=== PATIENT | female | born 1970 | race Caucasian/White ===

== ENCOUNTER → 2017-08-19 09:23 | Outpatient (CLI) | payer BC, MEDICAID, SELFPAY | PROVIDERS: Family Provider Family Medicine; PCP Family Medicine; Visit Provider Otolaryngology Otolaryngology/Facial Plastic Surgery | DX: J32.9 Chronic sinusitis, unspecified (principal) | CPT/HCPCS: 87070; 87205 ==

== ENCOUNTER 2017-08-23 21:42 | Emergency (ER) | payer BC, MEDICAID, SELFPAY ==
[2017-08-23 21:43] VITALS: BP 127/76; PULSE 103; RESP 20; TEMP 36.8; O2SAT 100; BMI 23.3
--- NOTE | 2017-08-23 22:12 | EKG12_ITS ---
Test Reason : SOB Blood Pressure : / mmHG Vent. Rate : 089 BPM Atrial Rate : 089 BPM P-R Int : 200 ms QRS Dur : 092 ms QT Int : 336 ms P-R-T Axes : 070 062 056 degrees QTc Int : 408 ms Normal sinus rhythm Normal ECG Confirmed by NICOLASA MCCALL, SOPHIE ([id number]), photo editor MARIO BARKLEY ([id number]) on 08/25/2017 8:31:27 AM Referred By: Eric Khan Confirmed By:SOPHIE BALDWIN MD
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
[2017-08-23 22:25] VITALS: O2SAT 97
[2017-08-23] MEDS: Ketorolac 30 MG/ML Syringe IV (22:33)
[2017-08-23] MEDS: diazePAM 5 MG Tablet PO (22:33)
[2017-08-23 23:16] LABS: Anion Gap 8 (5-15); BUN 9 mg/dL (7-18); BUN/Creat Ratio 10.7 RATIO (10-20); Calcium,Total 9.3 mg/dL (8.5-10.1); Chloride 107 mmol/L (98-107); Creatinine, Serum 0.84 mg/dL (0.55-1.02); EST Glomerular Filtration Rate 78 mL/min (>60); Est Glom Filt Rate - Afr Amer 94 mL/min (>60); Estimated Creatinine Clearance 82.25 ml/min; Glucose 87 mg/dL (74-106); Potassium 3.7 mmol/L (3.5-5.1); Sodium Level 142 mmol/L (136-145)
[2017-08-23 23:22] LABS: Pregnancy, Serum, hCG Quali. NEGATIVE Negative (0-9 Nonpreg)
[2017-08-23 23:31] LABS: Absolute Lymphocyte Count 2.13 X10^3/ul (0.83-4.51); Basophil# 0.04 X10^3/uL; Basophil% 0.5 % (0-1); Eosinophil# 0.24 X10^3/uL; Hematocrit 34.8 % (37-47); Hemoglobin 11.8 g/dl (12.0-15.0); Lymphocyte # 2.13 X10^3/ul (4.0); Lymphocyte % 26.6 % (19-41); Mean Corp Hgb Conc 33.9 g/gl (32-36); Mean Corpuscular Volume 91.3 fL (81-99); Mean Platelet Vol. 9.9 fl (6.2-12.0); Monocyte# 0.65 X10^3/uL; Monocyte% 8.1 % (0-10); Neutrophil # 4.95 X10^3/uL (2.7-7.7); Neutrophil % 61.7 % (47-70); Platelet Count 245 K/mm3 (150-450); RBC Distribution Width CV 12.5 % (11.6-14.6); RBC Distribution Width SD 40.7 fl (35.1-43.9); Red Blood Count 3.81 M/mm3 (4.2-5.4)
[2017-08-23 23:34] LABS: POSITIVE COUNT NO; POSITIVE DIFFERENTIAL NO; POSITIVE MORPHOLOGY NO
[2017-08-23 23:37] LABS: D-Dimer Quantitative (DVT/PE) < 0.27 FEU/ug/m (0.27-0.49)
--- NOTE | 2017-08-23 23:44 | RAD_ITS ---
STUDY: X-RAY CHEST REASON FOR EXAM: Female, 46 years old. Shortness of breath for 3 days. The shoulder and upper back pain. TECHNIQUE: PA and lateral views of the chest. COMPARISON: 10/20/2015. FINDINGS: The lungs are clear and expanded. There is no demonstrated pleural abnormality. Normal size heart. Normal mediastinum and richard. Normal visualized pulmonary arteries. Normal visualized aortic arch and descending thoracic aorta. Normal visualized thoracic spine. Normal visualized ribs, clavicles, and shoulders. There is no demonstrated abnormality of the visualized soft tissue structures of the upper abdomen. RAD/Chest PA and Lateral IMPRESSION: No active pulmonary disease. Electronically Signed: Abdirizak Deal MD at 0:35 EDT Tel , Service support ,
[2017-08-24 00:10] VITALS: PULSE 92; RESP 20; O2SAT 98
[2017-08-24 00:33] VITALS: BP 118/64; PULSE 85; RESP 16; O2SAT 100
== END 2017-08-24 00:35 | disposition home or self-care (01) ==
PROVIDERS: Emergency Provider Emergency Medicine; Family Provider Family Medicine; PCP Family Medicine
DX: M62.830 Muscle spasm of back (principal); M54.9 Dorsalgia, unspecified; G89.29 Other chronic pain; R20.2 Paresthesia of skin; Z79.899 Other long term (current) drug therapy; Z87.11 Personal history of peptic ulcer disease
CPT/HCPCS: 36415; 71046; 80048; 84703; 85025; 85379; 93005; 96374; 99284; A4216

== ENCOUNTER → 2017-09-22 13:48 | Outpatient (CLI) | payer BC, MEDICAID, SELFPAY ==
--- NOTE | 2017-09-22 13:50 | CT_ITS ---
STUDY: CT MAXILLOFACIAL SINUSES REASON FOR EXAM: Female, 46 years old. Sinusitis. RADIATION DOSAGE (If Supplied By Facility): CTDIvol = ( 33.06 ) mGy, DLP = ( 825.58 ) mGycm TECHNIQUE: The patient was scanned in a multi detector CT scanner. High resolution axial imaging was performed without the administration of intravenous contrast material. Sagittal and coronal images were reconstructed. Individualized dose optimization techniques were used for this CT. COMPARISON: None. FINDINGS: FRONTAL SINUSES: Normal aeration, without mucosal inflammatory disease. ETHMOIDAL SINUSES: There is minimal mucoperiosteal reaction in the anterior ethmoid air cells. MAXILLARY SINUSES: There is minimal mucoperiosteal reaction with air-fluid levels at the base of the maxillary sinuses. SPHENOIDAL SINUSES: Normal aeration, without mucosal inflammatory disease. There is patency of the bilateral maxillary infundibuli with normal uncinate processes, ethmoid bullae, and hiatus semilunaris. Normal bilateral middle turbinates. Normal bilateral inferior turbinates. There is a left sided nasal septal deviation with a left sided nasal septal spur. There is patency of the bilateral nasal airways. The visualized osseous structures are normal. The visualized bilateral orbital contents are normal. CT/Sinus/Facial Bone IMPRESSION: 1. Minimal ethmoid and maxillary sinus disease. 2. Nasal septal deviation to the left. Electronically Signed: Escobar Barr DO at 16:18 EDT Tel [phone], Service support ,
== END ==
PROVIDERS: Family Provider Family Medicine; PCP Family Medicine; Visit Provider Otolaryngology Otolaryngology/Facial Plastic Surgery
DX: J32.9 Chronic sinusitis, unspecified (principal)
CPT/HCPCS: 70486

== ENCOUNTER 2017-10-28 09:55 | Emergency (ER) | payer BC, MEDICAID, SELFPAY ==
[2017-10-28 09:56] VITALS: BP 106/69; PULSE 81; RESP 22; TEMP 36.6; O2SAT 98; BMI 22.7
--- NOTE | 2017-10-28 09:59 | ED.RN ---
PT SEEN AT [facility] LAST NIGHT FOR THIS. HAD CT ECT. LEFT THERE AT 0100.
--- NOTE | 2017-10-28 10:36 | ED.VISSUMM ---
- ER Visit Summary Date of Service: 10/28/17 Chief Complaint: Postoperative pain History of Present Illness: The patient is a 46 F presenting with facial/sinus pain after a balloon sinus surgery. She was doing well on steroids postoperatively but states that she stopped the steroids 2 days ago in the pain has increased since then. She denies visual changes, neck pain, or fever. She went to [facility] last night and had a CT of her sinuses that revealed inflammation and possible sinusitis but otherwise negative. She talked with her surgeon this morning and states that she was going to be restarted on steroids. Physical Examination: Vitals are within normal limits. She is not in distress. Minimal tenderness over the left maxillary sinuses but no objective facial swelling. No facial crepitus or erythema/warmth. Neck is supple. No lymphadenopathy. No meningeal findings. Lungs are clear bilaterally. Heart tones are regular without murmur. No evidence of DVT. Test Results: None performed Emergency Department Course and Treatment: I reviewed her CT report from the outside hospital. I discussed the case with her surgeon, Dr. Watson, since she already had a CT scan last night, we did not feel she would benefit from repeating it this early. She would like to be started back on steroids. Dr. Watson recommended a Medrol Dosepak and that she follow-up with him this week. Is also prescribed pain medication and antibiotics at the outside hospital which she is going to start as soon as she leaves here. Treatment Plan: Steroids, antibiotics Disposition: Home stable condition Impression: Initial encounter postoperative pain This note was generated with [employer] dictation software. It may contain incorrect words, spelling, and punctuation that were not noted in review of the chart prior to signing ED Disposition - Plan for ED Patient: Chief Complaint: General Illness Instructions: ED Post Op Pain Prescriptions: MethylPREDNISolone DosePak [Medrol DosePak] 4 mg PO UD #1 box Referrals: Valentin Ayala MD [STAFF PHYSICIAN] - 2 Days
== END 2017-10-28 10:52 | disposition home or self-care (01) ==
LOC: ED 10:22
PROVIDERS: Emergency Provider Emergency Medicine; Family Provider Family Medicine; PCP Family Medicine
DX: G89.18 Other acute postprocedural pain (principal); R51 Headache; Z79.899 Other long term (current) drug therapy; Z98.890 Other specified postprocedural states
CPT/HCPCS: 99282

== ENCOUNTER 2018-01-16 17:19 | Emergency (ER) | payer BC, MEDICAID, SELFPAY ==
[2018-01-16 17:20] VITALS: BP 145/71; PULSE 89; RESP 17; TEMP 36.7; O2SAT 96; BMI 24.3
[2018-01-16] MEDS: 0.9% Normal Saline 1,000 ML 150 ML IV (19:37)
[2018-01-16] MEDS: MethylPREDNISolone 125 MG/2 ML Vial IV (19:37)
[2018-01-16] MEDS: DiphenhydrAMINE 50 MG/ML Syringe 25 MG IV (19:37)
[2018-01-16 19:39] VITALS: BP 112/61; PULSE 74; RESP 15; O2SAT 100
[2018-01-16 19:48] LABS: Absolute Neutrophil Count 7.3 X10^3/uL (2.0-7.7); Basophil# 0.03 X10^3/uL; Basophil% 0.3 % (0-1); Eosinophil# 0.18 X10^3/uL; Eosinophils% 1.8 % (0-5); Hematocrit 37.6 % (37-47); Hemoglobin 11.8 g/dl (12.0-15.0); Lymphocyte % 17.2 % (19-41); Mean Corp Hgb Conc 31.4 g/gl (32-36); Mean Corpuscular Volume 92.4 fL (81-99); Mean Platelet Vol. 10.8 fl (6.2-12.0); Monocyte# 0.61 X10^3/uL; Monocyte% 6.2 % (0-10); Neutrophil # 7.33 X10^3/uL (2.7-7.7); Neutrophil % 74.3 % (47-70); Platelet Count 256 K/mm3 (150-450); RBC Distribution Width CV 13.1 % (11.6-14.6); RBC Distribution Width SD 43.8 fl (35.1-43.9); Red Blood Count 4.07 M/mm3 (4.2-5.4); White Blood Count 9.9 K/mm3 (4.4-11.0)
[2018-01-16 19:50] LABS: POSITIVE COUNT NO; POSITIVE DIFFERENTIAL NO; POSITIVE MORPHOLOGY NO
[2018-01-16 20:04] LABS: Anion Gap 6 (5-15); BUN 11 mg/dL (7-18); BUN/Creat Ratio 16.7 RATIO (10-20); Calcium,Total 8.7 mg/dL (8.5-10.1); Chloride 109 mmol/L (98-107); Creatinine, Serum 0.66 mg/dL (0.55-1.02); EST Glomerular Filtration Rate 102 mL/min (>60); Est Glom Filt Rate - Afr Amer 124 mL/min (>60); Estimated Creatinine Clearance 103.57 ml/min; Glucose 80 mg/dL (74-106); Sodium Level 141 mmol/L (136-145)
--- NOTE | 2018-01-16 21:05 | ED.VISSUMM ---
- ER Visit Summary Date of Service: 01/16/18 Chief Complaint: Swelling to neck and face History of Present Illness: The patient is a 47 F who reports frequent episodes of muscle stiffness and swelling to her body. She had multiple workups, medications, and allergy testing without a specific cause. Patient reports increased swelling to her hands and face over the past couple of days. Tonight her lips felt more swollen this is what prompted her evaluation. She denies tongue thickness or difficulty swallowing. She did start doxycycline for an ear infection a couple days ago, but states she has had this in the past. She is exposed to mold in her home as well as to multiple chemical agents at her work. Physical Examination: Vital signs are unremarkable. Patient sitting upright in bed no acute distress. Head neck examination is remarkable only for mild facial edema. I do not appreciate any tongue edema or significant lip edema. She does have slightly hazy fluid to the bilateral TMs. Heart is regular rate and rhythm. Lung sounds are clear. Abdomen is soft and nontender. Extremity examination reveals mild edema to her hands and her rings do stick when she tries to remove them. Test Results: CBC and chemistry studies are grossly unremarkable. Emergency Department Course and Treatment: Patient was given Solu-Medrol, Pepcid, Benadryl, and IV fluids. She was observed on quality assurance monitor chassis. Symptoms are improving and she denies any shortness of breath or difficulty swallowing. Vital signs remained stable. She will be given a prednisone taper for home. Treatment Plan: [] Disposition: Discharge Impression: Allergic reaction This note was generated with [employer] dictation software. It may contain incorrect words, spelling, and punctuation that were not noted in review of the chart prior to signing ED Disposition - Plan for ED Patient: Disposition: Home or Assisted Living Chief Complaint: Edema Instructions: ED Allergic Reaction General Other Prescriptions: Prednisone 10 mg PO DAILY #63 tablet Referrals: Adryan Tompkins MD [Primary Care Provider] -
[2018-01-16 21:12] VITALS: BP 115/63; PULSE 73; RESP 16; O2SAT 98
== END 2018-01-16 21:13 | disposition home or self-care (01) ==
PROVIDERS: Emergency Provider Emergency Medicine; Family Provider Family Medicine; PCP Family Medicine
DX: T78.40XA Allergy, unspecified, initial encounter (principal); R22.0 Localized swelling, mass and lump, head; X58.XXXA Exposure to other specified factors, initial encounter; M79.10 Myalgia, unspecified site; Z72.0 Tobacco use; Z79.899 Other long term (current) drug therapy; Z87.442 Personal history of urinary calculi
CPT/HCPCS: 80048; 85025; 96361; 96374; 96375; 99284; J7030; A4216; J3490

== ENCOUNTER 2018-02-04 03:10 | Emergency (ER) | payer BC, MEDICAID, SELFPAY ==
[2018-02-04 03:12] VITALS: BP 119/75; PULSE 78; RESP 16; TEMP 36.8; O2SAT 98; BMI 24.8
[2018-02-04 03:22] LABS: Mucous, Urine 0 SEEN /hpf (<or=2+); Red Blood Cells-Urine 0 SEEN /hpf (0-5)
[2018-02-04 03:24] LABS: Color, Urine Yellow (Yellow); Glucose, Dipstick Normal (Normal); Ketone-Dipstick Negative (Negative); Leukocyte Esterase-Dipstick 25 /ul (Negative); Nitrite-Dipstick Negative (Negative); Occult Blood-Urine 10 /ul (Negative); Protein-Dipstick Negative (Negative); Specific Gravity, Urine 1.015 (1.002-1.030); Urine Bilirubin Dipstick Negative (Negative); Urine Clarity Cloudy (Clear); Urine Urobilinogen Normal (Normal)
--- NOTE | 2018-02-04 03:31 | ED.DCSUM_ITS ---
- ER Visit Summary Date of Service: 02/04/18 Chief Complaint: Dysuria History of Present Illness: The patient is a 47 F presenting with dysuria. She states this has been ongoing for the past 4-5 days. She has urinary frequency, urgency, dysuria. She denies hematuria. She has had subjective fever. She has nausea with no vomiting. She has mild bilateral flank pain. She has a history of previous UTIs which feel similar. Denies other complaints. Physical Examination: Vitals are stable. Patient is afebrile. Alert no acute distress. HEENT exam is unremarkable. Neck is supple. Lungs are clear and equal bilaterally. Heart is regular rate and rhythm. Abdomen is soft mild suprapubic tenderness with no rebound or guarding Back: Mild CVA tenderness bilaterally Extremities are unremarkable. Skin is warm and dry. Remainder of exam is unremarkable. Emergency Department Course and Treatment: UA shows 0-5 white blood cells, 2+ bacteria, trace leukocytes. Urine culture was sent. Due to her symptoms, she is given prescription for Macrobid and Pyridium. Advised follow-up with her primary care physician. Advised return to ED for worsening complaints. Disposition: Discharge home Impression: UTI This note was generated with [employer] dictation software. It may contain incorrect words, spelling, and punctuation that were not noted in review of the chart prior to signing ED Disposition - Plan for ED Patient: Chief Complaint: Complaint Instructions: ED UTI Cystitis Female Prescriptions: Nitrofurantoin Macrocrystals [Macrobid] 100 mg PO Q12 #10 capsule Phenazopyridine [Pyridium] 100 mg PO TID PRN #20 tablet PRN Reason: Bladder Spasms Referrals: Adryan Tompkins MD [Primary Care Provider] -
[2018-02-04 03:35] LABS: Amorphous Sediment 1+; Bacteria 2+ /hpf (None Seen); Squamous Epithelial Cells - UA 0-5 SEEN /hpf (5-10); White Blood Cells 0-5 SEEN /hpf (0-5)
--- NOTE | 2018-02-04 03:48 | ED.DEP ---
ED Disposition - Plan for ED Patient: Chief Complaint: Complaint Instructions: ED UTI Cystitis Female Prescriptions: Nitrofurantoin Macrocrystals [Macrobid] 100 mg PO Q12 #10 capsule Phenazopyridine [Pyridium] 100 mg PO TID PRN #20 tablet PRN Reason: Bladder Spasms Referrals: Adryan Tompkins MD [Primary Care Provider] -
[2018-02-04] MEDS: Nitrofurantoin Macrocrystals 100 MG Capsule PO (04:11)
[2018-02-04] MEDS: Phenazopyridine 95 MG Tablet 190 MG PO (04:11)
[2018-02-04 04:12] VITALS: BP 110/74; PULSE 96; RESP 16; O2SAT 97
== END 2018-02-04 04:13 | disposition home or self-care (01) ==
PROVIDERS: Emergency Provider Emergency Medicine; Family Provider Family Medicine; PCP Family Medicine
DX: N39.0 Urinary tract infection, site not specified (principal); Z72.0 Tobacco use; Z87.440 Personal history of urinary (tract) infections
CPT/HCPCS: 81001; 87086; 99283

== ENCOUNTER 2018-05-05 22:19 | Emergency (ER) | payer OTHER, SELFPAY ==
[2018-05-05 22:20] VITALS: BP 131/68; PULSE 95; RESP 16; TEMP 36.2; O2SAT 99; BMI 22.7
--- NOTE | 2018-05-05 22:44 | RAD_ITS ---
STUDY: X-RAY - RIGHT FOOT CLINICAL: Female, 47 years old. Status post fall. Pain. TECHNIQUE: 3 view(s) of the foot. COMPARISON: None. FINDINGS: Normal talus, calcaneus, and tarsal bones. Normal visualized subtalar, talonavicular, calcaneocuboid, tarsal and tarsometatarsal articulations. Normal metatarsi. There is degenerative arthrosis of the metatarsophalangeal joint of the hallux with a mild hallux valgus deformity. Normal tibial and fibular sesamoid bones. Normal interphalangeal joint of the great toe. Normal phalanges of the great toe. Normal second through fifth metatarsophalangeal joints. Normal interphalangeal joints and phalanges of the lesser toes. The soft tissue structures are unremarkable. RAD/Foot min 3 Views IMPRESSION: No demonstrated acute osseous injury. Electronically Signed: Abdirizak Deal MD at 23:57 EST Tel , Service support ,
--- NOTE | 2018-05-05 22:44 | RAD_ITS ---
STUDY: X-RAY - RIGHT KNEE REASON FOR EXAM: Female, 47 years old. Status post fall. Right knee pain. TECHNIQUE: 4 view(s) of the knee. COMPARISON: None. FINDINGS: Normal visualized distal femur. Normal visualized proximal tibia and fibula. Normal proximal tibiofibular articulation. There is no demonstrated fracture. Normal medial femorotibial compartment. Normal lateral femorotibial compartment. Normal patellofemoral articulation. There is no demonstrated joint effusion. The soft tissue structures are unremarkable. RAD/Knee 4 or More Views IMPRESSION: Normal x-ray examination of the knee. Electronically Signed: Abdirizak Deal MD at 0:01 EST Tel , Service support ,
--- NOTE | 2018-05-06 00:08 | ED.VISSUMM ---
- ER Visit Summary Date of Service: 05/06/18 Chief Complaint: Fall History of Present Illness: The patient is a 47 F who presents with right foot knee and hamstring pain. Initially about 2 AM this morning while at work she slipped on a wet floor and rolled her ankle. She was wearing an ankle brace. Today she slipped again from an off a bucket. She fell. Since that time she has had increased right knee pain and pain in the back of her thigh. She is able to ambulate but it is painful. Physical Examination: Afebrile vitals normal Heart regular rate and rhythm Lungs clear Patient has active full range of motion of the right lower extremity she has diffuse tenderness across the knee and posterior distal thigh there is no appreciable knee effusion no deformity she has no pain at the ankle she does have tenderness soft tissue swelling and some bruising along the lateral right foot she has an easily palpable dorsalis pedis pulse with brisk capillary refill and normal sensation Test Results: Right knee x-ray is normal, right foot x-ray no acute osseous injury Emergency Department Course and Treatment: X-rays are negative. Patient given Damir wraps and crutches. She is advised on supportive care including rest ice elevation. She will follow-up as an outpatient. She understands to return for new or worsening symptoms. She was discharged. Treatment Plan: [] Disposition: Discharge Impression: Right foot contusion Right knee sprain Right hamstring strain This note was generated with [employer] dictation software. It may contain incorrect words, spelling, and punctuation that were not noted in review of the chart prior to signing ED Disposition - Plan for ED Patient: Referrals: Adryan Tompkins MD [Primary Care Provider] -
[2018-05-06 00:10] VITALS: PULSE 72; RESP 15; O2SAT 97
--- NOTE | 2018-05-06 00:13 | DCINST.ED_ITS ---
ED Disposition - Plan for ED Patient: Instructions: ED Sprain Knee, ED Contusion Lower Ext, ED Strain Muscle Ext Referrals: Adryan Tompkins MD [Primary Care Provider] - [facility] [GROUP OF PHYSICIANS] -
[2018-05-06] MEDS: Naproxen 250 MG Tablet 500 MG PO (00:42)
== END 2018-05-06 01:04 | disposition home or self-care (01) ==
PROVIDERS: Emergency Provider Emergency Medicine; Family Provider Family Medicine; PCP Family Medicine
DX: S83.91XA Sprain of unspecified site of right knee, initial encounter (principal); S76.311A Strain of muscle, fascia and tendon of the posterior muscle group at thigh level, right thigh, initial encounter; S90.31XA Contusion of right foot, initial encounter; W01.0XXA Fall on same level from slipping, tripping and stumbling without subsequent striking against object, initial encounter; Y93.9 Activity, unspecified; Y92.89 Other specified places as the place of occurrence of the external cause; Y99.0 Civilian activity done for income or pay; Z72.0 Tobacco use; Z86.2 Personal history of diseases of the blood and blood-forming organs and certain disorders involving the immune mechanism
CPT/HCPCS: 73564; 73630; 99284

== ENCOUNTER 2018-05-14 17:36 | Emergency (ER) | payer BC, MEDICAID, SELFPAY ==
[2018-05-14 16:59] VITALS: BMI 22.7
[2018-05-14 17:37] VITALS: PULSE 97; RESP 16; TEMP 36.9; O2SAT 99; BMI 22.7
--- NOTE | 2018-05-14 18:20 | EKG12_ITS ---
Test Reason : PALPS Blood Pressure : / mmHG Vent. Rate : 089 BPM Atrial Rate : 091 BPM P-R Int : 182 ms QRS Dur : 090 ms QT Int : 332 ms P-R-T Axes : 063 061 064 degrees QTc Int : 403 ms Normal sinus rhythm Normal ECG Confirmed by NICLOASA MCCALL, SOPHIE ([id number]), rewrite editor TOI PRATT ([id number]) on 05/15/2018 2:24:50 PM Referred By: ELVIA/NATHAN Confirmed By:SOPHIE BALDWIN MD
--- NOTE | 2018-05-14 18:24 | ED.DCSUM_ITS ---
- ER Visit Summary Date of Service: 05/14/18 Chief Complaint: Palpitations History of Present Illness: The patient is a 47 F presenting for palpitations. Patient states she went to her primary care physician's office today for follow- up after a fall. She injured her right knee. She is being scheduled for an MRI. She states while in the office her heart rate was fast. She does not recall the rate. She complains of intermittent palpitations. She denies chest pain. She has mild shortness of breath and cough. She has had subjective fever. She also complains of mild abdominal cramping, nausea, vomiting, diarrhea. Denies lightheadedness or syncope. No PE/DVT risk factors. No other complaints. Physical Examination: Vitals are stable. Heart rate 97. Patient is afebrile. Alert no acute distress. HEENT exam is unremarkable. Neck is supple. Lungs are clear and equal bilaterally. Heart is regular rate and rhythm. Abdomen is soft mild epigastric tenderness, No guarding or rebound Extremities mild right calf tenderness, normal distal pulse Skin is warm and dry. No focal neurologic deficit. Remainder of exam is unremarkable. Emergency Department Course and Treatment: Patient given IV fluids, Zofran. EKG is sinus rate of 89 with no acute ischemic changes. Chest x-ray shows no acute process. CBC, chemistries unremarkable. Liver lipase are normal. Troponin is negative. D-dimer negative. Influenza negative. Orthostatics negative. Ultrasound right lower extremity shows no evidence of DVT. On reevaluation, patient is resting comfortably and feels improved. She is given a prescription for Zofran. She is advised to follow-up with her primary care physician. Advised return to ED for worsening complaints. Disposition: Discharge home Impression: Palpitations This note was generated with [employer] dictation software. It may contain incorrect words, spelling, and punctuation that were not noted in review of the chart prior to signing ED Disposition - Plan for ED Patient: Instructions: ED Palpitations Prescriptions: Ondansetron [Zofran Odt] 4 mg PO Q8H PRN PRN #10 tablet PRN Reason: Nausea Referrals: Adryan Tompkins MD [Primary Care Provider] -
--- NOTE | 2018-05-14 18:30 | RAD_ITS ---
STUDY: X-RAY CHEST REASON FOR EXAM: Female, 47 years old. Palpitations TECHNIQUE: Single AP portable view of the chest. COMPARISON: 08/23/2017 FINDINGS: The lungs are clear and expanded. There is no demonstrated pleural abnormality. Normal size heart. Normal mediastinum and richard. Normal visualized pulmonary arteries. Normal visualized aortic arch and descending thoracic aorta. Normal visualized thoracic spine. Normal visualized ribs, clavicles, and shoulders. There is no demonstrated abnormality of the visualized soft tissue structures of the upper abdomen. RAD/Chest 1 View (Portable) IMPRESSION: Normal x-ray examination of the chest. Electronically Signed: Ulysses Hernadez DO at 19:11 EDT Tel , Service support ,
--- NOTE | 2018-05-14 18:33 | US_ITS ---
STUDY: VENOUS DOPPLER ULTRASOUND - RIGHT LOWER EXTREMITY REASON FOR EXAM: Female, 47 years old. Right leg pain TECHNIQUE: Ultrasound evaluation of the deep vein system to include patterson-scale imaging and compression was performed. Patterson-scale imaging and Doppler sonographic evaluation, including duplex spectral analysis and qualitative color flow sonography, was performed. COMPARISON: None. FINDINGS: Common Femoral Vein: Normal compression, spontaneity and augmentation. Normal color Doppler. Common Femoral Vein/Greater Saphenous Junction: Normal compression, spontaneity and augmentation. Normal color Doppler. Deep Femoral Vein: Normal compression, spontaneity and augmentation. Normal color Doppler. Femoral Proximal: Normal compression, spontaneity and augmentation. Normal color Doppler. Femoral Middle: Normal compression, spontaneity and augmentation. Normal color Doppler. Femoral Distal: Normal compression, spontaneity and augmentation. Normal color Doppler. Popliteal Vein: Normal compression, spontaneity and augmentation. Normal color Doppler. Posterior Tibial Vein: Normal compression, spontaneity and augmentation. Normal color Doppler. Peroneal Vein: Normal compression, spontaneity and augmentation. Normal color Doppler. US/Venous Duplex Imag/Limited/Uni IMPRESSION: Normal venous Doppler ultrasound of the lower extremity. Electronically Signed: Ulysses Hernadez DO at 20:15 EDT Tel , Service support ,
[2018-05-14] MEDS: Ondansetron 4 MG/2 ML Vial IV (18:43)
[2018-05-14 18:45] LABS: Absolute Lymphocyte Count 2.23 X10^3/ul (0.83-4.51); Absolute Neutrophil Count 5.8 X10^3/uL (2.0-7.7); Basophil# 0.02 X10^3/uL; Basophil% 0.2 % (0-1); Eosinophil# 0.37 X10^3/uL; Eosinophils% 4.1 % (0-5); Hematocrit 40.6 % (37-47); Lymphocyte # 2.23 X10^3/ul (4.0); Lymphocyte % 24.7 % (19-41); Mean Corpuscular Volume 90.4 fL (81-99); Mean Platelet Vol. 10.5 fl (6.2-12.0); Monocyte# 0.58 X10^3/uL; Monocyte% 6.4 % (0-10); Neutrophil % 64.4 % (47-70); Platelet Count 273 K/mm3 (150-450); RBC Distribution Width CV 13.2 % (11.6-14.6); RBC Distribution Width SD 43.2 fl (35.1-43.9); Red Blood Count 4.49 M/mm3 (4.2-5.4)
[2018-05-14 18:47] LABS: POSITIVE COUNT NO; POSITIVE DIFFERENTIAL NO; POSITIVE MORPHOLOGY NO
[2018-05-14 18:55] LABS: ALB/GLOB Ratio 1.2 RATIO (0.9-2.4); AST(SGOT) 12 U/L (15-37); Alanine Aminotransfer ALT/SGPT 17 U/L (13-56); Albumin, Serum 4.3 g/dL (3.2-5.0); Alkaline Phosphatase 64 U/L (45-117); Anion Gap 4 (5-15); BUN 7 mg/dL (7-18); BUN/Creat Ratio 8.7 RATIO (10-20); Calcium,Total 8.9 mg/dL (8.5-10.1); Chloride 113 mmol/L (98-107); EST Glomerular Filtration Rate 82 mL/min (>60); Est Glom Filt Rate - Afr Amer 99 mL/min (>60); Estimated Creatinine Clearance 85.45 ml/min; Globulin 3.5 g/dL (2.2-4.2); Glucose 104 mg/dL (74-106); Lipase 129 U/L (73-393); Potassium 3.5 mmol/L (3.5-5.1); Protein, Total 7.8 g/dL (6.4-8.2); Sodium Level 140 mmol/L (136-145)
[2018-05-14 19:28] LABS: D-Dimer Quantitative (DVT/PE) 0.38 FEU/ug/m (0.27-0.49)
[2018-05-14 19:41] VITALS: BP 109/56; BP 111/63; BP 115/77; PULSE 70; PULSE 74; PULSE 90
--- NOTE | 2018-05-14 19:59 | ED.DEP ---
ED Disposition - Plan for ED Patient: Instructions: ED Palpitations Prescriptions: Ondansetron [Zofran Odt] 4 mg PO Q8H PRN PRN #10 tablet PRN Reason: Nausea Referrals: Adryan Tompkins MD [Primary Care Provider] -
[2018-05-14 20:23] VITALS: BP 102/61; PULSE 69; RESP 16
== END 2018-05-14 21:00 | disposition home or self-care (01) ==
LOC: ED 18:36
PROVIDERS: Emergency Provider Emergency Medicine; Family Provider Family Medicine; PCP Family Medicine
DX: R00.2 Palpitations (principal); M79.604 Pain in right leg; R11.2 Nausea with vomiting, unspecified; R19.7 Diarrhea, unspecified; R06.00 Dyspnea, unspecified; R05 Cough; Z79.899 Other long term (current) drug therapy; Z86.2 Personal history of diseases of the blood and blood-forming organs and certain disorders involving the immune mechanism
CPT/HCPCS: 71045; 80053; 83690; 84484; 85025; 85379; 87804; 93005; 93971; 96361; 96374; 99285; J7040; A4216; J2405

== ENCOUNTER 2018-06-22 23:16 | Emergency (ER) | payer MEDICAID, SELFPAY ==
[2018-05-25 17:16] VITALS: BMI 22.7
[2018-06-22 23:17] VITALS: BP 121/73; PULSE 90; RESP 14; TEMP 36.4; O2SAT 95; BMI 22.7
--- NOTE | 2018-06-23 00:09 | ED.VISSUMM ---
- ER Visit Summary Date of Service: 06/23/18 Chief Complaint: Ear pain History of Present Illness: The patient is a [address] Sonu Fung. She reports that she has had a cough for the past week. Is productive of yellow sputum without blood. States that her cough is actually improving. As her cough is improving she is noticing that her ears are bothering her more. She reports that she has a throbbing pressure to both ears that is 8 out of 10 at worst and 5-10 currently. Is worsened by coughing or laying down. She taken Tylenol and NSAIDs without relief. Patient complains of chills. She denies a fever. She has had a sore throat the 7-10 severity. She denies any chest pain or shortness of breath. Physical Examination: Vitals: Stable. Afebrile. General: Well-nourished and well-developed. Head: Normocephalic atraumatic. HEENT: Serous effusions bilaterally. No evidence of otitis media. There is pharyngeal erythema. No tonsillar exudate or enlargement. No cervical lymphadenopathy. Neck: Supple, no lymphadenopathy. No JVD. Nontender. Cardiovascular: Regular rate and rhythm. No murmurs. Respiratory: No respiratory distress. Clear to auscultation bilaterally. Abdominal: Soft, nontender, nondistended, normal bowel sounds. No guarding, rebound, or peritoneal signs. Back: Nontender. Extremities: Nontender, no edema. Skin: Normal color, no rash. Neurologic: Alert and oriented ?3. Cranial nerves II through XII are intact. Normal strength and sensation. Psych: Normal affect. Emergency Department Course and Treatment: Patient was reassured. She is resting comfortably. Treatment Plan: Patient will be discharged with [facility] and [place]. Instructed to follow-up with Dr. Ayala, whom she is seen previously, in 1 week if not improving. Return to the emergency department for any worsening symptoms. Disposition: To home in improved and stable condition. Impression: 1. URI. 2. Bilateral serous otitis media. This note was generated with [employer] software. It may contain incorrect words, spelling, and punctuation that were not noted in review of the chart prior to signing ED Disposition - Plan for ED Patient: Disposition: Home or Assisted Living Instructions: ED Otitis Media Serous Adult Prescriptions: Hydrocodone Bitart/Apap 5-325 [[place] 5MG-325MG] 1 tablet PO Q4H PRN PRN 2 Days #10 tablet PRN Reason: Pain Cetirizine HCl [Zyrtec] 10 mg PO DAILY #14 capsule Referrals: Valentin Ayala MD [STAFF PHYSICIAN] - 1 Week if not improving
[2018-06-23 00:21] VITALS: BP 127/73
[2018-06-23] MEDS: HYDROcodone Bitartrate/Apap 5/325 Tablet PO (00:24)
== END 2018-06-23 00:30 | disposition home or self-care (01) ==
LOC: ED 23:50
PROVIDERS: Emergency Provider Emergency Medicine; Family Provider Family Medicine; PCP Family Medicine
DX: H65.93 Unspecified nonsuppurative otitis media, bilateral (principal); J06.9 Acute upper respiratory infection, unspecified; Z79.899 Other long term (current) drug therapy; Z87.891 Personal history of nicotine dependence
CPT/HCPCS: 99283

== ENCOUNTER → 2018-08-02 16:39 | Outpatient (CLI) | payer MEDICAID, SELFPAY ==
[2018-05-25 17:16] VITALS: BMI 22.7
[2018-07-17 14:40] VITALS: BMI 22.7
--- NOTE | 2018-08-02 16:41 | MRI_ITS ---
STUDY: MRI RIGHT KNEE REASON FOR EXAM: Female, 47 years old. Fall. Pain. TECHNIQUE: Standardized fat and water weighted pulse sequences were obtained in all 3 orthogonal planes. COMPARISON: May 05, 2018. FINDINGS: Patellofemoral articular cartilage preserved. Lateral compartment articular cartilage preserved. Medial compartment articular cartilage is preserved. No acute fracture, dislocation or osseous destruction. Increased TT-TG distance measuring 21 mm. Shallow trochlear groove. Minimal Hoffa's fat pad edema (sagittal image 9 series 4). Normal medial and lateral patellar retinaculum. Lateral meniscus intact. Medial meniscus intact. Joint fluid physiologic. Small multiseptated popliteal cyst. No significant soft tissue swelling. Normal medial collateral ligamentous complex (MCL). Normal distal semimembranosus, gracilis and semitendinosus tendons. Normal proximal tibiofibular articulation. Normal lateral collateral (fibular) ligament. Normal popliteus tendon. Normal biceps femoris tendon. Normal anterior cruciate ligament (ACL). Normal posterior cruciate ligament (PCL). Normal quadriceps tendon. Normal patellar tendon. Normal Hoffa's fat pad. MRI/Lower Ext Joint Only (Routine) IMPRESSION: Shallow trochlear groove with increased TT-TG distance Minimal Hoffa's fat-pad impingement Small septated popliteal cyst No internal derangement Electronically Signed: Sergey Kearns DO at 11:57 EDT Tel , Service support ,
== END ==
PROVIDERS: Family Provider Family Medicine; PCP Family Medicine; Referring Provider Physician Assistant; Visit Provider Physician Assistant
DX: S76.311A Strain of muscle, fascia and tendon of the posterior muscle group at thigh level, right thigh, initial encounter (principal); S83.91XA Sprain of unspecified site of right knee, initial encounter; S90.31XA Contusion of right foot, initial encounter; X58.XXXA Exposure to other specified factors, initial encounter; Y93.9 Activity, unspecified; Y92.9 Unspecified place or not applicable; Y99.9 Unspecified external cause status
CPT/HCPCS: 73721

== ENCOUNTER 2018-08-28 00:16 | Emergency (ER) | payer MEDICAID, SELFPAY ==
[2018-08-08 12:14] VITALS: BMI 22.7
[2018-08-28 00:16] VITALS: BP 123/60; PULSE 82; RESP 17; TEMP 36.7; O2SAT 99; BMI 24.0
[2018-08-28 00:47] LABS: Bacteria 0 SEEN /hpf (None Seen); Mucous, Urine 0 SEEN /hpf (<or=2+); Red Blood Cells-Urine 0 SEEN /hpf (0-5); White Blood Cells 0 SEEN /hpf (0-5)
[2018-08-28] MEDS: diazePAM 5 MG Tablet PO (00:47)
[2018-08-28] MEDS: Ketorolac 30 MG/ML Syringe IV (00:47)
[2018-08-28 00:48] LABS: Color, Urine Yellow (Yellow); Glucose, Dipstick Normal (Normal); Ketone-Dipstick Negative (Negative); Leukocyte Esterase-Dipstick Negative /ul (Negative); Nitrite-Dipstick Negative (Negative); Occult Blood-Urine Negative /ul (Negative); Protein-Dipstick Negative (Negative); Urine Bilirubin Dipstick Negative (Negative); Urine Urobilinogen Normal (Normal)
[2018-08-28 00:49] LABS: Absolute Neutrophil Count 8.6 X10^3/uL (2.0-7.7); Basophil# 0.03 X10^3/uL; Basophil% 0.2 % (0-1); Eosinophil# 0.39 X10^3/uL; Hematocrit 38.2 % (37-47); Hemoglobin 12.7 g/dl (12.0-15.0); Lymphocyte % 23.6 % (19-41); Mean Corp Hgb Conc 33.2 g/gl (32-36); Mean Corpuscular Hgb 29.7 pg (27.0-32.0); Mean Corpuscular Volume 89.5 fL (81-99); Monocyte# 0.97 X10^3/uL; Monocyte% 7.4 % (0-10); Neutrophil # 8.61 X10^3/uL (2.7-7.7); Neutrophil % 65.6 % (47-70); Platelet Count 339 K/mm3 (150-450); RBC Distribution Width CV 13.2 % (11.6-14.6); RBC Distribution Width SD 42.7 fl (35.1-43.9); Red Blood Count 4.27 M/mm3 (4.2-5.4); White Blood Count 13.1 K/mm3 (4.4-11.0)
[2018-08-28 00:50] LABS: POSITIVE COUNT NO; POSITIVE DIFFERENTIAL NO; POSITIVE MORPHOLOGY NO
[2018-08-28 00:51] LABS: Internal QC Validated? YES +Cl - CLEAR BKGD; Pregnancy, Urine Negative Negative
[2018-08-28 00:57] LABS: Squamous Epithelial Cells - UA 0-5 SEEN /hpf (5-10); Urine Clarity Clear (Clear)
--- NOTE | 2018-08-28 01:00 | CT_ITS ---
STUDY: CT ABDOMEN AND PELVIS WITHOUT CONTRAST REASON FOR EXAM: Female, 47 years old. Bilateral flank pain for 2 weeks, worse today. Nausea, vomiting, and diarrhea. RADIATION DOSAGE (If Supplied By Facility): CTDIvol = ( 6.75 ) mGy, DLP = ( 330.50 ) mGycm TECHNIQUE: Transaxial images were obtained from the dome of the diaphragm to the symphysis pubis without oral contrast, and without intravenous contrast. Sagittal and coronal images were reconstructed. Individualized dose optimization techniques were used for this CT. COMPARISON: None. FINDINGS: The visualized lung bases are unremarkable. The visualized portions of the heart are within normal limits. Normal liver. The gallbladder is contracted, which is probably due to the patient's nonfasting state, but which might be due to gallbladder disease. Normal spleen. Normal pancreas. Normal bilateral adrenal glands. Normal right kidney. Normal left kidney. Normal visualized stomach. Normal small intestine. Normal colon. The appendix is visualized medial to the cecum on axial images 112-129 and it appears normal.. Normal abdominal aorta. Normal inferior vena cava. There are small retroperitoneal lymph nodes which are normal in size and morphology. Normal urinary bladder. There is minimal free fluid in the posterior cul-de-sac of the pelvis. Normal abdominal wall. There are degenerative changes in the lower lumbar spine. CT/Abdomen/Pelvis without Cont IMPRESSION: Contracted gallbladder, probably due to the patient's nonfasting state. Minimal free fluid in the posterior cul-de-sac of the pelvis. No evidence for acute pathology. No demonstrated urinary calculi or hydronephrosis. No evidence for diverticulitis or appendicitis. Electronically Signed: Yusuf Tovar MD at 1:35 EDT , Service support ,
[2018-08-28 01:05] LABS: Anion Gap 5 (5-15); BUN 14 mg/dL (7-18); BUN/Creat Ratio 16.8 RATIO (10-20); Calcium,Total 9.3 mg/dL (8.5-10.1); Chloride 106 mmol/L (98-107); Creatinine, Serum 0.84 mg/dL (0.55-1.02); EST Glomerular Filtration Rate 78 mL/min (>60); Est Glom Filt Rate - Afr Amer 94 mL/min (>60); Estimated Creatinine Clearance 81.38 ml/min; Glucose 103 mg/dL (74-106); Potassium 3.6 mmol/L (3.5-5.1); Sodium Level 140 mmol/L (136-145)
--- NOTE | 2018-08-28 01:41 | ED.DCSUM_ITS ---
- ER Visit Summary Date of Service: 08/28/18 Chief Complaint: Bilateral flank pain History of Present Illness: The patient is a 47 F who presents the emergency department with progressively worsening bilateral flank pain. She states it is her kidneys. Is worse with movement. She was recently told that she had degenerative disc disease and has been seeing a chiropractor. Today she had chiropractic work on her neck. Shortly after going home she began to have pain in the low back. There is no radiation of the pain. She denies any urinary symptoms or fevers. She has no history of IV drug use. She denies any rashes. Physical Examination: Afebrile vital signs are stable Gen: Well-nourished well-developed Head: Normocephalic atraumatic Eyes: Perrl EOMI ENT: TMs clear no rhinorrhea moist mucous membranes Neck: Supple no lymphadenopathy no JVD nontender CVS: Regular rate rhythm no murmurs normal S1-S2 Respiratory: No distress clear to auscultation bilaterally chest nontender Abdomen: Soft nontender nondistended normal bowel sounds no masses Back: Palpation over the lumbar paraspinal musculature Extremity: Nontender no edema Skin: Normal color no rash Neuro: alert orientated ?3 CN II-XII intact normal strength sensation Psych: Normal affect normal mood Test Results: Urinalysis negative. Creatinine 0.84. White count 13. CT the flank showed no obvious pathology. Emergency Department Course and Treatment: Patient was Toradol and Valium. Patient was sure that this was renal related. This time she has a normal creatinine. She has a normal urinalysis. She has normal noncontrasted kidney findings. I do not feel strongly that we need to provide contrast for the kidneys. Her pain is reproducible and seems localized in the musculature and is reproduced with movement. I will write for her to have naproxen and Valium at home. Follow-up with her doctors Impression: 1. Lumbar muscle spasm This note was generated with [employer] dictation software. It may contain incorrect words, spelling, and punctuation that were not noted in review of the chart prior to signing ED Disposition - Plan for ED Patient: Disposition: Home or Assisted Living Instructions: BACK SPASM, No Trauma Prescriptions: Naproxen [Naprosyn] 500 mg PO BID #20 tab Prescription Printed Diazepam [Valium] 5 mg PO Q8 PRN #15 tab PRN Reason: Muscle Spasm Prescription Printed Referrals: Adryan Tompkins MD [Primary Care Provider] - 1 Week if not improving
[2018-08-28 02:01] VITALS: BP 125/64; PULSE 72; RESP 18; O2SAT 97
== END 2018-08-28 02:02 | disposition home or self-care (01) ==
PROVIDERS: Emergency Provider Emergency Medicine; Family Provider Family Medicine; PCP Family Medicine
DX: M62.830 Muscle spasm of back (principal); M54.9 Dorsalgia, unspecified; Z87.891 Personal history of nicotine dependence
CPT/HCPCS: 74176; 80048; 81001; 81025; 85025; 96374; 99283; A4216

== ENCOUNTER 2018-08-31 21:07 | Emergency (ER) | payer MEDICAID, SELFPAY ==
[2018-08-31 21:10] VITALS: BP 101/42; PULSE 91; RESP 16; TEMP 36.8; O2SAT 99; BMI 26.0
[2018-08-31] MEDS: Ketorolac 30 MG/ML Syringe IV (21:47)
[2018-08-31] MEDS: diazePAM 10 MG/2 ML Syringe 4 MG IV (21:47)
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
--- NOTE | 2018-08-31 22:51 | ED.DEP ---
ED Disposition - Plan for ED Patient: Instructions: Shoulder Sprain Prescriptions: Oxycodone HCl/Acetaminophen [Percocet 5/325] 1 tab PO Q6H PRN PRN 3 Days #10 tab PRN Reason: Pain Prescription Printed Referrals: Adryan Tompkins MD [Primary Care Provider] -
[2018-08-31 22:59] VITALS: BP 112/48; PULSE 77; O2SAT 100
== END 2018-08-31 23:02 | disposition home or self-care (01) ==
PROVIDERS: Emergency Provider Emergency Medicine; Family Provider Family Medicine; PCP Family Medicine
DX: M54.6 Pain in thoracic spine (principal); M25.511 Pain in right shoulder; M19.90 Unspecified osteoarthritis, unspecified site; Z72.0 Tobacco use
CPT/HCPCS: 96374; 96375; 99284; A4216

== ENCOUNTER 2018-09-05 13:58 | Emergency (ER) | payer MEDICAID, SELFPAY ==
[2018-09-05 13:59] VITALS: BP 114/75; PULSE 93; RESP 21; TEMP 37.1; O2SAT 100; BMI 23.3
[2018-09-05 15:13] LABS: Absolute Lymphocyte Count 1.69 X10^3/ul (0.83-4.51); Absolute Neutrophil Count 5.2 X10^3/uL (2.0-7.7); Basophil# 0.02 X10^3/uL; Basophil% 0.3 % (0-1); Eosinophils% 3.8 % (0-5); Hematocrit 36.7 % (37-47); Lymphocyte # 1.69 X10^3/ul (4.0); Lymphocyte % 21.5 % (19-41); Mean Corp Hgb Conc 32.7 g/gl (32-36); Mean Corpuscular Hgb 29.6 pg (27.0-32.0); Mean Corpuscular Volume 90.4 fL (81-99); Mean Platelet Vol. 9.9 fl (6.2-12.0); Monocyte# 0.62 X10^3/uL; Monocyte% 7.9 % (0-10); Neutrophil # 5.22 X10^3/uL (2.7-7.7); Neutrophil % 66.4 % (47-70); Platelet Count 231 K/mm3 (150-450); RBC Distribution Width CV 13.3 % (11.6-14.6); RBC Distribution Width SD 44.3 fl (35.1-43.9); Red Blood Count 4.06 M/mm3 (4.2-5.4); White Blood Count 7.9 K/mm3 (4.4-11.0)
[2018-09-05 15:14] LABS: POSITIVE COUNT NO; POSITIVE DIFFERENTIAL NO; POSITIVE MORPHOLOGY NO
[2018-09-05] MEDS: 0.9% Normal Saline 1,000 ML 999 ML IV (15:16)
[2018-09-05] MEDS: Ketorolac 30 MG/ML Syringe IV (15:16)
[2018-09-05] MEDS: LORazepam 2 MG/ML Syringe 1 MG IV (15:17)
[2018-09-05 15:28] LABS: ALB/GLOB Ratio 1.2 RATIO (0.9-2.4); AST(SGOT) 11 U/L (15-37); Alanine Aminotransfer ALT/SGPT 14 U/L (13-56); Albumin, Serum 3.7 g/dL (3.2-5.0); Alkaline Phosphatase 59 U/L (45-117); Anion Gap 6 (5-15); BUN 9 mg/dL (7-18); BUN/Creat Ratio 11.5 RATIO (10-20); Calcium,Total 8.6 mg/dL (8.5-10.1); Chloride 107 mmol/L (98-107); Creatinine, Serum 0.78 mg/dL (0.55-1.02); EST Glomerular Filtration Rate 84 mL/min (>60); Est Glom Filt Rate - Afr Amer 102 mL/min (>60); Estimated Creatinine Clearance 87.64 ml/min; Glucose 90 mg/dL (74-106); Potassium 3.9 mmol/L (3.5-5.1); Protein, Total 6.7 g/dL (6.4-8.2); Sodium Level 139 mmol/L (136-145)
[2018-09-05 15:46] LABS: Bedside Glucose 91 mg/dL (70-110)
--- NOTE | 2018-09-05 16:26 | ED.DCSUM_ITS ---
- ER Visit Summary Date of Service: 09/05/18 Chief Complaint: Back pain History of Present Illness: The patient is a 47 F who was seen in the emergency department by this physician on August 28 and again on August 31. She has been having back pain. She is been seeing her chiropractor. States now she feels like her face and her hands are swelling. She states that her face and nose are burning. She states that she has had a headache intermittently. She reports that she went to the chiropractor today because the back pain has been excruciating. She describes them as spasms and was told that her back has a lot of knots in it. They recommended that she come back to the emergency department. The patient called her primary care physician has appointment tomorrow. She has been taking some anti-inflammatories, she has tried narcotics, Valium, and Flexeril. Physical Examination: Afebrile vital signs stable Gen: Well-nourished well-developed Head: Normocephalic atraumatic Eyes: Perrl EOMI ENT: TMs clear no rhinorrhea moist mucous membranes Neck: Supple no lymphadenopathy no JVD neck is diffusely tender CVS: Regular rate rhythm no murmurs normal S1-S2 Respiratory: No distress clear to auscultation bilaterally chest nontender Abdomen: Soft nontender nondistended normal bowel sounds no masses Back: Back is diffusely tender in the upper mid and lower. There are no rashes or fluctuance to suggest abscess Extremity: Nontender no edema rings on her fingers do not appear to be tight Skin: Normal color no rash Neuro: alert orientated ?3 CN II-XII intact normal strength sensation Psych: Tearful at times holding significant other's hand. Test Results: Repeat labs show normal electrolytes. Normal blood glucose. Normal hepatic panel. Normal white blood cell count. Normal platelets. Emergency Department Course and Treatment: Patient received IV fluids Ativan and Toradol. Appears to be resting comfortably and at times sleeping I do not have explanation for the patient's pain. I do not see an emergent cause. Patient will be discharged home to follow-up in the office tomorrow. Impression: 1. Paresthesias 2. Back muscle spasms This note was generated with [employer] dictation software. It may contain incorrect words, spelling, and punctuation that were not noted in review of the chart prior to signing ED Disposition - Plan for ED Patient: Disposition: Home or Assisted Living Instructions: BACK SPASM, No Trauma, Paraesthesias Prescriptions: Lorazepam [Ativan] 1 mg PO TID PRN #9 tab PRN Reason: Muscle Spasm Prescription Printed Ketorolac [Toradol] 10 mg PO Q8H PRN 3 Days #9 tab PRN Reason: Pain Prescription Printed Referrals: Adryan Tompkins MD [Primary Care Provider] - Keep Kimberley appointment
[2018-09-05 16:45] VITALS: BP 98/56; PULSE 86; RESP 16; O2SAT 100
== END 2018-09-05 16:47 | disposition home or self-care (01) ==
PROVIDERS: Emergency Provider Emergency Medicine; Family Provider Family Medicine; PCP Family Medicine
DX: R20.2 Paresthesia of skin (principal); M62.830 Muscle spasm of back; M54.2 Cervicalgia; R51 Headache; Z72.0 Tobacco use
CPT/HCPCS: 80053; 82962; 85025; 96361; 96374; 96375; 99284; J7030

== ENCOUNTER 2018-09-07 22:32 | Emergency (ER) | payer MEDICAID, SELFPAY ==
[2018-09-07 22:33] VITALS: BP 155/86; PULSE 91; RESP 18; TEMP 36.8; O2SAT 100; BMI 25.6
--- NOTE | 2018-09-07 23:28 | ED.VISSUMM ---
- ER Visit Summary Date of Service: 09/07/18 Chief Complaint: Multiple complaints History of Present Illness: The patient is a 47 F who presents with multiple complaints. She states she has had a dry mouth for the past 3 days. She complains of burning in her ears throat and nose. She complains of back spasms. She also complains of burning pain on her tongue for about 1 week. She did recently complete a course of methylprednisolone at Physical Examination: Afebrile vitals unremarkable Tympanic membranes are clear Patient has a yellow-white plaque on the tongue consistent with thrush Heart regular rate and rhythm Lungs clear Abdomen soft Alert Test Results: Not indicated Emergency Department Course and Treatment: Patient has thrush. Will treat with nystatin. She understands to return for new or worsening symptoms. She was advised to follow-up with her primary care physician. She was discharged. Treatment Plan: [] Disposition: Discharge Impression: Thrush This note was generated with [email or web address] dictation software. It may contain incorrect words, spelling, and punctuation that were not noted in review of the chart prior to signing ED Disposition - Plan for ED Patient: Referrals: Adryan Tompkins MD [Primary Care Provider] -
--- NOTE | 2018-09-07 23:29 | ED.DEP ---
ED Disposition - Plan for ED Patient: Instructions: Oral Thrush Prescriptions: Nystatin 500,000U/5ML [Mycostatin] 5 ml PO 4X/DAY #100 ml Prescription Printed Referrals: Adryan Tompkins MD [Primary Care Provider] -
== END 2018-09-07 23:33 | disposition home or self-care (01) ==
PROVIDERS: Emergency Provider Emergency Medicine; Family Provider Family Medicine; PCP Family Medicine
DX: B37.0 Candidal stomatitis (principal); M62.830 Muscle spasm of back; R11.0 Nausea; Z72.0 Tobacco use; Z79.899 Other long term (current) drug therapy
CPT/HCPCS: 99282

== ENCOUNTER 2019-02-02 18:12 | Emergency (ER) | payer MEDICAID, SELFPAY ==
[2019-02-02 18:20] VITALS: BP 145/82; PULSE 96; RESP 18; TEMP 37.1; O2SAT 100; BMI 24.7
--- NOTE | 2019-02-02 18:23 | ED.RN ---
PT ARRIVES TO ROOM EXTREMELY HYSTERICAL. PASSES OUT IN THE WHEEL CHAIR. WITH DISCUSSION ABLE TO RESUME REGULAR BREATHING AND TALKING WITH PHYSICIAN
--- NOTE | 2019-02-02 18:26 | CT_ITS ---
STUDY: CT BRAIN WITHOUT CONTRAST REASON FOR EXAM: Female, 48 years old. Headache. RADIATION DOSAGE (If Supplied By Facility): CTDIvol = ( 044.99 ) mGy, DLP = ( 779.24 ) mGycm TECHNIQUE: Transaxial CT imaging of the brain was performed without administration of intravenous contrast material. Individualized dose optimization techniques were used for this CT. COMPARISON: 10/20/2015 FINDINGS: Normal soft tissue structures. Normal calvarium. Normal size ventricles and extra-axial spaces for the patient''s age. Normal white matter tracts of the cerebral hemispheres. Normal basal ganglia and thalami. Normal brainstem. Normal cerebellum. There is no intracranial hemorrhage. There are no findings of an acute ischemic infarction. Bilateral acute maxillary sinusitis. Chronic sinusitis of the ethmoid air cells. CT/Brain/Head without Contrast IMPRESSION: Normal unenhanced CT scan of the brain. Bilateral maxillary sinusitis. Electronically Signed: Brown Tatum MD at 19:19 EST , Service support ,
--- NOTE | 2019-02-02 18:26 | EKG12_ITS ---
Test Reason : DYSRHYTHMIA Blood Pressure : / mmHG Vent. Rate : 082 BPM Atrial Rate : 082 BPM P-R Int : 240 ms QRS Dur : 102 ms QT Int : 366 ms P-R-T Axes : 078 062 050 degrees QTc Int : 427 ms Sinus rhythm with 1st degree A-V block Otherwise normal ECG Confirmed by PRINCESS MCCALL, JOSE ([id number]), associate entertainment editor TYRON GONCALVES ([id number]) on 02/03/2019 12:06:21 PM Referred By: ANITA Confirmed By:SHERYL SÁNCHEZ MD
[2019-02-02] MEDS: 0.9% Normal Saline 1,000 ML 150 ML IV (18:36)
[2019-02-02] MEDS: Morphine 4 MG/ML Syringe IV (18:37)
[2019-02-02] MEDS: Ondansetron 4 MG/2 ML Vial IV (18:37)
[2019-02-02 18:41] LABS: Absolute Lymphocyte Count 2.51 X10^3/uL (0.83-4.51); Absolute Neutrophil Count 5.2 X10^3/uL (2.0-7.7); Basophil# 0.06 X10^3/uL; Basophil% 0.7 % (0-1); Eosinophil# 0.42 X10^3/uL; Eosinophils% 4.7 % (0-5); Hematocrit 36.9 % (37-47); Hemoglobin 12.1 g/dL (12.0-15.0); Lymphocyte # 2.51 X10^3/ul (4.0); Lymphocyte % 28.2 % (19-41); Mean Corp Hgb Conc 32.8 g/dL (32-36); Mean Corpuscular Hgb 29.7 pg (27.0-32.0); Mean Corpuscular Volume 90.4 fL (81-99); Mean Platelet Vol. 10.1 fl (6.2-12.0); Monocyte# 0.67 X10^3/uL; Monocyte% 7.5 % (0-10); NRBC Flagged by Analyzer 0 % (0-5); Neutrophil # 5.21 X10^3/uL (2.7-7.7); Neutrophil % 58.6 % (47-70); Platelet Count 273 K/mm3 (150-450); RBC Distribution Width CV 12.5 % (11.6-14.6); RBC Distribution Width SD 41.2 fl (35.1-43.9); Red Blood Count 4.08 M/mm3 (4.2-5.4); White Blood Count 8.9 K/mm3 (4.4-11.0)
[2019-02-02 18:57] LABS: Alcohol, Blood (Medical)-Serum < 3.0 mg/dL; Anion Gap 6 (5-15); BUN 19 mg/dL (7-18); BUN/Creat Ratio 20.5 RATIO (10-20); Calcium,Total 9.2 mg/dL (8.5-10.1); Chloride 110 mmol/L (98-107); Creatinine, Serum 0.93 mg/dL (0.55-1.02); EST Glomerular Filtration Rate 69 mL/min (>60); Est Glom Filt Rate - Afr Amer 83 mL/min (>60); Estimated Creatinine Clearance 72.72 ml/min; Glucose 109 mg/dL (74-106); Potassium 3.4 mmol/L (3.5-5.1); Sodium Level 143 mmol/L (136-145)
[2019-02-02 18:59] LABS: Internal QC Validated? YES +Cl - CLEAR BKGD; Pregnancy, Serum, hCG Quali. NEGATIVE Negative
[2019-02-02] MEDS: LORazepam 2 MG/ML Syringe 1 MG IV (19:18)
--- NOTE | 2019-02-02 19:32 | RAD_ITS ---
STUDY: X-RAY - LEFT SHOULDER REASON FOR EXAM: Female, 48 years old. Left shoulder pain. TECHNIQUE: 4 view(s) of the shoulder. COMPARISON: None. FINDINGS: Normal glenohumeral articulation. Normal acromioclavicular joint. Normal acromion. Normal humeral head and visualized proximal humerus. The soft tissue structures are unremarkable. There is no demonstrated fracture. Normal visualized pulmonary apex. RAD/Shoulder min 2 Views IMPRESSION: Normal x-ray examination of the shoulder. Electronically Signed: Brown Tatum MD at 18:50 EST , Service support ,
[2019-02-02 19:37] LABS: Bacteria 0 SEEN /hpf (None Seen); Mucous, Urine 0 SEEN /hpf (<or=2+); Red Blood Cells-Urine 0 SEEN /hpf (0-5); White Blood Cells 0 SEEN /hpf (0-5)
[2019-02-02 19:41] LABS: Color, Urine Yellow (Yellow); Glucose, Dipstick 1000 mg/dl (Normal); Ketone-Dipstick 5 mg/dl (Negative); Leukocyte Esterase-Dipstick Negative /ul (Negative); Nitrite-Dipstick Negative (Negative); Occult Blood-Urine Negative /ul (Negative); Protein-Dipstick Negative (Negative); Urine Bilirubin Dipstick Negative (Negative); Urine Clarity Sl. Cloudy (Clear); Urine Urobilinogen Normal (Normal)
[2019-02-02 19:59] LABS: Squamous Epithelial Cells - UA 0-5 SEEN /hpf (5-10)
[2019-02-02 20:00] LABS: Amorphous Sediment 1+ PHOS
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
--- NOTE | 2019-02-02 20:05 | ED.DEP ---
ED Disposition - Plan for ED Patient: Instructions: Shoulder Sprain, HEADACHE, Unspecified, Dysmenorrhea Prescriptions: Hydrocodone Bitart/Apap 5-325 [[place] 5MG-325MG] 1 tab PO Q4H PRN PRN 2 Days #10 tab PRN Reason: Pain Prescription Printed Referrals: Adryan Tompkins MD [Primary Care Provider] - 3-5 Days Toñito Morris MD [STAFF PHYSICIAN] - 3-5 Days
[2019-02-02 20:22] VITALS: BP 112/60; PULSE 70; RESP 18; O2SAT 100
== END 2019-02-02 20:29 | disposition home or self-care (01) ==
LOC: ED 18:37
PROVIDERS: Emergency Provider Emergency Medicine; Family Provider Family Medicine; PCP Family Medicine
DX: S43.402A Unspecified sprain of left shoulder joint, initial encounter (principal); X50.1XXA Overexertion from prolonged static or awkward postures, initial encounter; Y93.9 Activity, unspecified; Y92.9 Unspecified place or not applicable; Y99.9 Unspecified external cause status; N93.8 Other specified abnormal uterine and vaginal bleeding; J32.0 Chronic maxillary sinusitis; R51 Headache; R11.2 Nausea with vomiting, unspecified; R20.2 Paresthesia of skin; R20.0 Anesthesia of skin; R30.0 Dysuria; R35.0 Frequency of micturition; Z72.0 Tobacco use
CPT/HCPCS: 70450; 73030; 80048; 80320; 81001; 84484; 84703; 85025; 93005; 96361; 96374; 96375; 99285; A4216; G0480; J2405

== ENCOUNTER 2019-04-17 07:56 | Emergency (ER) | payer MEDICAID, SELFPAY ==
[2019-04-17 07:57] VITALS: BP 156/76; PULSE 85; RESP 16; TEMP 36.7; O2SAT 100; BMI 25.3
--- NOTE | 2019-04-17 08:30 | ED.VISSUMM ---
- ER Visit Summary Date of Service: 04/17/19 Chief Complaint: Left shoulder pain History of Present Illness: The patient is a [address] Sonu Fung. She is right-hand dominant. She reports that approximately 1 week ago she began having left shoulder pain. She denies any specific injury. 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 Patient describes the pain as an aching constant pain that is 6 out of 10 in severity. It is stabbing with movement of her shoulder and is 10 out of 10 in severity. She taken ibuprofen and Flexeril without relief. She denies any numbness or weakness distally. Patient reports that she had a similar episode approximately 5 months ago that resolved after 1 to 2 weeks. She never sought care for this. Physical Examination: Vitals: Stable. Afebrile. General: Well-nourished and well-developed. Head: Normocephalic atraumatic. Neck: Supple, no lymphadenopathy. No JVD. Nontender. Cardiovascular: Regular rate and rhythm. No murmurs. Respiratory: No respiratory distress. Clear to auscultation bilaterally. Abdominal: Soft, nontender, nondistended, normal bowel sounds. No guarding, rebound, or peritoneal signs. Back: Nontender. Extremities: Moderate diffuse tenderness palpation over the left deltoid, left trapezius muscle, and left pectoralis major muscle. Her pain is reproduced with movement. She has pain much greater with active abduction and passive abduction. She has a 2+ radial pulse. She is neurovascular intact distally. Skin: Normal color, no rash. Neurologic: Alert and oriented ?3. Cranial nerves II through XII are intact. Normal strength and sensation. Psych: Normal affect. Test Results: Patient reports that she has had x-rays of her shoulder in the past. She did not want x-rays again today. Emergency Department Course and Treatment: She is taken ibuprofen this morning already and would like to go to work. She refused any further pain medications. She was placed in a sling. Treatment Plan: Patient was given note with work restrictions. She is instructed to use a sling as needed for pain. She is given a prescription for 10 [place]. Instructed to follow-up Dr. Miguel next 5 to 7 days for further evaluation. Return to the emergency department for any worsening symptoms. Disposition: To home in improved and stable condition. Impression: 1. Left shoulder pain, uncertain cause. This note was generated with [employer] dictation software. It may contain incorrect words, spelling, and punctuation that were not noted in review of the chart prior to signing ED Disposition - Plan for ED Patient: Disposition: Home or Assisted Living Instructions: SHOULDER PAIN (Uncertain Cause) Prescriptions: Hydrocodone Bitart/Apap 5-325 [[place] 5MG-325MG] 1 tab PO Q6H PRN PRN 3 Days #10 tab PRN Reason: Pain Prescription Printed Referrals: Berenice Miguel DO [STAFF PHYSICIAN] - 5-7 Days
== END 2019-04-17 08:40 | disposition home or self-care (01) ==
LOC: ED 08:15
PROVIDERS: Emergency Provider Emergency Medicine; PCP Family Medicine
DX: M25.512 Pain in left shoulder (principal); Z72.0 Tobacco use
CPT/HCPCS: 99282

== ENCOUNTER 2021-03-10 18:57 | Emergency (ER) | payer MEDICAID, SELFPAY ==
[2021-03-10 18:58] VITALS: BP 123/85; PULSE 87; RESP 18; TEMP 36.5; O2SAT 99; BMI 24.4
--- NOTE | 2021-03-10 19:30 | EDS_ITS ---
HPI History of Present Illness Chief Complaint: General Illness Narrative Narrative: Patient who denies significant past medical history presents with multiple somatic complaints, thoracic back pain, and leg spasms. She relates history that she was diagnosed with COVID in January. Her symptoms started on the , and she tested positive on the . She and her quarantined for the 10 days. She had been feeling improved, but got a sinus infection which she states was brought on by COVID and someone placed her on a Z-Sandro. As soon as she finished the Z-Sandro, she began having throat burning, chest burning, and multiple problems. She had pain in her back in the thoracic area bilaterally, more towards her spine, and was having leg spasms. She went to urgent care today where she stated that blood work was done including CBC which was normal, and a D-dimer which was negative. She also had a chest x-ray that was negative clear. She presents mainly because of the thoracic back pain and tenderness in the paraspinal musculature, and her leg spasms. She denies any significant past medical history, states she does not take daily medications, no cholesterol fighting medicine/statins. She also states that she had gone to see the emergency department in [place] and they diagnosed her with high blood sugar and a small amount of ketones, but she states that she had a blood sugar performed and it was 99 today. She presents mainly because of her myalgias. She states that throughout her COVID her vital signs have been normal, as they are normal today. [facility] Medical History (Updated 03/10/21 @ 20:32 by Jaime Santos MD) Anemia Arthritis Chronic neck and back pain Diarrhea Fatigue Severe headache Shoulder pain Stomach ulcer Home Medications orphenadrine citrate 100 mg PO BID PRN #14 tab 03/10/21 [Rx Last Taken Unknown] prednisone 10 mg PO DAILY 03/10/21 [History Last Taken Unknown] Allergy/AdvReac Type Severity Reaction Status Date / Time ciprofloxacin Allergy Other Verified 03/10/21 19:07 Penicillins [PCN] Allergy Unknown Verified 03/10/21 19:07 venom-honey bee Allergy Anaphylaxis Verified 03/10/21 19:07 [bee venom (honey bee)] Social History Smoking Status: Former smoker alcohol intake: current ROS ROS ED ROS Narrative Constitutional: No fever, no chills. HEENT: No sore throat. No neck pain. No loss of vision. No rhinorrhea. Cardiovascular: No chest pain. No palpitations. No pedal edema. Respiratory: No cough, no shortness of breath. Abdominal: No abdominal pain. No nausea. No vomiting. Genitourinary: No dysuria. No hematuria. Urinary frequency. Musculoskeletal: Bilateral leg pain/myalgias. No arthralgias. Positive thoracic paraspinal musculature back pain. Neurologic: No headaches. No dizziness. No lightheadedness. Skin: No rash. No change in color. Psychiatric: No depression. No anxiety. EXAM Physical Exam Narrative Exam Narrative: Afebrile. Vital signs noted. HEENT: Normocephalic. Atraumatic. PERRL, EOMI. Neck soft and supple. No point tenderness or step off. Cardiovascular: Regular rate and rhythm. No murmurs, rubs, or gallops appreciated. Respiratory: No tachypnea. Lungs clear to auscultation bilaterally. Gastrointestinal: Abdomen soft, nontender, with normoactive bowel sounds. No rebound or guarding. Neurological: Awake. Alert. Nonfocal, nonlateralizing. Skin: No rash. Normal color. No pallor. Musculoskeletal: No pedal edema. Full range of motion extremities, thoracic paraspinal back tenderness. No point tenderness or step-off. Const Vital Signs: 03/10/21 18:58 03/10/21 19:12 Temperature 97.7 F L Temperature Source Temporal Pulse Rate 87 Respiratory Rate 18 Respiratory Effort Normal Respiratory Pattern Normal Blood Pressure 123/85 H Blood Pressure Mean 97 Pulse Ox 99 Oxygen Delivery Method Room Air MDM MDM MDM Narrative Medical decision making narrative: Patient states that she has already had significant testing today. I will obtain a CMP, CPK, and she will be bolused normal saline. I will also check a urinalysis. Her electrolyte panel shows sodium slightly elevated at 109, otherwise grossly unremarkable, no evidence of dehydration. Urinalysis is negative for ketones, negative for infection. It is a mildly contaminated specimen with 5-10 epithelial cells. CPK is normal at 47. At this point in time, after Norflex injection, she feels markedly improved. I feel she can be discharged safely home with follow-up. She is given a prescription for oral Norflex for the next 7 days to take as needed for muscle spasms of her leg and thoracic back. Return instructions were reviewed. Disposition is discharged home in stable condition. Lab Data Attestation: I reviewed the patient's lab results. Labs: Laboratory Results - last 24 hr 03/10/21 03/10/21 19:36 19:38 Sodium 140 Potassium 3.7 Chloride 109 H Carbon Dioxide 26.0 Anion Gap 5 BUN 15 Creatinine 0.75 Estim Creat Clear Calc 88.24 Est GFR (MDRD) Af Amer 106 Est GFR (MDRD) Non-Af 87 BUN/Creatinine Ratio 20.0 Glucose 82 Calcium 9.1 Magnesium 2.4 Total Bilirubin 0.30 AST 7 L ALT 16 Alkaline Phosphatase 77 Total Creatine Kinase 47 Total Protein 7.1 Albumin 3.8 Globulin 3.3 Albumin/Globulin Ratio 1.2 Urine Color Yellow Urine Clarity Clear Urine pH 5.0 Ur Specific Oto 1.010 Urine Protein Negative Urine Glucose (UA) Normal Urine Ketones Negative Urine Occult Blood 25 H Urine Nitrite Negative Urine Bilirubin Negative Urine Urobilinogen Normal Ur Leukocyte Esterase Negative Urine RBC 0 SEEN Urine WBC 0 SEEN Ur Squamous Epith Cells 5-10 SEEN Urine Bacteria 1+ Urine Mucus 0 SEEN Discharge Plan Triage Chief Complaint: General Illness ED Provider: Jaime Santos Dx/Rx/DC Orders Clinical Impression: Acute thoracic back pain, Muscle spasm, Bilateral leg pain, Myalgia Instructions: ED Back Spasm, No Trauma, ED Leg Spasm, ED Muscle Spasm Prescriptions: New orphenadrine citrate 100 mg tablet extended release 100 mg PO BID PRN (Reason: muscle spasm) Qty: 14 RF: 0 No Action prednisone 10 mg tablet 10 mg PO DAILY RF: 0 Primary Care Provider: Adryan Tompkins Referrals: Adryan Tompkins MD [Primary Care Provider] - 3-5 Days if not improving Disposition Disposition: Home, Self Care
[2021-03-10] MEDS: 0.9% Normal Saline 1,000 ML 999 ML IV (19:35)
[2021-03-10] MEDS: Orphenadrine 60 MG/2 ML Ampul IM (19:35)
[2021-03-10 19:46] LABS: Mucous, Urine 0 SEEN /hpf (<or=2+); Red Blood Cells-Urine 0 SEEN /hpf (0-5); White Blood Cells 0 SEEN /hpf (0-5)
[2021-03-10 19:48] LABS: Color, Urine Yellow (Yellow); Glucose, Dipstick Normal (Normal); Ketone-Dipstick Negative (Negative); Leukocyte Esterase-Dipstick Negative /ul (Negative); Nitrite-Dipstick Negative (Negative); Occult Blood-Urine 25 /ul (Negative); Protein-Dipstick Negative (Negative); Urine Bilirubin Dipstick Negative (Negative); Urine Clarity Clear (Clear); Urine Urobilinogen Normal (Normal)
[2021-03-10] MEDS: Ketorolac 15 MG/ML Vial IV (19:53)
[2021-03-10 19:55] LABS: Bacteria 1+ /hpf (None Seen); Squamous Epithelial Cells - UA 5-10 SEEN /hpf (5-10)
[2021-03-10 20:19] LABS: ALB/GLOB Ratio 1.2 RATIO (0.9-2.4); AST(SGOT) 7 U/L (15-37); Alanine Aminotransfer ALT/SGPT 16 U/L (13-56); Albumin, Serum 3.8 g/dL (3.2-5.0); Alkaline Phosphatase 77 U/L (45-117); Anion Gap 5 (5-15); BUN 15 mg/dL (7-18); CPK Total, Creatine Kinase 47 U/L (26-192); Calcium,Total 9.1 mg/dL (8.5-10.1); Chloride 109 mmol/L (98-107); Creatinine, Serum 0.75 mg/dL (0.55-1.02); EST Glomerular Filtration Rate 87 mL/min (>60); Est Glom Filt Rate - Afr Amer 106 mL/min (>60); Estimated Creatinine Clearance 88.24 ml/min; Globulin 3.3 g/dL (2.2-4.2); Glucose 82 mg/dL (74-106); Magnesium 2.4 mg/dL (1.6-2.6); Potassium 3.7 mmol/L (3.5-5.1); Protein, Total 7.1 g/dL (6.4-8.2); Sodium Level 140 mmol/L (136-145)
[2021-03-10 20:34] VITALS: BP 139/72; PULSE 68; RESP 15; O2SAT 95
== END 2021-03-10 20:43 | disposition home or self-care (01) ==
PROVIDERS: Emergency Provider Emergency Medicine; PCP Family Medicine; Visit Provider Emergency Medicine
DX: M54.6 Pain in thoracic spine (principal); M62.838 Other muscle spasm; M79.604 Pain in right leg; M79.605 Pain in left leg; Z87.891 Personal history of nicotine dependence; G89.29 Other chronic pain; Z87.19 Personal history of other diseases of the digestive system
CPT/HCPCS: 80053; 81001; 82550; 83735; 96361; 96372; 96374; 99283; J7030

== ENCOUNTER 2021-03-22 04:37 | Emergency (ER) | payer MEDICAID, SELFPAY ==
[2021-03-22 04:38] VITALS: BP 115/58; PULSE 68; RESP 16; TEMP 35.5; O2SAT 100; BMI 25.2
[2021-03-22] MEDS: Ondansetron ODT 4 MG Tablet PO (05:19)
[2021-03-22] MEDS: Mag Hydrox/Al Hydrox/Simeth 30 ML UDC PO (05:20)
[2021-03-22 05:24] VITALS: BP 102/65; PULSE 71; RESP 15; O2SAT 97
--- NOTE | 2021-03-22 05:26 | ED.VIS.GI ---
HPI HPI - GI History of Present Illness Chief Complaint: Other, Pain/Inj Narrative Narrative: 50-year-old female status post COVID-19 over a month ago. Presenting with symptoms of epigastric discomfort dyspepsia and nausea. She has been evaluated by multiple physicians for this. She has had blood work multiple times. She states that she was given dexamethasone 2 days ago which initially helped her discomfort but now she woke up from sleep with worsening pain. She describes intermittent headaches, upper neck pain. Tingling in her fingers and toes. This is all been going on for weeks. She was told by the last physician that saw her that she had post Covid neurologic syndrome. He recommended she see a neurologist. She does not have chest pain or shortness of breath. She does not have any fever or chills. He does have some nausea with her dyspepsia but is not having diarrhea or constipation. She states she has a history of gastric ulcers. She states she is not on a PPI. [facility] Medical History Anemia Arthritis Chronic neck and back pain Diarrhea Fatigue Severe headache Shoulder pain Stomach ulcer Home Medications ondansetron 4 mg PO Q8H PRN PRN #14 tab 03/22/21 [Rx Last Taken Unknown] pantoprazole [Protonix] 40 mg PO DAILY 30 Days #30 ea 03/22/21 [Rx Last Taken Unknown] sucralfate [Carafate] 10 ml PO BID PRN #1000 ml 03/22/21 [Rx Last Taken Unknown] Allergy/AdvReac Type Severity Reaction Status Date / Time ciprofloxacin Allergy Other Verified 03/22/21 04:44 Penicillins [PCN] Allergy Unknown Verified 03/22/21 04:44 venom-honey bee Allergy Anaphylaxis Verified 03/22/21 04:44 [bee venom (honey bee)] Social History Smoking Status: Former smoker alcohol intake: current ROS ROS ED Constitutional Constitutional ED: Denies chills or fever(s) ENT ENT ED: Denies rhinorrhea or sore throat Cardiovascular Cardiovascular: Denies chest pain or palpitations Respiratory/Chest Respiratory/Chest: Denies cough or dyspnea Gastrointestinal Gastrointestinal: Reports abdominal pain and nausea; Denies constipation, diarrhea or vomiting Genitourinary Genitourinary ED: Denies dysuria or hematuria Integumentary Denies rash Neurologic Neurologic: Reports headache(s) Psychiatric Psychiatric: Denies anxiety or depression EXAM Physical Exam Const Vital Signs: 03/22/21 04:38 03/22/21 04:44 03/22/21 05:24 Temperature 96 F L Temperature Source Temporal Pulse Rate 68 71 Respiratory Rate 16 15 Respiratory Effort Normal Respiratory Pattern Normal Blood Pressure 115/58 L 102/65 Blood Pressure Mean 77 77 Pulse Ox 100 97 Oxygen Delivery Method Room Air Room Air Positive well nourished General Appearance ED: NAD; Negative for pallor HEENT normocephalic and atraumatic Eyes PERRL and EOMs intact bilaterally Resp normal respiratory effort and clear to auscultation bilaterally Cardio regular rate and regular rhythm GI Palpation: soft and tender periumbilical Neuro CN's II-XII intact bilaterally and moves all extremities Sensorium / Orientation: alert, oriented to person, oriented to place and oriented to time Psych mental status grossly normal and thought process normal Skin General Skin Exam: Negative for jaundice or pallor Lesions: no lesions Rashes: no rashes MDM MDM MDM Narrative Medical decision making narrative: Patient presents with epigastric pain and concern for gastritis given this radiating up into her throat. She describes dyspepsia. She states she is been trying to watch her diet and not anything that is that upset her stomach. She states that she was told she had some sort of post Covid neurologic symptom. I have seen her blood work and it is all normal. I cannot explain her muscle spasms intermittently for her intermittent headaches. Patient states that she is eating and drinking normally. She is making normal urine and stool. Her only symptoms really of concern are her epigastric pain and dyspepsia. She states that she was put on Decadron x1 a couple of days ago and now that it is worn off her symptoms have returned. I suggested to her that maybe the steroids have made her gastritis worse and and she has a history of stomach ulcer it is not on a PPI. I recommended a GI cocktail and Zofran here in the ED. I will put her on Protonix 40 mg p.o. daily and Carafate as needed. She is given Zofran for home if she needs this. I will give her referral to Dr. Lao. Impression: 1. Gastritis Lab Data Attestation: I reviewed the patient's lab results. Discharge Plan Triage Chief Complaint: Other, Pain/Inj ED Provider: Reggie Parsons Dx/Rx/DC Orders Instructions: ED PEPTIC ULCER vs GASTRITIS Prescriptions: New sucralfate [Carafate] 100 mg/mL suspension 10 ml PO BID PRN (Reason: acid reflux) Qty: 1000 RF: 0 ondansetron 4 mg tablet,disintegrating 4 mg PO Q8H PRN PRN (Reason: Nausea) Qty: 14 RF: 0 pantoprazole [Protonix] [address] for susp in packet 40 mg PO DAILY 30 Days Qty: 30 RF: 0 Primary Care Provider: Adryan Tompkins Referrals: Adryan Tompkins MD [Primary Care Provider] - Crow Lao DO [STAFF PHYSICIAN] - As soon as possible Disposition Disposition: Home, Self Care
[2021-03-22 05:41] VITALS: BP 102/65; PULSE 71; RESP 15; O2SAT 97
== END 2021-03-22 05:42 | disposition home or self-care (01) ==
PROVIDERS: Emergency Provider Student in an Organized Health Care Education/Training Program; PCP Family Medicine; Visit Provider Student in an Organized Health Care Education/Training Program
DX: K29.70 Gastritis, unspecified, without bleeding (principal); Z87.891 Personal history of nicotine dependence; R51.9 Headache, unspecified; G89.29 Other chronic pain; Z87.19 Personal history of other diseases of the digestive system; M19.90 Unspecified osteoarthritis, unspecified site; Z86.16 Personal history of COVID-19
CPT/HCPCS: 99283

== ENCOUNTER 2021-04-29 05:26 | Day surgery (SDC) | payer MEDICAID, SELFPAY ==
[2021-04-29] VITALS (8 sets, daily range): BP systolic 85–107; BP diastolic 39–51; PULSE 56–71; RESP 16; TEMP 36.3–36.6; O2SAT 98–100; BMI 24.3
--- NOTE | 2021-04-29 | IMM_PTH ---
PATIENT: GLORIA MONTENEGRO LOC: EN U#:[id number] AGE/SX: 50/F ROOM: RE04/29/[address]: Dr. Crow Lao DO : 1970 BED: DIS: 04/29/2021 SPEC #: [id number] RECD: 05/03/21 13:49 STATUS: ADAN REQ #: [id number] MADONNA: 04/29/21 00:[address]: Crow Lao DEPT: IMMUNOHISTOCHEMISTRY RECD BY: Jenny Foster ENTERED: 05/03/21 13:50 SP TYPE: IMMUNO OTHR DR: Dr. Adryan Tompkins MD Tissues: C - Stomach, NOS E - Esophagus, NOS Procedures: H Pylori (initial) P53 (initial) KI-67 (add) PHYSICIAN & INSTITUTION [place] [id number] SPECIMEN INFORMATION: Tissue Source: C ? Gastric body biopsy, E ? Distal esophagus biopsy Clinical Info: Abdominal pain, paresthesia Specimen Number: [id number] C & E CPT code: 27666 x2, 28482 METHODOLOGY: Deparaffinized sections of prefer/formalin-fixed tissue or PAP/DQ stained slides are incubated with monoclonal/polyclonal antibodies/oligonucleotide probes. Localization is made via biotin free immunoperoxidase method. Appropriate controls are performed and reacted as expected. Results on target cell population are indicated in the following table: RESULTS: ANTIBODY / CLONE RESULT Block C H Pylori (polyclonal) negative Block E P53 (DO-7) negative Ki-67 (30-9) positive These tests were developed and their performance characteristics determined by [facility]. They may not have been cleared or approved by the U.S. Food and Drug Administration. The FDA has determined that such clearance or approval is not necessary. The above immunohistochemical/dualISH markers are ordered and reviewed by the Pathologist. INTERPRETATION: C. Gastric body, biopsy: Negative for Helicobacter pylori organisms. E. Distal esophagus, biopsy: No evidence of dysplasia. AM:amparo 05/04/2021
[2021-04-29] MEDS: Lactated Ringers 1,000 ML 15 ML IV (06:21)
[2021-04-29 06:26] LABS: Internal QC Validated? YES +Cl - CLEAR BKGD; Pregnancy, Urine Negative Negative
--- NOTE | 2021-04-29 06:30 | EGD_PTH ---
PATIENT: GLORIA MONTENEGRO LOC: EN U#:[id number] AGE/SX: 50/F ROOM: RE04/29/[address]: Dr. Crow Lao DO : 1970 BED: DIS: 04/29/2021 SPEC #: [id number] RECD: 04/29/21 13:43 STATUS: ADAN REGodfrey #: [id number] MADONNA: 04/29/21 06:[address]: Crow Lao DEPT: SURGICAL PATHOLOGY RECD BY: Saritha Wolfe ENTERED: 04/30/21 09:23 SP TYPE: EGD BIOPSY OT DR: Dr. Adryan Tompkins MD Tissues: A - Duodenum, NOS B - Pylorus C - Gastric mucous membrane D - Gastric mucous membrane E - Esophagus, NOS F - Esophagus, NOS Procedures: Special Stain Group II Surgery Specimen Level IV Alcian Blue/PAS (control) HEADER OPERATION: EGD (MAC) biopsy PRE-OP DIAGNOSIS: Abdominal pain, paresthesia TISSUE SUBMITTED: A ? Duodenum biopsy, B ? Prepyloric region biopsy, C ? Gastric body biopsy, D ? Gastric cardia, E ? Distal esophagus, F ? Random esophagus MICROSCOPIC DIAGNOSIS A. Duodenum, biopsy: Minimal nonspecific chronic inflammation. B. Gastric mucosa at prepyloric region, biopsy: Minimal chronic inflammation. C. Gastric body, biopsy: Mild chronic gastritis. See comment. D. Gastric cardia, biopsy: Mild chronic gastritis. E. Distal esophagus, biopsy: Gastroesophageal junctional mucosa with mild chronic inflammation. Changes of reflux. 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 No evidence of dysplasia. See comment. F. Esophagus, random biopsy: No pathologic change. AM:amparo 05/03/2021 COMMENT C. The results of immunohistochemistry for Helicobacter pylori will be reported separately ([id number]). E. Immunohistochemistry ([id number]) for P53 and Ki-67 will be performed and results will be reported separately. Alcian blue/PAS stain with matched control supports the above diagnosis. MICROSCOPIC DESCRIPTION Slides are reviewed. GROSS DESCRIPTION A - Received in fixative is one container labeled with the patient's name and designated duodenum biopsy. The specimen consists of multiple irregular fragments of light richmond soft tissue that in aggregate measure 1 x 0.5 x 0.1 cm. The specimen is totally submitted in one cassette. B - Received in fixative is one container labeled with the patient's name and designated prepyloric region biopsy. The specimen consists of multiple irregular fragments of light richmond soft tissue that in aggregate measure 1 x 0.3 x 0.1 cm. The specimen is totally submitted in one cassette. C - Received in fixative is one container labeled with the patient's name and designated gastric body biopsy. The specimen consists of multiple irregular fragments of light richmond soft tissue that in aggregate measure 0.8 x 0.4 x 0.1 cm. The specimen is totally submitted in one cassette. D - Received in fixative is one container labeled with the patient's name and designated gastric cardia. The specimen consists of one irregular fragment of light richmond soft tissue that measures 0.4 x 0.3 x 0.1 cm. The specimen is totally submitted in one cassette. E - Received in fixative is one container labeled with the patient's name and designated distal esophagus. The specimen consists of two irregular fragments of light richmond soft tissue that in aggregate measure 0.6 x 0.3 x 0.1 cm. The specimen is totally submitted in one cassette. F - Received in fixative is one container labeled with the patient's name and designated random esophagus. The specimen consists of multiple irregular fragments of light richmond soft tissue that in aggregate measure 1.5 x 0.7 x 0.1 cm. The specimen is totally submitted in one cassette. / SJ:amparo 04/30/2021 TC:3 CPT: 36164 x6, 49264
--- NOTE | 2021-04-29 06:39 | HP.PCM_ITS ---
History and Physical Date of Admission: 04/29/21 50 F who presents to the office today for Evaluation of epigastric pain with nausea, constipation alternating with diarrhea. Presented to [facility] ED 03.22.21 for epigastric discomfort and nausea. Reported workup by several physicians for this and was prescribed dexamethasone which initially helped symptoms but pain returned and woke her from sleep. Following workup it was suggested that steroids made gastritis worse; she was discharged with PPI therapy and sucralfate. She was started on doxycycline for sinus infection. COVID infection . Following this, in February she started having an uncomfortable feeling in her throat specifically with cold fluids. She will get pain in her epigastric region through her chest and into her esophagus with burning in her esophagus and a metallic taste on her lips. She has been sleeping upright. Attempted omeprazole and PPI. History of gastric ulcers and similar burning prior. She has altered her diet to be more of a GERD diet and she has lost weight related to this which is beneficial for her. Her medication regimen takes four hours before she can eat. Prior to onset of symptoms her bowels were regular and normal. Attempted Colace for constipation and failed. She is typically having a watery stool once a day most days of the week. Additionally, she has been having increased stress because symptoms are causing her to miss work. Symptoms were similar as those when she had a gastric ulcer 20 years prior but not to this degree. The most concerning portion to her is to resolve the epigastric and chest burning. Second most concerning symptom to resolve is her watery stool. PCP recommended neurologist for possible COVID neurologic syndrome for combination of symptoms of intermittent headaches, upper neck pain, tingling in fingers/toes for several weeks. Medical history includes gastric ulcers about 20 years prior, anemia, arthritis. o ROS Const Constitutional: No anorexia, fatigue, fever(s), weight change or sleep problems Eyes Eyes: No change in vision ENT ENT: No abnormal hearing, difficulty swallowing, mouth lesions, tongue swelling or throat swelling Resp Respiratory: No cough or shortness of breath Cardio Cardiology: No chest pain at rest, chest pain with exertion, shortness of breath or dyspnea on exertion Gastro GI: No difficulty swallowing Genitourinary-Female: No difficulty urinating or burning urination Musc Musculoskeletal: No joint pain, joint swelling, muscle weakness or decreased muscle mass Skin Skin: No hair loss in leg, yellowing of the eye, itchy eyes, rash, skin ulcer or skin swelling Neuro Neurology: No abnormal hearing, abnormal movements, confusion, unsteady gait/balance or memory loss Psych Psychiatric: No anxiety, No confusion and No memory loss Endo Endocrine: No fatigue or weight change Aller/Imm Allergy/Immunologic: No itchy eyes, throat swelling or tongue swelling Vinh/Lymp Hematologic/Lymphatic: No easy bleeding, easy bruising or enlarged lymph nodes Exam Const General: cooperative and comfortable Nutritional Appearance: average body habitus and well nourished HENMT Head: normal to inspection Ears: hearing grossly normal bilaterally Nose: external nose normal Face and sinus: normal facial exam Mouth: oral mucosae normal Throat: posterior oropharynx normal Eyes General: appearance normal, both eyes and all related structures Neck Neck: normal visual inspection Chest Chest palpation & inspection: normal inspection of the chest and normal palpation of entire chest wall Resp Effort & Inspection: normal respiratory effort Auscultation: Bilateral: Clear to Auscultation Cardio Palpation: normal PMI Rate: regular rate Rhythm: regular rhythm GI Inspection: normal to inspection Auscultation: normal bowel sounds Percussion: normal to percussion Palpation: no hepatosplenomegaly Skin General: no rashes or lesions noted Neuro General: patient alert Extrem General: normal to inspection Psych Affect: normal affect Quality Reporting Tobacco Screening ([facility] 138) Smoking Status: Former smoker Assessment and Plan Assessment and Plan (1) Abdominal pain: Status: Acute Plan - Dr. Maria Friend, DO: The differential diagnosis for abdominal pain refractory gastroesophageal reflux disease would be intermittent gastroparesis which is probably mechanism develope d post Covid. She is already on PPI twice a day and Carafate therapy. I will stop the Carafate therapy and I will add Questran in order to eliminate some of the extra bile that I think is causing her reflux disease and dumping. We will also get an upper endoscopy to evaluate her upper GI tract. (2) Insomnia: Status: Acute Plan - Dr. Maria Friend, DO: I will give her low-dose Xanax therapy to take at night for sleep. (3) Paresthesias: Status: Acute Plan - Dr. Maria Friend, DO: Paresthesias possibly secondary to B12 or folate deficiency associated with PPI therapy and chronic gastritis. Also differential diagnosis would be autoimmune gastritis associated with pernicious anemia. Will check B12 and folate level stenotic instructed her to take 500 mg of B12 twice a day and folic acid 1 mg twice a day. 1 month. I have re-examined the patient. There are no clinical changes since date of exam.
--- NOTE | 2021-04-29 07:05 | OP.CCLET_ITS ---
11/24/2021 Adryan Tompkins [id number] [place] [address] Re : Upper GI endoscopy procedure for Anyi Bowen Dear Dr. Tompkins This procedure was performed on April. My impressions and recommendations are as follows: Impressions : - LA Grade A reflux esophagitis. Biopsied. - Gastritis. Biopsied. - Erythematous duodenopathy. Biopsied. Recommendations : - Discharge patient to home. - Resume previous diet. - Continue present medications. - Await pathology results. - Repeat upper endoscopy PRN for surveillance based on pathology results. My findings are described in the full procedure note, which is enclosed. If I can be of further assistance, please feel free to contact me at . Sincerely, Crow Lao, 04/29/2021 7:04:22 AM This report has been signed electronically.
--- NOTE | 2021-04-29 07:05 | OP.EGD_ITS ---
Patient Name: Anyi Bowen Procedure Date: 04/29/2021 6:06 AM Date of : 1970 Age: 50 Procedure: Upper GI endoscopy Indications: Epigastric abdominal pain Providers: Crow Lao DO Medicines: See the Anesthesia note for documentation of the administered medications Patient Profile: This is a 50 year old female. Refer to note in patient chart for documentation of history and physical. Patient has symptoms. The symptoms first began March. Complications: No immediate complications. Procedure: Pre-Anesthesia Assessment: - Prior to the procedure, a History and Physical was performed, and patient medications and allergies were reviewed. The patient is competent. The risks and benefits of the procedure and the sedation options and risks were discussed with the patient. All questions were answered and informed consent was obtained. Patient identification and proposed procedure were verified by the physician in the pre-procedure area. Mental Status Examination: alert and oriented. Airway Examination: normal oropharyngeal airway and neck mobility. Respiratory Examination: clear to auscultation. CV Examination: normal. Prophylactic Antibiotics: The patient does not require prophylactic antibiotics. Prior Anticoagulants: The patient has taken no previous anticoagulant or antiplatelet agents. ASA Grade Assessment: II - A patient with mild systemic disease. After reviewing the risks and benefits, the patient was deemed in satisfactory condition to undergo the procedure. The anesthesia plan was to use moderate sedation / analgesia (conscious sedation). Immediately prior to administration of medications, the patient was re-assessed for adequacy to receive sedatives. The heart rate, respiratory rate, oxygen saturations, blood pressure, adequacy of pulmonary ventilation, and response to care were monitored throughout the procedure. The physical status of the patient was re-assessed after the procedure. After obtaining informed consent, the endoscope was passed under direct vision. Throughout the procedure, the patient's blood pressure, pulse, and oxygen saturations were monitored continuously. The Endoscope was introduced through the mouth, and advanced to the second part of duodenum. The upper GI endoscopy was accomplished without difficulty. The patient tolerated the procedure well. Moderate Sedation: Moderate (conscious) sedation was administered by the endoscopy nurse and supervised by the endoscopist. The patient's oxygen saturation, heart rate, blood pressure and response to care were monitored. Total physician intraservice time was 15 minutes. Scope In: 6:45:01 AM Scope Out: 6:57:19 AM Total Procedure Duration Time 0 hours 12 minutes 18 seconds Findings: LA Grade A (one or more mucosal breaks less than 5 mm, not extending between tops of 2 mucosal folds) esophagitis with no bleeding was found 34 to 35 cm from the incisors. Biopsies were taken with a cold forceps for histology. Verification of patient identification for the specimen was done. Estimated blood loss was minimal. Diffuse moderate inflammation characterized by congestion (edema), erosions, erythema and friability was found in the cardia, in the gastric body and in the prepyloric region of the stomach. Biopsies were taken with a cold forceps for histology. Verification of patient identification for the specimen was done. Estimated blood loss was minimal. Patchy mildly erythematous mucosa without active bleeding and with no stigmata of bleeding was found in the duodenal bulb and in the first portion of the duodenum. Biopsies were taken with a cold forceps for histology. Verification of patient identification for the specimen was done. Estimated blood loss was minimal. Impression: - LA Grade A reflux esophagitis. Biopsied. - Gastritis. Biopsied. - Erythematous duodenopathy. Biopsied. Recommendation: - Discharge patient to home. - Resume previous diet. - Continue present medications. - Await pathology results. - Repeat upper endoscopy PRN for surveillance based on pathology results. Procedure Code(s): --- Professional --- 60784, Esophagogastroduodenoscopy, flexible, transoral; with biopsy, single or multiple 13123, 59, Moderate sedation services provided by the same physician or other qualified health senior care provider performing the diagnostic or therapeutic service that the sedation supports, requiring the presence of an independent trained observer to assist in the monitoring of the patient's level of consciousness and physiological status; initial 15 minutes of intraservice time, patient age 5 years or older CPT copyright 2017 [employer]. All rights reserved. The codes documented in this report are preliminary and upon platform material handling supervisor review may be revised to meet current compliance requirements. Crow Lao DO 04/29/2021 7:04:22 AM This report has been signed electronically. Number of Addenda: 1 Note Initiated On: 04/29/2021 6:06 AM Addendum Number: 1 Addendum Date: 11/24/2021 6:39:29 AM MAC was used as sedation for this procedure. Crow Lao DO 11/24/2021 6:39:34 AM This report has been signed electronically.
== END 2021-04-29 23:59 | disposition home or self-care (01) ==
LOC: EN 05:27 → AC 05:28
PROVIDERS: Anesthesiology; PCP Family Medicine; Referring Provider Family Medicine; Visit Provider Internal Medicine Gastroenterology
PROC: 0DJ08ZZ Inspection of Upper Intestinal Tract, Via Natural or Artificial Opening Endoscopic (ICD-10-PCS; CPT 43235; principal; 2021-04-29 06:25)
DX: K21.00 Gastro-esophageal reflux disease with esophagitis, without bleeding (principal); K29.50 Unspecified chronic gastritis without bleeding; K22.70 Barrett's esophagus without dysplasia; K31.89 Other diseases of stomach and duodenum; I44.0 Atrioventricular block, first degree; I10 Essential (primary) hypertension; M19.90 Unspecified osteoarthritis, unspecified site; G47.00 Insomnia, unspecified; R20.2 Paresthesia of skin; Z79.899 Other long term (current) drug therapy; Z87.19 Personal history of other diseases of the digestive system; Z86.16 Personal history of COVID-19; Z86.73 Personal history of transient ischemic attack (TIA), and cerebral infarction without residual deficits; Z87.891 Personal history of nicotine dependence; Z20.822 Contact with and (suspected) exposure to COVID-19
CPT/HCPCS: 43239; 81025; 87426; 88305; 88313; 88341; 88342; J7120; J2405

== ENCOUNTER 2023-03-04 14:18 | Inpatient (IN) | payer SELFPAY ==
[2023-03-04 14:19] VITALS: BP 121/76; PULSE 86; RESP 20; TEMP 36.3; O2SAT 100; BMI 30.2
--- NOTE | 2023-03-04 14:54 | CT_ITS ---
STUDY: CT ABDOMEN AND PELVIS WITHOUT CONTRAST REASON FOR EXAM: Female, 52 years old. Pain RADIATION DOSAGE (If Supplied By Facility): CTDIvol = ( 13.49 ) mGy, DLP = ( 707.83 ) mGycm TECHNIQUE: Transaxial images were obtained from the dome of the diaphragm to the symphysis pubis without oral contrast, and without intravenous contrast. Sagittal and coronal images were reconstructed. Individualized dose optimization techniques were used for this CT. COMPARISON: August 28, 2018. FINDINGS: The visualized lung bases are unremarkable. The visualized portions of the heart are within normal limits. Normal liver. Normal gallbladder and extrahepatic biliary system. Normal spleen. Normal pancreas. Normal bilateral adrenal glands. Normal right kidney. Normal left kidney. Small hiatal hernia. Normal small intestine. Normal colon. The appendix is visualized and appears normal. Normal abdominal aorta. Normal inferior vena cava. Normal retroperitoneum. Normal urinary bladder. There is again noted a bulbous uterus. Normal abdominal wall. Normal osseous structures. CT/Abdomen/Pelvis without Cont IMPRESSION: No acute pathology of the abdomen and pelvis. Electronically Signed: Leodan Gonzalez DO at 16:14 [facility] Reading Location ID and State: [facility] / [place] Tel [phone], Service support ,
--- NOTE | 2023-03-04 14:55 | EKG12_ITS ---
Test Reason : ABD PAIN Blood Pressure : / mmHG Vent. Rate : 087 BPM Atrial Rate : 087 BPM P-R Int : 222 ms QRS Dur : 090 ms QT Int : 352 ms P-R-T Axes : 068 044 059 degrees QTc Int : 423 ms Sinus rhythm with sinus arrhythmia with 1st degree A-V block Otherwise normal ECG Confirmed by NICOLASA MCCALL, SOPHIE ([id number]), development editor RAKEL STORY ([id number]) on 03/06/2023 8:45:02 AM Referred By: Confirmed By:SOPHIE BALDWIN MD
--- NOTE | 2023-03-04 14:55 | ED.VIS.GI ---
HPI HPI - GI History of Present Illness Chief Complaint: Abd Pain Detail of Chief Complaint: Abdominal pain Informant: patient Narrative Narrative: Patient presents to the emergency department with complaint of abdominal pain that started this morning around 11:30 AM. Patient states that it came on rather suddenly. Patient states that she started her menstrual period yesterday. She describes pain mostly in the right side that then became diffuse. Rates her pain currently a 7 out of 10. She tells me that she was seen in the emergency department in [place] last evening because while shopping she developed severe sudden onset of pain between her shoulder blades. Patient had a CTA of her chest to rule out dissection and was told that she had musculoskeletal pain. Patient has not had any abdominal surgeries in the past. She has a remote history of a kidney stone about 20 years ago. [facility] Medical History Abdominal pain Anemia Anxiety Arthritis Asthma Chronic neck and back pain Diarrhea Dietary restriction DVT (deep venous thrombosis) Fatigue Former smoker Gastric reflux GERD (gastroesophageal reflux disease) History of echocardiogram History of steroid therapy History of ulceration Hoarseness Hypertension Injury of head and neck Insomnia Kidney stones Migraine headache Paresthesias Severe headache Shoulder pain Stomach ulcer TIA (transient ischemic attack) Wears dentures Home Medications camphor-menthol 0.2 %-3.5 % topical gel (Freeze It Relief) 1 applic topical QHS PRN muscle pain 03/04/23 [History Last Taken Unknown] cholecalciferol (vitamin D3) 1,000 tab PO BID supplement 03/04/23 [History Last Taken Unknown] omeprazole 20 mg capsule,delayed release 20 mg PO DAILY heartburn 03/04/23 [History Last Taken 03/03/23] Allergy/AdvReac Type Severity Reaction Status Date / Time ciprofloxacin Allergy Other Verified 03/04/23 14:19 Gadolinium-MRI Contrast Allergy Other Verified 03/04/23 14:19 Medium [MRI] Penicillins [PCN] Allergy Unknown Verified 03/04/23 14:19 venom-honey bee Allergy Anaphylaxis Verified 03/04/23 14:19 [bee venom (honey bee)] Surgical History History of colonoscopy Hx of dilation and curettage Hx of sinus surgery Social History Smoking Status: Former smoker alcohol intake: current ROS ROS ED Review of Systems ROS Unobtainable: other Constitutional Constitutional ED: Reports lethargy; Denies chills, fever(s), sweats or weight loss Eyes Eyes: Denies blurry vision, change in vision or diplopia ENT ENT ED: Denies rhinorrhea or sore throat Cardiovascular Cardiovascular: Denies chest pain, orthopnea or racing heartbeat Respiratory/Chest Respiratory/Chest: Denies cough, dyspnea, dyspnea on exertion, orthopnea or sputum Gastrointestinal Gastrointestinal: Reports abdominal pain and nausea; Denies diarrhea or vomiting Genitourinary Genitourinary ED: Denies dysuria, hematuria or urinary frequency Musculoskeletal Musculoskeletal: Denies arthralgias, back pain, myalgias or neck pain Integumentary Denies abscess, Abrasions or rash Neurologic Neurologic: Denies headache(s) or weakness Psychiatric Psychiatric: Denies anxiety, depression or suicidal thoughts Endocrine Endocrinology: Denies polydipsia, polyphagia or polyuria Hematologic/Lymphatic Hematologic/Lymphatic: Denies easy bleeding, easy bruising or lymphadenopathy Allergic/Immunologic Allergic/Immunologic ED: Denies mouth swelling, tongue swelling or urticaria EXAM Physical Exam Const Vital Signs: 03/04/23 14:19 03/04/23 15:34 03/04/23 17:00 Temperature 97.4 F L Temperature Source Temporal Pulse Rate 86 85 85 Respiratory Rate 20 H 16 16 Blood Pressure 121/76 H 148/78 H 145/87 H Blood Pressure Mean 91 101 106 Pulse Ox 100 99 96 Oxygen Delivery Method Room Air Room Air Room Air 03/04/23 17:55 03/04/23 19:00 Temperature Temperature Source Pulse Rate 85 90 Respiratory Rate 16 16 Blood Pressure 145/87 H 135/74 H Blood Pressure Mean 106 94 Pulse Ox 96 97 Oxygen Delivery Method Room Air Positive well nourished and well developed General Appearance ED: well developed and NAD HEENT Reports TM's clear and moist mucous membranes normocephalic and atraumatic; Negative for trauma or tenderness Tympanic Membrane ED: Yes TM's clear Eyes PERRL and EOMs intact bilaterally General Eye ED: Negative for pale conjunctiva or scleral icterus Neck no lymphadenopathy, supple and no JVD General: Negative for tenderness Chest Wall inspection of chest normal and palpation of chest normal Chest: Negative for tenderness Resp normal respiratory effort and clear to auscultation bilaterally Effort and Inspection: Negative for respiratory distress or pain with movement Auscultation: Negative for rhonchi, wheezes or diminished lung sounds Cardio regular rate, regular rhythm, S1 normal heart sound, S2 normal heart sound and no murmurs Peripheral Pulses: pulses 2+ throughout GI normal to inspection, nondistended, normoactive bowel sounds, soft to palpation, non-distended and no masses GI Narrative: Tenderness palpation diffusely but mostly over the lower abdomen to the left lower quadrant and suprapubic region as well as the right lower quadrant with some guarding. Negative Grayson sign. No rebound, rigidity, or pineal signs. No mass palpated. Back/Spine no CVA tenderness and no thoracic nor lumbar tenderness Extremity normal to inspection General Extremety ED: Negative for edema General Extremity: Negative for edema Neuro oriented x3, CN's II-XII intact bilaterally, no sensory deficits noted and gait normal Sensorium / Orientation: awake, alert, oriented to person, oriented to place and oriented to time Motor Exam: strength 5/5 throughout and strength abnormal Psych mental status grossly normal Skin no rashes or lesions noted and no wounds MDM MDM MDM Narrative Medical decision making narrative: Abdominal pain that started around 1130 suddenly right-sided. In the differential would be kidney stone versus UTI versus appendicitis versus bowel perforation or other acute process. IV line established. She was medicated with Dilaudid and Zofran. CBC with differential showed white count of 20.8 with hemoglobin 12.8 and platelet count of 355. Chemistries unremarkable. LFTs were normal. Lactate was normal at 1.7. Urinalysis showed red blood cells greater than 100 however she is on her menstrual period. CT scan of the abdomen pelvis was unremarkable. On my interpretation of the CT however it appears there is some thickening at the ileocecal valve. I discussed with general surgeon on-call Dr. Mc davalos who agrees. She recommended admission for pain control and antibiotics and repeat CT scan with IV and p.o. contrast within the next 24 hours to evaluate further. Initially patient did not receive IV contrast because she had had IV contrast less than 24 hours ago for a CTA of the chest. Discussed case with hospitalist who will evaluate patient for admission. Patient was started on Cipro and Flagyl. She initially listed Cipro as an allergy but the allergies that she gets a yeast infection. She also has an allergy to penicillin. Lab Data Attestation: I reviewed the patient's lab results. Labs: Laboratory Results - last 24 hr 03/04/23 03/04/23 15:35 16:52 WBC 20.8 H RBC 4.49 Hgb 12.8 Hct 39.8 MCV 88.6 MCH 28.5 MCHC 32.2 RDW Std Deviation 41.2 RDW Coeff of Huseyin 12.7 Plt Count 355 MPV 9.7 Immature Gran % (Auto) 0.900 Neut % (Auto) 87.0 H Lymph % (Auto) 7.0 L [place] % (Auto) 5.0 Eos % (Auto) 0.0 Baso % (Auto) 0.1 Absolute Neuts (auto) 18.0 H Absolute Lymphs (auto) 1.46 Nucleated RBC % 0 ESR 30 Sodium 143 Potassium 3.5 Chloride 114 H Carbon Dioxide 24.0 Anion Gap 5 BUN 14 Creatinine 0.91 Estim Creat Clear Calc 71.12 Est GFR (MDRD) Af Amer 83 Est GFR (MDRD) Non-Af 69 BUN/Creatinine Ratio 15.3 Glucose 103 Lactic Acid 1.7 Calcium 9.2 Total Bilirubin 0.30 AST 8 L ALT 24 Alkaline Phosphatase 92 Troponin I High Sens 6 Total Protein 7.9 Albumin 3.8 Globulin 4.1 Albumin/Globulin Ratio 0.9 Serum , Qual NEGATIVE Urine Color Yellow Urine Clarity Sl. Cloudy Urine pH 6.5 Ur Specific [place] 1.010 Urine Protein 30 H Urine Glucose (UA) Normal Urine Ketones Negative Urine Occult Blood 250 H Urine Nitrite Negative Urine Bilirubin Negative Urine Urobilinogen Normal Ur Leukocyte Esterase 25 H Urine RBC > 100 SEEN Urine WBC 0 SEEN Ur Squamous Epith Cells 0 SEEN Urine Bacteria 0 SEEN Urine Mucus 0 SEEN Radiography Diagnostic Testing: Clinical Impression(s) from Imaging Studies Abdomen/Pelvis CT 03/04/23 14:54 IMPRESSION: No acute pathology of the abdomen and pelvis. Electronically Signed: Leodan Gonzalez DO at 16:14 EST Reading Location ID and State: [facility] / [place] Tel [phone], Service support , EKG Initial EKG: Attestation: I personally reviewed and interpreted this EKG as follows: Comments: Sinus rhythm with a rate of 87 bpm with first-degree AV block Discharge Plan Dx/Rx/DC Orders Clinical Impression: Leukocytosis, History of hypertension, Abdominal pain Disposition Disposition: Acute Care [facility] Discharge Date/Time: 03/04/23 19:27
[2023-03-04] MEDS: Ketorolac 15 MG/ML Vial IV (15:17)
[2023-03-04] MEDS: Ondansetron 4 MG/2 ML Vial IV (15:17)
[2023-03-04] MEDS: Morphine 4 MG/ML Syringe IV (15:17)
[2023-03-04] MEDS: 0.9% Normal Saline (1000mL) 1,000 ML 125 ML IV (15:21)
[2023-03-04 15:34] VITALS: BP 148/78; PULSE 85; RESP 16; O2SAT 99
--- OUTSIDE RECORDS SUMMARY | 2023-03-04 15:50 | XMS RPT_ITS | CCD ---
Author Name Unknown Address [id number] [place] [address] Organization [facility] Care Team Providers Care Bingo Checker Name Role Phone Unavailable Primary Care Provider UnavailDR LI Conde MD Primary Care Physician Li Tompkins MD Primary Care Provider Li Tompkins MD Primary Care Provider Li Tompkins MD Primary Care Provider Li Tompkins MD Primary Care Provider DR LI TOMPKINS MD Primary Care Physician LI TOMPKINS Primary Care Unavailable LI TOMPKINS Primary Care Unavailable SANJANA BROWNLEE Attending Unavailable LI TOMPKINS Primary Care Unavailable ELÍAS MAN Attending Unavailable LI TOMPKINS Primary Care Unavailable SANJANA BROWNLEE Attending Unavailable LI TOMPKINS Primary Care Unavailable ELÍAS MAN Attending Unavailable RADHA DOMINGO Referring Unavailable LI TOMPKINS Primary Care Unavailable LI TOMPKINS Primary Care Unavailable LI TOMPKINS Primary Care Unavailable RADHA DOMINGO Attending Unavailable LI TOMPKINS Primary Care Unavailable Moiz BERRY Referring Unavailable LI TOMPKINS Primary Care Unavailable Moiz BERRY Referring Unavailable Moiz BERRY Attending Unavailable LI TOMPKINS Primary Care Unavailable LASHONDA SPEARS DO Attending Unavailable DR LI TOMPKINS MD Primary Care Unavailab RACHEL Mina MD Attending Unavailable DR LI TOMPKINS MD Primary Care Sunita Bush MD, DR JEFFERSON [facility] H[facility], HANS Horvath Attending Sunita Mcgrath MD, BETY Whitlock Attending Naz TOMPKINS MD, DR JEFFERSON [facility] Allergies Allergy Classification Reported Allergen(s) Allergy Type Date of Onset Reaction(s) Facility (8 sources) Bee/Wasp/Ant venom Allergy to substance [facility] Work Phone: (20 sources) Ciprofloxacin; Translations: [ciprofloxacin] [facility] Penicillin; Translations: [penicillin] Drug Allergy [facility] Work Phone: (6 sources) Contrast media; Translations: [iodinated radiocontrast agents] Drug allergy [facility] Work Phone: (20 sources) Azithromycin; Translations: [AZITHROMYCIN] Drug Allergy 9 GI Upset [facility] Work Phone: (20 sources) Iodine; Translations: [IODINE] Drug Allergy 2 Rash [facility] Work Phone: (20 sources) metroNIDAZOLE; Translations: [METRONIDAZOLE] Drug Allergy 9 Other: See Comments [facility] Work Phone: (8 sources) Penicillins; Translations: [PENICILLINS] Propensity to adverse reactions 6 Anaphylaxis [facility] Work Phone: (20 sources) Bee Sting; Translations: [BEE STING] Propensity to adverse reactions 0 Anaphylaxis [facility] Work Phone: (12 sources) Penicillins Propensity to adverse reactions 6 Anaphylaxis [facility] Work Phone: (12 sources) Iodinated Contrast Media; Translations: [IODINATED CONTRAST MEDIA] Drug Allergy 2 Anaphylaxis [facility] Medications Current Medications Medication Drug Class(es) Dates Sig (Normalized) Sig (Original) cephalexin 500 mg oral capsule (2 sources) Cephalosporin Antibacterial Start: 04-11-2021 End: 02-18-2022 Keflex 500 mg oral capsule Dose : 500 mg = 1 cap(s), Oral, q12h, X 5 day(s), # 10 cap(s), 0 Refill(s), 04/16/21 12:46:00 EST, Pharmacy: [facility]/pharmacy #[id number], 170, cm, 04/09/21 22:17:00 EST, Height, 70, kg, 04/09/21 22:17:00 EST, Dosing Weight Start Date: 04/11/21 Stop Date: 04/16/21 Status: Ordered cetirizine hydrochloride 10 mg oral tablet (13 sources) Histamine-1 Receptor Antagonist Start: 03-11-2021 End: 10-23-2021 take 1 tablet by mouth once daily cetirizine (ZYRTEC) 10 mg tablet Take 1 tablet by mouth once daily. 30 tablet 12 03/11/2021 10/23/2021 Discontinued (Changing Therapy/Dosage Form) Completed/Discontinued Medications Medication Drug Class(es) Dates Sig (Normalized) Sig (Original) acetaminophen 325 mg / butalbital 50 mg / caffeine 40 mg oral tablet (5 sources) Barbiturate, Central Nervous System Stimulant, Methylxanthine Start: 11-04-2022 acetaminophen 325 mg-caffeine 40 mg-butalbital 50 mg (FIORICET) per tablet TAKE 1 TABLET EVERY 6 HOURS NEEDED FOR HEADACHE FOR 5 DAYS 0 11/04/2022 Active Problems Active Problems Problem Classification Problem Date Documented Date Episodic/Chronic Anxiety disorders (17 sources) Anxiety disorder; Translations: [Anxiety disorder, unspecified] Onset: 09-17-2016 08-22-2018 Chronic Deficiency and other anemia (17 sources) Anemia; Translations: [Anemia, unspecified] 02-22-2008 Episodic Esophageal disorders (2 sources) Gastroesophageal reflux disease; Translations: [Gastro-esophageal reflux disease without esophagitis] Onset: 12-30-2022 12-30-2022 Chronic Gastroduodenal ulcer (except hemorrhage) (17 sources) Gastric ulcer; Translations: [Gastric ulcer, unspecified as acute or chronic, without hemorrhage or perforation] Onset: 01-04-2010 03-12-2018 Chronic Malaise and fatigue (1 source) Fatigue; Translations: [Other fatigue] Onset: 03-10-2021 Episodic Mycoses (1 source) Tinea cruris; Translations: [Tinea cruris] Episodic Nonspecific chest pain (1 source) Chest pain Onset: 01-06-2023 Episodic Other connective tissue disease (1 source) Plantar fasciitis; Translations: [Plantar fascial fibromatosis] Episodic Other connective tissue disease (1 source) Muscle pain; Translations: [Myalgia, unspecified site] 12-29-2022 Episodic Other connective tissue disease (1 source) Lateral epicondylitis of right humerus; Translations: [Lateral epicondylitis, right elbow] 12-30-2022 Episodic Other connective tissue disease (1 source) Muscle tension pain; Translations: [Myalgia, unspecified site] 12-30-2022 Episodic Other connective tissue disease (3 sources) Myalgia, unspecified site; Translations: [Myalgias] Onset: 11-24-2022 Episodic Other connective tissue disease (1 source) Lateral epicondylitis, right elbow; Translations: [Lateral epicondylitis of right elbow] Onset: 12-30-2022 Episodic Other infections; including parasitic (1 source) Infestation by Sarcoptes scabiei garland hominis; Translations: [Scabies] Episodic Other inflammatory condition of skin (1 source) Itching ; Translations: [Pruritus, unspecified] Episodic Other lower respiratory disease (1 source) Shortness of breath; Translations: [SOB (shortness of breath)] Onset: 10-27-2022 Episodic Other nervous system disorders (1 source) Chronic pain syndrome; Translations: [Chronic pain syndrome] 12-22-2022 Chronic Other nervous system disorders (1 source) Chronic pain syndrome; Translations: [Chronic pain syndrome] Onset: 12-22-2022 Chronic Other non-traumatic joint disorders (1 source) Joint pain; Translations: [Pain in unspecified joint] 12-28-2022 Episodic Other screening for suspected conditions (not mental disorders or infectious disease) (4 sources) Patient encounter status; Translations: [Encounter for screening mammogram for malignant neoplasm of breast] Onset: 01-02-2023 Episodic Other upper respiratory disease (1 source) Pain in throat; Translations: [Pain in throat] Onset: 03-03-2021 Episodic Other upper respiratory infections (4 sources) Sore throat symptom; Translations: [Acute pharyngitis, unspecified] Onset: 11-03-2022 11-03-2022 Episodic Pneumonia (except that caused by tuberculosis or sexually transmitted disease) (1 source) Community acquired pneumonia; Translations: [Pneumonia, unspecified organism] 10-07-2022 Episodic Spondylosis; intervertebral disc disorders; other back problems (1 source) Dorsalgia, unspecified; Translations: [Acute bilateral back pain, unspecified back location] Onset: 10-27-2022 Episodic Thyroid disorders (2 sources) Thyroid nodule; Translations: [Nontoxic single thyroid nodule] Onset: 10-13-2022 10-07-2022 Chronic Viral infection (1 source) Viral infection, unspecified; Translations: [Viral illness] Onset: 11-24-2022 Episodic Past or Other Problems Problem Classification Problem Date Documented Da te Episodic/Chronic Abdominal pain (18 sources) Abdominal pain; Translations: [Unspecified abdominal pain] Onset: 01-04-2010 Episodic Allergic reactions (18 sources) Allergic disposition; Translations: [Allergy status to unspecified drugs, medicaments and biological substances status] Onset: 03-12-2018 03-12-2018 Episodic Calculus of urinary tract (17 sources) H/O: urinary stone; Translations: [Personal history of urinary calculi] Onset: 09-17-2016 08-22-2018 Episodic Gastritis and duodenitis (17 sources) Acute gastritis; Translations: [Acute gastritis without bleeding] Onset: 01-04-2010 01-04-2010 Episodic Gastrointestinal hemorrhage (17 sources) Rectal hemorrhage; Translations: [Hemorrhage of anus and rectum] Onset: 12-25-2009 12-25-2009 Episodic Miscellaneous mental health disorders (17 sources) Emotional problems; Translations: [Other symptoms and signs involving emotional state] Onset: 08-08-2008 08-08-2008 Episodic Other bone disease and musculoskeletal deformities (17 sources) Disorder of skeletal system; Translations: [Disorder of bone, unspecified] Onset: 06-03-2014 06-03-2014 Episodic Other injuries and conditions due to external causes (17 sources) Injury of musculoskeletal system; Translations: [Other injury of unspecified body region, initial encounter] Onset: 06-03-2014 06-03-2014 Episodic Other non-traumatic joint disorders (17 sources) Shoulder joint pain; Translations: [Pain in unspecified shoulder] Onset: 06-03-2014 06-03-2014 Episodic Residual codes; unclassified (17 sources) Tobacco use and exposure - finding; Translations: [Tobacco use] Onset: 09-17-2016 08-22-2018 Episodic Sprains and strains (1 source) Sprain of ligaments of lumbar spine, initial encounter; Translations: [Lumbar sprain, initial encounter] Onset: 05-17-2022 Episodic Results Test Name Value Interpretation Reference Range Facil ity Vital Signs Date Time Vital Sign Value Performing Clinician Facility 12-30-2022 14:48-0400 Diastolic blood pressure 76 mm[Hg] Radha Domingo LUG LOADER.KEY ATTENDANT Work Phone: [facility] 12-30-2022 14:48-0400 Heart rate 93 /min Radha Domingo LUG LOADER.KEY ATTENDANT Work Phone: [facility] 12-30-2022 14:48-0400 Respiratory rate 18 /min Radha Domingo LUG LOADER.KEY ATTENDANT Work Phone: [facility] 12-30-2022 14:48-0400 SaO2% (BldA) [Mass fraction] 99 % Radha Domingo LUG LOADER.KEY ATTENDANT Work Phone: [facility] 12-30-2022 14:48-0400 Systolic blood pressure 128 mm[Hg] Radha Finneganhof LUG LOADER.KEY ATTENDANT Work Phone: [facility] 12-22-2022 18:45-0400 Body temperature 97.39 [degF] Elías Floyd PA-C Work Phone: [facility] 12-22-2022 18:45-0400 Diastolic blood pressure 76 mm[Hg] Elías Floyd PA-C Work Phone: [facility] 12-22-2022 18:45-0400 Heart rate 85 /min Elías Floyd PA-C Work Phone: [facility] 12-22-2022 18:45-0400 Respiratory rate 18 /min Elías Floyd PA-C Work Phone: [facility] 12-22-2022 18:45-0400 SaO2% (BldA) [Mass fraction] 100 % Elías Floyd PA-C Work Phone: [facility] 12-22-2022 18:45-0400 Systolic blood pressure 111 mm[Hg] Elías Man PA-C Work Phone: [facility] 11-03-2022 15:16-0400 Body temperature 98.1 [degF] Sanjana Brownlee MD Work Phone: [facility] 11-03-2022 15:16-0400 Body weight 85.28 kg Sanjana Brownlee MD Work Phone: [facility] 11-03-2022 15:16-0400 Diastolic blood pressure 77 mm[Hg] Sanjana Brownlee MD Work Phone: [facility] 11-03-2022 15:16-0400 Heart rate 94 /min Sanjana Brownlee MD Work Phone: [facility] 11-03-2022 15:16-0400 Respiratory rate 16 /min Sanjana Brownlee MD Work Phone: [facility] 11-03-2022 15:16-0400 SaO2% (BldA) [Mass fraction] 98 % Sanjana Brownlee MD Work Phone: [facility] 11-03-2022 15:16-0400 Systolic blood pressure 116 mm[Hg] Sanjana Brownlee MD Work Phone: [facility] 10-07-2022 08:08-0400 Body temperature 98.4 [degF] NA Berry PA-C Work Phone: [facility] 10-07-2022 08:08-0400 Body weight 84.82 kg NA Berry PA-C Work Phone: [facility] 10-07-2022 08:08-0400 Diastolic blood pressure 68 mm[Hg] NA Berry PA-C Work Phone: [facility] 10-07-2022 08:08-0400 Heart rate 88 /min NA Berry PA-C Work Phone: [facility] 10-07-2022 08:08-0400 Respiratory rate 16 /min NA Berry PA-C Work Phone: [facility] 10-07-2022 08:08-0400 SaO2% (BldA) [Mass fraction] 96 % NA Berry PA-C Work Phone: [facility] 10-07-2022 08:08-0400 Systolic blood pressure 120 mm[Hg] NA Berry PA-C Work Phone: [facility] 10-04-2022 03:18-0400 Body temperature 100.04 [degF] LASHONDA SPEARS DO [facility] 10-04-2022 02:54-0400 Diastolic Blood Pressure Non-Invasive 60 1 LASHONDA SPEARS DO [facility] 10-04-2022 02:54-0400 Heart rate 99 /min LASHONDA SPEARS DO [facility] 10-04-2022 02:54-0400 Respiratory rate 17 /min LASHONDA SPEARS DO [facility] 10-04-2022 02:54-0400 Systolic Blood Pressure Non-Invasive 117 1 LASHONDA SPEARS DO [facility] 10-04-2022 02:09-0400 Diastolic Blood Pressure Non-Invasive 60 1 LASHONDA SPEARS DO [facility] 10-04-2022 02:09-0400 Heart rate 95 /min LASHONDA SPEARS DO [facility] 10-04-2022 02:09-0400 Systolic Blood Pressure Non-Invasive 104 1 LASHONDA SPEARS DO [facility] 10-03-2022 22:16-0400 Body weight 88.8 kg LASHONDA SPEARS DO [facility] 10-03-2022 21:55-0400 Body temperature 97.88 [degF] LASHONDA SPEARS DO [facility] 10-03-2022 21:55-0400 Diastolic Blood Pressure Non-Invasive 84 1 LASHONDA SPEARS DO [facility] 10-03-2022 21:55-0400 Heart rate 109 /min LASHONDA SPEARS DO [facility] 10-03-2022 21:55-0400 Respiratory rate 18 /min LASHONDA SPEARS DO [facility] 10-03-2022 21:55-0400 Systolic Blood Pressure Non-Invasive 125 1 LASHONDA SPEARS DO [facility] 12-31-2021 19:01-0400 Body temperature 97.7 [degF] Sanjana Brownlee MD Work Phone: [facility] 12-31-2021 19:01-0400 Body weight 81.1 kg Sanjana Brownlee MD Work Phone: [facility] 12-31-2021 19:01-0400 Diastolic blood pressure 64 mm[Hg] Sanjana Brownlee MD Work Phone: [facility] 12-31-2021 19:01-0400 Heart rate 77 /min Sanjana Brownlee MD Work Phone: [facility] 12-31-2021 19:01-0400 Respiratory rate 18 /min Sanjana Brownlee MD Work Phone: [facility] 12-31-2021 19:01-0400 SaO2% (BldA) [Mass fraction] 99 % Sanjana Brownlee MD Work Phone: [facility] 12-31-2021 19:01-0400 Systolic blood pressure 105 mm[Hg] Sanjana Brownlee MD Work Phone: [facility] 11-26-2021 17:03-0400 Body weight 78.47 kg Libertad Huynh DO Work Phone: [facility] 11-26-2021 17:03-0400 Diastolic blood pressure 55 mm[Hg] Libertad Huynh DO Work Phone: [facility] 11-26-2021 17:03-0400 Heart rate 80 /min Libertad Huynh DO Work Phone: [facility] 11-26-2021 17:03-0400 Respiratory rate 16 /min Libertad Huynh DO Work Phone: [facility] 11-26-2021 17:03-0400 SaO2% (BldA) [Mass fraction] 99 % Libertad Huynh DO Work Phone: [facility] 11-26-2021 17:03-0400 Systolic blood pressure 112 mm[Hg] Libertad Huynh DO Work Phone: [facility] 10-23-2021 08:42-0400 Body temperature 97 [degF] Myra Jenniffer LUG LOADER.KEY ATTENDANT Work Phone: [facility] 10-23-2021 08:42-0400 Body weight 76.02 kg Myra Jenniffer LUG LOADER.KEY ATTENDANT Work Phone: [facility] 10-23-2021 08:42-0400 Diastolic blood pressure 82 mm[Hg] Myra Jenniffer LUG LOADER.KEY ATTENDANT Work Phone: [facility] 10-23-2021 08:42-0400 Heart rate 108 /min Myra Jenniffer LUG LOADER.KEY ATTENDANT Work Phone: [facility] 10-23-2021 08:42-0400 Respiratory rate 20 /min Myra Jenniffer LUG LOADER.KEY ATTENDANT Work Phone: [facility] 10-23-2021 08:42-0400 SaO2% (BldA) [Mass fraction] 95 % Myra Jenniffer LUG LOADER.KEY ATTENDANT Work Phone: [facility] 10-23-2021 08:42-0400 Systolic blood pressure 126 mm[Hg] Myra Jenniffer LUG LOADER.KEY ATTENDANT Work Phone: [facility] 04-15-2021 02:01-0500 Body temperature 97.7 [degF] SIVAKUMAR ACOSTA MD [facility] 04-15-2021 02:01-0500 Body weight 69.7 kg SIVAKUMAR ACOSTA MD [facility] 04-15-2021 02:01-0500 Diastolic blood pressure 71 mm[Hg] SIVAKUMAR ACOSTA MD [facility] 04-15-2021 02:01-0500 Heart rate 70 /min SIVAKUMAR ACOSTA MD [facility] 04-15-2021 02:01-0500 Respiratory rate 18 /min SIVAKUMAR ACOSTA MD [facility] 04-15-2021 02:01-0500 Systolic blood pressure 111 mm[Hg] SIVAKUMAR ACOSTA MD [facility] 04-11-2021 11:01-0500 Body temperature 98.24 [degF] DR ANNA LACKEY MD [facility] 04-11-2021 11:01-0500 Diastolic blood pressure 62 mm[Hg] DR ANNA LACKEY MD [facility] 04-11-2021 11:01-0500 Heart rate 68 /min DR ANNA LACKEY MD [facility] 04-11-2021 11:01-0500 Mean blood pressure 75 mm[Hg] DR ANNA LACKEY MD [facility] 04-11-2021 11:01-0500 Respiratory rate 18 /min DR ANNA LACKEY MD [facility] 04-11-2021 11:01-0500 Systolic blood pressure 101 mm[Hg] DR ANNA LACKEY MD [facility] 04-11-2021 07:29-0500 Body temperature 98.06 [degF] DR ANNA LACKEY MD [facility] 04-11-2021 07:29-0500 Diastolic blood pressure 64 mm[Hg] DR ANNA LACKEY MD [facility] 04-11-2021 07:29-0500 Heart rate 72 /min DR ANNA LACKEY MD [facility] 04-11-2021 07:29-0500 Mean blood pressure 77 mm[Hg] DR ANNA LACKEY MD [facility] 04-11-2021 07:29-0500 Respiratory rate 18 /min DR ANNA LACKEY MD [facility] 04-11-2021 07:29-0500 Systolic blood pressure 102 mm[Hg] DR ANNA LACKEY MD [facility] 04-11-2021 04:08-0500 Body temperature 98.24 [degF] DR ANNA LACKEY MD [facility] 04-11-2021 04:08-0500 Diastolic blood pressure 52 mm[Hg] DR ANNA LACKEY MD [facility] 04-11-2021 04:08-0500 Heart rate 65 /min DR ANNA LACKEY MD [facility] 04-11-2021 04:08-0500 Mean blood pressure 68 mm[Hg] DR ANNA LACKEY MD [facility] 04-11-2021 04:08-0500 Respiratory rate 18 /min DR ANNA LACKEY MD [facility] 04-11-2021 04:08-0500 Systolic blood pressure 101 mm[Hg] DR ANNA LACKEY MD [facility] 04-10-2021 23:10-0500 Reason For Taking VItal Signs DR ANNA LACKEY MD [facility] 04-10-2021 19:25-0500 Reason For Taking VItal Signs DR ANNA LACKEY MD [facility] 04-10-2021 14:33-0500 Reason For Taking VItal Signs DR ANNA LACKEY MD [address] [place] [address] 04-10-2021 04:03-0500 Heart rate 71 /min DR ANNA LACKEY MD [facility] 04-09-2021 23:04-0500 Heart rate 66 /min DR ANNA LACKEY MD [facility] 04-09-2021 22:17-0500 Body height [address] ANNA LACKEY MD [address] [place] [address] 04-09-2021 22:17-0500 Body weight [address] ANNA LACKEY MD [facility] 04-09-2021 22:17-0500 Body weight 24.22 kg/m2 DR ANNA LACKEY MD [facility] 04-09-2021 21:13-0500 Heart rate 67 /min DR ANNA LACKEY MD [facility] 04-09-2021 17:10-0500 Body weight [address] ANNA LACKEY MD [facility] 03-31-2021 03:25-0500 Diastolic blood pressure 75 mm[Hg] NATALIA BARDALESMELT DO [facility] 03-31-2021 03:25-0500 Heart rate 68 /min NATALIA FROMALICET DO [facility] 03-31-2021 03:25-0500 Respiratory rate 16 /min NATALIA LARAT DO [facility] 03-31-2021 03:25-0500 Systolic blood pressure 115 mm[Hg] NATALIA FROMMELT DO [facility] 03-31-2021 00:07-0500 Body height 170.2 cm NATALIA BARDALESMELT DO [facility] 03-31-2021 00:07-0500 Body temperature 97.88 [degF] NATALIA BARDALESMELT DO [facility] 03-31-2021 00:07-0500 Body weight 69 kg NATALIA FROMMELT DO [facility] 03-31-2021 00:07-0500 Diastolic blood pressure 74 mm[Hg] NATALIA FROMMELT DO [facility] 03-31-2021 00:07-0500 Heart rate 74 /min NATALIA LARAT DO [facility] 03-31-2021 00:07-0500 Respiratory rate 16 /min NATALIA QUEZADA DO [facility] 03-31-2021 00:07-0500 Systolic blood pressure 109 mm[Hg] NATALIA QUEZADA DO [facility] 03-10-2021 02:37-0500 Body temperature 98.24 [degF] BLANCA GONCALVES DO [facility] 03-10-2021 02:37-0500 Diastolic blood pressure 71 mm[Hg] BLANCA GONCALVES DO [facility] 03-10-2021 02:37-0500 Heart rate 84 /min BLANCA GONCALVES DO [facility] 03-10-2021 02:37-0500 Respiratory rate 18 /min BLANCA GONCALVES DO [facility] 03-10-2021 02:37-0500 Systolic blood pressure 99 mm[Hg] BLANCA GONCALVES DO [facility] 03-09-2021 23:32-0500 Diastolic blood pressure 61 mm[Hg] MAEGAN VALENCIA PA-C [facility] 03-09-2021 23:32-0500 Heart rate 82 /min MAEGAN ERIK PA-C [facility] 03-09-2021 23:32-0500 Respiratory rate 16 /min MAEGAN ERIK PA-C [facility] 03-09-2021 23:32-0500 Systolic blood pressure 118 mm[Hg] MAEGAN ERIK PA-C [facility] 03-09-2021 21:11-0500 Body temperature 97.88 [degF] MAEGAN ERIK PA-C [facility] 03-09-2021 21:11-0500 Body weight 71.1 kg MAEGAN ERIK PA-C [facility] 03-09-2021 21:11-0500 Diastolic blood pressure 73 mm[Hg] MAEGAN ERIK PA-C [facility] 03-09-2021 21:11-0500 Heart rate 79 /min MAEGAN ERIK PA-C [facility] 03-09-2021 21:11-0500 Respiratory rate 16 /min MAEGAN ERIK PA-C [facility] 03-09-2021 21:11-0500 Systolic blood pressure 105 mm[Hg] MAEGAN ERIK PA-C [facility] 03-03-2021 20:17-0500 Diastolic blood pressure 62 mm[Hg] SAIRA PUGH MD [facility] 03-03-2021 20:17-0500 Heart rate 64 /min SAIRA PUGH MD [facility] 03-03-2021 20:17-0500 Respiratory rate 20 /min SAIAR PUGH MD [facility] 03-03-2021 20:17-0500 Systolic blood pressure 116 mm[Hg] SAIRA PUGH MD [facility] 03-03-2021 17:10-0500 Body height 170.2 cm SAIRA PUGH MD [facility] 03-03-2021 17:10-0500 Body temperature 98.24 [degF] SAIRA PUGH MD [facility] 03-03-2021 17:10-0500 Body weight 71.3 kg SAIRA PUGH MD [facility] 03-03-2021 17:10-0500 Diastolic blood pressure 64 mm[Hg] SAIRA PUGH MD [facility] 03-03-2021 17:10-0500 Heart rate 94 /min SAIRA PUGH MD [facility] 03-03-2021 17:10-0500 Respiratory rate 20 /min SAIRA PUGH MD [facility] 03-03-2021 17:10-0500 Systolic blood pressure 116 mm[Hg] SAIRA PUGH MD [facility] 02-20-2021 15:13-0500 Body temperature 98.24 [degF] SIVAKUMAR ACOSTA MD [facility] 02-20-2021 15:13-0500 Body weight 72.5 kg SIVAKUMAR ACOSTA MD [facility] 02-20-2021 15:13-0500 Diastolic blood pressure 101 mm[Hg] SIVAKUMAR ACOSTA MD [facility] 02-20-2021 15:13-0500 Heart rate 87 /min SIVAKUMAR ACOSTA MD [facility] 02-20-2021 15:13-0500 Respiratory rate 22 /min SIVAKUMAR ACOTSA MD [facility] 02-20-2021 15:13-0500 Systolic blood pressure 156 mm[Hg] SIVAKUMAR ACOSTA MD [facility] Encounters Encounter Date Encounter Type Care Provider Facility Start: 02-19-2023 End: 02-19-2023 Emergency department patient visit BETY RABAGO MD Facility:A Start: 01-25-2023 ambulatory Li boucher MD Work Phone: Internal Medicine [facility] Start: 01-06-2023 Emergency department patient visit LI TOMPKINS Facility:[id number] Start: 01-02-2023 End: 01-03-2023 ambulatory RADHA DOMINGO Facility:[id number] Start: 01-02-2023 Telephone encounter Radha Sorensen nhof LUG LOADER.KEY ATTENDANT Work Phone: Family Medicine [place] Procedures Date Procedure Procedure Detail Performing Clinician Start: 12-30-2022 Blood count complete auto&auto difrntl wbc Radha Jose L LUG LOADER.KEY ATTENDANT Work Phone: Start: 12-30-2022 C-reactive protein Jose Domingo LUG LOADER.KEY ATTENDANT Work Phone: Start: 11-03-2022 Iadna streptococcus group a amplified probe tq Sanjana Brownlee MD Work Phone: Start: 09-06-2018 Adult depression scr eening assessment Li Tompkins MD Work Phone: Start: 02-10-2010 Lipid 1996 panel - S damian or Plasma Elías Man PA-C Work Phone: Start: 01-04-2010 Colonoscopy Li roberts MD Work Phone: Operation on nose SIVAKUMAR MOULTON MD Plan of Treatment Date Care Activity Detail Author Start: 03-23-2026 HPV TESTING HPV TESTING [facility] Start: 03-23-2026 PAP TESTING PAP TESTING [facility] Start: 03-23-2026 Urine microalbumin profile [facility] Start: 01-06-2026 Diabetes Screening Diabetes Screenin [facility] Start: 12-30-2025 [facility] Start: 10-23-2024 DIABETES SCREEN DIABETES SCREEN [facility] Start: 10-23-2024 Diabetes Screening Diabetes Screenin g [facility] Start: 03-10-2024 DIABETES SCREEN DIABETES SCREEN [facility] Start: 02-03-2023 End: 05-05-2023 Thyrotropin [Units/volume] in Serum or Plasma TSH BLD Lab Routine Elevated TSH Expected: 02/03/2023, Expires: 05/05/2023 [facility] Work Phone: Immunizations Immunization Date Immunization Notes Care Provider Fa cility 03-23-2016 influenza, injectabl e, quadrivalent, contains preservative Li Tompkins MD Work Phone: [facility] 03-23-2016 tetanus toxoid, reduced diphtheria toxoid, and acellular pertussis vaccine, adsorbed Li Tompkins MD Work Phone: [facility] 03-23-2016 influenza virus vaccine, unspecified formulation Elías Man PA-C Work Phone: [facility] 01-26-2011 influenza virus vaccine, unspecified formulation Li Tompkins MD Work Phone: [facility] Work Phone: 02-10-2010 influenza virus vaccine, unspecified formulation Li Tompkins MD Work Phone: [facility] 10-11-2005 hepatitis B vaccine, adult dosage Li Tompkins MD Work Phone: [facility] Work Phone: 10-11-2005 hepatitis B vaccine, unspecified formulation Myra Jenniffer FLORES Work Phone: [facility] 09-11-2003 tetanus toxoid, reduced diphtheria toxoid, and acellular pertussis vaccine, adsorbed Li Tompkins MD Work Phone: [facility] Payers Date Payer Category Payer Unknown [id number] 2022 Medicaid [id number]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 04/29/20[address] Dr. [address] [facility] EGD TRANSORAL BIOPSY SINGLE/MULTIPLE 02/13/2008 [facility] inpt H-pylori is negative EGD TRANSORAL BIOPSY SINGLE/MULTIPLE 01/04/2010 Gastritis, erosions PAST SURGICAL HISTORY OF Bilateral 10/20/2017 Rhinoplasty for sinuses Social History Tobacco Use Smoking status: Former Packs/day: 0.50 Years: 10.00 Total pack years: 5.00 Types: Cigarettes Quit date: 03/05/2018 Years since quittin.5 Smokeless tobacco: Never Vaping Use Vaping Use: Never used Substance Use Topics Alcohol use: Yes Comment: rare Drug use: No ACTIVE PROBLEM LIST Anemia, Unspecified Predominant Disturbance of Emotions Blood Per Rectum Abdominal Pain, Right Upper Quadrant Gastric Ulcer Acute Gastritis Without Mention of Hemorrhage Pain in Joint, Shoulder Region Disorder of Bone and Cartilage, Unspecified Unspecified Site of Sprain and Strain Multiple Allergies Anxiety Disorder, Unspecified Personal History of Urinary Calculi Tobacco Use Current Outpatient Medications Medication Sig Dispense Refill cyclobenzaprine (FLEXERIL) 10 mg tablet Take 1 tablet by mouth at bedtime as needed for muscle spasm or pain. 15 tablet 0 Cetirizine 10 mg cap DAILY naproxen (NAPROSYN) 250 mg tablet TWICE A DAY PRN For pain fluticasone (FLONASE) 50 mcg/actuation nasal spray Use 2 Sprays in each nostril once daily. Rinse mouth after use. 18.2 mL 11 Azelastine HCl (OPTIVAR) 0.05 % ophthalmic solution Use 1 Drop in both eyes twice daily. 6-8 HOURS APART 1 Bottle 5 multivitamin (VITAMIN DAILY ORAL) Take by mouth once daily. calcium phosphate dibas/vit D3 (VITAMIN D, WITH CALCIUM, ORAL) (more content not included)... [facility] 10-07-2022 Instructions Moiz Berry PA-C - 10/07/2022 8:34 AM EDT Prometh DM syrup as directed per prescription as needed for cough. This medication may make you drowsy so please use caution. Do not take this medication with other OTC cold or cough preparations. It contains a cough suppressant and an expectorant. Prednisone as directed. Rest, fluids, good nutrition. Observe isolation from others until feeling better. Pneumonia What is pneumonia? Pneumonia is an infection and inflammation of the lungs. How does it occur? Pneumonia occurs when the lungs are exposed to germs not usually present in the lungs. Your lungs may have become infected because: You were exposed to a large amount of a virus or bacteria. Your immune system was worn down because you were already ill--for example, with the flu. You have another illness, such as diabetes, chronic bronchitis, or cancer. The illness can make it easier for you to get all kinds of infections. This is why so many older adults develop pneumonia. Also, an underlying illness may make it difficult to survive a bout of pneumonia. You breathed in (aspirated) stomach contents. Aspiration pneumonia occurs when gastrointestinal problems cause stomach contents to back up into the esophagus and trachea. From there they are breathed into the lungs. The bacteria that normally live in the mouth can cause pneumonia if breathed into the lungs. You have recently had surgery, especially if you had general anesthesia. What are the symptoms? Common symptoms of pneumonia are: fever and chills cough shortness of breath chest pain, especially when you take a breath coughing up mucus, sometimes blood-stained muscle aches. Not all pneumonias cause a high fever. The only symptoms may be several days or weeks of dry cough, often with extreme tiredness. In the case of older adults, the only sign of pneumonia may be confusion or a decrease in physical activity. How is it diagnosed? Your health care provider will review your symptoms and examine you. Your provider will check for fever and breathing problems. He or she will listen to your lungs. The following tests help detect pneumonia: chest x-ray blood tests lab tests of a sputum sample (a sample of mucus, also called phlegm, coughed up from deep in your lungs). How is it treated? Your health care provider will determine what medicine you need. Most often you will be given antibiotics and instructions for caring for yourself at home. If your pneumonia is caused by a virus, antibiotics will not kill the virus. However, your provider may start you on antibiotics because it is often not possible to know if pneumonia is caused by bacteria or a virus. If your symptoms are very mild, you may need only rest, fluids, and observation, especially if many others in your community are having viral pneumonia. You may need to stay in the hospital if: You are having a lot of trouble breathing. It's hard for you to drink enough fluids. You have no one to care for you at home. If you are hospitalized: You may be given oxygen. You may be given IV (intravenous) fluids. You may be checked often by nursing staff. Electronic equipment will check your pulse and oxygen levels. You may have x-rays taken several times. How long will the effects last? If the pneumonia is caused by bacteria, usually you will begin to feel better 2 to 3 days after you start taking antibiotics. If you are an otherwise healthy person, you should feel close to normal after a week or so. If you are over 60 years old or have other medical problems, it may take longer to feel normal. If your pneumonia is caused by a virus, you should feel better in just a few days. How can I take care of myself? Start taking your medicine right away and follow the treatment your health care provider prescribes. Rest until you no longer have a fever, chest pain, or shortness of breath. Follow your health care provider's instructions for returning to activities such as school, work, or recreation. Drink more liquids (water, tea, or fruit juice) every day to help you cough up mucus more easily. Cough up lung secretions as much as possible. Use cough medicine only if your provider recommends you it. Use a humidifier to increase air moisture. Avoid steam vaporizers because they can cause aguilera. Ask your provider about taking aspirin, ibuprofen, or acetaminophen for fever or chest pain. Use a heating pad on a low setting to reduce chest pain. Be careful not to fall asleep while you are using the heating pad. Don't smoke or drink alcohol while you are recovering. Call your health care provider if you feel you are getting worse or if you are not getting better in 2 to 3 days. How can I help prevent pneumonia? Don't smoke. Get a flu shot every November to protect against the flu. Get the pneumococcal pneumonia vaccine (Pneumovax) if you have a chronic illness or are over age 65. Adults over the age of 65 should have a second dose if they had the shot before they were 65 and it has been more than 5 years since the first shot. Eat a healthy diet. Exercise according to your health care provider's advice. Published by [employer]. This content is reviewed periodically and is subject to change as new health information becomes available. The information is intended to inform and educate and is not a replacement for medical evaluation, advice, diagnosis or treatment by a healthcare professional. Developed by [employer]. Copyright 2005 [employer] and/or one of its subsidiaries. All Rights Reserved. Copyright [employer] 2006 Women's Health Advisor documented in this encounter [facility] 10-07-2022 History of Present illness Narrative 51 year old female with hx of gastric ulcer, anxiety, disturbance of emotions, post Covid syndrome (gastro related) c/o ER follow up 10/13/2022 presented to [facility] emergency department with complaints of total body pain which started that day in the morning. Family member at bedside reports patient had episodes of unresponsiveness with difficulty sitting up and falling over. Provider Notes identifies she was hospitalized for this last year under similar circumstances with amnesia and nonspecific complaints. Otherwise review of systems was negative. Further notes under HPI indicate patient complains of general malaise over 24 hours with sore throat, sinus congestion, cough, generalized bodyaches, fevers, chills, sweats, nausea, vomiting and diarrhea. Otherwise review of systems was negative. Vital signs: 37.8 C-99-17-117/60-36%-weight 88.8 kg Exam findings indicate lungs diminished at bases secondary to poor inspiratory effort with no retractions or evidence respiratory labor, speaking in full sentences, tachycardia. Otherwise exam within normal limits. Data: CBC: WBC 7.5-RBC 4.35-Hgb 12.7-HCT 38.1 with normal indices-PLT 256, normal differential except for low lymphocyte count 15.7% with normal absolute lymphocyte count Chemistry abnormals: Chloride 111 H-CO2 21 L-BUN 7.0L with creatinine 0.7 WNL, EGFR greater than 60. UA demonstrates specific gravity less than 1.005, otherwise within normal limits. Troponin 1 HS 2.61 CPK 90 WNL Respiratory viral panel negative Toxicology screen negative Chest x-ray: Bronchial wall thickening and nodular infiltrate in right lower lobe more than right upper lobe as well as right lower lobe consolidations. Findings are likely infectious or inflammatory. Bronchopneumonia is a consideration: Recommended follow-up in 6 to 8 weeks to ensure clearing. Medical decision making: Chest x-ray is noted to be poor inspiratory effort and therefore possibly related to hypoventilatory changes. EKG sinus tachycardia at 105. Chest CT was done to clarify chest x-ray findings. Dx bronchopneumonia Patient was placed on doxycycline and discharged to home as she was not tachycardic nor hypoxic Cough is brutal, knows she sounds terrible but Occasionally gets tired suddenly and a lot more work to get a breath in and has to take a nap. On waking feels better. Everything worse at night. Wheezing comes and goes, crackling in throat at night. A lot of nasal drip and post nasal drainage: thick white. Productive cough, sputum clear to white. HISTORIES FAMILY HISTORY Problem Relation Age of Onset other (fibromyalgia) Mother other (Other) Other No breast/mail sorter and delivery/colon cancer PAST MEDICAL HISTORY Diagnosis Date Anemia, unspecified Gastric ulcer, unspecified as acute or chronic, without mention of hemorrhage or perforation, with obstruction GERD (gastroesophageal reflux disease) PAST SURGICAL HISTORY Procedure Laterality Date COLONOSCOPY FLX DX W/COLLJ SPEC WHEN PFRMD 01/04/2010 Normal Colon DILATION & CURETTAGE DX&/THER NONOBSTETRIC 1990 Dilation & curettage EGD N/A 04/29/[address] Dr[address] [facility] EGD TRANSORAL BIOPSY SINGLE/MULTIPLE 02/13/2008 [facility] inpt H-pylori is negative EGD TRANSORAL BIOPSY SINGLE/MULTIPLE 01/04/2010 Gastritis, erosions PAST SURGICAL HISTORY OF Bilateral 10/20/2017 Rhinoplasty for sinuses Social History Tobacco Use Smoking status: Former Packs/day: 0.50 Years: 10.00 Total pack years: 5.00 Types: Cigarettes Quit date: 03/05/2018 Years since quittin.5 Smokeless tobacco: Never Vaping Use Vaping Use: Never used Substance Use Topics Alcohol use: Yes Comment: rare Drug use: No ACTIVE PROBLEM LIST Anemia, Unspecified Predominant Disturbance of Emotions Blood Per Rectum Abdominal Pain, Right Upper Quadrant Gastric Ulcer Acute Gastritis Without Mention of Hemorrhage Pain in Joint, Shoulder Region Disorder of Bone and Cartilage, Unspecified Unspecified Site of Sprain and Strain Multiple Allergies Anxiety Disorder, Unspecified Personal History of Urinary Calculi Tobacco Use Current Outpatient Medications Medication Sig Dispense Refill cyclobenzaprine (FLEXERIL) 10 mg tablet Take 1 tablet by mouth at bedtime as needed for muscle spasm or pain. 15 tablet 0 Cetirizine 10 mg cap DAILY naproxen (NAPROSYN) 250 mg tablet TWICE A DAY PRN For pain fluticasone (FLONASE) 50 mcg/actuation nasal spray Use 2 Sprays in each nostril once daily. Rinse mouth after use. 18.2 mL 11 Azelastine HCl (OPTIVAR) 0.05 % ophthalmic solution Use 1 Drop in both eyes twice daily. 6-8 HOURS APART 1 Bottle 5 multivitamin (VITAMIN DAILY ORAL) Take by mouth once daily. calcium phosphate dibas/vit D3 (VITAMIN D, WITH CALCIUM, ORAL) Take 1,000 mg by mouth once daily. (Patient not taking: No sig reported) EPINEPHrine (EPIPEN) 0.3 mg/0.3 mL auto-injector Use as directed for allergic reaction 1 Each 2 No current facility-administered medications for this visit. COVID-19 VACCINE(1) Never done HEPATITIS C SCREENING Never done HIV SCREENING Never done HEPATITIS B(2 of 3 - 19+ 3-dose series) due on 11/08/2005 MAMMOGRAM Never done LIPID SCREEN due on 11/08/2016 COLORECTAL CANCER SCREENING due on 11/08/2016 SHINGRIX VACCINE(1 of 2) Never done DEPRESSION ASSESSMENT Never done EXAM: BP 120/68 Pulse 88 Resp 16 Wt 84.8 kg (187 lb) LMP 12/24/2021 (Approximate) SpO2 96% BMI 29.51 kg/m Pleasant overweight adult woman in no acute distress. Alert and oriented all spheres. Normal affect and cognition. Speech normal. No deficits to learning or comprehension. Skin warm, dry, pink to lips and nailbeds. Normal turgor. Respirations regular and unlabored, no retractions. Harsh bronchial cough, post-tussive wheeze. HEENT: NCAT. No scleral icterus or conjunctival injection. TM's clear though left with slightly retracted TM. Nasal turbinates swollen, red, watery nasal drip. No sinus tenderness on percussion frontal/ maxillary. Oropharynx free from injection or lesion. Oral membranes moist and pink. No cervical lymph nodes. Thyroid non-tender, small nodule palpable on right fixed on swallow, no general enlargement. Carotids pulses 2+/4+ without bruits. No JVD with HOB at 30 degrees. Chest is normal shape. Lungs are with crackles in right lower posterior base, slightly dull to percussion, otherwise clear. HRRR without murmur or gallop. No lifts, heaves, or rubs. Extrem: no clubbing or cyanosis. Edema: none. Extremities are warm and pink with prompt capillary refill. ASSESSMENT/PLAN: 1. Thyroid nodule - ICD9: 241.0, ICD10: E04.1 (primary diagnosis) - US THYROID/PARATHYROID HYROID 2. Community acquired pneumonia of right lung, unspecified part of lung - ICD9: 486, ICD10: J18.9 Work slip x 7 days Continue doxycycline. Push fluids, protein nutrition. Prednisone burst Educated on new medication administration, warnings and cautions, common side effects, anticipated duration or therapy, and instructions on cessation management to avoid risks if stops medication. Patient choice was discussed in shared decision making. - DOXYCYCLINE HYCLATE 100 MG CAPSULE - PREDNISONE 20 MG TABLET - PROMETHAZINE-DM 6.25 MG-15 MG/5 ML ORAL SYRUP F/u as needed and in 4 weeks. KATIUSKA Huffman PA-C documented in this encounter [facility] 10-05-2022 Note . MICRO - Microbiology PROCEDURE: Urine Culture [*1] SOURCE: Urine, Clean Catch BODY SITE: COLLECTED DATE/TIME: 10/03/2022 22:39 EDT RECEIVED DATE/TIME: 10/03/2022 22:54 EDT START DATE/TIME: 10/03/2022 22:54 EDT FREE TEXT SOURCE: FINAL REPORTS Final Report [] Verified Date/Time/Personnel: 10/05/2022 07:29 EDT 10,000 - 50,000 cfu/ml Mixed growth consistent with normal urogenital dontrell. PRELIMINARY REPORTS Preliminary Report [] Verified Date/Time/Personnel: 10/04/2022 09:29 EDT No growth to date Performing Locations *1: This test was performed at: [facility], [address] [place] [address], [facility] 10-04-2022 Hospital Discharge instructions Patient Education 10/04/2022 05:06:14 Pneumonia (Adult) Pneumonia (Adult) Pneumonia is an infection deep within the lungs. It is in the small air sacs (alveoli). Pneumonia may be caused by a virus or bacteria. Pneumonia caused by bacteria is usually treated with an antibiotic. Severe cases may need to be treated in the hospital. Milder cases can be treated at home. Symptoms usually start to get better during the first 2 days of treatment. Home care Follow these guidelines when caring for yourself at home: Rest at home for the first 2 to 3 days, or until you feel stronger. Don t let yourself get overly tired when you go back to your activities. Stay away from cigarette smoke yours or other people s. You may use acetaminophen or ibuprofen to control fever or pain, unless another medicine was prescribed. If you have chronic liver or kidney disease, talk with your healthcare provider before using these medicines. Also talk with your provider if you ve had a stomach ulcer or gastrointestinal bleeding. Don t give aspirin to anyone younger than 18 years of age who is ill with a fever. It may cause severe liver damage. Your appetite may be poor, so a light diet is fine. Drink 6 to 8 glasses of fluids every day to make sure you are getting enough fluids. Beverages can include water, sport drinks, sodas without caffeine, juices, tea, or soup. Fluids will help loosen secretions in the lung. This will make it easier for you to cough up the phlegm (sputum). If you also have heart or kidney disease, check with your healthcare provider before you drink extra fluids. Take antibiotic medicine prescribed until it is all gone, even if you are feeling better after a few days. Follow-up care Follow up with your healthcare provider in the next 2 to 3 days, or as advised. This is to be sure the medicine is helping you get better. If you are 65 or older, you should get a pneumococcal vaccine and a yearly flu (influenza) shot. You should also get these vaccines if you have chronic lung disease like asthma, emphysema, or COPD. Recently, a second type of pneumonia vaccine has become available for everyone over 65 years old. This is in addition to the previous vaccine. Ask your provider about this. When to seek medical advice Call your healthcare provider right away if any of these occur: You don t get better within the first 48 hours of treatment Shortness of breath gets worse Rapid breathing (more than 25 breaths per minute) Coughing up blood Chest pain gets worse with breathing Fever of 100.4 F (38 C) or higher that doesn t get better with fever medicine Weakness, dizziness, or fainting that gets worse Thirst or dry mouth that gets worse Sinus pain, headache, or a stiff neck Chest pain not caused by coughing [id number] [employer]. [address] [place] [address]88. All rights reserved. This information is not intended as a substitute for professional medical care. Always follow your healthcare professional's instructions. Follow Up Care 10/03/2022 21:54:38 With:LI TOMPKINS MD Address: [address] [place] [id number]- When:2-4 days [facility] 10-04-2022 Emergency department Discharge summary Discharge Instructions Thank you for allowing [facility] to assist you with your healthcare needs. The following is important discharge information regarding your hospital visit. Diagnosis from Today's Visit Chest pain Lethargic What to Do Next Instructions from Your Care Team Follow-up with your PCP next 2 to 4 days. You have been prescribed antibiotics today. Please take the full course of antibiotics regardless of you are feeling better. Please return to the emergency department if you start experiencing high fevers or worsening shortness of breath. No qualifying data available. Post Acute Orders No qualifying data available. You Need to Schedule the Following Appointments Follow Up with LI TOMPKINS MD When Within 2-4 days Where: [address] [place], [place] [id number]- Allergies Bee Stings Cipro Contrast dye penicillin Medications Please ask your primary doctor or pharmacist before taking any other medication not listed, including over the counter drugs, herbal medications, vitamins and or supplements as they may interact with your home medications. What How Much When Why Instructions Last Dose New doxycycline (doxycycline hyclate 100 mg oral capsule) 1 cap by mouth Two (2) times a day Duration: 7 Days Printed Prescription Unchanged dicyclomine (Bentyl use dicyclomine ) 20 Milligram by mouth Four (4) times a day Abdominal pain Duration: 7 Days Unchanged fluticasone nasal (Flonase 50 mcg/ inh nasal spray) 1 spray(s) each nostril Two (2) times a day Unchanged lactobacillus acidophilus (lactobacillus acidophilus oral capsule) 1 cap by mouth Two (2) times a day Duration: 7 Days Unchanged ondansetron (ondansetron 4 mg oral tablet, disintegrating) 1 tab(s) by mouth Every 6 hours as needed for Nausea/Vomiting Dizziness Unchanged ondansetron (Zofran 4 mg oral tablet) 1 tab(s) by mouth Every 8 hours Adverse drug reaction Unchanged pantoprazole (Protonix 20 mg oral enteric coated tablet) 1 tab(s) by mouth Two (2) times a day Unchanged promethazine (promethazine 25 mg oral tablet) 1 tab(s) by mouth Every 6 hours Duration: 3 Days Unchanged sucralfate (Carafate 1 g/ 10 mL oral suspension) 10 Milliliter by mouth Four (4) times daily-before meals and at bedtime Please take this list to your next doctor s visit. Bring all medications you take, including over the counter medications, herbals and other supplements with you to your doctor s visit. Patients and families are reminded to discard old lists and to update any records with all medication providers or retail pharmacies. Education Materials Pneumonia (Adult) Pneumonia is an infection deep within the lungs. It is in the small air sacs (alveoli). Pneumonia may be caused by a virus or bacteria. Pneumonia caused by bacteria is usually treated with an antibiotic. Severe cases may need to be treated in the hospital. Milder cases can be treated at home. Symptoms usually start to get better during the first 2 days of treatment. Home care Follow these guidelines when caring for yourself at home: Rest at home for the first 2 to 3 days, or until you feel stronger. Don t let yourself get overly tired when you go back to your activities. Stay away from cigarette smoke yours or other people s. You may use acetaminophen or ibuprofen to control fever or pain, unless another medicine was prescribed. If you have chronic liver or kidney disease, talk with your healthcare provider before using these medicines. Also talk with your provider if you ve had a stomach ulcer or gastrointestinal bleeding. Don t give aspirin to anyone younger than 18 years of age who is ill with a fever. It may cause severe liver damage. Your appetite may be poor, so a light diet is fine. Drink 6 to 8 glasses of fluids every day to make sure you are getting enough fluids. Beverages can include water, sport drinks, sodas without caffeine, juices, tea, or soup. Fluids will help loosen secretions in the lung. This will make it easier for you to cough up the phlegm (sputum). If you also have heart or kidney disease, check with your healthcare provider before you drink extra fluids. Take antibiotic medicine prescribed until it is all gone, even if you are feeling better after a few days. Follow-up care Follow up with your healthcare provider in the next 2 to 3 days, or as advised. This is to be sure the medicine is helping you get better. If you are 65 or older, you should get a pneumococcal vaccine and a yearly flu (influenza) shot. You should also get these vaccines if you have chronic lung disease like asthma, emphysema, or COPD. Recently, a second type of pneumonia vaccine has become available for everyone over 65 years old. This is in addition to the previous vaccine. Ask your provider about this. When to seek medical advice Call your healthcare provider right away if any of these occur: You don t get better within the first 48 hours of treatment Shortness of breath gets worse Rapid breathing (more than 25 breaths per minute) Coughing up blood Chest pain gets worse with breathing Fever of 100.4 F (38 C) or higher that doesn t get better with fever medicine Weakness, dizziness, or fainting that gets worse Thirst or dry mouth that gets worse Sinus pain, headache, or a stiff neck Chest pain not caused by coughing 4799-5229 [employer]. [address] [place] [address]. All rights reserved. This information is not intended as a substitute for professional medical care. Always follow your healthcare professional's instructions. Additional Information VACCINATE! IT SAVES LIVES! Members of the community who have not yet received the COVID-19 vaccine and would like to receive it can visit one of [facility] vaccine clinics. There are many vaccine clinic locations within the [facility]. For locations and available times, please visit [email or web address] It is important to note that some COVID mobile vaccine clinics are held outdoors and may be canceled in rainy or stormy conditions. To learn more about pediatric vaccinations (ages 5-11), we invite you to visit the [facility] webpage. [email or web address] [email or web address] [email or web address] To learn more about the COVID-19 vaccine, we invite you to visit the CDC website for a list of frequently asked questions. https://www.cdc.gov/coronavirus/2 019-ncov/vaccines/faq.html [facility] Patient Portal Access Instructions: Stay connected with your healthcare team and access your personal medical information anytime with the [facility] Patient Portal. If you would like a full copy of your medical records please contact the [facility] Medical Records Department Monday through Monday between 8a.m. and 4:30p.m. Please follow the directions below to access the portal: 1.Access the email account you provided upon registration to the [facility].2.Look for an invitation email from [facility].3.Open the email and access the invitation link: Accept Invitation to [facility]4.Fill in the required pickett to create your account. Sign into [email or web address] with your username and password that you created in the above steps to stay up to date. You can then view a summary of results, a summary of your visits, and the ability to download your summaries to your computer or send the information securely to a physician. Remember that your healthcare information is confidential, so carefully consider who you will allow to register on the [facility] Patient Portal for access to your information. You can also access the [facility] Patient Portal on the [employer]. Simply click on Health Records under Health Data and then click on the [employer] logo. HOW TO SAFELY DISPOSE OF PRESCRIPTION MEDICATIONS Please use one of the following methods to safely dispose of your unused medications. 1.Use a drug disposal kit: the drug disposal pouch allows you to safely discard your old and unused drugs. Ask your nurse to give you one when you are discharged.2.Visit a local take-back location: Many local pharmacies and police departments have programs that collect old and unwanted prescription drugs. Call your local pharmacy or go to http://Listen Edition.Vigiglobe/4I9Im2t to find one close to you.3.Make use of household items: Use cat litter or old coffee grounds to dispose medications if other options are not available. Mix your drugs with these household products, seal them in an airtight container and throw it into the garbage. Call [facility]: [phone] to be sure your drugs can be disposed of in this way. Some medicines may require a different approach.4.Never flush your medications down the toilet. IF YOU HAVE BEEN PRESCRIBED AN OPIOIDS FOR PAIN If you have been prescribed an opioid (such as hydrocodone, oxycodone or morphine), it is critical to understand the possible side effects and risks of opioid pain medications. Even when taken as directed, opioids can have several side effects including: Tolerance, meaning you might need to take more of a medication for the same pain relief. Nausea, vomiting and/or constipation. Sleepiness, dizziness, dry mouth, confusion, depression or itching. Physical dependence, meaning you have withdrawal symptoms when a medication is stopped ? this can develop within a few days. KNOW YOUR RESPONSIBILITIES It is important to know exactly how much and how often to take the opioid pain medications you are prescribed. Never take opioids in higher amounts or more often than prescribed. Do not combine opioids with alcohol or other drugs that cause drowsiness, such as benzodiazepines, also known as benzos, including diazepam and alprazolam, muscle relaxants or sleep aids. Never sell or share prescription opioids. This is illegal. Store opioids in a secure place and out of reach of others (including children, family, friends and visitors). The last page(s) of this document has been signed and retained as a CHART COPY Signatures Patient Education Materials Pneumonia (Adult) Medication Leaflets My discharge plan and instructions have been reviewed and explained to me and IMICHAEL LAURA L understand my current condition and have read and understand these discharge instructions. I have received a written copy of the plan/instructions. If I have questions, I am aware that I should contact my doctor. Patient/Application Administrator Signature: Date/Time: Relationship to Patient: ____ Witness Name/Signature: Date/Time: [facility] 10-04-2022 Emergency department Discharge summary Discharge Instructions Thank you for allowing [facility] to assist you with your healthcare needs. The following is important discharge information regarding your hospital visit. Diagnosis from Today's Visit Chest pain Lethargic What to Do Next Instructions from Your Care Team Follow-up with your PCP next 2 to 4 days. You have been prescribed antibiotics today. Please take the full course of antibiotics regardless of you are feeling better. Please return to the emergency department if you start experiencing high fevers or worsening shortness of breath. Discharge Return to Work, School, or Sports - Ordered -- 10/04/22, 10/06/22, May return to: work, 10/04/22 5:10:00 EDT Post Acute Orders No qualifying data available. You Need to Schedule the Following Appointments Follow Up with LI TOMPKINS MD When Within 2-4 days Where: [address] [place] [address]- Allergies Bee Stings Cipro Contrast dye penicillin Medications Please ask your primary doctor or pharmacist before taking any other medication not listed, including over the counter drugs, herbal medications, vitamins and or supplements as they may interact with your home medications. What How Much When Why Instructions Last Dose New doxycycline (doxycycline hyclate 100 mg oral capsule) 1 cap by mouth Two (2) times a day Duration: 7 Days Printed Prescription Unchanged dicyclomine (Bentyl use dicyclomine ) 20 Milligram by mouth Four (4) times a day Abdominal pain Duration: 7 Days Unchanged fluticasone nasal (Flonase 50 mcg/ inh nasal spray) 1 spray(s) each nostril Two (2) times a day Unchanged lactobacillus acidophilus (lactobacillus acidophilus oral capsule) 1 cap by mouth Two (2) times a day Duration: 7 Days Unchanged ondansetron (ondansetron 4 mg oral tablet, disintegrating) 1 tab(s) by mouth Every 6 hours as needed for Nausea/Vomiting Dizziness Unchanged ondansetron (Zofran 4 mg oral tablet) 1 tab(s) by mouth Every 8 hours Adverse drug reaction Unchanged pantoprazole (Protonix 20 mg oral enteric coated tablet) 1 tab(s) by mouth Two (2) times a day Unchanged promethazine (promethazine 25 mg oral tablet) 1 tab(s) by mouth Every 6 hours Duration: 3 Days Unchanged sucralfate (Carafate 1 g/ 10 mL oral suspension) 10 Milliliter by mouth Four (4) times daily-before meals and at bedtime Please take this list to your next doctor s visit. Bring all medications you take, including over the counter medications, herbals and other supplements with you to your doctor s visit. Patients and families are reminded to discard old lists and to update any records with all medication providers or retail pharmacies. Education Materials Pneumonia (Adult) Pneumonia is an infection deep within the lungs. It is in the small air sacs (alveoli). Pneumonia may be caused by a virus or bacteria. Pneumonia caused by bacteria is usually treated with an antibiotic. Severe cases may need to be treated in the hospital. Milder cases can be treated at home. Symptoms usually start to get better during the first 2 days of treatment. Home care Follow these guidelines when caring for yourself at home: Rest at home for the first 2 to 3 days, or until you feel stronger. Don t let yourself get overly tired when you go back to your activities. Stay away from cigarette smoke yours or other people s. You may use acetaminophen or ibuprofen to control fever or pain, unless another medicine was prescribed. If you have chronic liver or kidney disease, talk with your healthcare provider before using these medicines. Also talk with your provider if you ve had a stomach ulcer or gastrointestinal bleeding. Don t give aspirin to anyone younger than 18 years of age who is ill with a fever. It may cause severe liver damage. Your appetite may be poor, so a light diet is fine. Drink 6 to 8 glasses of fluids every day to make sure you are getting enough fluids. Beverages can include water, sport drinks, sodas without caffeine, juices, tea, or soup. Fluids will help loosen secretions in the lung. This will make it easier for you to cough up the phlegm (sputum). If you also have heart or kidney disease, check with your healthcare provider before you drink extra fluids. Take antibiotic medicine prescribed until it is all gone, even if you are feeling better after a few days. Follow-up care Follow up with your healthcare provider in the next 2 to 3 days, or as advised. This is to be sure the medicine is helping you get better. If you are 65 or older, you should get a pneumococcal vaccine and a yearly flu (influenza) shot. You should also get these vaccines if you have chronic lung disease like asthma, emphysema, or COPD. Recently, a second type of pneumonia vaccine has become available for everyone over 65 years old. This is in addition to the previous vaccine. Ask your provider about this. When to seek medical advice Call your healthcare provider right away if any of these occur: You don t get better within the first 48 hours of treatment Shortness of breath gets worse Rapid breathing (more than 25 breaths per minute) Coughing up blood Chest pain gets worse with breathing Fever of 100.4 F (38 C) or higher that doesn t get better with fever medicine Weakness, dizziness, or fainting that gets worse Thirst or dry mouth that gets worse Sinus pain, headache, or a stiff neck Chest pain not caused by coughing [id number] [employer]. [address] [place] [address]. All rights reserved. This information is not intended as a substitute for professional medical care. Always follow your healthcare professional's instructions. Additional Information VACCINATE! IT SAVES LIVES! Members of the community who have not yet received the COVID-19 vaccine and would like to receive it can visit one of [facility] vaccine clinics. There are many vaccine clinic locations within the [facility]. For locations and available times, please visit [email or web address] It is important to note that some COVID mobile vaccine clinics are held outdoors and may be canceled in rainy or stormy conditions. To learn more about pediatric vaccinations (ages 5-11), we invite you to visit the [facility] webpage. [email or web address] [email or web address] [email or web address].html To learn more about the COVID-19 vaccine, we invite you to visit the CDC website for a list of frequently asked questions. https://www.cdc.gov/coronavirus/2 019-ncov/vaccines/faq.html [facility] Patient Portal Access Instructions: Stay connected with your healthcare team and access your personal medical information anytime with the [facility] Patient Portal. If you would like a full copy of your medical records please contact the [facility] Medical Records Department Monday through Monday between 8a.m. and 4:30p.m. Please follow the directions below to access the portal: 1.Access the email account you provided upon registration to the [facility].2.Look for an invitation email from [facility].3.Open the email and access the invitation link: Accept Invitation to [facility]4.Fill in the required pickett to create your account. Sign into www.[email or web address] with your username and password that you created in the above steps to stay up to date. You can then view a summary of results, a summary of your visits, and the ability to download your summaries to your computer or send the information securely to a physician. Remember that your healthcare information is confidential, so carefully consider who you will allow to register on the [facility] Patient Portal for access to your information. You can also access the [facility] Patient Portal on the [employer]. Simply click on Health Records under Health Data and then click on the [facility] logo. HOW TO SAFELY DISPOSE OF PRESCRIPTION MEDICATIONS Please use one of the following methods to safely dispose of your unused medications. 1.Use a drug disposal kit: the drug disposal pouch allows you to safely discard your old and unused drugs. Ask your nurse to give you one when you are discharged.2.Visit a local take-back location: Many local pharmacies and police departments have programs that collect old and unwanted prescription drugs. Call your local pharmacy or go to http://bit.Vigiglobe/0O5Rf3a to find one close to you.3.Make use of household items: Use cat litter or old coffee grounds to dispose medications if other options are not available. Mix your drugs with these household products, seal them in an airtight container and throw it into the garbage. Call [facility]: [phone] to be sure your drugs can be disposed of in this way. Some medicines may require a different approach.4.Never flush your medications down the toilet. IF YOU HAVE BEEN PRESCRIBED AN OPIOIDS FOR PAIN If you have been prescribed an opioid (such as hydrocodone, oxycodone or morphine), it is critical to understand the possible side effects and risks of opioid pain medications. Even when taken as directed, opioids can have several side effects including: Tolerance, meaning you might need to take more of a medication for the same pain relief. Nausea, vomiting and/or constipation. Sleepiness, dizziness, dry mouth, confusion, depression or itching. Physical dependence, meaning you have withdrawal symptoms when a medication is stopped ? this can develop within a few days. KNOW YOUR RESPONSIBILITIES It is important to know exactly how much and how often to take the opioid pain medications you are prescribed. Never take opioids in higher amounts or more often than prescribed. Do not combine opioids with alcohol or other drugs that cause drowsiness, such as benzodiazepines, also known as benzos, including diazepam and alprazolam, muscle relaxants or sleep aids. Never sell or share prescription opioids. This is illegal. Store opioids in a secure place and out of reach of others (including children, family, friends and visitors). The last page(s) of this document has been signed and retained as a CHART COPY Signatures Patient Education Materials Pneumonia (Adult) Medication Leaflets My discharge plan and instructions have been reviewed and explained to me and I,GLORIA RODRIGUEZ understand my current condition and have read and understand these discharge instructions. I have received a written copy of the plan/instructions. If I have questions, I am aware that I should contact my doctor. Patient/Application Administrator Signature: Date/Time: Relationship to Patient: ____ Witness Name/Signature: Date/Time: [facility] 10-04-2022 Emergency department Discharge summary Discharge Instructions Thank you for allowing [facility] to assist you with your healthcare needs. The following is important discharge information regarding your hospital visit. Diagnosis from Today's Visit Chest pain Lethargic What to Do Next Instructions from Your Care Team Follow-up with your PCP next 2 to 4 days. You have been prescribed antibiotics today. Please take the full course of antibiotics regardless of you are feeling better. Please return to the emergency department if you start experiencing high fevers or worsening shortness of breath. No qualifying data available. Post Acute Orders No qualifying data available. You Need to Schedule the Following Appointments Follow Up with LI TOMPKINS MD When Within 2-4 days Where: [address] [place] [address]- Allergies Bee Stings Cipro Contrast dye penicillin Medications Please ask your primary doctor or pharmacist before taking any other medication not listed, including over the counter drugs, herbal medications, vitamins and or supplements as they may interact with your home medications. What How Much When Why Instructions Last Dose New doxycycline (doxycycline hyclate 100 mg oral capsule) 1 cap by mouth Two (2) times a day Duration: 7 Days Printed Prescription Unchanged dicyclomine (Bentyl use dicyclomine ) 20 Milligram by mouth Four (4) times a day Abdominal pain Duration: 7 Days Unchanged fluticasone nasal (Flonase 50 mcg/ inh nasal spray) 1 spray(s) each nostril Two (2) times a day Unchanged lactobacillus acidophilus (lactobacillus acidophilus oral capsule) 1 cap by mouth Two (2) times a day Duration: 7 Days Unchanged ondansetron (ondansetron 4 mg oral tablet, disintegrating) 1 tab(s) by mouth Every 6 hours as needed for Nausea/Vomiting Dizziness Unchanged ondansetron (Zofran 4 mg oral tablet) 1 tab(s) by mouth Every 8 hours Adverse drug reaction Unchanged pantoprazole (Protonix 20 mg oral enteric coated tablet) 1 tab(s) by mouth Two (2) times a day Unchanged promethazine (promethazine 25 mg oral tablet) 1 tab(s) by mouth Every 6 hours Duration: 3 Days Unchanged sucralfate (Carafate 1 g/ 10 mL oral suspension) 10 Milliliter by mouth Four (4) times daily-before meals and at bedtime Please take this list to your next doctor s visit. Bring all medications you take, including over the counter medications, herbals and other supplements with you to your doctor s visit. Patients and families are reminded to discard old lists and to update any records with all medication providers or retail pharmacies. Education Materials Pneumonia (Adult) Pneumonia is an infection deep within the lungs. It is in the small air sacs (alveoli). Pneumonia may be caused by a virus or bacteria. Pneumonia caused by bacteria is usually treated with an antibiotic. Severe cases may need to be treated in the hospital. Milder cases can be treated at home. Symptoms usually start to get better during the first 2 days of treatment. Home care Follow these guidelines when caring for yourself at home: Rest at home for the first 2 to 3 days, or until you feel stronger. Don t let yourself get overly tired when you go back to your activities. Stay away from cigarette smoke yours or other people s. You may use acetaminophen or ibuprofen to control fever or pain, unless another medicine was prescribed. If you have chronic liver or kidney disease, talk with your healthcare provider before using these medicines. Also talk with your provider if you ve had a stomach ulcer or gastrointestinal bleeding. Don t give aspirin to anyone younger than 18 years of age who is ill with a fever. It may cause severe liver damage. Your appetite may be poor, so a light diet is fine. Drink 6 to 8 glasses of fluids every day to make sure you are getting enough fluids. Beverages can include water, sport drinks, sodas without caffeine, juices, tea, or soup. Fluids will help loosen secretions in the lung. This will make it easier for you to cough up the phlegm (sputum). If you also have heart or kidney disease, check with your healthcare provider before you drink extra fluids. Take antibiotic medicine prescribed until it is all gone, even if you are feeling better after a few days. Follow-up care Follow up with your healthcare provider in the next 2 to 3 days, or as advised. This is to be sure the medicine is helping you get better. If you are 65 or older, you should get a pneumococcal vaccine and a yearly flu (influenza) shot. You should also get these vaccines if you have chronic lung disease like asthma, emphysema, or COPD. Recently, a second type of pneumonia vaccine has become available for everyone over 65 years old. This is in addition to the previous vaccine. Ask your provider about this. When to seek medical advice Call your healthcare provider right away if any of these occur: You don t get better within the first 48 hours of treatment Shortness of breath gets worse Rapid breathing (more than 25 breaths per minute) Coughing up blood Chest pain gets worse with breathing Fever of 100.4 F (38 C) or higher that doesn t get better with fever medicine Weakness, dizziness, or fainting that gets worse Thirst or dry mouth that gets worse Sinus pain, headache, or a stiff neck Chest pain not caused by coughing [id number] The [employer]. [address] [place], [place] [id number]. All rights reserved. This information is not intended as a substitute for professional medical care. Always follow your healthcare professional's instructions. Additional Information VACCINATE! IT SAVES LIVES! Members of the community who have not yet received the COVID-19 vaccine and would like to receive it can visit one of [facility] vaccine clinics. There are many vaccine clinic locations within the [facility]. For locations and available times, please visit [email or web address] It is important to note that some COVID mobile vaccine clinics are held outdoors and may be canceled in rainy or stormy conditions. To learn more about pediatric vaccinations (ages 5-11), we invite you to visit the [facility] webpage. [email or web address] To learn more about the COVID-19 vaccine, we invite you to visit the CDC website for a list of frequently asked questions. https://www.cdc.gov/coronavirus/2 019-ncov/vaccines/faq.html [facility] Access Instructions: Stay connected with your healthcare team and access your personal medical information anytime with the [facility] Patient Portal. If you would like a full copy of your medical records please contact the [facility] Medical Records Department Monday through Monday between 8a.m. and 4:30p.m. Please follow the directions below to access the portal: 1.Access the email account you provided upon registration to the [facility].2.Look for an invitation email from [facility].3.Open the email and access the invitation link: Accept Invitation to [facility].Fill in the required pickett to create your account. Sign into [email or web address] with your username and password that you created in the above steps to stay up to date. You can then view a summary of results, a summary of your visits, and the ability to download your summaries to your computer or send the information securely to a physician. Remember that your healthcare information is confidential, so carefully consider who you will allow to register on the [facility] Patient Portal for access to your information. You can also access the [facility] Patient Portal on the [employer]. Simply click on Health Records under Health Data and then click on the [employer] logo. HOW TO SAFELY DISPOSE OF PRESCRIPTION MEDICATIONS Please use one of the following methods to safely dispose of your unused medications. 1.Use a drug disposal kit: the drug disposal pouch allows you to safely discard your old and unused drugs. Ask your nurse to give you one when you are discharged.2.Visit a local take-back location: Many local pharmacies and police departments have programs that collect old and unwanted prescription drugs. Call your local pharmacy or go to http://Listen Edition.Vigiglobe/7V5Nv9j to find one close to you.3.Make use of household items: Use cat litter or old coffee grounds to dispose medications if other options are not available. Mix your drugs with these household products, seal them in an airtight container and throw it into the garbage. Call [facility]: [phone] to be sure your drugs can be disposed of in this way. Some medicines may require a different approach.4.Never flush your medications down the toilet. IF YOU HAVE BEEN PRESCRIBED AN OPIOIDS FOR PAIN If you have been prescribed an opioid (such as hydrocodone, oxycodone or morphine), it is critical to understand the possible side effects and risks of opioid pain medications. Even when taken as directed, opioids can have several side effects including: Tolerance, meaning you might need to take more of a medication for the same pain relief. Nausea, vomiting and/or constipation. Sleepiness, dizziness, dry mouth, confusion, depression or itching. Physical dependence, meaning you have withdrawal symptoms when a medication is stopped ? this can develop within a few days. KNOW YOUR RESPONSIBILITIES It is important to know exactly how much and how often to take the opioid pain medications you are prescribed. Never take opioids in higher amounts or more often than prescribed. Do not combine opioids with alcohol or other drugs that cause drowsiness, such as benzodiazepines, also known as benzos, including diazepam and alprazolam, muscle relaxants or sleep aids. Never sell or share prescription opioids. This is illegal. Store opioids in a secure place and out of reach of others (including children, family, friends and visitors). The last page(s) of this document has been signed and retained as a CHART COPY Signatures Patient Education Materials Pneumonia (Adult) Medication Leaflets My discharge plan and instructions have been reviewed and explained to me and I,GLORIA RODRIGUEZ understand my current condition and have read and understand these discharge instructions. I have received a written copy of the plan/instructions. If I have questions, I am aware that I should contact my doctor. Patient/Application Administrator Signature: Date/Time: Relationship to Patient: ____ Witness Name/Signature: Date/Time: [facility] 10-04-2022 Note ORIGINAL EXAMINATION: CT OF THE CHEST WITH CONTRAST10/04/2022 4:22 am TECHNIQUE: CT of the chest was performed with the administration of intravenous contrast. Multiplanar reformatted images are provided for review. Automated exposure control, iterative reconstruction, and/or weight based adjustment of the mA/kV was utilized to reduce the radiation dose to as low as reasonably achievable. COMPARISON: CT chest 04/09/2021 HISTORY: ORDERING SYSTEM PROVIDED HISTORY: Reason for Exam: weakness, body aches, unresponsive episode while at home per family, sob, fever, possible atelectasis vs pna SOB, fever ? atelectasis vs pna FINDINGS: The heart size is within normal limits. There is no pericardial thickening or effusion.The great vessels are of normal course and caliber. The visualized trachea and mainstem bronchi are patent. No pleural effusion or pneumothorax. Mild bronchial wall thickening, right lower more so than upper lobe. Small nodular infiltrates within the right lower more so than upper lobe, some ground-glass and others consolidative. Some large consolidation of the posterior right lower lobe. No pathologically enlarged or aggressive appearing lymph nodes. No acute osseous abnormality. No aggressive osseous lesions. Overall minimal degenerative changes. Small hiatal hernia. No acute abnormality within the partially visualized upper abdomen. IMPRESSION: Bronchial wall thickening and nodular infiltrates within the right lower more so than right upper lobe, as well as right lower lobe consolidations. Findings are likely infectious or inflammatory. Bronchopneumonia is a consideration. Follow-up within 6-8 weeks is recommended to ensure clearing. Preliminary Report was Dictated by a Resident Interpreted by: Landon Carlson MD Preliminary Report By: Bryan Deras Electronically signed By Landon Carlson MD Dictated Date: 10/04/2022 4:42:12 AM Prelim Date: 10/04/2022 4:51:50 AM Sign Date: 10/04/2022 6:40:31 AM Ordering Provider: [facility] 10-03-2022 HCoV 229E RNA AVA+non-probe Ql (Nph) Not Detected *NA* (10/03/22 10:32 PM) Auto Viro/Sero SS 10-03-2022 Note ORIGINAL EXAMINATION: ONE XRAY VIEW OF THE CHEST10/03/2022 10:26 pm CHEST ONE VIEW AP/PA COMPARISON: 04/09/2021 HISTORY: ORDERING SYSTEM PROVIDED HISTORY: Reason for Exam: Altered mental status FINDINGS: The cardiomediastinal contours are normal. There are low lung volumes with hypoventilatory changes. Increased opacity at the lung bases is felt to be related to hypoventilatory changes. There is no pleural effusion or pneumothorax. No acute osseous abnormality. IMPRESSION: Low lung volumes with hypoventilatory changes. Increased opacity at the lung bases is felt to be related to hypoventilatory changes. Airspace disease is not excluded. Otherwise, no acute radiographic findings. Interpreted by: Bety Jimenez MD Preliminary Report By: Bety Jimenez MD Electronically signed By Bety Jimenez MD Dictated Date: 10/03/2022 10:34:43 PM Prelim Date: 10/03/2022 10:36:38 PM Sign Date: 10/03/2022 10:36:38 PM Ordering Provider: JEFFREY TURNER [facility] 10-03-2022 Note SINUS TACHYCARDIA BORDERLINE PROLONGED [place] INTERVAL Electronic Signature: LASHONDA SPEARS DO 10/04/2022 03:35:03 [facility] 05-17-2022 Note HNO ID: [id number] Author: Sanjana Brownlee MD Service: ? 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 not very heavy but her back snapped at that time Since then she is having this pain No neurological symptoms But it hurts to move around and spasm in her back PAST MEDICAL HISTORY Diagnosis Date Anemia, unspecified Gastric ulcer, unspecified as acute or chronic, without mention of hemorrhage or perforation, with obstruction GERD (gastroesophageal reflux disease) ACTIVE PROBLEM LIST Anemia, Unspecified Predominant Disturbance of Emotions Blood Per Rectum Abdominal Pain, Right Upper Quadrant Gastric Ulcer Acute Gastritis Without Mention of Hemorrhage Pain in Joint, Shoulder Region Disorder of Bone and Cartilage, Unspecified Unspecified Site of Sprain and Strain Multiple Allergies Anxiety Disorder, Unspecified Personal History of Urinary Calculi Tobacco Use Current Outpatient Medications Medication Sig Dispense Refill Cetirizine 10 mg cap DAILY naproxen (NAPROSYN) 250 mg tablet TWICE A DAY PRN For pain fluticasone (FLONASE) 50 mcg/actuation nasal spray Use 2 Sprays in each nostril once daily. Rinse mouth after use. 18.2 mL 11 Azelastine HCl (OPTIVAR) 0.05 % ophthalmic solution Use 1 Drop in both eyes twice daily. 6-8 HOURS APART 1 Bottle 5 multivitamin (VITAMIN DAILY ORAL) Take by mouth once daily. EPINEPHrine (EPIPEN) 0.3 mg/0.3 mL auto-injector Use as directed for allergic reaction 1 Each 2 calcium phosphate dibas/vit D3 (VITAMIN D, WITH CALCIUM, ORAL) Take 1,000 mg by mouth once daily. (Patient not taking: No sig reported) No current facility-administered medications for this visit. Social History Tobacco Use Smoking status: Former Packs/day: 0.50 Years: 10.00 Pack years: 5.00 Types: Cigarettes Quit date: 03/05/2018 Years since quittin.2 Smokeless tobacco: Never Vaping Use Vaping Use: Never used Substance Use Topics Alcohol use: Yes Comment: rare Drug use: No Alcohol Use: Yes (rare) Tobacco Use: 0.5 packs/day, for 10 years. Quit 03/05/2018. 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 All other systems reviewed and are negative. BP 136/59 Pulse 80 Temp 98.4 Resp 20 SpO2 99% LMP 12/24/2021 Physical Exam Vitals reviewed. Constitutional: Appearance: Normal appearance. Cardiovascular: Rate and Rhythm: Normal rate and regular rhythm. Heart sounds: Normal heart sounds. Pulmonary: Effort: Pulmonary effort is normal. Breath sounds: Normal breath sounds. Musculoskeletal: General: Tenderness (Tenderness and spasm of lumbar paraspinal muscles) present. Cervical back: Normal range of motion and neck supple. No rigidity. Comments: No tenderness of the spinal column, sitting straight leg raising test is negative. Motor function is 5 out of 5. Sensation intact. She can ambulate well but with pain in the back Neurological: General: No focal deficit present. Mental Status: She is alert. Sensory: No sensory deficit. Motor: No weakness. ASSESSMENT/PLAN: 1. Lumbar sprain, initial encounter - ICD9: 847.2, ICD10: S33.5XXA - CYCLOBENZAPRINE 10 MG TABLET Rest elevation ice OTC pain med Limit activities, see restrictions Explained details Recheck if any change F/U at [id number] office [phone] for further treatment and work release Sanjana Brownlee MD [facility] 02-23-2022 Note Patient Outreach (IN [facility]) GLORIA WILLS ([id number]) 1970 F Date Time Provider Department 02/23/22 LI TOMPKINS During your visit today, we recorded the following information about you: Allergies As of Date: 02/23/2022 Noted Allergy Reaction BEE STING 04/10/2009 10 - Anaphylaxis CIPROFLOXACIN 10/07/2014 8 - GI Upset Comments: Nausea, abdominal pain CONTRAST DYE (IODINE) 03/23/2021 2 - Rash FLAGYL (METRONIDAZOLE) 02/13/2019 14 - Other: See Comments Comments: headaches and stomache IODINATED CONTRAST MEDIA 12/31/2021 10 - Anaphylaxis PENICILLINS 05/04/2005 10 - Anaphylaxis Comments: has tolerated cephalosporins in the past (Rocephin) ZITHROMAX (AZITHROMYCIN) 02/29/2008 8 - GI Upset Comments: does ok as long as just takes one pill a day x 6 days Date Reviewed: 12/31/2021 Reviewed by: Sanjana Brownlee MD - Fully Assessed Visit Diagnosis:Encounter for screening mammogram for breast cancer [Z12.31] Order(s):[facility] SCREENING [[id number]] Order #: [id number] FUTURE Prescriptions as of 02/28/2022 - methylPREDNISolone (MEDROL, AC,) 4 mg Dose-Pack Take by mouth per package instructions - Cetirizine 10 mg cap DAILY - naproxen (NAPROSYN) 250 mg tablet TWICE A DAY PRN For pain - dexAMETHasone (DECADRON) 4 mg tablet Take 1 tablet by mouth once daily. - hydrOXYzine HCl (ATARAX) 25 mg tablet Take 1 tablet by mouth daily at bedtime. - cholestyramine (QUESTRAN) 4 gram packet Take 4 Doses by mouth twice daily. - gabapentin (NEURONTIN) 300 mg capsule Take 1 capsule by mouth three times daily for 90 days. - pantoprazole DR (PROTONIX) 20 mg tablet Take 1 tablet by mouth twice daily. Take on empty stomach, 1/2 hr before meal. - doxycycline (VIBRA-TABS) 100 mg tablet TAKE 1 TABLET BY MOUTH TWICE A DAY FOR 10 DAYS - sucralfate (CARAFATE) 100 mg/mL suspension Take 10 mL by mouth twice daily as needed. (560cc=2wks) - fluticasone (FLONASE) 50 mcg/actuation nasal spray Use 2 Sprays in each nostril once daily. Rinse mouth after use. - albuterol HFA (PROVENTIL HFA, VENTOLIN HFA) 90 mcg/actuation inhaler Inhale 2 Puffs as instructed every 4 hours as needed for wheezing/shortness of breath. - Azelastine HCl (OPTIVAR) 0.05 % ophthalmic solution Use 1 Drop in both eyes twice daily. 6-8 HOURS APART - multivitamin (VITAMIN DAILY ORAL) Take by mouth once daily. - calcium phosphate dibas/vit D3 (VITAMIN D, WITH CALCIUM, ORAL) Take 1,000 mg by mouth once daily. - fluticasone (FLONASE) 50 mcg/actuation nasal spray instill 1 spray into each nostril daily - EPINEPHrine (EPIPEN) 0.3 mg/0.3 mL auto-injector Use as directed for allergic reaction Meds Comments as of 03/03/2021: 03/03/2021 4 PM New meds. Advil Cold. Azithromycin. Sommer Romo RN Problem List As Of Date 02/23/2022 Noted Resolved ANEMIA NOS [D64.9] STRESS REACT, EMOTIONAL [R45.89] 08/08/2008 Blood per rectum [K62.5] 12/25/2009 Abdominal pain, right upper quadrant [R10.11] 01/04/2010 Gastric ulcer [K25.9] 01/04/2010 Acute gastritis without mention of hemorrhage [*01/04/2010 Pain in joint, shoulder region [M25.519] 06/03/2014 Disorder of bone and cartilage, unspecified [M8*06/03/2014 Unspecified site of sprain and strain [T14.8XXA]06/03/2014 Multiple allergies [Z88.9] 03/12/2018 Anxiety disorder, unspecified [F41.9] 09/17/2016 Personal history of urinary calculi [Z87.442] 09/17/2016 Tobacco use [Z72.0] 09/17/2016 Encounter Status:Closed by ESTHER OKEEFEUSESatya on 02/28/22 [facility] 12-31-2021 Instructions Sanjana Brownlee MD - 12/31/2021 7:14 PM EDT Benadryl, calamine lotion F/u PCP Explained details Rest elevation ice for the foot pain OTC pain med Limit activities F/u PCP for further ration care Explained Recheck if any change documented in this encounter [facility] 12-31-2021 History of Present illness Narrative Gloria Wills is a 51 year old FEMALE who presents with itchy (Was seen 11/26 used the cream it has not gone away /) and Ankle Pain (Right ankle/2 weeks /Denies recent injury or fall /) Recurrent rash and itching all over the body Does have been going off and on for few months Was treated for scabies got better but now to recur again The rash comes and goes Right now she has some rash in the left axilla area No respiratory difficulty Denies being exposed to anything new She also has significant heel pain Is been going on for a while but is increasing It hurts to walk She do a lot of standing and walking all the time No injury PAST MEDICAL HISTORY Diagnosis Date Anemia, unspecified Gastric ulcer, unspecified as acute or chronic, without mention of hemorrhage or perforation, with obstruction GERD (gastroesophageal reflux disease) ACTIVE PROBLEM LIST Anemia, Unspecified Predominant Disturbance of Emotions Blood Per Rectum Abdominal Pain, Right Upper Quadrant Gastric Ulcer Acute Gastritis Without Mention of Hemorrhage Pain in Joint, Shoulder Region Disorder of Bone and Cartilage, Unspecified Unspecified Site of Sprain and Strain Multiple Allergies Anxiety Disorder, Unspecified Personal History of Urinary Calculi Tobacco Use Current Outpatient Medications Medication Sig Dispense Refill Cetirizine 10 mg cap DAILY naproxen (NAPROSYN) 250 mg tablet TWICE A DAY PRN For pain Azelastine HCl (OPTIVAR) 0.05 % ophthalmic solution Use 1 Drop in both eyes twice daily. 6-8 HOURS APART 1 Bottle 5 multivitamin (VITAMIN DAILY ORAL) Take by mouth once daily. fluticasone (FLONASE) 50 mcg/actuation nasal spray instill 1 spray into each nostril daily 0 EPINEPHrine (EPIPEN) 0.3 mg/0.3 mL auto-injector Use as directed for allergic reaction 1 Each 2 dexAMETHasone (DECADRON) 4 mg tablet Take 1 tablet by mouth once daily. (Patient not taking: Reported on 12/31/2021) 4 tablet 0 hydrOXYzine HCl (ATARAX) 25 mg tablet Take 1 tablet by mouth daily at bedtime. (Patient not taking: Reported on 12/31/2021) 14 tablet 0 cholestyramine (QUESTRAN) 4 gram packet Take 4 Doses by mouth twice daily. (Patient not taking: No sig reported) gabapentin (NEURONTIN) 300 mg capsule Take 1 capsule by mouth three times daily for 90 days. [address] (PROTONIX) 20 mg tablet Take 1 tablet by mouth twice daily. Take on empty stomach, 1/2 hr before meal. 60 tablet 2 doxycycline (VIBRA-TABS) 100 mg tablet TAKE 1 TABLET BY MOUTH TWICE A DAY FOR 10 DAYS (Patient not taking: No sig reported) sucralfate (CARAFATE) 100 mg/mL suspension Take 10 mL by mouth twice daily as needed. (560cc=2wks) (Patient not taking: Reported on 12/31/2021) 420 mL 1 fluticasone (FLONASE) 50 mcg/actuation nasal spray Use 2 Sprays in each nostril once daily. Rinse mouth after use. (Patient not taking: No sig reported) 18.2 mL 11 albuterol HFA (PROVENTIL HFA, VENTOLIN HFA) 90 mcg/actuation inhaler Inhale 2 Puffs as instructed every 4 hours as needed for wheezing/shortness of breath. (Patient not taking: Reported on 12/31/2021) 8 g 0 calcium phosphate dibas/vit D3 (VITAMIN D, WITH CALCIUM, ORAL) Take 1,000 mg by mouth once daily. (Patient not taking: Reported on 12/31/2021) No current facility-administered medications for this visit. Social History Tobacco Use Smoking status: Former Packs/day: 0.50 Years: 10.00 Pack years: 5.00 Types: Cigarettes Quit date: 03/05/2018 Years since quittin.8 Smokeless tobacco: Never Vaping Use Vaping Use: Never used Substance Use Topics Alcohol use: Yes Comment: rare Drug use: No Alcohol Use: Yes (rare) Tobacco Use: 0.5 packs/day, for 10 years. Quit 03/05/2018. 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 All other systems reviewed and are negative. BP 105/64 Pulse 77 Temp (Src) 97.7 (Temporal) Resp 18 Wt 178 lb 12.8 oz (81.1kg) SpO2 99% LMP 12/24/2021 Physical Exam Vitals reviewed. Constitutional: Appearance: Normal appearance. HENT: Nose: Nose normal. Cardiovascular: Rate and Rhythm: Normal rate and regular rhythm. Heart sounds: Normal heart sounds. Pulmonary: Effort: Pulmonary effort is normal. Breath sounds: Normal breath sounds. Musculoskeletal: Cervical back: Normal range of motion and neck supple. No rigidity. Comments: Patient has significant tenderness of the foot on the plantar aspect at the heel. The rest of the foot was normal. This is clinically plantar fasciitis Skin: Findings: Erythema (Erythema rash on the left axillary area clinically appears to be urticaria, there are some wheels like skin appearance red the patient scratch the skin) present. Comments: No blister or pustule or any skin discoloration. Clinically this does not look like scabies right now No rash anywhere else at this moment Neurological: Mental Status: She is alert. Explained to patient that in my opinion her foot pain is plantar fasciitis and the skin rash is urticaria appearance right now We will treat her with Medrol Dosepak for now which will help both of her symptoms but she will need to follow-up with her doctor for further care and may need to see medical corps officer for her recurrent skin problem. Patient understand and agreed ASSESSMENT/PLAN: 1. Plantar fasciitis - ICD9: 728.71, ICD10: M72.2 (primary diagnosis) - METHYLPREDNISOLONE 4 MG TABLETS IN A DOSE PACK 2. Urticaria - ICD9: 708.9, ICD10: L50.9 - METHYLPREDNISOLONE 4 MG TABLETS IN A DOSE PACK Benadryl, calamine lotion F/u PCP Explained details Rest elevation ice for the foot pain OTC pain med Limit activities F/u PCP for further ration care Explained Recheck if any change Sanjana Brownlee MD documented in this encounter [facility] 11-26-2021 History of Present illness Narrative Gloria Cleaning is a 51 year old FEMALE who presents with Rash (Itchy red rash scattered over body that comes and goes---all summer long) HPI PAST MEDICAL HISTORY Diagnosis Date Anemia, unspecified Gastric ulcer, unspecified as acute or chronic, without mention of hemorrhage or perforation, with obstruction GERD (gastroesophageal reflux disease) ACTIVE PROBLEM LIST Anemia, Unspecified Predominant Disturbance of Emotions Blood Per Rectum Abdominal Pain, Right Upper Quadrant Gastric Ulcer Acute Gastritis Without Mention of Hemorrhage Pain in Joint, Shoulder Region Disorder of Bone and Cartilage, Unspecified Unspecified Site of Sprain and Strain Multiple Allergies Anxiety Disorder, Unspecified Personal History of Urinary Calculi Tobacco Use Current Outpatient Medications Medication Sig Dispense Refill Cetirizine 10 mg cap DAILY naproxen (NAPROSYN) 250 mg tablet TWICE A DAY PRN For pain hydrOXYzine HCl (ATARAX) 25 mg tablet Take 1 tablet by mouth daily at bedtime. 14 tablet 0 sucralfate (CARAFATE) 100 mg/mL suspension Take 10 mL by mouth twice daily as needed. (560cc=2wks) 420 mL 1 Azelastine HCl (OPTIVAR) 0.05 % ophthalmic solution Use 1 Drop in both eyes twice daily. 6-8 HOURS APART 1 Bottle 5 multivitamin (VITAMIN DAILY ORAL) Take by mouth once daily. calcium phosphate dibas/vit D3 (VITAMIN D, WITH CALCIUM, ORAL) Take 1,000 mg by mouth once daily. fluticasone (FLONASE) 50 mcg/actuation nasal spray instill 1 spray into each nostril daily 0 EPINEPHrine (EPIPEN) 0.3 mg/0.3 mL auto-injector Use as directed for allergic reaction 1 Each 2 permethrin (ELIMITE) 5 % cream Apply to affected area one time only for 1 dose. Apply from the chin down. Leave on 8-12 hours. Shower off in the morning. Repeat in one week. 60 g 1 dexAMETHasone (DECADRON) 4 mg tablet Take 1 tablet by mouth once daily. 4 tablet 0 cholestyramine (QUESTRAN) 4 gram packet Take 4 Doses by mouth twice daily. (Patient not taking: Reported on 11/26/2021) gabapentin (NEURONTIN) 300 mg capsule Take 1 capsule by mouth three times daily for 90 days. [address] (PROTONIX) 20 mg tablet Take 1 tablet by mouth twice daily. Take on empty stomach, 1/2 hr before meal. 60 tablet 2 doxycycline (VIBRA-TABS) 100 mg tablet TAKE 1 TABLET BY MOUTH TWICE A DAY FOR 10 DAYS (Patient not taking: No sig reported) fluticasone (FLONASE) 50 mcg/actuation nasal spray Use 2 Sprays in each nostril once daily. Rinse mouth after use. (Patient not taking: No sig reported) 18.2 mL 11 albuterol HFA (PROVENTIL HFA, VENTOLIN HFA) 90 mcg/actuation inhaler Inhale 2 Puffs as instructed every 4 hours as needed for wheezing/shortness of breath. 8 g 0 No current facility-administered medications for this visit. Social History Tobacco Use Smoking status: Former Packs/day: 0.50 Years: 10.00 Pack years: 5.00 Types: Cigarettes Quit date: 03/05/2018 Years since quittin.7 Smokeless tobacco: Never Vaping Use Vaping Use: Never used Substance Use Topics Alcohol use: Yes Comment: rare Drug use: No Alcohol Use: Yes (rare) Tobacco Use: 0.5 packs/day, for 10 years. Quit 03/05/2018. 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 Patient patient has had a rash that has persisted for several months. Her is covered with scabies and this appears to be scabies as well. Most of the family does have this rash. All other systems reviewed and are negative. BP 112/55 Pulse 80 Resp 16 Wt 173 lb (78.5kg) SpO2 99% LMP 04/12/2021 Physical Exam Vitals and nursing note reviewed. Constitutional: Appearance: Normal appearance. Skin: Findings: Rash present. Comments: This patient has multiple areas of scabies. This is not as severe as her he is covered. But she does have several different areas and is consistent with scabies. Neurological: Mental Status: She is alert. ASSESSMENT/PLAN: 1. Scabies - ICD9: 133.0, ICD10: B86 - Apply Elimite neck down after shower over night. Wash off in a.m. Repeat in 1 week times one. - Itching and bumps may continue for some weeks even though the mite has been removed. - Follow up with PCP if no improvement in 3-4 weeks after treatment. - PERMETHRIN 5 % TOPICAL CREAM - DEXAMETHASONE 4 MG TABLET Libertad Huynh documented in this encounter [facility] 10-24-2021 Miscellaneous Notes Patient given results and verbalized understanding of instructions given. Isela Crump Cmp normal, f/u as discussed during exam. documented in this encounter [facility] 10-23-2021 Instructions Myra Abad APRN.DANIELLE - 10/23/2021 9:13 AM EDT Prednisone taper as ordered Hydroxyzine at bedtime - 25 mg Will check labs and notify via mychart of results Recheck in [address] Tompkins documented in this encounter [facility] 10-23-2021 History of Present illness Narrative Images from the original note were not included. Subjective Rash Pertinent negatives include no fever or joint pain. Patient presents with: Rash: Rash all over body, x 2 months Gloria Cleaning is a 50 year old female who presents with a complaint of body itching for the past 2 weejs(s) that is waxing and waning. The patients reports no new exposures, no recent contact with unusual or new material, no recent change in detergents, soap, or shampoo, no other family members with the same rash, and when first started had 2 small bug bites, no noticeable rash. She has a h/o tinea, between breast uses clotrimazole and usually resolves. Patient was seen in ER for this, given prednisone, did not take because it was a burst and Does the patient have a personal history of: Seasonal allergies: no Recent travel: no Recent infections: no Beginning a new medication: no Symptoms are triggered by: heat Other symtoms include none of the following: appetite change, weight change, fever, chills, malaise, and fatigue Review of Systems Constitutional: Negative for chills and fever. Musculoskeletal: Negative for joint pain and myalgias. Skin: Positive for itching and rash. All other systems reviewed and are negative. Objective Physical Exam Vitals and nursing note reviewed. Cardiovascular: Rate and Rhythm: Normal rate and regular rhythm. Heart sounds: Normal heart sounds. Pulmonary: Effort: Pulmonary effort is normal. Breath sounds: Normal breath sounds. Skin: General: Skin is warm and dry. Comments: There is no visible rash, scratch mcgrath Between breast - Erythematous pruritc well demarcated plaques, with raised scaly border Neurological: Mental Status: She is alert and oriented to person, place, and time. Psychiatric: Mood and Affect: Affect normal. ASSESSMENT/PLAN: 1. Itching - ICD9: 698.9, ICD10: L29.9 (primary diagnosis) Hydroxyzine 25 mg hs Prednisone taper Will call with lab results Follow up in [address] Tompkins - COMP METABOLIC PANEL 2. Tinea cruris - ICD9: 110.3, ICD10: B35.6 - Treat with clotrimazole twice a day until rash resolves and then another week - Keep area of concern very dry. Ok to use OTC antifungal powder if area is moist - Follow up with PCP if symptoms persist or do not improved after 4-6 weeks of treatment. Diagnosis and treatment plan were discussed and questions were answered to the patient's satisfaction. Pt acknowledged understanding of concepts and follow up plan. Specific signs and symptoms that would indicate the need for higher level of care were discussed in detail warranting prompt ER evaluation. Myra Abad APRN.DANIELLE documented in this encounter [facility] 05-14-2021 Miscellaneous Notes PA received and denied. Member must try generic sucralfate tablet and fail. Did review past med list where sucralfate tablet was given in past but just states patient was no longer taking so discontinued. Latanya Braswell Ma Prior Authorization has been completed online at [employer] for Sucralfate, will await response. [id number] Please keep encounter open until final decision has been received and documented from insurance company. Latanya Braswell MA documented in this encounter [facility] 04-11-2021 Hospital Discharge instructions Patient Education 04/11/2021 12:46:25 Transient Ischemic Attack, [id number] Transient Ischemic Attack A transient ischemic attack (TIA) is a warning stroke that causes stroke-like symptoms that go away quickly. A TIA does not cause lasting damage to the brain. But having a TIA is a sign that you may be at risk for a stroke. Lifestyle changes and medical treatments can help prevent a stroke. It is important to know the symptoms of a TIA and what to do. Get help right away, even if your symptoms go away. The symptoms of a TIA are the same as those of a stroke. They can happen fast, and they usually go away within minutes or hours. They can include: Weakness or loss of feeling in your face, arm, or leg. This often happens on one side of your body. Trouble walking. Trouble moving your arms or legs. Trouble talking or understanding what people are saying. Trouble seeing. Seeing two of one object (double vision). Feeling dizzy. Feeling confused. Loss of balance or coordination. Feeling sick to your stomach (nauseous) and throwing up (vomiting). A very bad headache for no reason. What increases the risk? Certain things may make you more likely to have a TIA. Some of these are things that you can change, such as: Being very overweight (obese). Using products that contain nicotine or tobacco, such as cigarettes and e-cigarettes. Taking control pills. Not being active. Drinking too much alcohol. Using drugs. Other risk factors include: Having an irregular heartbeat (atrial fibrillation). Being or . Having had blood clots, stroke, TIA, or heart attack in the past. Being a woman with a history of high blood pressure in (preeclampsia). Being over the age of 60. Being male. Having family history of stroke. Having the following diseases or conditions: ?High blood pressure. ?High cholesterol. ?Diabetes. ?Heart disease. ?Sickle cell disease. ?Sleep apnea. ?Migraine headache. ?Long-term (chronic) diseases that cause soreness and swelling (inflammation). ?Disorders that affect how your blood clots. Follow these instructions at home: Medicines Take scqa-luy-tupdpws and prescription medicines only as told by your doctor. If you were told to take aspirin or another medicine to thin your blood, take it exactly as told by your doctor. ?Taking too much of the medicine can cause bleeding. ?Taking too little of the medicine may not work to treat the problem. Eating and drinking Eat 5 or more servings of fruits and vegetables each day. Follow instructions from your doctor about your diet. You may need to follow a certain diet to help lower your risk of having a stroke. You may need to: ?Eat a diet that is low in fat and salt. ?Eat foods that contain a lot of fiber. ?Limit the amount of carbohydrates and sugar in your diet. Limit alcohol intake to 1 drink a day for non women and 2 drinks a day for men. One drink equals 12 oz of beer, 5 oz of wine, or 1 oz of hard liquor. General instructions Keep a healthy weight. Stay active. Try to get at least 30 minutes of activity on all or most days. Find out if you have a condition called sleep apnea. Get treatment if needed. Do not use any products that contain nicotine or tobacco, such as cigarettes and e-cigarettes. If you need help quitting, ask your doctor. Do not abuse drugs. Keep all follow-up visits as told by your doctor. This is important. Get help right away if: You have any signs of stroke. BE FAST is an easy way to remember the main warning signs: ?B - Balance. Signs are dizziness, sudden trouble walking, or loss of balance. ?E - Eyes. Signs are trouble seeing or a sudden change in how you see. ?F - Face. Signs are sudden weakness or loss of feeling of the face, or the face or eyelid drooping on one side. ?A - Arms. Signs are weakness or loss of feeling in an arm. This happens suddenly and usually on one side of the body. ?S - Speech. Signs are sudden trouble speaking, slurred speech, or trouble understanding what people say. ?T - Time. Time to call emergency services. Write down what time symptoms started. You have other signs of stroke, such as: ? A sudden, very bad headache with no known cause. ? Feeling sick to your stomach (nausea). ? Throwing up (vomiting). ?Jerky movements that you cannot control (seizure). These symptoms may be an emergency. Do not wait to see if the symptoms will go away. Get medical help right away. Call your local emergency services (911 in the [place] Do not drive yourself to the hospital. Summary A transient ischemic attack (TIA) is a warning stroke that causes stroke-like symptoms that go away quickly. A TIA is a medical emergency. Get help right away, even if your symptoms go away. A TIA does not cause lasting damage to the brain. Having a TIA is a sign that you may be at risk for a stroke. Lifestyle changes and medical treatments can help prevent a stroke. This information is not intended to replace advice given to you by your health care provider. Make sure you discuss any questions you have with your health care provider. Document Released: 11/22/2008 Document Revised: 2018 Document Reviewed: 05/17/2017 [employer] Patient Education 2020 iTOK. Follow Up Care 04/09/2021 17:08:07 With:LI TOMPKINS MD Address: [address] [place] [id number] When:1-2 days [facility] Medicine Hospitalist History and Physical Date of Admission: 04/09/2021 Chief complaint: Multiple complaints including reflux type symptoms, nasal congestion, headache, vision changes, change in mental status, abdominal pain History of present illness: History is taken from talking with emergency room physician as well as talking with the patient. Patient has a past medical history of COVID-19, gastric ulcers, tobacco abuse, sinusitis. Patient reports that in January she had COVID-19 and ever since then she has been dealing with multiple symptoms. She reports that she has had episodes of diarrhea which have since seemed to resolve. This was nonbloody diarrhea. She has had ongoing severe reflux type symptoms and she did tell me that she has a history of gastric ulcers. She was started recently on outpatient omeprazole which she now feels like has given her constipation. She does have follow-up outpatient with gastroenterology. She denies melena or hematochezia. She reports that she has been having ongoing bilateral flank pain. She has had outpatient imaging which did not show any concerning finding. She reports that she has intermittent hematuria and symptoms consistent with a urinary tract infection however she states that they have checked a urinalysis multiple times which has been negative for infection. She reports that for almost 2 months she has not had a period. Patient reports that she has ongoing symptoms of shortness of breath fatigue and generalized weakness since she had COVID-19. She denies chest pain. Today while at work she suddenly had an episode of amnesia which only lasted several minutes. She reports that during this time she did not remember where she was at. She also did not remember her kids. She did not have any slurred speech or facial droop. Did not have any focal deficits. Patient does report having a history of sinusitis reports recently she has had severe nasal congestion. Since presenting to the emergency department the patient has been afebrile, hemodynamically stable, 100% room air. Labs and imaging of note: WBC 7.3 hemoglobin 11.8 and she does have chronic anemia. Urinalysis not concerning for infection No concerning finding on CMP. Lipase within normal limits High-sensitivity: Less than 2.5 CT abdomen and pelvis without contrast on 03/31/2021 did not show any concerning finding. Chest x-ray on 04/09/2021 did not show any concerning finding CT head without contrast on 04/09/2021 did not show any acute intracranial abnormality. Air-fluid levels in the sphenoid and maxillary sinus as well as the ethmoidal mucosal thickening. This is compatible with acute sinusitis. CT thorax without contrast did not show any concerning findings. EKG shows sinus rhythm with no ST elevation or ST depression. In the emergency department they did discuss the case with neurology on-call who recommended further work-up with at least MRI for further evaluation. Past medical history: Tobacco use Nose operation Gastric ulcers COVID-19 Family history: Hypertension Social history: Denies smoking cigarettes or alcohol consumption. Stop smoking several weeks ago Medications: Home Medications (5) Active, medications were not verified by pharmacy at the time of this dictation Otto use dicyclomine 20 mg, Oral, QID ondansetron 4 mg oral tablet, disintegrating 4 mg = 1 tab(s), PRN, Oral, q6h promethazine 25 mg oral tablet 25 mg = 1 tab(s), Oral, q6hr Pyridium 200 mg oral tablet 200 mg = 1 tab(s), Oral, TID Zofran 4 mg oral tablet 4 mg = 1 tab(s), PO, q8h Allergies: Bee Stings Cipro Contrast dye penicillin Review of systems: See HPI for pertinent positives and negatives. All other review of systems have been reviewed and they are negative. Vitals Signs(Last 24 hrs)__Last Charted Minimum Maximum Temp36.6(APR 09 17:10)36.6(APR 09 17:10)36.6(APR 09:10) Resp Rate14(APR 09 20:37)14(APR 09 20:37)20(APR 09 17:10) HHJ563(APR 09 20:37)106(APR 09 20:37)116(APR 09 17:10) DBPL 51(APR 09:37)L 51(APR 09 20:37)72(APR 09 17:10) Physical examination: HEENT: No Pallor, No Icterus Cardiac: RRR, No murmur Lungs: CTA, good air entry Abdomen: Soft Non tender Musculoskeletal: No joint pains or swelling Extremities: No edema, good pulses Neurological: Alert and oriented x3. Cranial nerves II to XII intact. No focal neurologic deficits noted. Skin: No rash, no nodules Labs: WBC: 7.3 10^3/mcL (04/09/21 17:58:00) RBC: 3.99 10^6/mcL Low (04/09/21 17:58:00) Hgb: 11.8 G/dL Low (04/09/21 17:58:00) Hct: 35.7 % (04/09/21 17:58:00) MCV: 89.4 fL (04/09/21 17:58:00) MCH: 29.5 pg (04/09/21 17:58:00) MCHC: 33 G/dL (04/09/21 17:58:00) RDW: 14.1 % (04/09/21 17:58:00) Platelet: 272 10^3/mcL (04/09/21 17:58:00) MPV: 8.4 fL (04/09/21 17:58:00) Neutrophil %: 63.4 % (04/09/21 17:58:00) Lymphocyte %: 26.7 % (04/09/21 17:58:00) Monocyte %: 6.8 % (04/09/21 17:58:00) Eosinophil %: 2.5 % (04/09/21 17:58:00) Basophil %: 0.6 % (04/09/21 17:58:00) Neutrophil, Absolute: 4.6 10^3/mcL (04/09/21 17:58:00) Lymphocyte, Absolute: 2 10^3/mcL (04/09/21 17:58:00) Monocyte, Absolute: 0.5 10^3/mcL (04/09/21 17:58:00) Eosinophil, Absolute: 0.2 10^3/mcL (04/09/21 17:58:00) Basophil, Absolute: 0 10^3/mcL (04/09/21 17:58:00) UA Specimen Type: Clean Catch (04/09/21 17:58:00) UA Color: Straw (04/09/21 17:58:00) UA Appear: Clear (04/09/21 17:58:00) UA Spec Grav: <=1.005 Abnormal (04/09/21 17:58:00) UA Glucose: Negative. (04/09/21 17:58:00) UA Bili: Negative. (04/09/21 17:58:00) UA Ketones: Negative. (04/09/21 17:58:00) UA Blood: Trace4 (04/09/21 17:58:00) UA pH: 5.5 (04/09/21 17:58:00) UA Protein: Negative.1 (04/09/21 17:58:00) UA Urobilinogen: 0.2 (04/09/21 17:58:00) UA Nitrite: Negative. (04/09/21 17:58:00) UA Leuk Est: Negative. (04/09/21 17:58:00) Glucose Level: 107 mg/dL (04/09/21 17:58:00) Sodium Level: 141 mEq/L (04/09/21 17:58:00) Potassium Level: 3.7 mEq/L (04/09/21 17:58:00) Chloride: 110 mEq/L (04/09/21 17:58:00) CO2: 25 mEq/L (04/09/21 17:58:00) Electrolyte Balance: 6 mEq/L (04/09/21 17:58:00) BUN: 17 mg/dL (04/09/21 17:58:00) Creatinine Lvl (s): 0.7 mg/dL (04/09/21 17:58:00) BUN/Creatinine Ratio: 24.3 ratio High (04/09/21 17:58:00) Calcium Lvl: 8.9 mg/dL (04/09/21 17:58:00) Total Protein: 7 G/dL (04/09/21 17:58:00) Albumin Level: 3.7 G/dL (04/09/21 17:58:00) Globulin: 3.3 G/dL (04/09/21 17:58:00) A/G Ratio: 1.1 ratio (04/09/21 17:58:00) Bili Total: 0.3 mg/dL (04/09/21 17:58:00) Alk Phos: 68 U/L (04/09/21 17:58:00) AST/SGOT: 7 U/L Low (04/09/21 17:58:00) ALT/SGPT: 20 U/L (04/09/21 17:58:00) GFR Non-: >60 (04/09/21 17:58:00) GFR : >60 (04/09/21 17:58:00) Lipase Level: 34 U/L (04/09/21 19:23:00) Troponin I High Sensitivity: <2.50 (04/09/21 17:58:00) Urinalysis UA Specimen Type: Clean Catch (04/09/21 17:58:00) UA Color: Straw (04/09/21 17:58:00) UA Appear: Clear (04/09/21 17:58:00) UA Spec Grav: <=1.005 Abnormal (04/09/21 17:58:00) UA Glucose: Negative. (04/09/21 17:58:00) UA Bili: Negative. (04/09/21 17:58:00) UA Ketones: Negative. (04/09/21 17:58:00) UA Blood: Trace4 (04/09/21 17:58:00) UA pH: 5.5 (04/09/21 17:58:00) UA Protein: Negative.1 (04/09/21 17:58:00) UA Urobilinogen: 0.2 (04/09/21 17:58:00) UA Nitrite: Negative. (04/09/21 17:58:00) UA Leuk Est: Negative. (04/09/21 17:58:00) Assessment and plan: Patient presents on 04/09/2021 with multiple symptoms that all started since COVID-19 including ongoing abdominal pain, fatigue, shortness of breath, generalized weakness, nasal congestion, severe reflux type symptoms. Episode of amnesia/encephalopathy. Of unclear etiology. Did not have any seizure or strokelike symptoms. We will get an MRI brain for further evaluation. Severe reflux type symptoms with a history of gastric ulcers. Was recently started on omeprazole. Most likely exacerbated with her significant nasal drip/congestion. She does have outpatient follow-up with gastroenterology. Episodes of hematuria and amenorrhea for around 2 months. Urinalysis is not concerning for infection. Showed trace blood. Would have her follow-up outpatient with [employer] [employer]. Shortness of breath/fatigue and generalized weakness since she had COVID-19. CT chest did not show any concerning finding. We will check a D-dimer. We will get an echocardiogram. Sinusitis. Patient does have a penicillin allergy and therefore I will put her on doxycycline. Would recommend outpatient ENT follow-up. Ongoing abdominal pain of unclear etiology. Recent CT abdomen and pelvis without contrast did not show any concerning finding. Does have outpatient follow-up with gastroenterology. No concerning finding on LFTs or lipase. Chronic anemia, stable COVID-19 in February 16. Appears to have ongoing post Covid symptoms however no need for treatment of COVID-19 or to be in isolation. Tobacco abuse. Patient recently stopped smoking. Prophylaxis SCDs CODE STATUS full code [facility] 02-02-2022 Hospital Discharge instructions Patient Education 03/31/2021 02:52:19 Abdominal Pain, Unknown Cause, (Female) Unknown Causes of Abdominal Pain (Female) The exact cause of your belly (abdominal) pain is not clear. This does not mean that this is something to worry about. Everyone likes to know the exact cause of the problem. But sometimes with belly pain, there is no clear-cut cause, and this could be a good thing. The good news is that your symptoms can be treated, and you will feel better. Your condition does not seem serious now. But sometimes the signs of a serious problem may take more time to appear. For this reason, it is important for you to watch for any new symptoms, problems, or worsening of your condition. Over the next few days, the abdominal pain may come and go. Or it may be constant. Other common symptoms can include nausea and vomiting. Sometimes it can be difficult to tell if you feel nauseous. You may just feel bad and not connect that feeling to nausea. Constipation, diarrhea, and a fever maygo along with the pain. The pain may continue even if treated correctly over the following days. Depending on how things go, sometimes the cause can become clear and may need more or different treatment. Additional evaluations, medicines, or tests may also be needed. Home care Your healthcare provider may prescribe medicine for pain, symptoms, or an infection. Follow the healthcare provider's instructions for taking these medicines. General care Rest as much as you can until your next exam. No strenuous activities. Try to find positions that ease discomfort. A small pillow placed on the abdomen may help relieve pain. Something warm on your abdomen (such as a heating pad) may help, but be careful not to burn yourself. Diet Don t force yourself to eat, especially if having cramps, vomiting, or diarrhea. Water is important so you don't get dehydrated. Soup may also be good. Sports drinks may also help,especially if they are not too acidic. Don't drink sugary drinks as this can make things worse. Take liquids in small amounts. Don t guzzle them. Caffeine sometimes makes the pain and cramping worse. Don t take dairy products if you have vomiting or diarrhea. Don't eat large amounts at a time. Wait a few minutes between bites. Eat a diet low in fiber (called a low-residue diet). Foods allowed include refined breads, white rice, fruit and vegetable juices without pulp, tender meats. These foods will pass more easily throughthe intestine. Don t have whole-grain foods, whole fruits and vegetables, meats, seeds and nuts, fried or fatty foods, dairy, alcohol and spicy foods until your symptoms go away. Follow-up care Follow up with your healthcare provider, or as advised, if your pain does not begin to improve in the next 24 hours. Call 911 Call 911 if any of these occur: Trouble breathing Confusion Fainting or loss of consciousness Rapid heart rate Seizure When to seek medical advice Call your healthcare provider right away if any of these occur: Pain gets worse or moves to the right lower abdomen New or worsening vomiting or diarrhea Swelling of the abdomen Unable to pass stool for more than 3 days Fever of 100.4 F (38 C) or higher, or as directed by your healthcare provider. Blood in vomit or bowel movements (dark red or black color) Yellow color of eyes and skin (jaundice) Weakness, dizziness Chest, arm, back, neck, or jaw pain Unexpected vaginal bleeding or missed period Can't keep down liquids or water and you are getting dehydrated [id number] The [employer]. [address] [place] [address]. All rights reserved. This information is not intended as a substitute for professional medical care. Always follow yourhealthcare professional's instructions. Follow Up Care 03/31/2021 00:01:26 With:LI TOMPKINS MD Address: [address] [place] [address]- When:2-4 days [facility] 01-22-2022 History of Present illness Narrative* Libertad Huynh, - 03/20/2021 12:00 PM EST DATE OF SERVICE: 03/19/2021 HISTORY OF PRESENT ILLNESS: This is a 50-year-old female. I have seen her before. She presents today complaining of neck and back pain and basically shooting pains all over. Patient just had COVID and she finished having COVID and then these symptoms started. She said she has been having them for about 3 weeks and it is to the point where it is driving her crazy. She feels like she cannot go on with this. She has gone to the emergency room twice at [facility], once I think she said at [place] and one time she successfully got through. The other times she was told she had a 26-hour wait, another time she had a 7-hour wait. Today, she went somewhere and was there 6 or 7 hours and never did get back so she came in here. ALLERGIES: PENICILLIN, CIPRO, BARIUM DYE. PAST MEDICAL HISTORY: Positive for anemia, blood clots, frequent headaches, ulcers. She has had a D and C and balloon sinuplasty. SOCIAL HISTORY: Unremarkable. Nonsmoker. Does drink alcohol. FAMILY HISTORY: Positive for high blood pressure and diabetes. PHYSICAL EXAMINATION: Weight 163.0 pounds, blood pressure 119/60, pulse 76, respirations 16, temperature is 98.5. Pulse oximetry is 99. This is a 50-year-old female. 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 Treatment for that I think from my reading is immunoglobulin therapy that is certainly not something I can offer here. But she is hooked in with a primary care physician that is a [facility] doctor and she can contact him Monday. In the meantime to try to slow this, I am going to give her 10 mg of Decadron and see if we can get her nerves to just kind of calm down here from firing and see if we can get her some results. HEENT: Unremarkable. Heart: Regular rate and rhythm. Lungs: Clear. Extremities/Neurologic: Grossly intact. I do not find any physical abnormalities, but psychologically. She has pressured speech. She is very anxious. Patient keeps saying over and over, You do not think I am crazy, do you? I explained to the patient numerous times but she does not seem to be able to grasp this. This worried because she has a history of ulcers and she feels like this may be causing ulcers she said, unless she takes Mylanta, she cannot sleep at night, but it started to have effects on her bowels. She is either constipated or has diarrhea. So the patient is just a mess. 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 PLAN: Off work March 20 until March 23. Return to work March 23, 2021. Follow up with her primary care physician, . We gave her Decadron 10. Rest and fluids. Consider seeing a neurologist. For her stomach, she was given Carafate 1 gram 4 times a day one hour before meals or 2 hours after meals for the next 7 days and take the medication as directed. She has omeprazole that has been ordered by another physician that she just has not picked up. So she is to use that omeprazole and take it with this. She is very nervous about combining any medications. I do not know why, but she is. I explained to her that all of these different symptoms fit into one cause, one picture. She is wanting to look at each symptom and treat individually each symptom and it is not the proper way to do this. So I tried to get her to back away from, to look at it a little differently, but she is really anxious right now. Hopefully, the patient will be able to follow up with her primary care on Monday and will get this taken care of. We talked about neurological symptoms caused by COVID, everything from Guillain-Portsmouth to this type of a syndrome and explained to her that this is far away from Guillain-[place]. Patient is to follow as directed, go to the emergency room if any worsening occurs, if she loses bladder control or if she loses function of body parts as far as legs or arms or has any concerns. DO JOSE Fermin/[id number] [employer] File#: [id number] END OF DOCUMENT / CHANGE LOG FOLLOWS Last Edited By Becky. Signed By Libertad Huynh Lisa D DO #RAFITA on 04/02/2021 18:23 ET on 04/02/2021 18:23 ET Revision Number - 2 ^^^ Verified/Reviewed by 04/02/21 1033 RAFITA [facility] PATIENT NAME: GLORIA CLEANING [address] [place] MEDICAL REC #: [id number] [place] [address] [facility] REPORT STATCARE PHYSICIAN documented [facility] Hospital Discharge instructions Patient Education 03/10/2021 02:50:58 Self-Care for Sore Throats Self-Care for Sore Throats Sore throats happen for many reasons, such as colds, allergies, and infections caused by viruses orbacteria. In any case, your throat becomes red and sore. Your goal for self-care is to reduce your discomfort while giving your throat a chance to heal. Moisten and soothe your throat Tips include the following: Try a sip of water first thing after waking up. Keep your throat moist by drinking 6 or more glasses of clear liquids every day. Run a cool-air humidifier in your room overnight. Avoid cigarette smoke. Suck on throat lozenges, cough drops, hard candy, ice chips, or frozen fruit- juice bars. Use the sugar-free versions if your diet or medical condition requires them. Gargle to ease irritation Gargling every hour or 2 can ease irritation. Try gargling with 1 of these solutions: 1/4 teaspoon of salt in 1/2 cup of warm water An umst-ayp-bcagtck anesthetic gargle Use medicine for more relief Rxvv-nka-xfouxkg medicine can reduce sore throat symptoms. Ask your pharmacist if you have questions about which medicine to use: Ease pain with anesthetic sprays. Aspirin or an aspirin substitute also helps. Remember, never giveaspirin to anyone 18 or younger, or if you are already taking blood thinners. For sore throats caused by allergies, try antihistamines to block the allergic reaction. Remember: unless a sore throat is caused by a bacterial infection, antibiotics won t help you. Prevent future sore throats Prevention tips include the following: Stop smoking or reduce contact with secondhand smoke. Smoke irritates the tender throat lining. Limit contact with pets and with allergy-causing substances, such as pollen and mold. When you re around someone with a sore throat or cold, wash your hands often to keep viruses or bacteria from spreading. Don t strain your vocal cords. Contact your healthcare provider if you have: A temperature over 101 F (38.3 C) White spots on the throat Great difficulty swallowing Trouble breathing A skin rash Recent exposure to someone else with strep bacteria Severe hoarseness and swollen glands in the neck or jaw [id number] The [employer]. [address] [place] [address]. All rights reserved. This information is not intended as a substitute for professional medical care. Always follow yourhealthcare professional's instructions. 03/10/2021 02:50:36 Managing Fatigue Cancer: Managing Fatigue Family members can help with meals and chores around the house. Extreme tiredness, called fatigue, is common when you have cancer. It can be caused by worry, lack of sleep, or low appetite. Fatigue can also be a sign of anemia. This is when your blood doesn't have enough red blood cells. You might need medical treatment for anemia. Red blood cells carry oxygen to all the cells in your body, and low levels can make you tired. The tips below can help you feel better. Saving your energy Keep track of the times of day when you are most tired and plan around them. For instance, if you are more tired in the afternoon, try to get tasks done in the morning. Decide which tasks are most important. Do those first. Pass tasks along to others when you need to. Ask for help. Accept help when it s offered. Tell people what they can do to help. For instance, you may need someone to fix a meal, fold clothes, or put gas in your car. Plan rest times. You may want to take a nap each day. Just sitting quietly for a few minutes can also make you feel more rested. Taking care of yourself Relax before you go to bed. Take a bath or read for a while. Keep regular hours. Go to bed at the same time each night and get up at the same time each morning. Eat well. Choose foods from all of the food groups each day. Exercise. Take a brisk walk to help increase your energy. Don't have caffeine or alcohol. Drink plenty of water or fruit juices instead. Treating anemia If you begin to feel more tired than normal, tell your healthcare provider. Fatigue could be a signof anemia. This problem is common in people with cancer, especially during chemotherapy and radiation treatments. If your red blood cell count is too low, you may need a blood transfusion. In some cases, you may need medicine to increase the number of red blood cells your body makes. Call your healthcare provider if you have: Shortness of breath or chest pain A dizzy feeling when you get up from lying or sitting Paler skin than normal Extreme tiredness that is not helped by sleep [id number] The [employer]. [address] [place] [address]. All rights reserved. This information is not intended as a substitute for professional medical care. Always follow yourhealthcare professional's instructions. Follow Up Care 03/10/2021 02:23:44 With:LI NATION Address: [address] [place] [phone] Business (1) When:2-4 days With:LI TOMPKINS MD Address: [address] [place] [address]- When:2-4 days [facility] 01-05-2022 Hospital Discharge instructions Patient Education 03/03/2021 20:52:56 PAIN, Uncertain Cause (Acute) Pain, Uncertain Cause [Acute] Pain is the body s way of calling attention to a problem. Pain can be caused by many conditions - some minor, some serious. In your case, we were not able to find the exact cause for your pain. However, at this time there is no sign of any serious or life-threatening illness causing your pain. Sometimes more tests will beneeded to determine the cause. Other times, just allowing more time to pass will either make it clear what the problem is, or the pain will go away by itself. Home Care: You may use acetaminophen (Tylenol) or ibuprofen (Motrin, Advil) to control pain, unless another medicine was prescribed. [NOTE: If you have chronic liver or kidney disease or ever had a stomach ulcer or GI bleeding, talk with your doctor before using these medicines.] Follow Up with your doctor or as advised by our staff. Get Prompt Medical Attention if any of the following occur: Changes in the pattern of your pain Appearance of new symptoms Fever of 100.4 F (38 C) or higher, or as directed by your healthcare provider [phone] The [employer]. [address] [place] [address]. All rights reserved. This information is not intended as a substitute for professional medical care. Always follow yourhealthcare professional's instructions. Follow Up Care 03/03/2021 17:04:14 With:LI TOMPKINS MD Address: [address] [place] [address]- When:2-4 days [facility] 12-27-2021 History of Present illness Narrative* Sanjana Brownlee MD - 02/22/2021 7:56 AM EST DATE OF SERVICE: 02/21/2021 REASON FOR VISIT: Ear pain, nasal drainage and burning, and positive COVID-19. HISTORY OF THE PRESENT ILLNESS: This is a 50-year-old female who was tested positive for COVID-19 about 5 days ago. She is currently on self-quarantine, but she is having some burning sensation in her nasal passage and congestion and drainage, and also has some ear pain and decreased hearing in ears. She does not have any fever any more. No shortness of breath. No vomiting or diarrhea. REVIEW OF SYSTEMS: Review of other systems normal. ALLERGIES: PENICILLIN, CIPROFLOXACIN. MEDICATIONS: Cold and sinus medicine. PHYSICAL EXAMINATION: She is awake, alert, not in distress. No dyspnea. She does not look ill. Temperature 98.3, blood pressure 120/64, pulse 68, respirations 16, pulse oximetry 99% on room air. Pain score 6/10. HEENT: Remarkable for mild congestion. Throat was not injected. Both ears were normal. Ear drums were not red and were not bulging. Chest: Clear to auscultation. Heart: Regular rate and rhythm. ASSESSMENT: Acute sinusitis with positive COVID-19. PLAN: Clinical plan was discussed with patient in detail. I explained to her that she needs to continue to self-quarantine. I gave her a Z-Ac as directed, 1 pack with no refill. She should drink a lot of fluids, plenty of rest, Tylenol as needed, continue yyqc-hzz-zsedlwm medicine as needed. If any time she gets worse, she must go to the hospital, otherwise, she can follow up with her doctor. Patient understood and agreed. Her questions were answered to her satisfaction. Sanjana Brownlee MD PP/[id number] [facility] File#: [id number] END OF DOCUMENT / CHANGE LOG FOLLOWS Last Edited By Elec. Signed By Sanjana Brownlee MD #PAWPR Sanjana Brownlee MD #PAWPR on 03/03/2021 10:58 ET on 03/03/2021 10:58 ET Revision Number - 2 ^^^ Verified/Reviewed by 03/03/21 1058 BERE [facility] PATIENT NAME: GLORIA CLEANING [address] [place] MEDICAL REC #: [id number] [place] [address] [facility] REPORT STATCARE PHYSICIAN documented in this encounter[facility]12-23-[facility]21 History of Present illness Narrative* Libertad Huynh, DO - 02/18/2021 6:55 PM EST DATE OF SERVICE: 02/16/2021 SUBJECTIVE: This is a 50-year-old female neck, back, ear pain, arms, legs, everything hurts. She states that it started Monday night just all of a sudden. Nobody else at home is sick. She has not taken any of the COVID vaccines or a flu vaccine. ALLERGIES: PENICILLIN, CIPRO, and BEESTINGS. PAST MEDICAL HISTORY: Positive for anemia, frequent headaches, ulcers, dilation and curettage. She had a nasoplasty. SOCIAL HISTORY: She is a smoker. Does drink alcohol. Social history unremarkable. FAMILY HISTORY: Unremarkable. OBJECTIVE: Weight is 160 pounds, blood pressure 100/70, pulse 76, respirations 19, temperature is 98.2, pulse oximetry is 99. This is a 50-year-old female. HEENT: Membranes are inflamed. Pharynx is inflamed. Neck is supple. Heart: Regular rate and rhythm. Lungs: Harsh bronchial sounds are noted with rhonchi to the bases, some crackles. No areas of consolidation or solid pneumonias can be appreciated. Extremities: Grossly intact. Neurologic: Grossly intact. We did do a Resco, and that will be forwarded to the lab to see if we can identify what this is. IMPRESSION: Viral illness, etiology to be determined. PLAN: The patient is having a Resco. Tamiflu 75 twice a day for 5 days, ibuprofen. Rest, fluids. I told her she needs calories. She has not eaten, and she needs to get some calories in her system. Patient states she understands. DO JOSE Fermin/[id number] [employer] File#: [id number] END OF DOCUMENT / CHANGE LOG FOLLOWS Last Edited By Elec. Signed By Libertad Huynh Lisa D DO #VAULI on 03/01/2021 08:21 ET on 03/01/2021 08:21 ET Revision Number - 2 ^^^ Verified/Reviewed by 03/01/21820 RAFITA [facility] PATIENT NAME: GLORIA CLEANING [address] [place] MEDICAL REC #: [id number] [place] [address] [facility] REPORT STATCARE PHYSICIAN documented in this encounter[facility]05-20-2021 History of Present illness Narrative* Anthony Garcia APRN.KEY ATTENDANT - 07/16/2020 5:00 PM EDT DATE OF SERVICE: 07/15/2020 HISTORY OF PRESENT ILLNESS: Patient is a 49-year-old female presenting to statcare today for sinus pressure, sore throat, congestion, right ear pain, and cough. Symptoms originally started about 10 days ago, but cough has been more prominent over the past few days. No fever, sweats, or chills. No known COVID exposure. PAST MEDICAL HISTORY: Anemia, gestational hypertension, and gestational blood clots as well. SOCIAL HISTORY: Half pack per day cigarette smoker. ALLERGIES: BEES and PENICILLIN. MEDICATIONS: Tylenol. PHYSICAL EXAMINATION: Vital signs reviewed and stable. General: Well appearing, nontoxic, no apparent distress. Cardiovascular: Regular rate and rhythm, no murmurs. Respiratory: Lungs sounds clear to auscultation bilaterally, no respiratory distress. Coarse congested cough present. HEENT: Bilateral TMs slightly bulging. Clear middle ear fluid. Noninjected, non-erythematous. Nasal mucosa erythema and edema, clear rhinorrhea. Posterior pharynx postnasal drip, no tonsillar hypertrophy or exudate present. CLINICAL IMPRESSION: Acute bronchitis. PLAN: Prescriptions for Capmist DM, albuterol inhaler, and Medrol Dosepak sent to pharmacy. Discussed Tylenol, increased oral hydration, finishing steroids as prescribed. Educated patient on importance of smoking cessation. She is agreeable to plan. No other questions or concerns. Anthony Garcia CNP /[id number] [facility] File#: [id number] END OF DOCUMENT / CHANGE LOG FOLLOWS Last Edited By Elec. Signed By Anthony Garcia CNP #MOYCO Anthony Garcia CNP #MOYCO on 07/19/2020 09:09 ET on 07/19/2020 09:09 ET Revision Number - 2 ^^^ Verified/Reviewed by 07/19/20908 FABIOLA [facility] PATIENT NAME: GLORIA CLEANING [address] [place] MEDICAL REC #: [id number] [place] [address] [facility] REPORT STATCARE PHYSICIAN [facility] No data available for this section [facility] Evaluation note* Diagnosis Itching- Primary Unspecified pruritic disorder Tinea cruris Dermatophytosis of groin and perianal area documented in this encounter [facility] note* Diagnosis Scabies- Primary documented in this encounter [facility] note* Diagnosis Plantar fasciitis- Primary Plantar fascial fibromatosis Urticaria Urticaria, unspecified documented in this encounter [facility] note* Diagnosis Encounter for screening mammogram for breast cancer documented in this encounter [facility] note* Diagnosis Thyroid nodule- Primary Nontoxic uninodular goiter Community acquired pneumonia of right lung, unspecified part of lung documented in this encounter [facility] note* Diagnosis Sore throat- Primary Acute pharyngitis Viral pharyngitis Acute pharyngitis documented in this encounter [facility] note* Diagnosis Chronic pain syndrome- Primary documented in this encounter [facility] note* Diagnosis Arthralgia, unspecified joint- Primary documented in this encounter [facility] note* Diagnosis Myalgia- Primary Mylagia and myositis, unspecified Lateral epicondylitis of right elbow Lateral epicondylitis of elbow Muscle tension pain Gastroesophageal reflux disease, unspecified whether esophagitis present documented in this encounter [facility] note* Diagnosis Elevated TSH- Primary Nonspecific abnormal results of thyroid function study documented in this encounter [facility] note* Diagnosis Encounter for screening mammogram for breast cancer documented in this encounter [facility] Discharge instructions No data available for this section [facility] Reason for referral (narrative)* Diagnostic Procedure Only (Routine) - Pending Review Specialty Diagnoses / Procedures Referred By Eriberto t Referred To Contact [facility] Diagnoses Encounter for screening mammogram for breast cancer Procedures RAEGAN SCREENING SCREENING MAMMOGRAPHY BI 2-VIEW BREAST INC Li Fernandez MD [address] [place] [address] [facility] [address] [place] [address] Referral ID Status Reason Start Date Expiration Date Visits Requested Visits Authorized [id number] Pending Review Auto-Generat ed Referral 2 03/25/2023 1 1 [facility] for referral (narrative)* Diagnostic Procedure Only (Routine) - Authorized Specialty Diagnoses / Procedures Referred By Contac t Referred To Contact [facility] Diagnoses Thyroid nodule Procedures US THYROID/PARATHYROID US SOFT TISSUE HEAD & NECK REAL TIME IMGE Moiz Tristan PA-C [address] [place] [address] [facility] Referral ID Status Reason Start Date Expiration Date Visits Requested Visits Authorized [id number] Authorized Auto-Generat ed Referral 10/07/2022 11/06/2023 1 1 [facility] for referral (narrative)* Diagnostic Procedure Only (Routine) - Pending Review Specialty Diagnoses / Procedures Referred By Contjenn t Referred To Contact [facility] Diagnoses Encounter for screening mammogram for breast cancer Procedures RAEGAN SCREENING SCREENING MAMMOGRAPHY BI 2-VIEW BREAST INC CAD Li Tompkins MD [address] [place] [address] [facility] [address] [place] [address] Referral ID Status Reason Start Date Expiration Date Visits Requested Visits Authorized [id number] Pending Review Auto-Generat ed Referral 3 02/24/2024 1 1 [facility] Summary Purpose Family History No Family History Records FoundNo Family History Records Found No data available for this section No Family History Records FoundNo Family History Records FoundNo Family History Records FoundNo Family History Records Found Advance Directives No Advanced Directives Records FoundNo Advanced Directives Records FoundNo Advanced Directives Records FoundNo Advanced Directives Records FoundNo Advanced Directives Records FoundNo Advanced Directives Records Found Medications Administered Section Inactive Administered Medications - up to 3 most recent administrations Medication Order MAR Action Action Date Dose Rate Site dexAMETHasone sodium phosphate 10 mg for oral administration (DECADRON) 10 mg, ORAL, ONCE, 1 dose, On Jelly 11/03/22 at 1600, For Oral Use Only - May be mixed with food or beverage for administration. Given 11/03/2022 3:54 PM EDT 10 mg Oral Additional Source Comments INFORMATION SOURCE (unrecogn ized section and content) DATE CREATED AUTHOR AUTHOR'S ORGANIZ ATION 07/14/2021 [facility] [place] DATE CREATED AUTHOR AUTHOR'S ORGANIZ ATION 12/11/2022 [facility] DATE CREATED AUTHOR AUTHOR'S ORGANIZ ATION 01/08/2023 [facility] DATE CREATED AUTHOR AUTHOR'S ORGANIZ ATION 01/31/2023 [facility] DATE CREATED AUTHOR AUTHOR'S ORGANIZ ATION 02/25/2023 [facility] ([place]) Source Comments (unrecognize d section and content) In the event this informatio n is protected by the Federal Confidentiality of Alcohol and Drug Abuse Patient Records regulations: The Federal rules restrict any use of the information to criminally investigate or prosecute any alcohol or drug abuse patient.[facility] HospitalIn the event this information is protected by the Federal Confidentiality of Alcohol and Drug Abuse Patient Records regulations: The Federal rules restrict any use of the information to criminally investigate or prosecute any alcohol or drug abuse patient.[facility] HospitalIn the event this information is protected by the Federal Confidentiality of Alcohol and Drug Abuse Patient Records regulations: The Federal rules restrict any use of the information to criminally investigate or prosecute any alcohol or drug abuse patient.[facility] HospitalIn the event this information is protected by the Federal Confidentiality of Alcohol and Drug Abuse Patient Records regulations: The Federal rules restrict any use of the information to criminally investigate or prosecute any alcohol or drug abuse patient.[facility]In the event this information is protected by the Federal Confidentiality of Alcohol and Drug Abuse Patient Records regulations: The Federal rules restrict any use of the information to criminally investigate or prosecute any alcohol or drug abuse patient.[facility]In the event this information is protected by the Federal Confidentiality of Alcohol and Drug Abuse Patient Records regulations: The Federal rules restrict any use of the information to criminally investigate or prosecute any alcohol or drug abuse patient.[facility]In the event this information is protected by the Federal Confidentiality of Alcohol and Drug Abuse Patient Records regulations: The Federal rules restrict any use of the information to criminally investigate or prosecute any alcohol or drug abuse patient.[facility]In the event this information is protected by the Federal Confidentiality of Alcohol and Drug Abuse Patient Records regulations: The Federal rules restrict any use of the information to criminally investigate or prosecute any alcohol or drug abuse patient.[facility]In the event this information is protected by the Federal Confidentiality of Alcohol and Drug Abuse Patient Records regulations: The Federal rules restrict any use of the information to criminally investigate or prosecute any alcohol or drug abuse patient.[facility]In the event this information is protected by the Federal Confidentiality of Alcohol and Drug Abuse Patient Records regulations: The Federal rules restrict any use of the information to criminally investigate or prosecute any alcohol or drug abuse patient.[facility]In the event this information is protected by the Federal Confidentiality of Alcohol and Drug Abuse Patient Records regulations: The Federal rules restrict any use of the information to criminally investigate or prosecute any alcohol or drug abuse patient.[facility]In the event this information is protected by the Federal Confidentiality of Alcohol and Drug Abuse Patient Records regulations: The Federal rules restrict any use of the information to criminally investigate or prosecute any alcohol or drug abuse patient.[facility]In the event this information is protected by the Federal Confidentiality of Alcohol and Drug Abuse Patient Records regulations: The Federal rules restrict any use of the information to criminally investigate or prosecute any alcohol or drug abuse patient.[facility]In the event this information is protected by the Federal Confidentiality of Alcohol and Drug Abuse Patient Records regulations: The Federal rules restrict any use of the information to criminally investigate or prosecute any alcohol or drug abuse patient.[facility] HospitalIn the event this information is protected by the Federal Confidentiality of Alcohol and Drug Abuse Patient Records regulations: The Federal rules restrict any use of the information to criminally investigate or prosecute any alcohol or drug abuse patient.[facility] HospitalIn the event this information is protected by the Federal Confidentiality of Alcohol and Drug Abuse Patient Records regulations: The Federal rules restrict any use of the information to criminally investigate or prosecute any alcohol or drug abuse patient.[facility]In the event this information is protected by the Federal Confidentiality of Alcohol and Drug Abuse Patient Records regulations: The Federal rules restrict any use of the information to criminally investigate or prosecute any alcohol or drug abuse patient.[facility]In the event this information is protected by the Federal Confidentiality of Alcohol and Drug Abuse Patient Records regulations: The Federal rules restrict any use of the information to criminally investigate or prosecute any alcohol or drug abuse patient.[facility] Reason for Visit (unrecogniz ed section and content) Reason Comments Rash Rash all over body, x 2 months Reason Comments Results Reason Comments Rash Itchy red rash scatt ered over body that comes and goes---all summer long Reason Comments itchy Was seen 11/26 used t he cream it has not gone away Ankle Pain Right ankle2 weeks D enies recent injury or fall Reason Comments ER F/U pneumonia Specialty Diagnoses / Procedures Referred By Eriberto singh Referred To Contact Family Medicine / FAMILY MEDICINE Diagnoses Follow-up examination er follow up Procedures OFFICE/OUTPATIENT ESTABLISHED MOD MDM 30-39 MIN 4C EST HOSP/ER FU Moiz Berry PA-C [address] [place] [address] Moiz Berry PA-C [address] [place] [address] Referral ID Status Reason Start Date Expiration Date Visits Re quested Visits Authorized [id number] Closed 10/07/2022 01/05/2023 1 1 Reason Comments Sore Throat Cough started yester day Reason Comments Neck Pain Back pain, both elbo ws pain x 1 week no injury Reason Comments Joint Pain Tingling in arms Reason Comments Results Orders Labs Care Teams (unrecognized sec tion and content) Bingo Checker Relationship Specialty Start Date End Date Li Tompkins MD [address] [place], [place] [id number] PCP - General Family Practice 02/10/10 Bingo Checker Relationship Specialty Start Date End Date Li Tompkins MD [address] [place], [place] [id number] PCP - General Family Practice 02/10/10 Bingo Checker Relationship Specialty Start Date End Date Li Tompkins MD [address] [place] [address] PCP - General Family Practice 02/10/10 Bingo Checker Relationship Specialty Start Date End Date Li Tompkins MD [address] [place] [address] PCP - General Family Medicine 02/10/10 Bingo Checker Relationship Specialty Start Date End Date Li Tompkins MD [address] [place] [address] PCP - General Family Medicine 02/10/10 Bingo Checker Relationship Specialty Start Date End Date Li Tompkins MD [address] [place] [address] PCP - General Family Medicine 02/10/10 Bingo Checker Relationship Specialty Start Date End Date Li Tompkins MD [address] [place] [address] PCP - General Family Medicine 02/10/10 Bingo Checker Relationship Specialty Start Date End Date Li Tompkins MD [address] [place] [address] PCP - General Family Medicine 02/10/10 Bingo Checker Relationship Specialty Start Date End Date Li Tompkins MD [address] [place] [address] PCP - General Family Medicine 02/10/10 Bingo Checker Relationship Specialty Start Date End Date Li Tompkins MD [address] [place] [address] PCP - General Family Medicine 02/10/10 Bingo Checker Relationship Specialty Start Date End Date Li Tompkins MD [address] [place] [address] PCP - General Family Medicine 02/10/10 Bingo Checker Relationship Specialty Start Date End Date Li Tompkins MD [address] [place] [address] PCP - General Family Medicine 02/10/10 Bingo Checker Relationship Specialty Start Date End Date Li Tompkins MD [address] [place] [address] PCP - General Family Medicine 02/10/10 FOR RECORDS PERTAINING TO PATIENTS WHO ARE OR HAVE BEEN ENROLLED IN A CHEMICAL DEPENDENCY/SUBSTANCEABUSE PROGRAM, SOME INFORMATION MAY BE OMITTED. This clinical summary was aggregated from multiple sources. Caution should be exercised in using it in the provision of clinical care. This summary normalizes information from multiple sources, and as a consequence, information in this document may materially change the coding, format and clinical context of patient data. In addition, data may be omitted in some cases. CLINICAL DECISIONS SHOULD BE BASED ON THE PRIMARY CLINICAL RECORDS. [facility]. provides no warranty or guarantee of the accuracy or completeness of information in this document.
[2023-03-04 16:01] LABS: Absolute Lymphocyte Count 1.46 X10^3/uL (0.83-4.51); Basophil# 0.03 X10^3/uL; Basophil% 0.1 % (0-1); Hematocrit 39.8 % (37-47); Hemoglobin 12.8 g/dL (12.0-15.0); Lymphocyte # 1.46 X10^3/ul (0.83-4.51); Mean Corp Hgb Conc 32.2 g/dL (32-36); Mean Corpuscular Hgb 28.5 pg (27.0-32.0); Mean Corpuscular Volume 88.6 fL (81-99); Mean Platelet Vol. 9.7 fl (6.2-12.0); Monocyte# 1.04 X10^3/uL; NRBC Flagged by Analyzer 0 % (0-5); Neutrophil # 18.04 X10^3/uL (2.7-7.7); Platelet Count 355 K/mm3 (150-450); RBC Distribution Width CV 12.7 % (11.6-14.6); RBC Distribution Width SD 41.2 fl (35.1-43.9); Red Blood Count 4.49 M/mm3 (4.2-5.4); White Blood Count 20.8 K/mm3 (4.4-11.0)
[2023-03-04 16:14] LABS: Internal QC Validated? YES +Cl - CLEAR BKGD; Pregnancy, Serum, hCG Quali. NEGATIVE Negative
[2023-03-04 16:25] LABS: ALB/GLOB Ratio 0.9 RATIO (0.9-2.4); AST(SGOT) 8 U/L (15-37); Alanine Aminotransfer ALT/SGPT 24 U/L (13-56); Albumin, Serum 3.8 g/dL (3.2-5.0); Alkaline Phosphatase 92 U/L (45-117); Anion Gap 5 (5-15); BUN 14 mg/dL (7-18); BUN/Creat Ratio 15.3 RATIO (10-20); Calcium,Total 9.2 mg/dL (8.5-10.1); Chloride 114 mmol/L (98-107); Creatinine, Serum 0.91 mg/dL (0.55-1.02); EST Glomerular Filtration Rate 69 mL/min (>60); Est Glom Filt Rate - Afr Amer 83 mL/min (>60); Estimated Creatinine Clearance 71.12 ml/min; Globulin 4.1 g/dL (2.2-4.2); Glucose 103 mg/dL (74-106); Potassium 3.5 mmol/L (3.5-5.1); Protein, Total 7.9 g/dL (6.4-8.2); Sodium Level 143 mmol/L (136-145); Troponin-I HS 6 pg/mL (3.0-54.0)
[2023-03-04 16:37] LABS: Lactic Acid 1.7 mmol/L (0.4-1.9)
[2023-03-04 17:00] VITALS: BP 145/87; PULSE 85; RESP 16; O2SAT 96
[2023-03-04 17:00] LABS: Bacteria 0 SEEN /hpf (None Seen); Color, Urine Yellow (Yellow); Glucose, Dipstick Normal (Normal); Ketone-Dipstick Negative (Negative); Leukocyte Esterase-Dipstick 25 /ul (Negative); Mucous, Urine 0 SEEN /hpf (<or=2+); Nitrite-Dipstick Negative (Negative); Occult Blood-Urine 250 /ul (Negative); Protein-Dipstick 30 mg/dl (Negative); Squamous Epithelial Cells - UA 0 SEEN /hpf (5-10); Urine Bilirubin Dipstick Negative (Negative); Urine Clarity Sl. Cloudy (Clear); Urine Urobilinogen Normal (Normal); Urine pH 6.5 (5.0 - 8.0); White Blood Cells 0 SEEN /hpf (0-5)
[2023-03-04 17:18] LABS: Red Blood Cells-Urine > 100 SEEN /hpf (0-5)
[2023-03-04 17:55] VITALS: BP 145/87; PULSE 85; RESP 16; O2SAT 96
--- OUTSIDE RECORDS SUMMARY | 2023-03-04 18:18 | XMS RPT_ITS | CCD ---
Author Name Unknown Address [address] [place] [address] Organization [facility] Care Team Providers Care Edger Technician Name Role Phone Unavailable Primary Care Provider [...] Sunita Bush MD, DR JEFFERSON [facility] HARP, HANS Horvath Attending Sunita Mcgrath MD, BETY Whitlock Attending Naz TOMPKINS MD, DR JEFFERSON [facility] Allergies Allergy Classification Reported Allergen(s) Allergy Type Date of Onset Reaction(s) Facility (8 sources) Bee/Wasp/Ant venom Allergy to substance [facility] Work Phone: (20 sources) Ciprofloxacin; Translations: [ciprofloxacin] [facility] ([facility] Penicillin; Translations: [penicillin] Drug Allergy [facility] Work Phone: (6 sources) Contrast media; Translations: [iodinated radiocontrast agents] Drug allergy [facility] Work Phone: (20 sources) Azithromycin; Translations: [AZITHROMYCIN] Drug Allergy 9 GI Upset [facility] Work Phone: (20 sources) Iodine; Translations: [IODINE] Drug Allergy 2 Rash [facility] Work Phone: (20 sources) metroNIDAZOLE; Translations: [METRONIDAZOLE] Drug Allergy 9 Other: See Comments [facility] Work Phone: (8 sources) Penicillins; Translations: [PENICILLINS] Propensity to adverse reactions 6 Anaphylaxis [facility] Work Phone: (20 sources) Bee Sting; Translations: [BEE STING] Propensity to adverse reactions 0 Anaphylaxis [facility] Work Phone: (12 sources) Penicillins Propensity to adverse reactions 6 Anaphylaxis [facility] Work Phone: (12 sources) Iodinated Contrast Media; Translations: [IODINATED CONTRAST MEDIA] Drug Allergy 2 Anaphylaxis [facility] Medications Current Medications Medication Drug Class(es) Dates Sig (Normalized) Sig (Original) cephalexin 500 mg oral capsule (2 sources) Cephalosporin Antibacterial Start: 04-11-2021 End: 02-18-2022 Keflex 500 mg oral capsule Dose : 500 mg = 1 cap(s), Oral, q12h, X 5 day(s), # 10 cap(s), 0 Refill(s), 04/16/21 12:46:00 EST, Pharmacy: [facility]/pharmacy #[id number], 170, cm, 04/09/21 22:17:00 EST, Height, [...] Diastolic blood pressure 76 mm[Hg] Radha Domingo E BUSINESS MANAGER.DENTURE TECHNICIAN Work Phone: [facility] 12-30-2022 14:48-0400 Heart rate 93 /min Radha Domingo E BUSINESS MANAGER.DENTURE TECHNICIAN Work Phone: [facility] 12-30-2022 14:48-0400 Respiratory rate 18 /min Radha Domingo E BUSINESS MANAGER.DENTURE TECHNICIAN Work Phone: [facility] 12-30-2022 14:48-0400 SaO2% (BldA) [Mass fraction] 99 % Radha Domingo E BUSINESS MANAGER.DENTURE TECHNICIAN Work Phone: [facility] 12-30-2022 14:48-0400 Systolic blood pressure 128 mm[Hg] Radha Finneganhof E BUSINESS MANAGER.DENTURE TECHNICIAN Work Phone: [facility] 12-22-2022 18:45-0400 Body temperature 97.39 [degF] Elías Floyd PA-C Work Phone: [facility] 12-22-2022 18:45-0400 Diastolic blood pressure 76 mm[Hg] Elías Floyd PA-C Work Phone: [facility] 12-22-2022 18:45-0400 Heart rate 85 /min Elías Floyd PA-C Work Phone: [facility] 12-22-2022 18:45-0400 Respiratory rate 18 /min Elías Floyd PA-C Work Phone: [facility] 12-22-2022 18:45-0400 SaO2% (BldA) [Mass fraction] 100 % Elías Floyd PA-C Work Phone: [facility] 12-22-2022 18:45-0400 Systolic blood pressure 111 mm[Hg] Elías Man PA-C Work Phone: [facility] 11-03-2022 15:16-0400 Body temperature 98.1 [degF] Sanjana Brownlee MD Work Phone: [facility] 11-03-2022 15:16-0400 Body weight 85.28 kg Sanjana Brownlee MD Work Phone: [facility] 11-03-2022 15:16-0400 Diastolic blood pressure 77 mm[Hg] Sanjana Brownlee MD Work Phone: [facility] 11-03-2022 15:16-0400 Heart rate 94 /min Sanjana Brownlee MD Work Phone: [facility] 11-03-2022 15:16-0400 Respiratory rate 16 /min Sanjana Brownlee MD Work Phone: [facility] 11-03-2022 15:16-0400 SaO2% (BldA) [Mass fraction] 98 % Sanjana Brownlee MD Work Phone: [facility] 11-03-2022 15:16-0400 Systolic blood pressure 116 mm[Hg] Sanjana Brownlee MD Work Phone: [facility] 10-07-2022 08:08-0400 Body temperature 98.4 [degF] NA Berry PA-C Work Phone: [facility] 10-07-2022 08:08-0400 Body weight 84.82 kg NA Berry PA-C Work Phone: [facility] 10-07-2022 08:08-0400 Diastolic blood pressure 68 mm[Hg] NA Berry PA-C Work Phone: [facility] 10-07-2022 08:08-0400 Heart rate 88 /min NA Berry PA-C Work Phone: [facility] 10-07-2022 08:08-0400 Respiratory rate 16 /min NA Berry PA-C Work Phone: [facility] 10-07-2022 08:08-0400 SaO2% (BldA) [Mass fraction] 96 % NA Berry PA-C Work Phone: [facility] 10-07-2022 08:08-0400 Systolic blood pressure 120 mm[Hg] NA Berry PA-C Work Phone: [facility] 10-04-2022 03:18-0400 Body temperature 100.04 [degF] LASHONDA SPEARS DO [facility] 10-04-2022 02:54-0400 Diastolic Blood Pressure Non-Invasive 60 1 LASHONDA SPEARS DO [facility] 10-04-2022 02:54-0400 Heart rate 99 /min LASHONDA SPEARS DO [facility] 10-04-2022 02:54-0400 Respiratory rate 17 /min LASHONDA SPEARS DO [facility] 10-04-2022 02:54-0400 Systolic Blood Pressure Non-Invasive 117 1 LASHONDA SPEARS DO [facility] 10-04-2022 02:09-0400 Diastolic Blood Pressure Non-Invasive 60 1 LASHONDA SPEARS DO [facility] 10-04-2022 02:09-0400 Heart rate 95 /min LASHONDA SPEARS DO [facility] 10-04-2022 02:09-0400 Systolic Blood Pressure Non-Invasive 104 1 LASHONDA SPEARS DO [facility] 10-03-2022 22:16-0400 Body weight 88.8 kg LASHONDA SPEARS DO [facility] 10-03-2022 21:55-0400 Body temperature 97.88 [degF] LASHONDA SPEARS DO [facility] 10-03-2022 21:55-0400 Diastolic Blood Pressure Non-Invasive 84 1 LASHONDA SPEARS DO [facility] 10-03-2022 21:55-0400 Heart rate 109 /min LASHONDA SPEARS DO [facility] 10-03-2022 21:55-0400 Respiratory rate 18 /min LASHONDA SPEARS DO [facility] 10-03-2022 21:55-0400 Systolic Blood Pressure Non-Invasive 125 1 LASHONDA SPEARS DO [facility] 12-31-2021 19:01-0400 Body temperature 97.7 [degF] Sanjana Brownlee MD Work Phone: [facility] 12-31-2021 19:01-0400 Body weight 81.1 kg Sanjana Brownlee MD Work Phone: [facility] 12-31-2021 19:01-0400 Diastolic blood pressure 64 mm[Hg] Sanjana Brownlee MD Work Phone: [facility] 12-31-2021 19:01-0400 Heart rate 77 /min aSnjana Brownlee MD Work Phone: [facility] 12-31-2021 19:01-0400 Respiratory rate 18 /min Sanjana Brownlee MD Work Phone: [facility] 12-31-2021 19:01-0400 SaO2% (BldA) [Mass fraction] 99 % Sanjana Brownlee MD Work Phone: [facility] 12-31-2021 19:01-0400 Systolic blood pressure 105 mm[Hg] Sanjana Brownlee MD Work Phone: [facility] 11-26-2021 17:03-0400 Body weight 78.47 kg Libertad Huynh DO Work Phone: [facility] 11-26-2021 17:03-0400 Diastolic blood pressure 55 mm[Hg] Libertad Huynh DO Work Phone: [facility] 11-26-2021 17:03-0400 Heart rate 80 /min Libertad Huynh DO Work Phone: [facility] 11-26-2021 17:03-0400 Respiratory rate 16 /min Libertad Huynh DO Work Phone: [facility] 11-26-2021 17:03-0400 SaO2% (BldA) [Mass fraction] 99 % Libertad Huynh DO Work Phone: [facility] 11-26-2021 17:03-0400 Systolic blood pressure 112 mm[Hg] Libertad Huynh DO Work Phone: [facility] 10-23-2021 08:42-0400 Body temperature 97 [degF] Myra Jenniffer E BUSINESS MANAGER.DENTURE TECHNICIAN Work Phone: [facility] 10-23-2021 08:42-0400 Body weight 76.02 kg Myra Jenniffer E BUSINESS MANAGER.DENTURE TECHNICIAN Work Phone: [facility] 10-23-2021 08:42-0400 Diastolic blood pressure 82 mm[Hg] Myra Jenniffer E BUSINESS MANAGER.DENTURE TECHNICIAN Work Phone: [facility] 10-23-2021 08:42-0400 Heart rate 108 /min Myra Jenniffer E BUSINESS MANAGER.DENTURE TECHNICIAN Work Phone: [facility] 10-23-2021 08:42-0400 Respiratory rate 20 /min Myra Jenniffer E BUSINESS MANAGER.DENTURE TECHNICIAN Work Phone: [facility] 10-23-2021 08:42-0400 SaO2% (BldA) [Mass fraction] 95 % Myra Jenniffer E BUSINESS MANAGER.DENTURE TECHNICIAN Work Phone: [facility] 10-23-2021 08:42-0400 Systolic blood pressure 126 mm[Hg] Myra Jenniffer E BUSINESS MANAGER.DENTURE TECHNICIAN Work Phone: [facility] 04-15-2021 02:01-0500 Body temperature 97.7 [degF] SIVAKUMAR ACOSTA MD [facility] 04-15-2021 02:01-0500 Body weight 69.7 kg SIVAKUMAR ACOSTA MD [facility] 04-15-2021 02:01-0500 Diastolic blood pressure 71 mm[Hg] SIVAKUMAR ACOSTA MD [facility] 04-15-2021 02:01-0500 Heart rate 70 /min SIVAKUMAR ACOSTA MD [facility] 04-15-2021 02:01-0500 Respiratory rate 18 /min SIVAKUMAR ACOSTA MD [facility] 04-15-2021 02:01-0500 Systolic blood pressure 111 mm[Hg] SIVAKUMAR ACOSTA MD [facility] 04-11-2021 11:01-0500 Body temperature 98.24 [degF] DR ANNA LACKEY MD [facility] 04-11-2021 11:01-0500 Diastolic blood pressure 62 mm[Hg] DR ANNA LACKEY MD [facility] 04-11-2021 11:01-0500 Heart rate 68 /min DR ANNA LACKEY MD [facility] 04-11-2021 11:01-0500 Mean blood pressure 75 mm[Hg] DR ANNA LACKEY MD [facility] 04-11-2021 11:01-0500 Respiratory rate 18 /min DR ANNA LACKEY MD [facility] 04-11-2021 11:01-0500 Systolic blood pressure 101 mm[Hg] DR ANNA LACKEY MD [facility] 04-11-2021 07:29-0500 Body temperature 98.06 [degF] DR ANNA LACKEY MD [facility] 04-11-2021 07:29-0500 Diastolic blood pressure 64 mm[Hg] DR ANNA LACKEY MD [facility] 04-11-2021 07:29-0500 Heart rate 72 /min DR ANNA LACKEY MD [facility] 04-11-2021 07:29-0500 Mean blood pressure 77 mm[Hg] DR ANNA LACKEY MD [facility] 04-11-2021 07:29-0500 Respiratory rate 18 /min DR ANNA LACKEY MD [facility] 04-11-2021 07:29-0500 Systolic blood pressure 102 mm[Hg] DR ANNA LACKEY MD [facility] 04-11-2021 04:08-0500 Body temperature 98.24 [degF] DR ANNA LACKEY MD [facility] 04-11-2021 04:08-0500 Diastolic blood pressure 52 mm[Hg] DR ANNA LACKEY MD [facility] 04-11-2021 04:08-0500 Heart rate 65 /min DR ANNA LACKEY MD [facility] 04-11-2021 04:08-0500 Mean blood pressure 68 mm[Hg] DR ANNA LACKEY MD [facility] 04-11-2021 04:08-0500 Respiratory rate 18 /min DR ANNA LACKEY MD [facility] 04-11-2021 04:08-0500 Systolic blood pressure 101 mm[Hg] DR ANNA LACKEY MD [facility] 04-10-2021 23:10-0500 Reason For Taking VItal Signs DR ANNA LACKEY MD [facility] 04-10-2021 19:25-0500 Reason For Taking VItal Signs DR ANNA LACKEY MD [facility] 04-10-2021 14:33-0500 Reason For Taking VItal Signs DR ANNA LACKEY MD [address] [place] [address] 04-10-2021 04:03-0500 Heart rate 71 /min DR ANNA LACKEY MD [facility] 04-09-2021 23:04-0500 Heart rate 66 /min DR ANNA LACKEY MD [facility] 04-09-2021 22:17-0500 Body height [address] ANNA LACKEY MD [address] [place] [address] 04-09-2021 22:17-0500 Body weight [address] ANNA LACKEY MD [facility] 04-09-2021 22:17-0500 Body weight 24.22 kg/m2 DR ANNA LACKEY MD [facility] 04-09-2021 21:13-0500 Heart rate 67 /min DR ANNA LACKEY MD [facility] 04-09-2021 17:10-0500 Body weight [address] ANNA LACKEY MD [facility] 03-31-2021 03:25-0500 Diastolic blood pressure 75 mm[Hg] NATALIA BARDALESMELT DO [facility] 03-31-2021 03:25-0500 Heart rate 68 /min NATALIA FROMALICET DO [facility] 03-31-2021 03:25-0500 Respiratory rate 16 /min NATALIA LARAT DO [facility] 03-31-2021 03:25-0500 Systolic blood pressure 115 mm[Hg] NATALIA FROMMELT DO [facility] 03-31-2021 00:07-0500 Body height 170.2 cm NATALIA BARDALESMELT DO [facility] 03-31-2021 00:07-0500 Body temperature 97.88 [degF] NATALIA BARDALESMELT DO [facility] 03-31-2021 00:07-0500 Body weight 69 kg NATALIA FROMMELT DO [facility] 03-31-2021 00:07-0500 Diastolic blood pressure 74 mm[Hg] NATALIA FROMMELT DO [facility] 03-31-2021 00:07-0500 Heart rate 74 /min NATALIA LARAT DO [facility] 03-31-2021 00:07-0500 Respiratory rate 16 /min NATALIA QUEZADA DO [facility] 03-31-2021 00:07-0500 Systolic blood pressure 109 mm[Hg] NATALIA QUEZADA DO [facility] 03-10-2021 02:37-0500 Body temperature 98.24 [degF] BLANCA GONCALVES DO [facility] 03-10-2021 02:37-0500 Diastolic blood pressure 71 mm[Hg] BLANCA GONCALVES DO [facility] 03-10-2021 02:37-0500 Heart rate 84 /min BLANCA GONCALVES DO [facility] 03-10-2021 02:37-0500 Respiratory rate 18 /min BLANCA GONCALVES DO [facility] 03-10-2021 02:37-0500 Systolic blood pressure 99 mm[Hg] BLANCA GONCALVES DO [facility] 03-09-2021 23:32-0500 Diastolic blood pressure 61 mm[Hg] MAEGAN VALENCIA PA-C [facility] 03-09-2021 23:32-0500 Heart rate 82 /min MAEGAN ERIK PA-C [facility] 03-09-2021 23:32-0500 Respiratory rate 16 /min MAEGAN ERIK PA-C [facility] 03-09-2021 23:32-0500 Systolic blood pressure 118 mm[Hg] MAEGAN ERIK PA-C [facility] 03-09-2021 21:11-0500 Body temperature 97.88 [degF] MAEGAN ERIK PA-C [facility] 03-09-2021 21:11-0500 Body weight 71.1 kg MAEGAN ERIK PA-C [facility] 03-09-2021 21:11-0500 Diastolic blood pressure 73 mm[Hg] MAEGAN ERIK PA-C [facility] 03-09-2021 21:11-0500 Heart rate 79 /min MAEGAN ERIK PA-C [facility] 03-09-2021 21:11-0500 Respiratory rate 16 /min MAEGAN ERIK PA-C [facility] 03-09-2021 21:11-0500 Systolic blood pressure 105 mm[Hg] MAEGAN ERIK PA-C [facility] 03-03-2021 20:17-0500 Diastolic blood pressure 62 mm[Hg] SAIRA PUGH MD [facility] 03-03-2021 20:17-0500 Heart rate 64 /min SAIRA PUGH MD [facility] 03-03-2021 20:17-0500 Respiratory rate 20 /min SAIRA PUGH MD [facility] 03-03-2021 20:17-0500 Systolic blood pressure 116 mm[Hg] SAIRA PUGH MD [facility] 03-03-2021 17:10-0500 Body height 170.2 cm SAIRA PUGH MD [facility] 03-03-2021 17:10-0500 Body temperature 98.24 [degF] SAIRA PUGH MD [facility] 03-03-2021 17:10-0500 Body weight 71.3 kg SAIRA PUGH MD [facility] 03-03-2021 17:10-0500 Diastolic blood pressure 64 mm[Hg] SAIRA PUGH MD [facility] 03-03-2021 17:10-0500 Heart rate 94 /min SAIRA PUGH MD [facility] 03-03-2021 17:10-0500 Respiratory rate 20 /min SAIRA PUGH MD [facility] 03-03-2021 17:10-0500 Systolic blood pressure 116 mm[Hg] SAIRA PUGH MD [facility] 02-20-2021 15:13-0500 Body temperature 98.24 [degF] SIVAKUMAR ACOSTA MD [facility] 02-20-2021 15:13-0500 Body weight 72.5 kg SIVAKUMAR ACOSTA MD [facility] 02-20-2021 15:13-0500 Diastolic blood pressure 101 mm[Hg] SIVAKUMAR ACOSTA MD [facility] 02-20-2021 15:13-0500 Heart rate 87 /min SIVAKUMAR ACOSTA MD [facility] 02-20-2021 15:13-0500 Respiratory rate 22 /min SIVAKUMAR ACOSTA MD [facility] 02-20-2021 15:13-0500 Systolic blood pressure 156 mm[Hg] SIVAKUMAR ACOSTA MD [facility] Encounters Encounter Date Encounter Type Care Provider Facility Start: 02-19-2023 End: 02-19-2023 Emergency department patient visit BETY RABAGO MD Facility:A Start: 01-25-2023 ambulatory Li boucher MD Work Phone: Internal Medicine [facility] Start: 01-06-2023 Emergency department patient visit LI TOMPKINS Facility:[id number] Start: 01-02-2023 End: 01-03-2023 ambulatory RADHA DOMINGO Facility:[id number] Start: 01-02-2023 Telephone encounter Radha Sorensen nhof E BUSINESS MANAGER.DENTURE TECHNICIAN Work Phone: [facility] [place] Procedures Date Procedure Procedure Detail Performing Clinician Start: 12-30-2022 Blood count complete auto&auto difrntl wbc Radha Jose L E BUSINESS MANAGER.DENTURE TECHNICIAN Work Phone: Start: 12-30-2022 C-reactive protein Jose Domingo E BUSINESS MANAGER.DENTURE TECHNICIAN Work Phone: Start: 11-03-2022 [facility] [...] Author Start: 03-23-2026 HPV TESTING HPV TESTING [facility] Start: 03-23-2026 PAP TESTING PAP TESTING [facility] Start: 03-23-2026 Urine microalbumin profile [facility] Start: 01-06-2026 Diabetes Screening Diabetes Screen[facility] Start: 12-30-2025 [facility] Start: 10-23-2024 DIABETES SCREEN DIABETES SCREEN [facility] Start: 10-23-2024 Diabetes Screening Diabetes Screenin g [facility] Start: 03-10-2024 DIABETES SCREEN DIABETES SCREEN [facility] Start: 02-03-2023 End: 05-05-2023 Thyrotropin [Units/volume] in Serum or Plasma TSH BLD Lab Routine Elevated TSH Expected: 02/03/2023, Expires: 05/05/2023 [facility] Work Phone: Immunizations Immunization Date Immunization Notes Care Provider Fa cility 03-23-2016 influenza, injectabl e, quadrivalent, contains preservative Li Tompkins MD Work Phone: [facility] 03-23-2016 tetanus toxoid, reduced diphtheria toxoid, and acellular pertussis vaccine, adsorbed Li Tompkins MD Work Phone: [facility] 03-23-2016 influenza virus vaccine, unspecified formulation Elías Man PA-C Work Phone: [facility] 01-26-2011 influenza virus vaccine, unspecified formulation Li Tompkins MD Work Phone: [facility] Work Phone: 02-10-2010 influenza virus vaccine, unspecified formulation Li Tompikns MD Work Phone: [facility] 10-11-2005 hepatitis B vaccine, adult dosage Li Tompkins MD Work Phone: [facility] Work Phone: 10-11-2005 hepatitis B vaccine, unspecified formulation Myra Jenniffer FLORES Work Phone: [facility] 09-11-2003 tetanus toxoid, reduced diphtheria toxoid, and acellular pertussis vaccine, adsorbed Li Tompkins MD Work Phone: [facility] Payers Date Payer Category Payer Unknown [id number] 2022 Medicaid [id number] 2020 Private Health Insurance [id number] 2020 Unknown [id number] 2017 Medicaid [employer] [employer] [id number] 2017-Present [phone] [address] [place] [address] Medicaid [id number] 2017 Medicaid [id number] 1971 Unknown [id number] 1971 Unknown [id number] 1971 Unknown [id number] 1971 Unknown [id number] Social History Date Type Detail Facility Tobacco smoking stat [facility] Tobacco smoking consumption unknown [facility] Start: 1970 Sex Assigned At Not on file [facility] Start: 06-18-2018 End: 10-07-2022 Ex-smoker (finding) [facility] Sex Assigned At [facility] End: 03-05-2018 History of tobacco use Current smoker [facility] End: 03-05-2018 History of tobacco use Cigarette Smoker [facility] Start: 03-12-2018 End: 10-07-2022 Cigarettes smoked current (pack per day) - Reported 0.5 [facility] Start: 03-12-2018 End: 10-07-2022 Tobacco use and exposure Smokeless tobacco non-user [facility] Start: 05-07-2021 End: 12-30-2022 Alcohol intake Current drinker of alcohol (finding) [facility] Start: 12-25-2009 History SDOH Alcohol Comment rare [facility] Start: 04-27-2021 End: 12-31-2021 Exposure to SARS-CoV-2 (event) Not sure [facility] Start: 05-17-2022 End: 10-07-2022 Tobacco use panel [facility] Adult Depression Screening Assessment 0 [facility] Functional Status Date Assessment Result Facility 10-04-2022 Functional Status Independent [facility] 10-04-2022 Functional Status Alarm activated & funct ional [facility] Mental Status Date Assessment Result Facility 10-04-2022 Mental Status Orientation Oriented x 4 [facility] 10-04-2022 Mental Status [facility] Clinical Notes 07-16-2020 to 02-21-2023 Telephone Encounter - Radha Domingo APRN.DENTURE TECHNICIAN - 01/04/2023 10:21 AM ESTTelephone Encounter - [...] Locations *1: This test was performed at: [facility], [address] [place] [address], [facility] , [facility] 01-25-2023 Note Patient Outreach (IN [facility]) GLORIA MONTENEGRO ([id number]) 1970 F Date Time Provider Department 01/25/23 [...] for screening mammogram for breast cancer [Z12.31] Order(s):[facility] SCREENING [6604988] Order #: [id number] FUTURE Prescriptions as of 01/30/2023 - omeprazole [...] Tobacco use [Z72.0] 09/17/2016 Encounter Status:Closed by [email or web address] on 01/30/23 [facility] 01-04-2023 Miscellaneous Notes Lab orders signed, thank [...] receive calls at this time. Will send [employer] message to contact office. Can you please call the patient and let her know I reviewed her lab results. Vitamin D was low, I would recommend taking [id number] vitamin D3 2000 to 4000 IUs daily. [...] has any questions. Thank you. Radha Domingo APRN.DENTURE TECHNICIAN documented in this encounter [facility] 12-30-2022 Miscellaneous Notes Addended by: LIBAN MATHIAS on: 12/30/2022 08:25 PM Modules accepted: Orders documented in this encounter [facility] 12-30-2022 Instructions Radha Domingo APRN.CNP - [...] pending test results. documented in this encounter [facility] 12-30-2022 Note HNO ID: [id number] Author: Radha Domingo APRN.CNP Service: ? Author [...] and in express care. Was seen at [facility] in [place], complaining of bilateral elbow and shoulder pain. No treatment or testing completed. Was seen in express care yesterday, recommended follow up with PCP team for further evaluation. Refers that she had pneumonia in September, had a difficult time recovering. Ended up quitting her job at [employer] in October. Refers that she noticed some right elbow pain that has seemed to get worse. 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 Pain then spread into shoulders [...] curettage EGD N/A 04/29/2021 Dr. Lao at [facility] EGD TRANSORAL BIOPSY SINGLE/MULTIPLE 02/13/2008 [facility] inpt H-pylori is negative EGD TRANSORAL BIOPSY [...] other (fibromyalgia) Mother other (Other) Other No breast/paving plant operator/colon cancer Social History Tobacco Use Smoking status: [...] No wheezing, rh (more content not included)... [facility] 12-30-2022 History of Present illness Narrative This [...] and in express care. Was seen at [facility] in [place], complaining of bilateral elbow and shoulder pain. No treatment or testing completed. Was seen in express care yesterday, recommended follow up with PCP team for further evaluation. Refers that she had pneumonia in September, had a difficult time recovering. Ended up quitting her job at [employer] in October. Refers that she noticed some right elbow pain that has seemed to get worse. 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 Pain then spread into shoulders [...] curettage EGD N/A 04/29/2021 Dr. Lao [facility] [facility] TRANSORAL BIOPSY SINGLE/MULTIPLE 02/13/2008 [facility] inpt H-pylori is negative EGD TRANSORAL BIOPSY [...] other (fibromyalgia) Mother other (Other) Other No breast/paving plant operator/colon cancer Social History Tobacco Use Smoking status: [...] APRN.DANIELLE This note was partially generated using LayerGloss voice recognition system. Note was reviewed for accuracy. There may be minor misspellings or grammar miscues with LayerGloss voice recognition. documented in this encounter [facility] 12-28-2022 Note HNO ID: [id number] Author: Sadia Reyes APRN.DANIELLE Service: ? Author [...] was set up with PCP for follow-up. [facility] 12-28-2022 History of Present illness Narrative She came in with complaints of joint pain in bilateral arms back next hips. Patient says its been going on for about a week. Patient says it feels a little better today. Patient says she went to the ER yesterday patient was set up with PCP for follow-up. documented in this encounter [facility] 12-22-2022 Note HNO ID: [id number] Author: Elías Man PA-C Service: ? Author Type: Physician Hardwood Faller Type: Progress Notes Filed: 12/22/2022 7:07 PM [...] other (fibromyalgia) Mother other (Other) Other No breast/paving plant operator/colon cancer Review of Systems Musculoskeletal: Positive for [...] Chronic pain syndrom (more content not included)... [facility] 12-22-2022 History of Present illness Narrative [...] other (fibromyalgia) Mother other (Other) Other No breast/paving plant operator/colon cancer Review of Systems Musculoskeletal: Positive for [...] not. Elías Man documented in this encounter [facility] 12-10-2022 Note HNO ID: [id number] Author: Note, Interface Service: ? Author Type: ? Type: Progress Notes Filed: 12/10/2022 3:03 AM Note Text: Epic Scheduled Downtime: 12/10/2022 1:00:00 AM to 12/10/2022 1:28:00 AM [facility] 11-24-2022 Note HNO ID: [id number] Author: Elías Man PA-C Service: ? Author Type: Physician Hardwood Faller Type: Progress Notes Filed: 11/24/2022 2:40 PM [...] other (fibromyalgia) Mother other (Other) Other No breast/paving plant operator/colon cancer Review of Systems All other systems [...] Mental Status: She (more content not included)... [facility] 11-03-2022 Note HNO ID: [id number] Author: Sanjana Brownlee MD Service: ? Author [...] other (fibromyalgia) Mother other (Other) Other No breast/paving plant operator/colon cancer Review of Systems HENT: Positive for congestion and sore throat. Respiratory: Positive for cough. BP 116/77 Pulse 94 Temp 98.1 Resp 16 Wt 188 lb (85.3kg) SpO2 98% [facility] 12/24/2021 Physical Exam Vitals reviewed. Constitutional: General: [...] right now explained details Sanjana Brownlee MD [facility] 11-03-2022 Instructions Sanjana Brownlee MD - 11/03/2022 3:36 PM EDT Gargle, lozenges OTC med as needed Recheck if any change F/u PCP for further evaluation and care No antibiotic is needed right now explained details documented in this encounter [facility] 11-03-2022 History of Present illness Narrative [...] other (fibromyalgia) Mother other (Other) Other No breast/paving plant operator/colon cancer Review of Systems HENT: Positive for [...] Sanjana Brownlee MD documented in this encounter [facility] 10-13-2022 Note HNO ID: [id number] Author: Brigette Raman RDMS Service: ? Author Type: Road Repairer Type: Progress Notes Filed: 10/13/2022 1:56 PM [...] RDMS RVT October 13, 2022 1:55 PM [facility] 10-07-2022 Note HNO ID: [id number] Author: Moiz Berry PA-C Service: ? Author Type: Physician Hardwood Faller Type: Progress Notes Filed: 10/07/2022 9:07 AM Note Text: 51 year old female with hx of gastric ulcer, anxiety, disturbance of emotions, post Covid syndrome (gastro related) c/o ER follow up 10/13/2022 presented to [facility] emergency department with complaints of total [...] other (fibromyalgia) Mother other (Other) Other No breast/paving plant operator/colon cancer PAST MEDICAL HISTORY Diagnosis Date Anemia, unspecified Gastric ulcer, unspecified as acute or chronic, without mention of hemorrhage or perforation, with obstruction GERD (gastroesophageal reflux disease) PAST SURGICAL HISTORY Procedure Laterality Date COLONOSCOPY FLX DX W/COLLJ SPEC WHEN PFRMD 01/04/2010 Normal Colon DILATION AND CURETTAGE DXAND/THER NONOBSTETRIC 1990 Dilation AND curettage EGD N/A 04/29/2021 Dr. Lao at [facility] EGD TRANSORAL BIOPSY SINGLE/MULTIPLE 02/13/2008 [facility] inpt H-pylori is negative EGD TRANSORAL BIOPSY [...] WITH CALCIUM, ORAL) (more content not included)... [facility] 10-07-2022 Instructions Moiz Berry PA-C - 10/07/2022 [...] your health care provider's advice. Published by [employer]. This content is reviewed periodically and is subject to change as new health information becomes available. The information is intended to inform and educate and is not a replacement for medical evaluation, advice, diagnosis or treatment by a healthcare professional. Developed by [employer]. Copyright 2005 [employer] and/or one of its subsidiaries. All Rights Reserved. Copyright [employer] 2006 Women's Health Advisor documented in this encounter [facility] 10-07-2022 History of Present illness Narrative 51 year old female with hx of gastric ulcer, anxiety, disturbance of emotions, post Covid syndrome (gastro related) c/o ER follow up 10/13/2022 presented to [facility] emergency department with complaints of total [...] other (fibromyalgia) Mother other (Other) Other No breast/paving plant operator/colon cancer PAST MEDICAL HISTORY Diagnosis Date Anemia, unspecified Gastric ulcer, unspecified as acute or chronic, without mention of hemorrhage or perforation, with obstruction GERD (gastroesophageal reflux disease) PAST SURGICAL HISTORY Procedure Laterality Date COLONOSCOPY FLX DX W/COLLJ SPEC WHEN PFRMD 01/04/2010 Normal Colon DILATION & CURETTAGE DX&/THER NONOBSTETRIC 1990 Dilation & curettage EGD N/A 04/29/2021 Dr. Lao at [facility] EGD TRANSORAL BIOPSY SINGLE/MULTIPLE 02/13/2008 [facility] inpt H-pylori is negative EGD TRANSORAL BIOPSY [...] KATIUSKA Huffman PA-C documented in this encounter [facility] 10-05-2022 Note . MICRO - Microbiology [...] Locations *1: This test was performed at: [facility], [address] [place] [address], [facility]- , [place] [facility] [place] 10-04-2022 Hospital Discharge instructions Patient Education 10/04/2022 [...] neck Chest pain not caused by coughing [id number] [employer]. [address] [place] [address]46. All rights reserved. This information is not intended as a substitute for professional medical care. Always follow your healthcare professional's instructions. Follow Up Care 10/03/2022 21:54:38 With:LI TOMPKINS MD Address: [address] [place] [address]- When:2-4 days [facility] 10-04-2022 Emergency department Discharge summary Discharge Instructions Thank you for allowing [facility] to assist you with your healthcare needs. [...] TOMPKINS MD When Within 2-4 days Where: [address], [place] [id number]- Allergies Bee Stings Cipro Contrast dye penicillin [...] neck Chest pain not caused by coughing 8533-3769 [employer]. [address] [place] [address]. All rights reserved. This information is not intended as a substitute for professional medical care. Always follow your healthcare professional's instructions. Additional Information VACCINATE! IT SAVES LIVES! Members of the community who have not yet received the COVID-19 vaccine and would like to receive it can visit one of [facility] vaccine clinics. There are many vaccine clinic locations within the [facility]. For locations and available times, please visit [email or web address] [email or web address] It is important to note that some COVID mobile vaccine clinics are held outdoors and may be canceled in rainy or stormy conditions. To learn more about pediatric vaccinations (ages 5-11), we invite you to visit the [facility] webpage. https://www.Silks.org/pa scarlet/6414-Puovs-Hvvipbscwpt-Freque btdq-Aqymf-Tzjmywtxs.html To learn more about the COVID-19 vaccine, we invite you to visit the CDC website for a list of frequently asked questions. https://www.cdc.gov/coronavirus/2 019-ncov/vaccines/faq.html [facility] Patient Portal Access Instructions: Stay connected with your healthcare team and access your personal medical information anytime with the [facility] Patient Portal. If you would like a full copy of your medical records please contact the [facility] Medical Records Department Monday through Monday between 8a.m. and 4:30p.m. Please follow the directions below to access the portal: 1.Access the email account you provided upon registration to the [facility].2.Look for an invitation email from [facility].3.Open the email and access the invitation link: Accept Invitation to [facility]4.Fill in the required pickett to create your account. Sign into [email or web address] with your username and password that you [...] you will allow to register on the [facility] Patient Portal for access to your information. You can also access the [facility] Patient Portal on the [employer]. Simply click on Health Records under Health Data and then click on the [email or web address].[email or web address] logo. HOW TO SAFELY DISPOSE OF PRESCRIPTION [...] Call your local pharmacy or go to [email or web address] to find one close to you.3.Make use of household items: Use cat litter or old coffee grounds to dispose medications if other options are not available. Mix your drugs with these household products, seal them in an airtight container and throw it into the garbage. Call [facility]: [phone] to be sure your drugs can be [...] aware that I should contact my doctor. Patient/Practice Architect Signature: Date/Time: Relationship to Patient: ____ Witness Name/Signature: Date/Time: [facility] 10-04-2022 Emergency department Discharge summary Discharge Instructions Thank you for allowing [facility] to assist you with your healthcare needs. [...] MD When Within 2-4 days Where: [address] [place] [address]- Allergies Bee Stings Cipro Contrast dye penicillin [...] neck Chest pain not caused by coughing 7255-2832 [employer]. [address] [place] [address]. All rights reserved. This information is not intended as a substitute for professional medical care. Always follow your healthcare professional's instructions. Additional Information VACCINATE! IT SAVES LIVES! Members of the community who have not yet received the COVID-19 vaccine and would like to receive it can visit one of [facility] vaccine clinics. There are many vaccine clinic locations within the [facility]. For locations and available times, please visit [email or web address] ov/. It is important to note that some COVID mobile vaccine clinics are held outdoors and may be canceled in rainy or stormy conditions. To learn more about pediatric vaccinations (ages 5-11), we invite you to visit the [facility] webpage. https://www.[facility].org/pa ges/6181-Plljt-Nvrbbppdlon-Freque ccyn-Pxsdi-Pcvamekxv.html To learn more about the COVID-19 vaccine, we invite you to visit the CDC website for a list of frequently asked questions. https://www.cdc.gov/coronavirus/2 019-ncov/vaccines/faq.html [facility] Patient [facility] Access Instructions: Stay connected with your healthcare team and access your personal medical information anytime with the [facility] [facility] Patient Portal. If you would like a full copy of your medical records please contact the [facility] Medical Records Department Monday through Monday between 8a.m. and 4:30p.m. Please follow the directions below to access the portal: 1.Access the email account you provided upon registration to the [facility].2.Look for an invitation email from [facility].3.Open the email and access the invitation link: Accept Invitation to [facility]4.Fill in the required pickett to create your account. Sign into [email or web address] with your username and password that you [...] you will allow to register on the [facility] Patient Portal for access to your information. You can also access the [facility] Patient Portal on the [employer]i. Simply click on Health Records under [...] Call your local pharmacy or go to http://bit.MethylGene/2R5Zz6v to find one close to you.3.Make use of household items: Use cat litter or old coffee grounds to dispose medications if other options are not available. Mix your drugs with these household products, seal them in an airtight container and throw it into the garbage. Call [facility]: [phone] to be sure your drugs can be [...] aware that I should contact my doctor. Patient/Practice Architect Signature: Date/Time: Relationship to Patient: ____ Witness Name/Signature: Date/Time: [facility] 10-04-2022 Emergency department Discharge summary Discharge Instructions Thank you for allowing [facility] to assist you with your healthcare needs. [...] MD When Within 2-4 days Where: [address] [place] [address]- Allergies Bee Stings Cipro Contrast dye penicillin [...] neck Chest pain not caused by coughing 4547-7437 [employer]. [address] [place], [place] [address]. All rights reserved. This information is not intended as a substitute for professional medical care. Always follow your healthcare professional's instructions. Additional Information VACCINATE! IT SAVES LIVES! Members of the community who have not yet received the COVID-19 vaccine and would like to receive it can visit one of [facility] vaccine clinics. There are many vaccine clinic locations within the [facility]. For locations and available times, please visit www.[email or web address].[place].g ov/. It is important to note that some COVID mobile vaccine clinics are held outdoors and may be canceled in rainy or stormy conditions. To learn more about pediatric vaccinations (ages 5-11), we invite you to visit the [facility] webpage. https://www.[facility].org/pa ges/1407-Cobpu-Ryuusqxcmyn-Freque yaeu-Vvueu-Dxsvtitgj.html To learn more about the COVID-19 vaccine, we invite you to visit the CDC website for a list of frequently asked questions. https://www.cdc.gov/coronavirus/2 019-ncov/vaccines/faq.html [facility] Patient Portal Access Instructions: Stay connected with your healthcare team and access your personal medical information anytime with the [facility] [employer] Patient Portal. If you would like a full copy of your medical records please contact the [facility] Medical Records Department Monday through Monday between 8a.m. and 4:30p.m. Please follow the directions below to access the portal: 1.Access the email account you provided upon registration to the [facility].2.Look for an invitation email from [facility].3.Open the email and access the invitation link: Accept Invitation to [facility]4.Fill in the required pickett to create your account. Sign into [email or web address] with your username and password that you [...] you will allow to register on the [facility] Patient Portal for access to your information. You can also access the [facility] Patient Portal on the [employer]. Simply click on Health Records under Health Data and then click on the Moviles.com logo. HOW TO SAFELY DISPOSE OF PRESCRIPTION [...] Call your local pharmacy or go to http://[email or web address].MethylGene/[email or web address] to find one close to you.3.Make use of household items: Use cat litter or old coffee grounds to dispose medications if other options are not available. Mix your drugs with these household products, seal them in an airtight container and throw it into the garbage. Call [facility]: [phone] to be sure your drugs can be [...] aware that I should contact my doctor. Patient/Practice Architect Signature: Date/Time: Relationship to Patient: ____ Witness Name/Signature: Date/Time: [facility] 10-04-2022 Note ORIGINAL EXAMINATION: CT OF [...] Sign Date: 10/04/2022 6:40:31 AM Ordering Provider: [facility] 10-03-2022 HCoV 229E RNA AVA+non-probe Ql (Nph) [...] 10/03/2022 10:36:38 PM Ordering Provider: JEFFREY TURNER [facility] 10-03-2022 Note SINUS TACHYCARDIA BORDERLINE PROLONGED [place] INTERVAL Electronic Signature: LASHONDA SPEARS DO 10/04/2022 03:35:03 [facility] 05-17-2022 Note HNO ID: [id number] Author: Sanjana Brownlee MD Service: ? 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 Although not very [...] other (fibromyalgia) Mother other (Other) Other No breast/paving plant operator/colon cancer Review of Systems Musculoskeletal: Positive for [...] details Recheck if any change F/U at diis-lktndn-yszwbi office [phone] for further treatment and work release Sanjana Brownlee MD [facility] 02-23-2022 Note Patient Outreach (IN TMMN) GLORIA WILLS ([id number]) 1970 F Date Time Provider Department 02/23/22 [...] for screening mammogram for breast cancer [Z12.31] Order(s):[facility] SCREENING [3797128] Order #: [id number] FUTURE Prescriptions as of 02/28/2022 - methylPREDNISolone [...] Encounter Status:Closed by ESTHER OKEEFEUSESatya on 02/28/22 [facility] 12-31-2021 Instructions Sanjana Brownlee MD - 12/31/2021 7:14 PM EDT Benadryl, calamine lotion F/u PCP Explained details Rest elevation ice for the foot pain OTC pain med Limit activities F/u PCP for further ration care Explained Recheck if any change documented in this encounter [facility] 12-31-2021 History of Present illness Narrative [...] other (fibromyalgia) Mother other (Other) Other No breast/paving plant operator/colon cancer Review of Systems Musculoskeletal: Right foot [...] further care and may need to see field services analyst for her recurrent skin problem. Patient understand [...] Sanjana Brownlee MD documented in this encounter [facility] 11-26-2021 History of Present illness Narrative [...] other (fibromyalgia) Mother other (Other) Other No breast/paving plant operator/colon cancer Review of Systems Skin: Positive for [...] TABLET Libertad Huynh documented in this encounter [facility] 10-24-2021 Miscellaneous Notes Patient given results and verbalized understanding of instructions given. Isela Crump Cmp normal, f/u as discussed during exam. documented in this encounter [facility] 10-23-2021 Instructions Myra Abad APRN.DANIELLE - 10/23/2021 9:13 AM EDT Prednisone taper as ordered Hydroxyzine at bedtime - 25 mg Will check labs and notify via mychart of results Recheck in [address] Tompkins documented in this encounter [facility] 10-23-2021 History of Present illness Narrative [...] Myra Abad APRN.DANIELLE documented in this encounter [facility] 05-14-2021 Miscellaneous Notes PA received and denied. Member must try generic sucralfate tablet and fail. Did review past med list where sucralfate tablet was given in past but just states patient was no longer taking so discontinued. Latanya Braswell Ma Prior Authorization has been completed online at [employer] for Sucralfate, will await response. [id number] Please keep encounter open until final decision has been received and documented from insurance company. Latanya Braswell MA documented in this encounter [facility] 04-11-2021 Hospital Discharge instructions Patient Education 04/11/2021 12:46:25 Transient Ischemic Attack, Jozx-ro-Cohb Transient Ischemic Attack A transient ischemic attack [...] Follow these instructions at home: Medicines Take vhlh-ajh-whwkrdu and prescription medicines only as told by [...] 11/22/2008 Document Revised: 2018 Document Reviewed: 05/17/2017 [employer] Patient Education 2020 [employer]. Follow Up Care 04/09/2021 17:08:07 With:LI TOMPKINS MD Address: [address] [place] [address]- When:1-2 days [facility] Hospitalist History and Physical Date of [...] Rate14(APR 09 20:37)14(APR 09 20:37)20(APR 09 17:10) UMW019(APR 09 20:37)106(APR 09 20:37)116(APR 09 17:10) DBPL [...] blood. Would have her follow-up outpatient with M1A1 [facility]. Shortness of breath/fatigue and generalized weakness since [...] smoking. Prophylaxis SCDs CODE STATUS full code [facility] 02-02-2022 Hospital Discharge instructions Patient Education [...] or water and you are getting dehydrated 1934-0850 [employer]. [address] [place] [address]. All rights reserved. This information is not intended as a substitute for professional medical care. Always follow yourhealthcare professional's instructions. Follow Up Care 03/31/2021 00:01:26 With:LI TOMPKINS MD Address: [address] [place] [address]- When:2-4 days [facility] 01-22-2022 History of Present illness Narrative* [...] gone to the emergency room twice at [facility], once I think she said at [facility] and one time she successfully got through. 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 Treatment for that I think from my reading is immunoglobulin therapy that is certainly not something I can offer here. But she is hooked in with a primary care physician that is a [facility] doctor and she can contact him [...] neurological symptoms caused by COVID, everything from Guillain-Oilton to this type of a syndrome and explained to her that this is far away from Guillain-Oilton. Patient is to follow as directed, go to the emergency room if any worsening occurs, if she loses bladder control or if she loses function of body parts as far as legs or arms or has any concerns. DO JOSE Fermin/[id number] SSI File#: [id number] END OF DOCUMENT / CHANGE LOG FOLLOWS Last Edited By Becky. Signed By Libertad Huynh Lisa D DO #RAFITA on 04/02/2021 18:23 ET on 04/02/2021 18:23 ET Revision Number - 2 ^^^ Verified/Reviewed by 04/02/21 [id number] RAFITA [facility] PATIENT NAME: GLORIA CLEANING [address] [facility] [address] [place] MEDICAL REC #: [id number] [place] [address] [facility] REPORT STATCARE PHYSICIAN [facility] Discharge instructions Patient Education 03/10/2021 [...] in 1/2 cup of warm water An kkoh-xuk-qjzkkvn anesthetic gargle Use medicine for more relief Dfib-dad-guegmpk medicine can reduce sore throat symptoms. Ask [...] swollen glands in the neck or jaw 4991-5282 [employer]. [address] [place] [address]. All rights reserved. This information is not [...] tiredness that is not helped by sleep 4739-3298 [employer]. [address] [place] [address]. All rights reserved. This information is not intended as a substitute for professional medical care. Always follow yourhealthcare professional's instructions. Follow Up Care 03/10/2021 02:23:44 With:LI NATION Address: [address] [place] [address] [phone] Business (1) When:2-4 days With:LI TOMPKINS MD Address: [address] [place] [address]- When:2-4 days [facility] 01-05-2022 Hospital Discharge instructions Patient Education [...] or as directed by your healthcare provider [phone] [employer]. [address] [place] [address]. All rights reserved. This information is not intended as a substitute for professional medical care. Always follow yourhealthcare professional's instructions. Follow Up Care 03/03/2021 17:04:14 With:LI TOMPKINS MD Address: [address] [place] [id number]- When:2-4 days [facility] 12-27-2021 History of Present illness Narrative* [...] plenty of rest, Tylenol as needed, continue [id number] medicine as needed. If any time she gets worse, she must go to the hospital, otherwise, she can follow up with her doctor. Patient understood and agreed. Her questions were answered to her satisfaction. Sanjana Brownlee MD PP/[id number] [facility] File#: [id number] END OF DOCUMENT / CHANGE LOG FOLLOWS Last Edited By Elec. Signed By Sanjana Brownlee MD #PAWPR Sanjana Brownlee MD #PAWPR on 03/03/2021 10:58 ET on 03/03/2021 10:58 ET Revision Number - 2 ^^^ Verified/Reviewed by 03/03/21 1058 BERE [facility] PATIENT NAME: GLORIA CLEANING [address] [facility] [address] [facility] [address] [place] MEDICAL REC #: [id number] [place] [address] [facility] REPORT STATCARE PHYSICIAN [facility] History of Present illness Narrative* Libertad [...] system. Patient states she understands. DO JOSE Fermin/[id number] [facility] File#: [id number] END OF DOCUMENT / CHANGE LOG FOLLOWS Last Edited By Elec. Signed By Libertad Huynh Lisa D DO #VAULI on 03/01/2021 08:21 ET on 03/01/2021 08:21 ET Revision Number - 2 ^^^ Verified/Reviewed by 03/01/21820 RAFITA [facility] PATIENT NAME: GLORIA CLEANING [address] [facility] [address] [facility] [address] [place] MEDICAL REC #: [id number] [place] [address] [facility] REPORT STATCARE PHYSICIAN [facility] History of Present illness Narrative* Anthony Garcia APRN.DENTURE TECHNICIAN - 07/16/2020 5:00 PM EDT DATE OF [...] other questions or concerns. Anthony Garcia CNP /[id number] [facility] File#: [id number] END OF DOCUMENT / CHANGE LOG FOLLOWS Last Edited By Elec. Signed By Anthony Garcia CNP #MOYCO Anthony Garcia CNP #MOYCO on 07/19/2020 09:09 ET on 07/19/2020 09:09 ET Revision Number - 2 ^^^ Verified/Reviewed by 07/19/20908 FABIOLA [facility] PATIENT NAME: GLORIA CLEANING [address] [facility] [address] [facility] [address] [place] MEDICAL REC #: [id number] [place] [address] [facility] REPORT STATCARE PHYSICIAN [facility] No data available for this section [facility] Evaluation note* Diagnosis Itching- Primary Unspecified pruritic disorder Tinea cruris Dermatophytosis of groin and perianal area documented in this encounter [facility]* Diagnosis Scabies- Primary documented in this encounter [facility] note* Diagnosis Plantar fasciitis- Primary Plantar fascial fibromatosis Urticaria Urticaria, unspecified documented in this encounter [facility] note* Diagnosis Encounter for screening mammogram for breast cancer documented in this encounter [facility] note* Diagnosis Thyroid nodule- Primary Nontoxic uninodular goiter Community acquired pneumonia of right lung, unspecified part of lung documented in this encounter [facility] note* Diagnosis Sore throat- Primary Acute pharyngitis Viral pharyngitis Acute pharyngitis documented in this encounter [facility] note* Diagnosis Chronic pain syndrome- Primary documented in this encounter [facility] note* Diagnosis Arthralgia, unspecified joint- Primary documented in this encounter [facility] note* Diagnosis Myalgia- Primary Mylagia and myositis, unspecified Lateral epicondylitis of right elbow Lateral epicondylitis of elbow Muscle tension pain Gastroesophageal reflux disease, unspecified whether esophagitis present documented in this encounter [facility] note* Diagnosis Elevated TSH- Primary Nonspecific abnormal results of thyroid function study documented in this encounter [facility] note* Diagnosis Encounter for screening mammogram for breast cancer documented in this encounter [facility] Discharge instructions No data available for this section [facility] Reason for referral (narrative)* Diagnostic Procedure Only (Routine) - Pending Review Specialty Diagnoses / Procedures Referred By Eriberto t Referred To Contact [facility] Diagnoses Encounter for screening mammogram for breast cancer Procedures RAEGAN SCREENING SCREENING MAMMOGRAPHY BI 2-VIEW BREAST INC Li Fernandez MD [address] [place] [address] [facility] [address] [place] [address] Referral ID Status Reason Start Date Expiration Date Visits Requested Visits Authorized [id number] Pending Review Auto-Generat ed Referral 2 03/25/2023 1 1 [facility] for referral (narrative)* Diagnostic Procedure Only (Routine) - Authorized Specialty Diagnoses / Procedures Referred By Contac t Referred To Contact [facility] Diagnoses Thyroid nodule Procedures US THYROID/PARATHYROID US SOFT TISSUE HEAD & NECK REAL TIME IMGE Moiz Tristan PA-C [address] [place] [address] [facility] Referral ID Status Reason Start Date Expiration Date Visits Requested Visits Authorized [id number] Authorized Auto-Generat ed Referral 10/07/2022 11/06/2023 1 1 [facility] for referral (narrative)* Diagnostic Procedure Only (Routine) - Pending Review Specialty Diagnoses / Procedures Referred By Contjenn t Referred To Contact [facility] Diagnoses Encounter for screening mammogram for breast cancer Procedures RAEGAN SCREENING SCREENING MAMMOGRAPHY BI 2-VIEW BREAST INC CAD Li Tompkins MD [address] [place] [address] [facility] [address] [place] [address] Referral ID Status Reason Start Date Expiration Date Visits Requested Visits Authorized [id number] Pending Review Auto-Generat ed Referral 3 02/24/2024 1 1 [facility] Summary Purpose Family History No Family History [...] DATE CREATED AUTHOR AUTHOR'S ORGANIZ ATION 07/14/2021 [facility] [place] DATE CREATED AUTHOR AUTHOR'S ORGANIZ ATION 12/11/2022 [facility] DATE CREATED AUTHOR AUTHOR'S ORGANIZ ATION 01/08/2023 [facility] DATE CREATED AUTHOR AUTHOR'S ORGANIZ ATION 01/31/2023 [facility] DATE CREATED AUTHOR AUTHOR'S ORGANIZ ATION 02/25/2023 [facility] ([place]) Source Comments (unrecognize d section and content) In the event this informatio n is protected by the Federal Confidentiality of Alcohol and Drug Abuse Patient Records regulations: The Federal rules restrict any use of the information to criminally investigate or prosecute any alcohol or drug abuse patient.[facility] Hospital[facility] the event this information is protected by the Federal Confidentiality of Alcohol and Drug Abuse Patient Records regulations: The Federal rules restrict any use of the information to criminally investigate or prosecute any alcohol or drug abuse patient.[facility] HospitalIn the event this information is protected by the Federal Confidentiality of Alcohol and Drug Abuse Patient Records regulations: The Federal rules restrict any use of the information to criminally investigate or prosecute any alcohol or drug abuse patient.[facility] Hospital[facility] the event this information is protected by the Federal Confidentiality of Alcohol and Drug Abuse Patient Records regulations: The Federal rules restrict any use of the information to criminally investigate or prosecute any alcohol or drug abuse patient.[facility] HospitalIn the event this information is protected by the Federal Confidentiality of Alcohol and Drug Abuse Patient Records regulations: The Federal rules restrict any use of the information to criminally investigate or prosecute any alcohol or drug abuse patient.[facility] Hospital[facility] the event this information is protected by the Federal Confidentiality of Alcohol and Drug Abuse Patient Records regulations: The Federal rules restrict any use of the information to criminally investigate or prosecute any alcohol or drug abuse patient.[facility] HospitalIn the event this information is protected by the Federal Confidentiality of Alcohol and Drug Abuse Patient Records regulations: The Federal rules restrict any use of the information to criminally investigate or prosecute any alcohol or drug abuse patient.[facility] HospitalIn the event this information is protected by the Federal Confidentiality of Alcohol and Drug Abuse Patient Records regulations: The Federal rules restrict any use of the information to criminally investigate or prosecute any alcohol or drug abuse patient.[facility] HospitalIn the event this information is protected by the Federal Confidentiality of Alcohol and Drug Abuse Patient Records regulations: The Federal rules restrict any use of the information to criminally investigate or prosecute any alcohol or drug abuse patient.[facility] HospitalIn the event this information is protected by the Federal Confidentiality of Alcohol and Drug Abuse Patient Records regulations: The Federal rules restrict any use of the information to criminally investigate or prosecute any alcohol or drug abuse patient.[facility] HospitalIn the event this information is protected by the Federal Confidentiality of Alcohol and Drug Abuse Patient Records regulations: The Federal rules restrict any use of the information to criminally investigate or prosecute any alcohol or drug abuse patient.[facility] HospitalIn the event this information is protected by the Federal Confidentiality of Alcohol and Drug Abuse Patient Records regulations: The Federal rules restrict any use of the information to criminally investigate or prosecute any alcohol or drug abuse patient.[facility] HospitalIn the event this information is protected by the Federal Confidentiality of Alcohol and Drug Abuse Patient Records regulations: The Federal rules restrict any use of the information to criminally investigate or prosecute any alcohol or drug abuse patient.[facility] HospitalIn the event this information is protected by the Federal Confidentiality of Alcohol and Drug Abuse Patient Records regulations: The Federal rules restrict any use of the information to criminally investigate or prosecute any alcohol or drug abuse patient.[facility] HospitalIn the event this information is protected by the Federal Confidentiality of Alcohol and Drug Abuse Patient Records regulations: The Federal rules restrict any use of the information to criminally investigate or prosecute any alcohol or drug abuse patient.[facility] HospitalIn the event this information is protected by the Federal Confidentiality of Alcohol and Drug Abuse Patient Records regulations: The Federal rules restrict any use of the information to criminally investigate or prosecute any alcohol or drug abuse patient.[facility] HospitalIn the event this information is protected by the Federal Confidentiality of Alcohol and Drug Abuse Patient Records regulations: The Federal rules restrict any use of the information to criminally investigate or prosecute any alcohol or drug abuse patient.[facility] HospitalIn the event this information is protected by the Federal Confidentiality of Alcohol and Drug Abuse Patient Records regulations: The Federal rules restrict any use of the information to criminally investigate or prosecute any alcohol or drug abuse patient.[facility] Reason for Visit (unrecogniz ed section [...] 4C EST HOSP/ER FU Moiz Berry PA-C [address] [place] [address] Moiz Berry PA-C [address], [place] [address] Referral ID Status Reason Start Date Expiration Date Visits Re quested Visits Authorized [id number] Closed 10/07/2022 01/05/2023 1 1 Reason Comments Sore Throat Cough started yester day Reason Comments Neck Pain Back pain, both elbo ws pain x 1 week no injury Reason Comments Joint Pain Tingling in arms Reason Comments Results Orders Labs Care Teams (unrecognized sec tion and content) Edger Technician Relationship Specialty Start Date End Date Li Tompkins MD [address], [place] [id number] PCP - General Family Practice 02/10/10 Edger Technician Relationship Specialty Start Date End Date Li Tompkins MD [address], [place] [id number] PCP - General Family Practice 02/10/10 Edger Technician Relationship Specialty Start Date End Date Li Tompkins MD [address] [place] [address] PCP - General Family Practice 02/10/10 Edger Technician Relationship Specialty Start Date End Date Li Tompkins MD [address] [place] [address] PCP - General Family Medicine 02/10/10 Edger Technician Relationship Specialty Start Date End Date Li Tompkins MD [address] [place] [address] PCP - General Family Medicine 02/10/10 Edger Technician Relationship Specialty Start Date End Date Li Tompkins MD [address] [place] [address] PCP - General Family Medicine 02/10/10 Edger Technician Relationship Specialty Start Date End Date Li Tompkins MD [address] [place] [address] PCP - General Family Medicine 02/10/10 Edger Technician Relationship Specialty Start Date End Date Li Tompkins MD [address] [place] [address] PCP - General Family Medicine 02/10/10 Edger Technician Relationship Specialty Start Date End Date Li Tompkins MD [address] [place] [address] PCP - General Family Medicine 02/10/10 Edger Technician Relationship Specialty Start Date End Date Li Tompkins MD [address] [place] [address] PCP - General Family Medicine 02/10/10 Edger Technician Relationship Specialty Start Date End Date Li Tompkins MD [address] [place] [address] PCP - General Family Medicine 02/10/10 Edger Technician Relationship Specialty Start Date End Date Li Tompkins MD [address] [place] [address] PCP - General Family Medicine 02/10/10 Edger Technician Relationship Specialty Start Date End Date Li Tompkins MD [address] [place] [address] PCP - General Family Medicine 02/10/10 FOR [...] BE BASED ON THE PRIMARY CLINICAL RECORDS. [facility] [employer] [facility]. provides no warranty or guarantee of the accuracy or completeness of information in this document.
[2023-03-04] MEDS: metroNIDAZOLE 500 MG/100 ML BAG 100 MG IV (18:22)
--- NOTE | 2023-03-04 18:22 | NURSING ---
MED SURG JACKSON ABD PAIN, LEUKOCYTOSIS
[2023-03-04 19:00] VITALS: BP 135/74; PULSE 90; RESP 16; O2SAT 97
--- NOTE | 2023-03-04 19:03 | PCM.HP.STD ---
HPI - General General Date of Admission: 03/04/23 Date of Service: 03/04/23 Chief Complaint: Abdominal pain HPI Narrative GLORIA RODRIGUEZ, is a 52-year-old female history of GERD, anemia, arthritis presented to [facility] 03/04/2023 with abdominal pain that started around 11:30 AM this morning, came on rather suddenly. Of note did start her menstrual period yesterday. Pain is mostly on her right side became diffuse with pain 7 out of 10. Was seen in [place] ED last evening because she developed severe sudden onset of pain between her shoulder blades and she had a CTA of her chest to rule out dissection which was negative and she was told she had musculoskeletal pain. No history of abdominal surgeries. Has remote history of kidney stone 20 years ago. In ED white blood cell count of 20.[address] scan read no acute findings however scans reviewed by ED physician and surgeon it was felt that there was thickening and possible inflammation around the ileum and it was recommended patient be admitted for IV abx and repeat imaging with p.o. and IV contrast. Hospitalist contacted for admission. Patient seen at bedside and reported she has been having health problems since the end of September when she had a right-sided pneumonia and has intermittent arm and shoulder pain since that time and has had multiple evaluations and has always been determined it was musculoskeletal pain. Yesterday had that pain that was a burning in her right shoulder that went to her shoulder blades and that is when she went to the outlying ED and CTA was negative. She reports she did get premedicate with Benadryl and steroids prior to the scan due to history of adverse reaction to contrast. Then today she woke up around 11:00 and had right-sided flank pain that then migrated towards the epigastric region, denies any left-sided pain whatsoever. Started her period yesterday so initially thought that maybe that was associated but reports this pain is not like that at all and also said this is different from the pain she had previously when she had ulcers. The pain is sharp and not going away and she has nausea that comes in waves with the pain. Has had some chills but no overt fever that she is aware of, had not been having any diarrhea or constipation but today has not been able to have a bowel movement yet. No problems with urination. [facility] Medical History (Updated 03/04/23 @ 18:[address] Konrad Lewis, DO) Abdominal pain Anemia Arthritis Chronic neck and back pain Diarrhea Dietary restriction Fatigue Former smoker Gastric reflux History of echocardiogram History of steroid therapy History of ulceration Hoarseness Hypertension Injury of head and neck Insomnia Kidney stones Migraine headache Paresthesias Severe headache Shoulder pain Stomach ulcer TIA (transient ischemic attack) Wears dentures Home Medications cholecalciferol (vitamin D3) .ROUTE supplement 03/04/23 [History Last Taken Unknown] Allergy/AdvReac Type Severity Reaction Status Date / Time ciprofloxacin Allergy Other Verified 03/04/23 14:19 Gadolinium-MRI Contrast Allergy Other Verified 03/04/23 14:19 Medium [MRI] Penicillins [PCN] Allergy Unknown Verified 03/04/23 14:19 venom-honey bee Allergy Anaphylaxis Verified 03/04/23 14:19 [bee venom (honey bee)] Surgical History History of colonoscopy Hx of dilation and curettage Hx of sinus surgery Social History Smoking Status: Former smoker alcohol intake: current ROS ROS Narrative General: Has been feeling kind of cold and shaky HENT: Denies headache, denies stuffy nose, denies sore throat EYES: Denies changes in vision Resp: Denies cough, denies shortness of breath Cardiac: Denies chest pain GI: Has not had bowel movement today, has waves of nausea, pain primarily on the right side and epigastric region : Denies changes in urination Extremity: Denies swelling MSK: Does feel somewhat generally weak and unwell Neuro: Denies any numbness/tingling Heme: Denies any bleeding or bruising Skin: Denies rashes Psychiatric: No complaints voiced Vital Signs Vital Signs Vital Signs: 03/04/23 14:19 03/04/23 15:34 03/04/23 17:00 Temperature 97.4 F L Temperature Source Temporal Pulse Rate 86 85 85 Respiratory Rate 20 H 16 16 Blood Pressure 121/76 H 148/78 H 145/87 H Blood Pressure Mean 91 101 106 Pulse Ox 100 99 96 Oxygen Delivery Method Room Air Room Air Room Air 03/04/23 17:55 Temperature Temperature Source Pulse Rate 85 Respiratory Rate 16 Blood Pressure 145/87 H Blood Pressure Mean 106 Pulse Ox 96 Oxygen Delivery Method Weight Weight: 87.498 kg Body Mass Index (BMI) 30.2 Physical Exam Narrative General: Alert, oriented, appears to not feel well HEENT: Atraumatic, normocephalic Eyes: Anicteric, normal conjunctiva, extraocular movements grossly intact Neck: Supple Respiratory: Clear to auscultation bilaterally, normal respiratory effort Cardiovascular: Regular rate and rhythm GI: Soft, nondistended, tender primarily right lower to middle abdomen without guarding or rigidity, hypoactive bowel sounds, no pain on left side of abdomen Extremities: No edema Musculoskeletal: Moving all extremities Neuro: No overt focal neurological deficits Skin: No rashes appreciated Psych: Cooperative Results Lab / Micro Data 03/04/23 15:35 03/04/23 15:35 Labs: Laboratory Results - last 24 hr 03/04/23 15:35: WBC 20.8 H, RBC 4.49, Hgb 12.8, Hct 39.8, MCV 88.6, MCH 28.5, MCHC 32.2, RDW Std Deviation 41.2, RDW Coeff of Huseyin 12.7, Plt Count 355, MPV 9.7, Immature Gran % (Auto) 0.900, Neut % (Auto) 87.0 H, Lymph % (Auto) 7.0 L, [place] % (Auto) 5.0, Eos % (Auto) 0.0, Baso % (Auto) 0.1, Absolute Neuts (auto) 18.0 H, Absolute Lymphs (auto) 1.46, Nucleated RBC % 0, Sodium 143, Potassium 3.5, Chloride 114 H, Carbon Dioxide 24.0, Anion Gap 5, BUN 14, Creatinine 0.91, Estim Creat Clear Calc 71.12, Est GFR (MDRD) Af Amer 83, Est GFR (MDRD) Non-Af 69, BUN/Creatinine Ratio 15.3, Glucose 103, Lactic Acid 1.7, Calcium 9.2, Total Bilirubin 0.30, AST 8 L, ALT 24, Alkaline Phosphatase 92, Troponin I High Sens 6, Total Protein 7.9, Albumin 3.8, Globulin 4.1, Albumin/Globulin Ratio 0.9, Serum , Qual NEGATIVE 03/04/23 16:52: Urine Color Yellow, Urine Clarity Sl. Cloudy, Urine pH 6.5, Ur Specific [place] 1.010, Urine Protein 30 H, Urine Glucose (UA) Normal, Urine Ketones Negative, Urine Occult Blood 250 H, Urine Nitrite Negative, Urine Bilirubin Negative, Urine Urobilinogen Normal, Ur Leukocyte Esterase 25 H, Urine RBC > 100 SEEN, Urine WBC 0 SEEN, Ur Squamous Epith Cells 0 SEEN, Urine Bacteria 0 SEEN, Urine Mucus 0 SEEN Imagaing Radiology Impression Abdomen/Pelvis CT 03/04/23 14:54 IMPRESSION: No acute pathology of the abdomen and pelvis. Electronically Signed: Leodan Gonzalez DO at 16:14 EST , Assessment & Plan Assessment/Plan (1) Abdominal pain: PLAN: Plan #Concern for ileitis or colitis -Films reviewed by surgery attending and ED physician and it was felt that there was actually inflammation that is likely causing symptoms -It was advised to start antibiotics and repeat imaging -Given patient had CTA yesterday evening CT was postponed, will place order for CT abdomen pelvis with p.o. and IV contrast for this evening as it will be close to 24 hours, and also give IV fluids and will need pre-CT allergy protocol as patient reports allergy and that she always needs the Benadryl and steroids prior to scans -May need further surgical consultation or involvement pending studies -Patient had Cipro and Flagyl in ED given penicillin allergy, will continue -Also check ESR and CRP and Pro-Slade, patient did have elevated white blood cell count but reports she got steroids in the ED yesterday due to a contrast allergy which may account for the elevated white blood cell count but cannot be sure -Will try CLD with low threshold for NPO if any worsening of symptoms -Also add as needed for pain and nausea #GERD -Continue PPI #DVT ppx: SCDs Karissa Perdomo MD Time spent in the patient's overall evaluation,decision-making process, review of diagnostic data, adjustment of management, discussion with other providers, nursing nursing and ancillary staff involved in patient's care documentation, 55 minutes Charges/Coding Visit Charges Inpatient E&M: 28457 Init Hosp L2
--- OUTSIDE RECORDS SUMMARY | 2023-03-04 19:15 | XMS RPT_ITS | CCD ---
Author Name Unknown Address [address] [place] [address] Organization [facility] Care Team Providers Care Practicing Dermatologist Name Role Phone Unavailable Primary Care Provider [...] Attending Unavailable LI TOMPKINS Primary Care Unavailable Mozi BERRY Referring Unavailable LI TOMPKINS Primary Care Unavailable Moiz BERRY Referring Unavailable Moiz BERRY Attending Unavailable LI TOMPKINS Primary Care Unavailable LASHONDA SPEARS DO Attending Unavailable DR LI TOMPKINS MD Primary Care Unavailab RACHEL Mina MD Attending Unavailable DR LI TOMPKINS MD Primary Care Sunita Bush MD, DR JEFFERSON [facility] HARP, HANS Horvath Attending Sunita Mcgrath MD, BETY Whitlock Attending Naz TOMPKINS MD, DR JEFFERSON [facility] g[facility] Allergies Allergy Classification Reported Allergen(s) Allergy Type Date of Onset Reaction(s) Facility (8 sources) Bee/Wasp/Ant venom Allergy to substance [facility] Work Phone: (20 sources) Ciprofloxacin; Translations: [ciprofl[facility]] [facility] Penicillin; Translations: [penicillin] Drug Allergy [facility] Work Phone: (6 sources) Contrast media; Translations: [iodinated radiocontrast agents] Drug allergy [facility] Work Phone: (20 sources) Azithromycin; Translations: [AZITHROMYCIN] Drug Allergy 9 GI Upset [facility] Work Phone: (20 sources) Iodine; Translations: [IODINE] Drug Allergy 2 Rash [facility] Work Phone: (20 sources) metroNIDAZOLE; Translations: [METRONIDAZOLE] Drug Allergy 9 Other: See Comments [facility] Work Phone: (8 sources) Penicillins; Translations: [PENICILLINS] Propensity to adverse reactions 6 Anaphylaxis [facility] Work Phone: (20 sources) Bee Sting; Translations: [BEE STING] Propensity to adverse reactions 0 Anaphylaxis [facility] Work Phone: (12 sources) Penicillins Propensity to adverse reactions 6 Anaphylaxis [facility] Work Phone: (12 sources) Iodinated Contrast Media; Translations: [IODINATED CONTRAST MEDIA] Drug Allergy 2 Anaphylaxis [facility] Medications Current Medications Medication Drug Class(es) Dates Sig (Normalized) Sig (Original) cephalexin 500 mg oral capsule (2 sources) Cephalosporin Antibacterial Start: 04-11-2021 End: 02-18-2022 Keflex 500 mg oral capsule Dose : 500 mg = 1 cap(s), Oral, q12h, X 5 day(s), # 10 cap(s), 0 Refill(s), 04/16/21 12:46:00 EST, Pharmacy: [facility]/pharmacy #[id number], 170, cm, 04/09/21 22:17:00 EST, Height, [...] Diastolic blood pressure 76 mm[Hg] Radha Domingo [employer]ELECTROP[employer] Work Phone: [facility] 12-30-2022 14:48-0400 Heart rate 93 /min Radha Domingo [employer] Work Phone: [facility] 12-30-2022 14:48-0400 Respiratory rate 18 /min Radha Domingo [employer] Work Phone: [facility] 12-30-2022 14:48-0400 SaO2% (BldA) [Mass fraction] 99 % Radha Domingo [employer]ELECTR[employer] Work Phone: [facility] 12-30-2022 14:48-0400 Systolic blood pressure 128 mm[Hg] Radha Finneganhof [employer]ELECTR[employer] Work Phone: [facility] 12-22-2022 18:45-0400 Body temperature 97.39 [degF] Elías Floyd PA-C Work Phone: [facility] 12-22-2022 18:45-0400 Diastolic blood pressure 76 mm[Hg] Elías Floyd PA-C Work Phone: [facility] 12-22-2022 18:45-0400 Heart rate 85 /min Elías Floyd PA-C Work Phone: [facility] 12-22-2022 18:45-0400 Respiratory rate 18 /min Elías Floyd PA-C Work Phone: [facility] 12-22-2022 18:45-0400 SaO2% (BldA) [Mass fraction] 100 % Elías Floyd PA-C Work Phone: [facility] 12-22-2022 18:45-0400 Systolic blood pressure 111 mm[Hg] Elías Man PA-C Work Phone: [facility] 11-03-2022 15:16-0400 Body temperature 98.1 [degF] Sanjana Brownlee MD Work Phone: [facility] 11-03-2022 15:16-0400 Body weight 85.28 kg Sanjana Brownlee MD Work Phone: [facility] 11-03-2022 15:16-0400 Diastolic blood pressure 77 mm[Hg] Sanjana Brownlee MD Work Phone: [facility] 11-03-2022 15:16-0400 Heart rate 94 /min Sanjana Brownlee MD Work Phone: [facility] 11-03-2022 15:16-0400 Respiratory rate 16 /min Sanjana Brownlee MD Work Phone: [facility] 11-03-2022 15:16-0400 SaO2% (BldA) [Mass fraction] 98 % Sanjana Brownlee MD Work Phone: [facility] 11-03-2022 15:16-0400 Systolic blood pressure 116 mm[Hg] Sanjana Brownlee MD Work Phone: [facility] 10-07-2022 08:08-0400 Body temperature 98.4 [degF] NA Berry PA-C Work Phone: [facility] 10-07-2022 08:08-0400 Body weight 84.82 kg NA Berry PA-C Work Phone: [facility] 10-07-2022 08:08-0400 Diastolic blood pressure 68 mm[Hg] NA Berry PA-C Work Phone: [facility] 10-07-2022 08:08-0400 Heart rate 88 /min NA Berry PA-C Work Phone: [facility] 10-07-2022 08:08-0400 Respiratory rate 16 /min NA Berry PA-C Work Phone: [facility] 10-07-2022 08:08-0400 SaO2% (BldA) [Mass fraction] 96 % NA Berry PA-C Work Phone: [facility] 10-07-2022 08:08-0400 Systolic blood pressure 120 mm[Hg] NA Berry PA-C Work Phone: [facility] 10-04-2022 03:18-0400 Body temperature 100.04 [degF] LASHONDA SPEARS DO [facility] 10-04-2022 02:54-0400 Diastolic Blood Pressure Non-Invasive 60 1 LAHSONDA SPEARS DO [facility] 10-04-2022 02:54-0400 Heart rate 99 /min LASHONDA SPEARS DO [facility] 10-04-2022 02:54-0400 Respiratory rate 17 /min LASHONDA SPEARS DO [facility] 10-04-2022 02:54-0400 Systolic Blood Pressure Non-Invasive 117 1 LASHONDA SPEARS DO [facility] 10-04-2022 02:09-0400 Diastolic Blood Pressure Non-Invasive 60 1 LASHONDA SPEARS DO [facility] 10-04-2022 02:09-0400 Heart rate 95 /min LASHONDA SPEARS DO [facility] 10-04-2022 02:09-0400 Systolic Blood Pressure Non-Invasive 104 1 LASHONDA SPEARS DO [facility] 10-03-2022 22:16-0400 Body weight 88.8 kg LASHONDA SPEARS DO [facility] 10-03-2022 21:55-0400 Body temperature 97.88 [degF] LASHONDA SPEARS DO [facility] 10-03-2022 21:55-0400 Diastolic Blood Pressure Non-Invasive 84 1 LASHONDA SPEARS DO [facility] 10-03-2022 21:55-0400 Heart rate 109 /min LASHONDA SPEARS DO [facility] 10-03-2022 21:55-0400 Respiratory rate 18 /min LASHONDA SPEARS DO [facility] 10-03-2022 21:55-0400 Systolic Blood Pressure Non-Invasive 125 1 LASHONDA SPEARS DO [facility] 12-31-2021 19:01-0400 Body temperature 97.7 [degF] Sanjana Brownlee MD Work Phone: [facility] 12-31-2021 19:01-0400 Body weight 81.1 kg Sanjana Brownlee MD Work Phone: [facility] 12-31-2021 19:01-0400 Diastolic blood pressure 64 mm[Hg] Sanjnaa Brownlee MD Work Phone: [facility] 12-31-2021 19:01-0400 Heart rate 77 /min Sanjana Brownlee MD Work Phone: [facility] 12-31-2021 19:01-0400 Respiratory rate 18 /min Sanjana Brownlee MD Work Phone: [facility] 12-31-2021 19:01-0400 SaO2% (BldA) [Mass fraction] 99 % Sanjana Brownlee MD Work Phone: [facility] 12-31-2021 19:01-0400 Systolic blood pressure 105 mm[Hg] Sanjana Brownlee MD Work Phone: [facility] 11-26-2021 17:03-0400 Body weight 78.47 kg Libertad Huynh DO Work Phone: [facility] 11-26-2021 17:03-0400 Diastolic blood pressure 55 mm[Hg] Libertad Huynh DO Work Phone: [facility] 11-26-2021 17:03-0400 Heart rate 80 /min Libertad Huynh DO Work Phone: [facility] 11-26-2021 17:03-0400 Respiratory rate 16 /min Libertad Huynh DO Work Phone: [facility] 11-26-2021 17:03-0400 SaO2% (BldA) [Mass fraction] 99 % Libertad Huynh DO Work Phone: [facility] 11-26-2021 17:03-0400 Systolic blood pressure 112 mm[Hg] Libertad Huynh DO Work Phone: [facility] 10-23-2021 08:42-0400 Body temperature 97 [degF] Myra Jenniffer [employer]ELECTROP[employer] Work Phone: [facility] 10-23-2021 08:42-0400 Body weight 76.02 kg Myra Jenniffer [employer]ELECTROPLATER Work Phone: [facility] 10-23-2021 08:42-0400 Diastolic blood pressure 82 mm[Hg] Myra Jenniffer [employer]ELECTROPLATER Work Phone: [facility] 10-23-2021 08:42-0400 Heart rate 108 /min Myra Jenniffer [employer]ELECTROPLATER Work Phone: [facility] 10-23-2021 08:42-0400 Respiratory rate 20 /min Myra Jenniffer [employer]ELECTROPLATER Work Phone: [facility] 10-23-2021 08:42-0400 SaO2% (BldA) [Mass fraction] 95 % Myra Jenniffer [employer]ELECTROPLATER Work Phone: [facility] 10-23-2021 08:42-0400 Systolic blood pressure 126 mm[Hg] Myra Jenniffer [employer].ELECTROPLATER Work Phone: [facility] 04-15-2021 02:01-0500 Body temperature 97.7 [degF] SIVAKUMAR ACOSTA MD [facility] 04-15-2021 02:01-0500 Body weight 69.7 kg SIVAKUMAR ACOSTA MD [facility] 04-15-2021 02:01-0500 Diastolic blood pressure 71 mm[Hg] SIVAKUMAR ACOSTA MD [facility] 04-15-2021 02:01-0500 Heart rate 70 /min SIVAKUMAR ACOSTA MD [facility] 04-15-2021 02:01-0500 Respiratory rate 18 /min SIVAKUMAR ACOSTA MD [facility] 04-15-2021 02:01-0500 Systolic blood pressure 111 mm[Hg] SIVAKUMAR ACOSTA MD [facility] 04-11-2021 11:01-0500 Body temperature 98.24 [degF] DR ANNA LACKEY MD [facility] 04-11-2021 11:01-0500 Diastolic blood pressure 62 mm[Hg] DR ANNA LACKEY MD [facility] 04-11-2021 11:01-0500 Heart rate 68 /min DR ANNA LACKEY MD [facility] 04-11-2021 11:01-0500 Mean blood pressure 75 mm[Hg] DR ANNA LACKEY MD [facility] 04-11-2021 11:01-0500 Respiratory rate 18 /min DR ANNA LACKEY MD [facility] 04-11-2021 11:01-0500 Systolic blood pressure 101 mm[Hg] DR ANNA LACKEY MD [facility] 04-11-2021 07:29-0500 Body temperature 98.06 [degF] DR ANNA LACKEY MD [facility] 04-11-2021 07:29-0500 Diastolic blood pressure 64 mm[Hg] DR ANNA LACKEY MD [facility] 04-11-2021 07:29-0500 Heart rate 72 /min DR ANNA LACKEY MD [facility] 04-11-2021 07:29-0500 Mean blood pressure 77 mm[Hg] DR ANNA LACKEY MD [facility] 04-11-2021 07:29-0500 Respiratory rate 18 /min DR ANNA LACKEY MD [facility] 04-11-2021 07:29-0500 Systolic blood pressure 102 mm[Hg] DR ANNA LACKEY MD [facility] 04-11-2021 04:08-0500 Body temperature 98.24 [degF] DR ANNA LACKEY MD [facility] 04-11-2021 04:08-0500 Diastolic blood pressure 52 mm[Hg] DR ANNA LACKEY MD [facility] 04-11-2021 04:08-0500 Heart rate 65 /min DR ANNA LACKEY MD [facility] 04-11-2021 04:08-0500 Mean blood pressure 68 mm[Hg] DR ANNA LACKEY MD [facility] 04-11-2021 04:08-0500 Respiratory rate 18 /min DR ANNA LACKEY MD [facility] 04-11-2021 04:08-0500 Systolic blood pressure 101 mm[Hg] DR ANNA LACKEY MD [facility] 04-10-2021 23:10-0500 Reason For Taking VItal Signs DR ANNA LACKEY MD [facility] 04-10-2021 19:25-0500 Reason For Taking VItal Signs DR ANNA LACKEY MD [facility] 04-10-2021 14:33-0500 Reason For Taking VItal Signs DR ANNA LACKEY MD [address] [place] [address] 04-10-2021 04:03-0500 Heart rate 71 /min DR ANNA LACKEY MD [facility] 04-09-2021 23:04-0500 Heart rate 66 /min DR ANNA LACKEY MD [facility] 04-09-2021 22:17-0500 Body height [address] ANNA LACKEY MD [address] [place] [address] 04-09-2021 22:17-0500 Body weight [address] ANNA LACKEY MD [facility] 04-09-2021 22:17-0500 Body weight 24.22 kg/m2 DR ANNA LACKEY MD [facility] 04-09-2021 21:13-0500 Heart rate 67 /min DR ANNA LACKEY MD [facility] 04-09-2021 17:10-0500 Body weight [address] ANNA LACKEY MD [facility] 03-31-2021 03:25-0500 Diastolic blood pressure 75 mm[Hg] NATALIA BARDALESMELT DO [facility] 03-31-2021 03:25-0500 Heart rate 68 /min NATALIA FROMALICET DO [facility] 03-31-2021 03:25-0500 Respiratory rate 16 /min NATALIA LARAT DO [facility] 03-31-2021 03:25-0500 Systolic blood pressure 115 mm[Hg] NATALIA FROMMELT DO [facility] 03-31-2021 00:07-0500 Body height 170.2 cm NATALIA BARDALESMELT DO [facility] 03-31-2021 00:07-0500 Body temperature 97.88 [degF] NATALIA BARDALESMELT DO [facility] 03-31-2021 00:07-0500 Body weight 69 kg NATALIA FROMMELT DO [facility] 03-31-2021 00:07-0500 Diastolic blood pressure 74 mm[Hg] NATALIA FROMMELT DO [facility] 03-31-2021 00:07-0500 Heart rate 74 /min NATALIA LARAT DO [facility] 03-31-2021 00:07-0500 Respiratory rate 16 /min NATALIA QUEZADA DO [facility] 03-31-2021 00:07-0500 Systolic blood pressure 109 mm[Hg] NATALIA QUEZADA DO [facility] 03-10-2021 02:37-0500 Body temperature 98.24 [degF] BLANCA GONCALVES DO [facility] 03-10-2021 02:37-0500 Diastolic blood pressure 71 mm[Hg] BLANCA GONCALVES DO [facility] 03-10-2021 02:37-0500 Heart rate 84 /min BLANCA GONCALVES DO [facility] 03-10-2021 02:37-0500 Respiratory rate 18 /min BLANCA GONCALVES DO [facility] 03-10-2021 02:37-0500 Systolic blood pressure 99 mm[Hg] BLANCA GONCALVES DO [facility] 03-09-2021 23:32-0500 Diastolic blood pressure 61 mm[Hg] MAEGAN VALENCIA PA-C [facility] 03-09-2021 23:32-0500 Heart rate 82 /min MAEGAN ERIK PA-C [facility] 03-09-2021 23:32-0500 Respiratory rate 16 /min MAEGAN ERIK PA-C [facility] 03-09-2021 23:32-0500 Systolic blood pressure 118 mm[Hg] MAEGAN ERIK PA-C [facility] 03-09-2021 21:11-0500 Body temperature 97.88 [degF] MAEGAN ERIK PA-C [facility] 03-09-2021 21:11-0500 Body weight 71.1 kg MAEGAN ERIK PA-C [facility] 03-09-2021 21:11-0500 Diastolic blood pressure 73 mm[Hg] MAEGAN ERIK PA-C [facility] 03-09-2021 21:11-0500 Heart rate 79 /min MAEGAN ERIK PA-C [facility] 03-09-2021 21:11-0500 Respiratory rate 16 /min MAEGAN ERIK PA-C [facility] 03-09-2021 21:11-0500 Systolic blood pressure 105 mm[Hg] MAEGAN ERIK PA-C [facility] 03-03-2021 20:17-0500 Diastolic blood pressure 62 mm[Hg] SAIRA PUGH MD [facility] 03-03-2021 20:17-0500 Heart rate 64 /min SAIRA PUGH MD [facility] 03-03-2021 20:17-0500 Respiratory rate 20 /min SAIRA PUGH MD [facility] 03-03-2021 20:17-0500 Systolic blood pressure 116 mm[Hg] SAIRA PUGH MD [facility] 03-03-2021 17:10-0500 Body height 170.2 cm SAIRA PUGH MD [facility] 03-03-2021 17:10-0500 Body temperature 98.24 [degF] SAIRA PUGH MD [facility] 03-03-2021 17:10-0500 Body weight 71.3 kg SA[address]A PUGH MD [facility] 03-03-2021 17:10-0500 Diastolic blood pressure 64 mm[Hg] SAIRA PUGH MD [facility] 03-03-2021 17:10-0500 Heart rate 94 /min SAIRA PUGH MD [facility] 03-03-2021 17:10-0500 Respiratory rate 20 /min SAIRA PUGH MD [facility] 03-03-2021 17:10-0500 Systolic blood pressure 116 mm[Hg] SAIRA PUGH MD [facility] 02-20-2021 15:13-0500 Body temperature 98.24 [degF] SIVAKUMAR ACOSTA MD [facility] 02-20-2021 15:13-0500 Body weight 72.5 kg SIVAKUMAR ACOSTA MD [facility] 02-20-2021 15:13-0500 Diastolic blood pressure 101 mm[Hg] SIVAKUMAR ACOSTA MD [facility] 02-20-2021 15:13-0500 Heart rate 87 /min SIVAKUMAR ACOSTA MD [facility] 02-20-2021 15:13-0500 Respiratory rate 22 /min SIVAKUMAR ACOSTA MD [facility] 02-20-2021 15:13-0500 Systolic blood pressure 156 mm[Hg] SIVAKUMAR ACOSTA MD [facility] Encounters Encounter Date Encounter Type Care Provider Facility Start: 02-19-2023 End: 02-19-2023 Emergency department patient visit BETY RABAGO MD Facility:A Start: 01-25-2023 ambulatory Li boucher MD Work Phone: Internal Medicine [facility] Start: 01-06-2023 Emergency department patient visit LI TOMPKINS Facility:[id number] Start: 01-02-2023 End: 01-03-2023 ambulatory RADHA DOMINGO Facility:[id number] Start: 01-02-2023 Telephone encounter Radha Sorensen nhof [employer]ELECTROPLATER Work Phone: [facility] [place] Procedures Date Procedure Procedure Detail Performing Clinician Start: 12-30-2022 Blood count complete auto&auto difrntl wbc Radha Jose L [employer]LECTROP[employer]ATER Work Phone: Start: 12-30-2022 C-reactive protein Jose Domingo [employer].ELECTROPLATER Work Phone: Start: 11-03-2022 [facility] streptococcus group [...] Author Start: 03-23-2026 HPV TESTING HPV TESTING [facility] Start: 03-23-2026 PAP TESTING PAP TESTING [facility] Start: 03-23-2026 Urine microalbumin profile [facility] Start: 01-06-2026 Diabetes Screening Diabetes Screenin [facility] Start: 12-30-2025 [facility] Start: 10-23-2024 DIABETES SCREEN DIABETES SCREEN [facility] Start: 10-23-2024 Diabetes Screening Diabetes Screenin g [facility] Start: 03-10-2024 DIABETES SCREEN DIABETES SCREEN [facility] Start: 02-03-2023 End: 05-05-2023 Thyrotropin [Units/volume] in Serum or Plasma TSH BLD Lab Routine Elevated TSH Expected: 02/03/2023, Expires: 05/05/2023 [facility] Work Phone: Immunizations Immunization Date Immunization Notes Care Provider Fa cility 03-23-2016 influenza, injectabl e, quadrivalent, contains preservative Li Tompkins MD Work Phone: [facility] 03-23-2016 tetanus toxoid, reduced diphtheria toxoid, and acellular pertussis vaccine, adsorbed Li Tompkins MD Work Phone: [facility] 03-23-2016 influenza virus vaccine, unspecified formulation Elías Man PA-C Work Phone: [facility] 01-26-2011 influenza virus vaccine, unspecified formulation Li Tompkins MD Work Phone: [facility] Work Phone: 02-10-2010 influenza virus vaccine, unspecified formulation Li Tompkins MD Work Phone: [facility] 10-11-2005 hepatitis B vaccine, adult dosage Li Tompkins MD Work Phone: [facility] Work Phone: 10-11-2005 hepatitis B vaccine, unspecified formulation Myra Jenniffer FLORES Work Phone: [facility] 09-11-2003 tetanus toxoid, reduced diphtheria toxoid, and acellular pertussis vaccine, adsorbed Li Tompkins MD Work Phone: [facility] Payers Date Payer Category Payer Unknown [id number] 2022 Medicaid [id number] 2020 Private Health Insurance [id number] 2020 Unknown [id number] 2017 Medicaid [employer] [employer] [id number] 2017-Present [phone] [address] [place] [address] Medicaid [id number] 2017 Medicaid [id number] 1971 Unknown [id number] 1971 Unknown [id number] 1971 Unknown [id number] 1971 Unknown [id number] Social History Date Type Detail Facility Tobacco smoking stat [facility] Tobacco smoking consumption unknown [facility] Start: 1970 Sex Assigned At Not on file C [facility] Start: 06-18-2018 End: 10-07-2022 Ex-smoker (finding) [facility] Sex Assigned At [facility] End: 03-05-2018 History of tobacco use Current smoker [facility] End: 03-05-2018 History of tobacco use Cigarette Smoker [facility] Start: 03-12-2018 End: 10-07-2022 Cigarettes smoked current (pack per day) - Reported 0.5 [facility] Start: 03-12-2018 End: 10-07-2022 Tobacco use and exposure Smokeless tobacco non-user [facility] Start: 05-07-2021 End: 12-30-2022 Alcohol intake Current drinker of alcohol (finding) [facility] Start: 12-25-2009 History SDOH Alcohol Comment rare [facility] Start: 04-27-2021 End: 12-31-2021 Exposure to SARS-CoV-2 (event) Not sure [facility] Start: 05-17-2022 End: 10-07-2022 Tobacco use panel [facility] Adult Depression Screening Assessment 0 [facility] Functional Status Date Assessment Result Facility 10-04-2022 Functional Status [facility] 10-04-2022 Functional Status Alarm activated & funct ional [facility] Mental Status Date Assessment Result Facility 10-04-2022 Mental Status Orientation Oriented x 4 [facility] 10-04-2022 [facility] Clinical Notes 07-16-2020 to 02-21-2023 Telephone Encounter - Radha Domingo APRN.ELECTROPLATER - 01/04/2023 10:21 AM ESTTelephone Encounter - [...] Locations *1: This test was performed at: [facility], [address] [place] [address], [facility] , [facility] ([place]) 01-25-2023 Note Patient Outreach (IN [facility]) GLORIA MONTENEGRO ([id number]) 1970 F Date Time Provider Department 01/25/23 [...] for screening mammogram for breast cancer [Z12.31] Order(s):[facility] SCREENING [[id number]] Order #: [id number] FUTURE Prescriptions as of 01/30/2023 - omeprazole [...] Tobacco use [Z72.0] 09/17/2016 Encounter Status:Closed by TacodaBOWEN on 01/30/23 [facility] 01-04-2023 Miscellaneous Notes Lab orders signed, thank you. Radha Domnigo APRN.DANIELLE Pt called in and she only [...] receive calls at this time. Will send [employer] message to contact office. Can you please call the patient and let her know I reviewed her lab results. Vitamin D was low, I would recommend taking sbyj-hxj-odagnym vitamin D3 2000 to 4000 IUs daily. [...] has any questions. Thank you. Radha Domingo APRN.ELECTROPLATER documented in this encounter [facility] 12-30-2022 Miscellaneous Notes Addended by: LIBAN MATHIAS on: 12/30/2022 08:25 PM Modules accepted: Orders documented in this encounter [facility] 12-30-2022 Instructions Radha Domingo APRN.CNP - [...] pending test results. documented in this encounter [facility] 12-30-2022 Note HNO ID: [id number] Author: Radha Domingo APRN.CNP Service: ? Author [...] and in express care. Was seen at [facility] in [place], complaining of bilateral elbow and shoulder pain. No treatment or testing completed. Was seen in express care yesterday, recommended follow up with PCP team for further evaluation. Refers that she had pneumonia in September, had a difficult time recovering. Ended up quitting her job at [employer] in October. Refers that she noticed some right elbow pain that has seemed to get worse. 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 Pain then spread into shoulders [...] curettage EGD N/A 04/29/2021 Dr. Lao at [facility] EGD TRANSORAL BIOPSY SINGLE/MULTIPLE 02/13/2008 [facility] inpt H-pylori is negative EGD TRANSORAL BIOPSY [...] other (fibromyalgia) Mother other (Other) Other No breast/outdoor education teacher/colon cancer Social History Tobacco Use Smoking status: [...] No wheezing, rh (more content not included)... [facility] 12-30-2022 History of Present illness Narrative This [...] and in express care. Was seen at [facility] in [place], complaining of bilateral elbow and shoulder pain. No treatment or testing completed. Was seen in express care yesterday, recommended follow up with PCP team for further evaluation. Refers that she had pneumonia in September, had a difficult time recovering. Ended up quitting her job at [employer] in October. Refers that she noticed some right elbow pain that has seemed to get worse. 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 Pain then spread into shoulders [...] curettage EGD N/A 04/29/2021 Dr. Lao at [facility] EGD TRANSORAL BIOPSY SINGLE/MULTIPLE 02/13/2008 [facility] inpt H-pylori is negative EGD TRANSORAL BIOPSY [...] other (fibromyalgia) Mother other (Other) Other No breast/outdoor education teacher/colon cancer Social History Tobacco Use Smoking status: [...] APRN.DANIELLE This note was partially generated using Kionix voice recognition system. Note was reviewed for accuracy. There may be minor misspellings or grammar miscues with Kionix voice recognition. documented in this encounter [facility] 12-28-2022 Note HNO ID: [id number] Author: Sadia Reyes APRN.DANIELLE Service: ? Author [...] was set up with PCP for follow-up. [facility] 12-28-2022 History of Present illness Narrative She came in with complaints of joint pain in bilateral arms back next hips. Patient says its been going on for about a week. Patient says it feels a little better today. Patient says she went to the ER yesterday patient was set up with PCP for follow-up. documented in this encounter [facility] 12-22-2022 Note HNO ID: [id number] Author: Elías Man PA-C Service: ? Author Type: Physician Replanting Machine Crewman Type: Progress Notes Filed: 12/22/2022 7:07 PM [...] other (fibromyalgia) Mother other (Other) Other No breast/outdoor education teacher/colon cancer Review of Systems Musculoskeletal: Positive for [...] Chronic pain syndrom (more content not included)... [facility] 12-22-2022 History of Present illness Narrative [...] other (fibromyalgia) Mother other (Other) Other No breast/outdoor education teacher/colon cancer Review of Systems Musculoskeletal: Positive for [...] not. Elías Man documented in this encounter [facility] 12-10-2022 Note HNO ID: [id number] Author: Note, Interface Service: ? Author Type: ? Type: Progress Notes Filed: 12/10/2022 3:03 AM Note Text: Epic Scheduled Downtime: 12/10/2022 1:00:00 AM to 12/10/2022 1:28:00 AM [facility] 11-24-2022 Note HNO ID: [id number] Author: Elías Man PA-C Service: ? Author Type: Physician Replanting Machine Crewman Type: Progress Notes Filed: 11/24/2022 2:40 PM [...] other (fibromyalgia) Mother other (Other) Other No breast/outdoor education teacher/colon cancer Review of Systems All other systems [...] Mental Status: She (more content not included)... [facility] 11-03-2022 Note HNO ID: [id number] Author: Sanjana Brownlee MD Service: ? Author [...] other (fibromyalgia) Mother other (Other) Other No breast/outdoor education teacher/colon cancer Review of Systems HENT: Positive for congestion and sore throat. Respiratory: Positive for cough. BP 116/77 Pulse 94 Temp 98.1 Resp 16 Wt 188 lb (85.3kg) SpO2 98% [facility] 12/24/2021 Physical Exam Vitals reviewed. Constitutional: [...] right now explained details Sanjana Brownlee MD [facility] 11-03-2022 Instructions Sanjana Brownlee MD - 11/03/2022 3:36 PM EDT Gargle, lozenges OTC med as needed Recheck if any change F/u PCP for further evaluation and care No antibiotic is needed right now explained details documented in this encounter [facility] 11-03-2022 History of Present illness Narrative [...] other (fibromyalgia) Mother other (Other) Other No breast/outdoor education teacher/colon cancer Review of Systems HENT: Positive for [...] Sanjana Brownlee MD documented in this encounter [facility] 10-13-2022 Note HNO ID: [id number] Author: Brigette Raman RDMS Service: ? Author Type: Netsuite Consultant Type: Progress Notes Filed: 10/13/2022 1:56 PM [...] RDMS RVT October 13, 2022 1:55 PM [facility] 10-07-2022 Note HNO ID: [id number] Author: Moiz Berry PA-C Service: ? 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 Lao at [facility] EGD TRANSORAL BIOPSY SINGLE/MULTIPLE 02/13/2008 [facility] inpt H-pylori is negative EGD TRANSORAL BIOPSY [...] WITH CALCIUM, ORAL) (more content not included)... [facility] 10-07-2022 Instructions Moiz Berry PA-C - 10/07/2022 [...] your health care provider's advice. Published by [employer]. This content is reviewed periodically and is subject to change as new health information becomes available. The information is intended to inform and educate and is not a replacement for medical evaluation, advice, diagnosis or treatment by a healthcare professional. Developed by [employer]. Copyright 2005 [employer] and/or one of its subsidiaries. All Rights Reserved. Copyright [employer] Systems 2006 Women's Health Advisor documented in this encounter [facility] 10-07-2022 History of Present illness Narrative [...] other (fibromyalgia) Mother other (Other) Other No breast/outdoor education teacher/colon cancer PAST MEDICAL HISTORY Diagnosis Date Anemia, unspecified Gastric ulcer, unspecified as acute or chronic, without mention of hemorrhage or perforation, with obstruction GERD (gastroesophageal reflux disease) PAST SURGICAL HISTORY Procedure Laterality Date COLONOSCOPY FLX DX W/COLLJ SPEC WHEN PFRMD 01/04/2010 Normal Colon DILATION & CURETTAGE DX&/THER NONOBSTETRIC 1990 Dilation & curettage EGD N/A 04/29/2021 Dr. Lao at [facility] EGD TRANSORAL BIOPSY SINGLE/MULTIPLE 02/13/2008 [facility] inpt H-pylori is negative EGD TRANSORAL BIOPSY [...] KATIUSKA Huffman PA-C documented in this encounter [facility] 10-05-2022 Note . MICRO - Microbiology [...] Locations *1: This test was performed at: [facility], [address] [place] [address], [facility]- , [facility] ([place]) 10-04-2022 Hospital Discharge instructions Patient Education 10/04/2022 [...] neck Chest pain not caused by coughing 5520-4461 [employer]. [address] [place] [address]. All rights reserved. This information is not intended as a substitute for professional medical care. Always follow your healthcare professional's instructions. Follow Up Care 10/03/2022 21:54:38 With:LI TOMPKINS MD Address: [address] [place] [address]- When:2-4 days [facility] 10-04-2022 Emergency department Discharge summary Discharge Instructions Thank you for allowing [facility] to assist you with your healthcare needs. [...] TOMPKINS MD When Within 2-4 days Where: [address] [place], [place] [id number]- Allergies Bee Stings Cipro Contrast dye penicillin [...] neck Chest pain not caused by coughing 9865-8[address] [employer]. [address] [place] [address]. All rights reserved. This information is not intended as a substitute for professional medical care. Always follow your healthcare professional's instructions. Additional Information VACCINATE! IT SAVES LIVES! Members of the community who have not yet received the COVID-19 vaccine and would like to receive it can visit one of [facility] vaccine clinics. There are many vaccine clinic locations within the [facility]. For locations and available times, please visit [email or web address] ov/. It is important to note that some COVID mobile vaccine clinics are held outdoors and may be canceled in rainy or stormy conditions. To learn more about pediatric vaccinations (ages 5-11), we invite you to visit the [facility] webpage. https://www.BioClin Therapeuticss.org/pa scarlet/4187-Tkfly-Npyanmzsfnv-Freque rdpw-Gzwbu-Ivcrcbpxq.html To learn more about the COVID-19 vaccine, we invite you to visit the CDC website for a list of frequently asked questions. https://www.cdc.gov/coronavirus/2 019-ncov/vaccines/faq.html [facility] Patient Portal Access Instructions: Stay connected with your healthcare team and access your personal medical information anytime with the [facility] Patient Portal. If you would like a full copy of your medical records please contact the [facility] Medical Records Department Monday through Monday between 8a.m. and 4:30p.m. Please follow the directions below to access the portal: 1.Access the email account you provided upon registration to the [facility].2.Look for an invitation email from [facility].3.Open the email and access the invitation link: Accept Invitation to [facility]4.Fill in the required pickett to create your account. Sign into [email or web address] with your username and password that you [...] you will allow to register on the [facility] Patient Portal for access to your information. You can also access the [facility] Patient Portal on the Demdex. Simply click on Health Records under Health Data and then click on the [employer] logo. HOW TO SAFELY DISPOSE OF PRESCRIPTION [...] Call your local pharmacy or go to [email or web address] to find one close to you.3.Make use of household items: Use cat litter or old coffee grounds to dispose medications if other options are not available. Mix your drugs with these household products, seal them in an airtight container and throw it into the garbage. Call [facility]: [phone] to be sure your drugs can be [...] aware that I should contact my doctor. 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 [...] Schedule the Following Appointments Follow Up with IL TOMPKINS MD When Within 2-4 days Where: [address] [place] [address]- Allergies Bee Stings Cipro Contrast dye penicillin [...] neck Chest pain not caused by coughing 1232-3148 [employer]. [address] [place] [address]. All rights reserved. This information is not intended as a substitute for professional medical care. Always follow your healthcare professional's instructions. Additional Information VACCINATE! IT SAVES LIVES! Members of the community who have not yet received the COVID-19 vaccine and would like to receive it can visit one of [facility] vaccine clinics. There are many vaccine clinic locations within the [facility]. For locations and available times, please visit [email or web address] ov/. It is important to note that some COVID mobile vaccine clinics are held outdoors and may be canceled in rainy or stormy conditions. To learn more about pediatric vaccinations (ages 5-11), we invite you to visit the [facility] webpage. https://www.[facility].org/pa ges/9884-Hhhtg-Feuvkgngalw-Freque wexo-Mavzi-Ofimpzagy.html To learn more about the COVID-19 vaccine, we invite you to visit the CDC website for a list of frequently asked questions. https://www.cdc.gov/coronavirus/2 019-ncov/vaccines/faq.html [facility] Patient Portal Access Instructions: Stay connected with your healthcare team and access your personal medical information anytime with the [facility] Patient Portal. If you would like a full copy of your medical records please contact the [facility] Medical Records Department Monday through Monday between 8a.m. and 4:30p.m. Please follow the directions below to access the portal: 1.Access the email account you provided upon registration to the [facility].2.Look for an invitation email from [facility].3.Open the email and access the invitation link: Accept Invitation to [facility]4.Fill in the required pickett to create your account. Sign into [email or web address] with your username and password that you [...] you will allow to register on the [facility] Patient Portal for access to your information. You can also access the [facility] Patient Portal on the elastic.io yogi. Simply click on Health Records under [...] Call your local pharmacy or go to http://bit.Brainpark/1B8Cc7q to find one close to you.3.Make use of household items: Use cat litter or old coffee grounds to dispose medications if other options are not available. Mix your drugs with these household products, seal them in an airtight container and throw it into the garbage. Call [facility]: [phone] to be sure your drugs can be [...] aware that I should contact my doctor. 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 [...] MD When Within 2-4 days Where: [address] [place] [address]- Allergies Bee Stings Cipro Contrast dye penicillin [...] neck Chest pain not caused by coughing 1262-6548 [employer]. [address] [place], [place] [address]. All rights reserved. This information is not intended as a substitute for professional medical care. Always follow your healthcare professional's instructions. Additional Information VACCINATE! IT SAVES LIVES! Members of the community who have not yet received the COVID-19 vaccine and would like to receive it can visit one of [facility] vaccine clinics. There are many vaccine clinic locations within the [facility]. For locations and available times, please visit [email or web address] ov/. It is important to note that some COVID mobile vaccine clinics are held outdoors and may be canceled in rainy or stormy conditions. To learn more about pediatric vaccinations (ages 5-11), we invite you to visit the [facility] webpage. https://www.[facility].org/pa ges/5568-Xercb-Iempsmazyia-Freque tsat-Bxrso-Azmoxqbmn.html To learn more about the COVID-19 vaccine, we invite you to visit the CDC website for a list of frequently asked questions. https://www.cdc.gov/coronavirus/2 019-ncov/vaccines/faq.html [facility] Patient Portal Access Instructions: Stay connected with your healthcare team and access your personal medical information anytime with the [facility] Patient Portal. If you would like a full copy of your medical records please contact the [facility] Medical Records Department Monday through Monday between 8a.m. and 4:30p.m. Please follow the directions below to access the portal: 1.Access the email account you provided upon registration to the [facility].2.Look for an invitation email from [facility].3.Open the email and access the invitation link: Accept Invitation to [facility]4.Fill in the required pickett to create your account. Sign into [email or web address] with your username and password that you [...] you will allow to register on the [facility] Patient Portal for access to your information. You can also access the [facility] Patient Portal on the Demdex. Simply click on Health Records under Health Data and then click on the [employer] logo. HOW TO SAFELY DISPOSE OF PRESCRIPTION [...] Call your local pharmacy or go to [email or web address]/[email or web address] to find one close to you.3.Make use of household items: Use cat litter or old coffee grounds to dispose medications if other options are not available. Mix your drugs with these household products, seal them in an airtight container and throw it into the garbage. Call [facility]: [phone] to be sure your drugs can be [...] aware that I should contact my doctor. 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 Signature: Date/Time: Relationship to Patient: ____ Witness Name/Signature: Date/Time: [facility] 10-04-2022 Note ORIGINAL EXAMINATION: CT OF [...] Sign Date: 10/04/2022 6:40:31 AM Ordering Provider: [facility] 10-03-2022 HCoV 229E RNA AVA+non-probe Ql [...] 10/03/2022 10:36:38 PM Ordering Provider: JEFFREY TURNER [facility] 10-03-2022 Note SINUS TACHYCARDIA BORDERLINE PROLONGED KS INTERVAL Electronic Signature: LASHONDA SPEARS DO 10/04/2022 03:35:03 [facility] 05-17-2022 Note HNO ID: [id number] Author: Sanjana Brownlee MD Service: ? 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 Although not very [...] other (fibromyalgia) Mother other (Other) Other No breast/outdoor education teacher/colon cancer Review of Systems Musculoskeletal: Positive for [...] details Recheck if any change F/U at [facility] office [phone] for further treatment and work release Sanjana Brownlee MD [facility] 02-23-2022 Note Patient Outreach (IN TMMN) GLORIA WILLS ([id number]) 1970 F Date Time Provider Department 02/23/22 [...] for screening mammogram for breast cancer [Z12.31] Order(s):[facility] SCREENING [[id number]] Order #: [id number] FUTURE Prescriptions as of 02/28/2022 - methylPREDNISolone [...] Encounter Status:Closed by ESTHER OKEEFEUSESatya on 02/28/22 [facility] 12-31-2021 Instructions Sanjana Brownlee MD - 12/31/2021 7:14 PM EDT Benadryl, calamine lotion F/u PCP Explained details Rest elevation ice for the foot pain OTC pain med Limit activities F/u PCP for further ration care Explained Recheck if any change documented in this encounter [facility] 12-31-2021 History of Present illness Narrative [...] other (fibromyalgia) Mother other (Other) Other No breast/outdoor education teacher/colon cancer Review of Systems Musculoskeletal: Right foot [...] further care and may need to see power brake operator for her recurrent skin problem. Patient understand [...] Sanjana Brownlee MD documented in this encounter [facility] 11-26-2021 History of Present illness Narrative [...] other (fibromyalgia) Mother other (Other) Other No breast/outdoor education teacher/colon cancer Review of Systems Skin: Positive for [...] TABLET Libertad Huynh documented in this encounter [facility] 10-24-2021 Miscellaneous Notes Patient given results and verbalized understanding of instructions given. Isela Crump Cmp normal, f/u as discussed during exam. documented in this encounter [facility] 10-23-2021 Instructions Myra Abad APRN.DANIELLE - 10/23/2021 9:13 AM EDT Prednisone taper as ordered Hydroxyzine at bedtime - 25 mg Will check labs and notify via mychart of results Recheck in [address] Tompkins documented in this encounter [facility] 10-23-2021 History of Present illness Narrative [...] Myra Abad APRN.DANIELLE documented in this encounter [facility] 05-14-2021 Miscellaneous Notes PA received and denied. Member must try generic sucralfate tablet and fail. Did review past med list where sucralfate tablet was given in past but just states patient was no longer taking so discontinued. Latanya Braswell Ma Prior Authorization has been completed online at [employer] for Sucralfate, will await response. [id number] Please keep encounter open until final decision has been received and documented from insurance company. Latanya Braswell MA documented in this encounter [facility] 04-11-2021 Hospital Discharge instructions Patient Education 04/11/2021 12:46:25 Transient Ischemic Attack, Rkib-er-Cvrp Transient Ischemic Attack A transient ischemic attack [...] Follow these instructions at home: Medicines Take epts-gst-gkqcigy and prescription medicines only as told by [...] 11/22/2008 Document Revised: 2018 Document Reviewed: 05/17/2017 [employer] Patient Education 2020 [place]. Follow Up Care 04/09/2021 17:08:07 With:LI TOMPKINS MD Address: [address] [place] [address]- When:1-2 days [facility] Medicine Hospitalist History and Physical Date of [...] Rate14(APR 09 20:37)14(APR 09 20:37)20(APR 09 17:10) QHT342(APR 09 20:37)106(APR 09 20:37)116(APR 09 17:10) DBPL [...] blood. 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 Shortness of breath/fatigue and generalized weakness since [...] smoking. Prophylaxis SCDs CODE STATUS full code [facility] 02-02-2022 Hospital Discharge instructions Patient Education [...] or water and you are getting dehydrated [phone] [employer]. [address] [place] [address]. All rights reserved. This information is not intended as a substitute for professional medical care. Always follow yourhealthcare professional's instructions. Follow Up Care 03/31/2021 00:01:26 With:LI TOMPKINS MD Address: [address] [place] [address]- When:2-[address] [facility] 01-22-2022 History of Present illness Narrative* [...] gone to the emergency room twice at [facility], once I think she said at [facility] and one time she successfully got through. 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 Treatment for that I think from my reading is immunoglobulin therapy that is certainly not something I can offer here. But she is hooked in with a primary care physician that is a [facility] doctor and she can contact him [...] neurological symptoms caused by COVID, everything from Guillain-Milford to this type of a syndrome and explained to her that this is far away from Guillain-Milford. Patient is to follow as directed, go to the emergency room if any worsening occurs, if she loses bladder control or if she loses function of body parts as far as legs or arms or has any concerns. DO JOSE Fermin/[id number] [facility] File#: [id number] END OF DOCUMENT / CHANGE LOG FOLLOWS Last Edited By Becky. Signed By Libertad Huynh Lisa D DO #RAFITA on 04/02/2021 18:23 ET on 04/02/2021 18:23 ET Revision Number - 2 ^^^ Verified/Reviewed by 04/02/21 0933 RAFITA [facility] PATIENT NAME: GLORIA CLEANING [address] [facility] [address] [place] MEDICAL REC #: [id number] [place] [address] [facility] REPORT STATCARE PHYSICIAN documented [facility] Discharge instructions Patient Education 03/10/2021 [...] in 1/2 cup of warm water An gocu-kgq-lhnffnd anesthetic gargle Use medicine for more relief Yqyx-nps-nunmvnk medicine can reduce sore throat symptoms. Ask [...] swollen glands in the neck or jaw [phone] [employer]. [address] [place] [address]. All rights reserved. This information is not [...] tiredness that is not helped by sleep [phone] [employer] [address] [place] [address]. All rights reserved. This information is not intended as a substitute for professional medical care. Always follow yourhealthcare professional's instructions. Follow Up Care 03/10/2021 02:23:44 With:LI NATION Address: [address] [place] [address] [phone] Business (1) When:2-4 days With:LI TOMPKINS MD Address: [address] [place] [address]- When:2-[address] [facility] 01-05-2022 Hospital Discharge instructions Patient Education [...] or as directed by your healthcare provider [phone] [employer] [address] [place] [address]. All rights reserved. This information is not intended as a substitute for professional medical care. Always follow yourhealthcare professional's instructions. Follow Up Care 03/03/2021 17:04:14 With:LI TOMPKINS MD Address: [address] [place] [address]- When:2-[address] [facility] 12-27-2021 History of Present illness Narrative* [...] plenty of rest, Tylenol as needed, continue uvri-jvv-ossxwaa medicine as needed. If any time she gets worse, she must go to the hospital, otherwise, she can follow up with her doctor. Patient understood and agreed. Her questions were answered to her satisfaction. Sanjana Brownlee MD PP/[id number] [facility] File#: [id number] END OF DOCUMENT / CHANGE LOG FOLLOWS Last Edited By Elec. Signed By Sanjana Brownlee MD #PAWPR Sanjana Brownlee MD #PAWPR on 03/03/2021 10:58 ET on 03/03/2021 10:58 ET Revision Number - 2 ^^^ Verified/Reviewed by 03/03/21 1058 BERE [facility] PATIENT NAME: GLORIA CLEANING [address] [place] MEDICAL REC #: [id number] [place] [address] [facility] REPORT STATCARE PHYSICIAN documented in this encounterC[facility] History of Present illness Narrative* Libertad [...] system. Patient states she understands. DO JOSE Fermin/[id number] [facility] File#: [id number] END OF DOCUMENT / CHANGE LOG FOLLOWS Last Edited By Elec. Signed By Libertad Huynh Lisa D DO #VAULI on 03/01/2021 08:21 ET on 03/01/2021 08:21 ET Revision Number - 2 ^^^ Verified/Reviewed by 03/01/21820 RAFITA [facility] PATIENT NAME: GLORIA CLEANING [address] [place] MEDICAL REC #: [id number] [place] [address] [facility] REPORT STATCARE PHYSICIAN documented in this encounterC[facility] History of Present illness Narrative* Anthony Garcia APRN.ELECTROPLATER - 07/16/2020 5:00 PM EDT DATE OF [...] other questions or concerns. Anthony Garcia CNP /[id number] [facility] File#: [id number] END OF DOCUMENT / CHANGE LOG FOLLOWS Last Edited By Elec. Signed By Anthony Garcia CNP #MOYCO Anthony Garcia CNP #MOYCO on 07/19/2020 09:09 ET on 07/19/2020 09:09 ET Revision Number - 2 ^^^ Verified/Reviewed by 07/19/20908 FABIOLA [facility] PATIENT NAME: GLORIA CLEANING [address] [place] MEDICAL REC #: [id number] [place] [address] [facility] REPORT STATCARE PHYSICIAN [facility] No data available for this section [facility] Evaluation note* Diagnosis Itching- Primary Unspecified pruritic disorder Tinea cruris Dermatophytosis of groin and perianal area documented in this encounter [facility] note* Diagnosis Scabies- Primary documented in this encounter [facility] note* Diagnosis Plantar fasciitis- Primary Plantar fascial fibromatosis Urticaria Urticaria, unspecified documented in this encounter [facility] note* Diagnosis Encounter for screening mammogram for breast cancer documented in this encounter [facility] note* Diagnosis Thyroid nodule- Primary Nontoxic uninodular goiter Community acquired pneumonia of right lung, unspecified part of lung documented in this encounter [facility] note* Diagnosis Sore throat- Primary Acute pharyngitis Viral pharyngitis Acute pharyngitis documented in this encounter [facility] note* Diagnosis Chronic pain syndrome- Primary documented in this encounter [facility] note* Diagnosis Arthralgia, unspecified joint- Primary documented in this encounter [facility] note* Diagnosis Myalgia- Primary Mylagia and myositis, unspecified Lateral epicondylitis of right elbow Lateral epicondylitis of elbow Muscle tension pain Gastroesophageal reflux disease, unspecified whether esophagitis present documented in this encounter [facility] note* Diagnosis Elevated TSH- Primary Nonspecific abnormal results of thyroid function study documented in this encounter [facility] note* Diagnosis Encounter for screening mammogram for breast cancer documented in this encounter [facility] Discharge instructions No data available for this section [facility] Reason for referral (narrative)* Diagnostic Procedure Only (Routine) - Pending Review Specialty Diagnoses / Procedures Referred By Eriberto t Referred To Contact [facility] Diagnoses Encounter for screening mammogram for breast cancer Procedures RAEGAN SCREENING SCREENING MAMMOGRAPHY BI 2-VIEW BREAST INC Li Fernandez MD [address] [place] [address] [facility] [address] [place] [address] Referral ID Status Reason Start Date Expiration Date Visits Requested Visits Authorized [id number] Pending Review Auto-Generat ed Referral 2 03/25/2023 1 1 [facility] for referral (narrative)* Diagnostic Procedure Only (Routine) - Authorized Specialty Diagnoses / Procedures Referred By Contac t Referred To Contact [facility] Diagnoses Thyroid nodule Procedures US THYROID/PARATHYROID US SOFT TISSUE HEAD & NECK REAL TIME IMGE Moiz Tristan PA-C [address] [place] [address] [facility] Referral ID Status Reason Start Date Expiration Date Visits Requested Visits Authorized [id number] Authorized Auto-Generat ed Referral 10/07/2022 11/06/2023 1 1 [facility] for referral (narrative)* Diagnostic Procedure Only (Routine) - Pending Review Specialty Diagnoses / Procedures Referred By Contjenn t Referred To Contact [facility] Diagnoses Encounter for screening mammogram for breast cancer Procedures RAEGAN SCREENING SCREENING MAMMOGRAPHY BI 2-VIEW BREAST INC CAD Li Tompkins MD [address] [place] [address] [facility] [address] [place] [address] Referral ID Status Reason Start Date Expiration Date Visits Requested Visits Authorized [id number] Pending Review Auto-Generat ed Referral 3 02/24/2024 1 1 [facility] Summary Purpose Family History No Family [...] DATE CREATED AUTHOR AUTHOR'S ORGANIZ ATION 07/14/2021 [facility] DATE CREATED AUTHOR AUTHOR'S ORGANIZ ATION 12/11/2022 [facility] DATE CREATED AUTHOR AUTHOR'S ORGANIZ ATION 01/08/2023 [facility] DATE CREATED AUTHOR AUTHOR'S ORGANIZ ATION 01/31/2023 [facility] DATE CREATED AUTHOR AUTHOR'S ORGANIZ ATION 02/25/2023 [facility] ([place]) Source Comments (unrecognize d section and content) In the event this informatio n is protected by the Federal Confidentiality of Alcohol and Drug Abuse Patient Records regulations: The Federal rules restrict any use of the information to criminally investigate or prosecute any alcohol or drug abuse patient.[facility] HospitalIn the event this information is protected by the Federal Confidentiality of Alcohol and Drug Abuse Patient Records regulations: The Federal rules restrict any use of the information to criminally investigate or prosecute any alcohol or drug abuse patient.[facility] HospitalIn the event this information is protected by the Federal Confidentiality of Alcohol and Drug Abuse Patient Records regulations: The Federal rules restrict any use of the information to criminally investigate or prosecute any alcohol or drug abuse patient.[facility] HospitalIn the event this information is protected by the Federal Confidentiality of Alcohol and Drug Abuse Patient Records regulations: The Federal rules restrict any use of the information to criminally investigate or prosecute any alcohol or drug abuse patient.[facility] HospitalIn the event this information is protected by the Federal Confidentiality of Alcohol and Drug Abuse Patient Records regulations: The Federal rules restrict any use of the information to criminally investigate or prosecute any alcohol or drug abuse patient.[facility] HospitalIn the event this information is protected by the Federal Confidentiality of Alcohol and Drug Abuse Patient Records regulations: The Federal rules restrict any use of the information to criminally investigate or prosecute any alcohol or drug abuse patient.[facility] HospitalIn the event this information is protected by the Federal Confidentiality of Alcohol and Drug Abuse Patient Records regulations: The Federal rules restrict any use of the information to criminally investigate or prosecute any alcohol or drug abuse patient.[facility] HospitalIn the event this information is protected by the Federal Confidentiality of Alcohol and Drug Abuse Patient Records regulations: The Federal rules restrict any use of the information to criminally investigate or prosecute any alcohol or drug abuse patient.[facility] HospitalIn the event this information is protected by the Federal Confidentiality of Alcohol and Drug Abuse Patient Records regulations: The Federal rules restrict any use of the information to criminally investigate or prosecute any alcohol or drug abuse patient.[facility] HospitalIn the event this information is protected by the Federal Confidentiality of Alcohol and Drug Abuse Patient Records regulations: The Federal rules restrict any use of the information to criminally investigate or prosecute any alcohol or drug abuse patient.[facility] HospitalIn the event this information is protected by the Federal Confidentiality of Alcohol and Drug Abuse Patient Records regulations: The Federal rules restrict any use of the information to criminally investigate or prosecute any alcohol or drug abuse patient.[facility] HospitalIn the event this information is protected by the Federal Confidentiality of Alcohol and Drug Abuse Patient Records regulations: The Federal rules restrict any use of the information to criminally investigate or prosecute any alcohol or drug abuse patient.[facility] HospitalIn the event this information is protected by the Federal Confidentiality of Alcohol and Drug Abuse Patient Records regulations: The Federal rules restrict any use of the information to criminally investigate or prosecute any alcohol or drug abuse patient.[facility] HospitalIn the event this information is protected by the Federal Confidentiality of Alcohol and Drug Abuse Patient Records regulations: The Federal rules restrict any use of the information to criminally investigate or prosecute any alcohol or drug abuse patient.[facility] HospitalIn the event this information is protected by the Federal Confidentiality of Alcohol and Drug Abuse Patient Records regulations: The Federal rules restrict any use of the information to criminally investigate or prosecute any alcohol or drug abuse patient.[facility] HospitalIn the event this information is protected by the Federal Confidentiality of Alcohol and Drug Abuse Patient Records regulations: The Federal rules restrict any use of the information to criminally investigate or prosecute any alcohol or drug abuse patient.[facility] HospitalIn the event this information is protected by the Federal Confidentiality of Alcohol and Drug Abuse Patient Records regulations: The Federal rules restrict any use of the information to criminally investigate or prosecute any alcohol or drug abuse patient.[facility] HospitalIn the event this information is protected by the Federal Confidentiality of Alcohol and Drug Abuse Patient Records regulations: The Federal rules restrict any use of the information to criminally investigate or prosecute any alcohol or drug abuse patient.[facility] Reason for Visit (unrecogniz ed section [...] 4C EST HOSP/ER FU Moiz Berry PA-C [address] [place] [address] Moiz Berry PA-C [address] [place] [address] Referral ID Status Reason Start Date Expiration Date Visits Re quested Visits Authorized [id number] Closed 10/07/2022 01/05/2023 1 1 Reason Comments Sore Throat Cough started yester day Reason Comments Neck Pain Back pain, both elbo ws pain x 1 week no injury Reason Comments Joint Pain Tingling in arms Reason Comments Results Orders Labs Care Teams (unrecognized sec tion and content) Practicing Dermatologist Relationship Specialty Start Date End Date Li Tompkins MD [address] [place], [place] [id number] PCP - General Family Practice 02/10/10 Practicing Dermatologist Relationship Specialty Start Date End Date Li Tompkins MD [address] [place], [place] [id number] PCP - General Family Practice 02/10/10 Practicing Dermatologist Relationship Specialty Start Date End Date Li Tompkins MD [address] [place] [address] PCP - General Family Practice 02/10/10 Practicing Dermatologist Relationship Specialty Start Date End Date Li Tompkins MD [address] [place] [address] PCP - General Family Medicine 02/10/10 Practicing Dermatologist Relationship Specialty Start Date End Date Li Tompkins MD [address] [place] [address] PCP - General Family Medicine 02/10/10 Practicing Dermatologist Relationship Specialty Start Date End Date Li Tompkins MD [address] [place] [address] PCP - General Family Medicine 02/10/10 Practicing Dermatologist Relationship Specialty Start Date End Date Li Tompkins MD [address] [place] [address] PCP - General Family Medicine 02/10/10 Practicing Dermatologist Relationship Specialty Start Date End Date Li Tompkins MD [address] [place] [address] PCP - General Family Medicine 02/10/10 Practicing Dermatologist Relationship Specialty Start Date End Date Li Tompkins MD [address] [place] [address] PCP - General Family Medicine 02/10/10 Practicing Dermatologist Relationship Specialty Start Date End Date Li Tompkins MD [address] [place] [address] PCP - General Family Medicine 02/10/10 Practicing Dermatologist Relationship Specialty Start Date End Date Li Tompkins MD [address] [place] [address] PCP - General Family Medicine 02/10/10 Practicing Dermatologist Relationship Specialty Start Date End Date Li Tompkins MD [address] [place] [address] PCP - General Family Medicine 02/10/10 Practicing Dermatologist Relationship Specialty Start Date End Date Li Tompkins MD [address] [place] [address] PCP - General Family Medicine 02/10/10 FOR [...] BE BASED ON THE PRIMARY CLINICAL RECORDS. [facility]. provides no warranty or guarantee of the accuracy or completeness of information in this document.
[2023-03-04] MEDS: Ciprofloxacin 400 MG/200 ML BAG 200 MG IV (19:25)
[2023-03-04 19:51] VITALS: BMI 30.7
[2023-03-04 19:56] VITALS: BP 128/64; PULSE 102; RESP 18; TEMP 36.6; O2SAT 100
--- NOTE | 2023-03-04 19:58 | CT_ITS ---
STUDY: CT ABDOMEN AND PELVIS WITH CONTRAST REASON FOR EXAM: Female, 52 years old. w/ PO and IV contrast RADIATION DOSAGE (If Supplied By Facility): CTDIvol = ( 20.19 ) mGy, DLP = ( 1314.21 ) mGycm TECHNIQUE: Transaxial images were obtained from the dome of the diaphragm to the symphysis pubis without oral contrast. Oral and amp; IV Gastrografin and amp; 100mL Isovue-300 was administered. Sagittal and coronal images were reconstructed. Individualized dose optimization techniques were used for this CT. COMPARISON: None. FINDINGS: The visualized lung bases are unremarkable. The visualized portions of the heart are within normal limits. Normal liver. Normal gallbladder and extrahepatic biliary system. Normal spleen. Normal pancreas. Normal bilateral adrenal glands. Normal right kidney. Normal left kidney. Normal visualized stomach. Normal small intestine. Normal colon. The appendix is visualized and appears normal. Normal abdominal aorta. Normal inferior vena cava. Normal retroperitoneum. Normal urinary bladder. Normal abdominal wall. Normal osseous structures. CT/Abdomen/Pelvis WITH Contrast IMPRESSION: Normal enhanced CT of the abdomen and pelvis. Electronically Signed: Leodan Gonzalez DO at 22:30 EST Reading Location ID and State: [facility] / [place] Tel [phone], Service support ,
[2023-03-04] MEDS: Acetaminophen 325 MG Tablet 650 MG PO (20:27)
[2023-03-04] MEDS: oxyCODONE 5 MG Tablet PO (20:28)
[2023-03-04] MEDS: Pantoprazole Sodium 40 MG in 0.9% Normal Saline (100mL MB+) 100 ML 330 MG IV (20:36)
[2023-03-04] MEDS: DiphenhydrAMINE 50 MG/ML Syringe IV (20:56)
[2023-03-04 20:59] LABS: Erythrocyte Sedimentation Rate 30 mm/hr (0-30)
[2023-03-04 21:09] LABS: CRP 6.15 mg/L (0.0-3.0)
[2023-03-04 21:21] LABS: Procalcitonin < 0.04 ng/mL (0.00-0.09)
[2023-03-05] MEDS: 0.9% Normal Saline (1000mL) 1,000 ML 125 ML IV ×3 (01:03→18:12)
[2023-03-05 01:15] VITALS: BP 114/58; PULSE 89; RESP 16; TEMP 36.5; O2SAT 97
[2023-03-05] MEDS: Ibuprofen 200 MG Tablet PO (02:53)
[2023-03-05] MEDS: metroNIDAZOLE 500 MG/100 ML BAG 100 MG IV ×3 (06:09→22:45)
[2023-03-05] MEDS: Acetaminophen 325 MG Tablet 650 MG PO ×2 (06:14→15:02)
[2023-03-05 06:16] VITALS: BP 111/57; PULSE 82; RESP 16; TEMP 36.6; O2SAT 95
[2023-03-05 06:29] LABS: Absolute Lymphocyte Count 0.69 X10^3/uL (0.83-4.51); Absolute Neutrophil Count 11.9 X10^3/uL (2.0-7.7); Basophil# 0.01 X10^3/uL; Basophil% 0.1 % (0-1); Hemoglobin 11.1 g/dL (12.0-15.0); Lymphocyte # 0.69 X10^3/ul (0.83-4.51); Lymphocyte % 5.4 % (19-41); Mean Corp Hgb Conc 32.6 g/dL (32-36); Mean Corpuscular Hgb 29.4 pg (27.0-32.0); Mean Corpuscular Volume 90.2 fL (81-99); Mean Platelet Vol. 9.9 fl (6.2-12.0); Monocyte# 0.09 X10^3/uL; Monocyte% 0.7 % (0-10); NRBC Flagged by Analyzer 0 % (0-5); Neutrophil # 11.92 X10^3/uL (2.7-7.7); Neutrophil % 93.3 % (47-70); Platelet Count 318 K/mm3 (150-450); RBC Distribution Width SD 42.5 fl (35.1-43.9); Red Blood Count 3.77 M/mm3 (4.2-5.4); White Blood Count 12.8 K/mm3 (4.4-11.0)
[2023-03-05 07:04] LABS: ALB/GLOB Ratio 0.9 RATIO (0.9-2.4); AST(SGOT) 8 U/L (15-37); Alanine Aminotransfer ALT/SGPT 17 U/L (13-56); Alkaline Phosphatase 77 U/L (45-117); Anion Gap 6 (5-15); BUN 11 mg/dL (7-18); BUN/Creat Ratio 12.6 RATIO (10-20); Calcium,Total 7.9 mg/dL (8.5-10.1); Chloride 117 mmol/L (98-107); Creatinine, Serum 0.87 mg/dL (0.55-1.02); EST Glomerular Filtration Rate 73 mL/min (>60); Est Glom Filt Rate - Afr Amer 88 mL/min (>60); Estimated Creatinine Clearance 74.39 ml/min; Globulin 3.3 g/dL (2.2-4.2); Glucose 150 mg/dL (74-106); Protein, Total 6.3 g/dL (6.4-8.2); Sodium Level 144 mmol/L (136-145); Thyroid Stim Hormone (TSH) 0.78 uIU/mL (0.358-3.74)
--- NOTE | 2023-03-05 07:24 | PN.HOSP_ITS ---
Reason for Visit Reason for Visit: Diagnoses Unspecified abdominal pain (03/04/23) Subjective Subjective Feeling better, but still w abdominal pain. Previously had right shoulder pain and was evaluated at OSH w CTA chest. Objective Data Objective Data Vital Signs: Vital Signs Temp Pulse Resp BP Pulse Ox O2 Del Method 36.6 C 82 16 111/57 L 95 Room Air 03/05/23 06:16 03/05/23 06:16 03/05/23 06:16 03/05/23 06:16 03/05/23 06:16 03/05/23 06:16 Oxygen Delivery Method Room Air Weight: 88.904 kg Body Mass Index (BMI) 30.7 Intake & Output: Intake and Output for Last 24 Hours 03/03/23 03/04/23 03/05/23 23:59 23:59 23:59 Intake Total 1409 1000 / 1000 Balance 1409 1000 / 1000 Lab / Micro Data 03/05/23 05:46 03/05/23 05:46 Labs: Laboratory Results - last 24 hr 03/04/23 15:35: WBC 20.8 H, RBC 4.49, Hgb 12.8, Hct 39.8, MCV 88.6, MCH 28.5, MCHC 32.2, RDW Std Deviation 41.2, RDW Coeff of Huseyin 12.7, Plt Count 355, MPV 9.7, Immature Gran % (Auto) 0.900, Neut % (Auto) 87.0 H, Lymph % (Auto) 7.0 L, [place] % (Auto) 5.0, Eos % (Auto) 0.0, Baso % (Auto) 0.1, Absolute Neuts (auto) 18.0 H, Absolute Lymphs (auto) 1.46, Nucleated RBC % 0, ESR 30, Sodium 143, Potassium 3.5, Chloride 114 H, Carbon Dioxide 24.0, Anion Gap 5, BUN 14, Creatinine 0.91, Estim Creat Clear Calc 71.12, Est GFR (MDRD) Af Amer 83, Est GFR (MDRD) Non-Af 69, BUN/Creatinine Ratio 15.3, Glucose 103, Lactic Acid 1.7, Calcium 9.2, Total Bilirubin 0.30, AST 8 L, ALT 24, Alkaline Phosphatase 92, Troponin I High Sens 6, C-React Prot Ext Range 6.15 H, Total Protein 7.9, Albumin 3.8, Globulin 4.1, Albumin/Globulin Ratio 0.9, Procalcitonin < 0.04, Serum , Qual NEGATIVE 03/04/23 16:52: Urine Color Yellow, Urine Clarity Sl. Cloudy, Urine pH 6.5, Ur Specific [place] 1.010, Urine Protein 30 H, Urine Glucose (UA) Normal, Urine Ketones Negative, Urine Occult Blood 250 H, Urine Nitrite Negative, Urine Bilirubin Negative, Urine Urobilinogen Normal, Ur Leukocyte Esterase 25 H, Urine RBC > 100 SEEN, Urine WBC 0 SEEN, Ur Squamous Epith Cells 0 SEEN, Urine Bacteria 0 SEEN, Urine Mucus 0 SEEN 03/05/23 05:46: WBC 12.8 H, RBC 3.77 L, Hgb 11.1 L, Hct 34.0 L, MCV 90.2, MCH 29.4, MCHC 32.6, RDW Std Deviation 42.5, RDW Coeff of Huseyin 13.0, Plt Count 318, MPV 9.9, Immature Gran % (Auto) 0.500, Neut % (Auto) 93.3 H, Lymph % (Auto) 5.4 L, [place] % (Auto) 0.7, Eos % (Auto) 0.0, Baso % (Auto) 0.1, Absolute Neuts (auto) 11.9 H, Absolute Lymphs (auto) 0.69 L, Nucleated RBC % 0, Sodium 144, Potassium 4.0, Chloride 117 H, Carbon Dioxide 21.0, Anion Gap 6, BUN 11, Creatinine 0.87, Estim Creat Clear Calc 74.39, Est GFR (MDRD) Af Amer 88, Est GFR (MDRD) Non-Af 73, BUN/Creatinine Ratio 12.6, Glucose 150 H, Calcium 7.9 L, Total Bilirubin 0.20, AST 8 L, ALT 17, Alkaline Phosphatase 77, Total Protein 6.3 L, Albumin 3.0 L, Globulin 3.3, Albumin/Globulin Ratio 0.9, TSH 0.78 Radiography Diagnostic Testing: Radiology Impression Abdomen/Pelvis CT 03/04/23 14:54 IMPRESSION: No acute pathology of the abdomen and pelvis. Electronically Signed: Leodan Gonzalez DO at 16:14 EST Reading Location ID and State: [facility] / [place] Tel [phone], Service support , Abdomen/Pelvis CT 03/04/23 19:58 IMPRESSION: Normal enhanced CT of the abdomen and pelvis. Electronically Signed: Leodan Gonzalez DO at 22:30 EST Reading Location ID and State: [facility] / [place] Tel [phone], Service support , Physical Exam Const alert and no apparent distress Resp normal respiratory effort and no retractions Cardio regular rate, regular rhythm, S1 normal heart sound and S2 normal heart sound GI normal to inspection, nondistended, normoactive bowel sounds GI Narrative: distended. slight tenderness. Assessment & Plan Assessment/Plan (1) Abdominal pain: PLAN: Plan Abdominal pain * unclear etiology: colitis/ileitis v endometriosis v other * CT A/P w contrast negative * On empiric abx * check stool studies, check UDS * ESR normal. CRP elevated at 6.15. * CLD for now, advance as tolerated. * check HIDA scan. leukocytosis * improved * unclear if reactive or related with steroids she previously received. * monitor GERD * Continue PPI #DVT ppx: SCDs Charges/Coding Visit Charges Inpatient E&M: 48641 Subs Hosp L2
[2023-03-05 08:00] VITALS: BP 121/68; PULSE 88; RESP 16; TEMP 36.7; O2SAT 97
[2023-03-05] MEDS: Pantoprazole Sodium 40 MG in 0.9% Normal Saline (100mL MB+) 100 ML 330 MG IV (08:36)
[2023-03-05] MEDS: Ciprofloxacin 400 MG/200 ML BAG 200 MG IV (10:09)
--- NOTE | 2023-03-05 10:49 | NM_ITS ---
CLINICAL: 52-year-old female with history of abdominal pain. RADIONUCLIDE HEPATOBILIARY SCINTIGRAPHY COMPARISON: CT of the abdomen-pelvis report 03/04/2023 FINDINGS: Following the intravenous administration of 5.5 mCi of 99m Tc Mebrofenin, hepatobiliary images reveal: 1. Relatively prompt and homogeneous radiopharmaceutical concentration is noted by a normal sized liver. No parenchymal defects are identified. 2. Gallbladder activity is identified at 15 minutes post radiopharmaceutical administration. 3. Small intestinal tract is observed at 30 minutes following tracer injection. 4. Washout of the radiopharmaceutical by the hepatic parenchyma appears qualitatively normal. Cholecystokinin (0.02 ug/kg) was administered intravenously over a 30-minute period. The post CCK gallbladder ejection fraction calculated at 20 minutes following Cholecystokinin administration was noted to be < 5 % (normal greater than 35%), unchanged at 31 minutes post CCK provision. NM/Hepatobilliary Img w/Pharm Int IMPRESSION: 1. ABNORMAL 99m Tc Mebrofenin hepatobiliary imaging examination with Cholecystokinin. A. A gallbladder ejection fraction calculated to be less than 35% following the administration of Cholecystokinin is consistent with the presence of functional hepatobiliary disease (gallbladder and/or sphincter of Oddi dyskinesia) and/or organic hepatobiliary disease (chronic acalculous cholecystitis and/or cystic duct syndrome) in patients with intermediate to high pretest probabilities of hepatobiliary illness. (Darrian Thomas et al, Journal of Nuclear Medicine 32:1695, 1991). Electronically Signed: Adithya Griffith DO at 12:40 EST ,
[2023-03-05] MEDS: Ondansetron 4 MG/2 ML Vial IV (15:02)
[2023-03-05] MEDS: 0.9% Saline Lock 10 ML Syringe IV ×2 (15:03→22:45)
[2023-03-05 15:06] VITALS: BP 116/59; PULSE 70; RESP 18; TEMP 36.8; O2SAT 100
[2023-03-05 19:32] LABS: Amphetamine Urine VISTA NEGATIVE (<1000 ng/mL); Barbiturate Urine VISTA NEGATIVE (< 200 ng/mL); Benzodiazepine Urine VISTA NEGATIVE (< 200 ng/mL); Cocaine Urine VISTA NEGATIVE (< 300 ng/mL); Ecstacy Urine VISTA NEGATIVE (< 500 ng/mL); Methadone Urine VISTA NEGATIVE (< 300 ng/mL); PCP Urine VISTA NEGATIVE (< 25 ng/mL); THC Urine VISTA NEGATIVE (< 50 ng/mL); Vista UDS pH Range 6
[2023-03-05 20:02] VITALS: BP 118/62; PULSE 75; RESP 18; TEMP 36.3; O2SAT 100
[2023-03-05 22:48] VITALS: BP 114/59; PULSE 63; RESP 18; TEMP 36.7; O2SAT 98
[2023-03-06] MEDS: Ciprofloxacin 400 MG/200 ML BAG 200 MG IV ×2 (00:09→12:08)
[2023-03-06] MEDS: Acetaminophen 325 MG Tablet 650 MG PO ×2 (00:12→21:46)
[2023-03-06] MEDS: MELATONIN 3 MG TABLET PO (01:22)
[2023-03-06] MEDS: 0.9% Normal Saline (1000mL) 1,000 ML 125 ML IV ×3 (01:23→21:49)
[2023-03-06 05:32] VITALS: BP 107/57; PULSE 62; RESP 18; TEMP 36.9; O2SAT 95
[2023-03-06] MEDS: metroNIDAZOLE 500 MG/100 ML BAG 100 MG IV ×2 (05:37→15:09)
[2023-03-06 06:22] LABS: Absolute Lymphocyte Count 3.03 X10^3/uL (0.83-4.51); Absolute Neutrophil Count 4.6 X10^3/uL (2.0-7.7); Basophil# 0.03 X10^3/uL; Basophil% 0.4 % (0-1); Eosinophil# 0.07 X10^3/uL; Eosinophils% 0.8 % (0-5); Hematocrit 31.5 % (37-47); Hemoglobin 9.8 g/dL (12.0-15.0); Lymphocyte # 3.03 X10^3/ul (0.83-4.51); Lymphocyte % 36.5 % (19-41); Mean Corp Hgb Conc 31.1 g/dL (32-36); Mean Corpuscular Hgb 28.7 pg (27.0-32.0); Mean Corpuscular Volume 92.4 fL (81-99); Monocyte# 0.52 X10^3/uL; Monocyte% 6.3 % (0-10); NRBC Flagged by Analyzer 0 % (0-5); Neutrophil # 4.63 X10^3/uL (2.7-7.7); Neutrophil % 55.8 % (47-70); Platelet Count 266 K/mm3 (150-450); RBC Distribution Width CV 13.1 % (11.6-14.6); RBC Distribution Width SD 44.2 fl (35.1-43.9); Red Blood Count 3.41 M/mm3 (4.2-5.4); White Blood Count 8.3 K/mm3 (4.4-11.0)
[2023-03-06 06:52] LABS: AST(SGOT) 7 U/L (15-37); Alanine Aminotransfer ALT/SGPT 14 U/L (13-56); Albumin, Serum 2.6 g/dL (3.2-5.0); Alkaline Phosphatase 59 U/L (45-117); Anion Gap 5 (5-15); BUN 8 mg/dL (7-18); BUN/Creat Ratio 9.4 RATIO (10-20); Chloride 119 mmol/L (98-107); Creatinine, Serum 0.85 mg/dL (0.55-1.02); EST Glomerular Filtration Rate 75 mL/min (>60); Est Glom Filt Rate - Afr Amer 91 mL/min (>60); Estimated Creatinine Clearance 76.14 ml/min; Globulin 2.5 g/dL (2.2-4.2); Glucose 95 mg/dL (74-106); Potassium 3.3 mmol/L (3.5-5.1); Protein, Total 5.1 g/dL (6.4-8.2); Sodium Level 147 mmol/L (136-145)
[2023-03-06 09:44] VITALS: BP 108/55; PULSE 61; RESP 16; TEMP 36.8; O2SAT 97
[2023-03-06] MEDS: Pantoprazole Sodium 40 MG in 0.9% Normal Saline (100mL MB+) 100 ML 330 MG IV (11:43)
--- NOTE | 2023-03-06 12:15 | CASEMGMT ---
Addendum entered by Patti Bennett 03/06/23 12:54: TC to Registration, spoke with Brigette. She is aware pt is reporting she has insurance. She ran it and states if pt name is Anyi Bowen then she does. RN RENETTA into pt room, pt states that was her maiden name. She is aware that a copy of the card will need to be made. She states she does not have it here with her but she will ask family to bring it in. She is aware they can stop at the registration desk to give it or notify the RN CM. TC back to registration, notified Jeaneth of the above. Updated SW as well. Original Note: RN RENETTA Assessment: Face to Face with pt for initial transition planning/care coordination assessment. RN CM introduced self and role at [facility], pt voices understanding and consents to assessment. Pt is A&O x4 and answers all questions appropriately at this time. Pt lying in bed in no distress with nurse in room. Care providers, pharmacy, and demographics verified/updated. Admitting Dx:intractable abd pain PCP:Leda Specialists:Friend, GI Preferred Pharmacy:[facility] Insurance:Self pay but pt states she has [place] insurance. Prescription Benefit: yes, if [place] insurance is active LNOK:Elaine Germain, mother Living Arrangements: Pt lives with and dtr in a two story home with 3 steps to enter. Pt reports she is I in ADL's and denies concerns at home. Transportation: Pt drives self and denies concerns with transportation. DME:Denies HHC/SNF:Denies hx of Pt states no concerns with going home at time of dc. Pt states no further concerns/needs. CM to follow. Advised pt to ask CM if any further question/concerns/needs arise, voices understanding. Pt Goal:Home Plan:Home
--- NOTE | 2023-03-06 14:30 | CHAPLAIN ---
Type of Pastoral Visit _x__ Initial Visit ___ Follow-up Visit ___ On-call Visit ___ General Patient Visit ___ Spiritual Assessment ___ Family Conference ___ Bereavement ___ Rapid Response ___ Code Blue ___ Other (describe below) Pastoral Care Referral From _x__ Patient ___ Family ___ Nurse ___ Physician ___ Floor Grinder ___ Blending Tank Tender Helper ___ Other (describe below) Sacrament/Intervention _x__ Active listening ___ Anointing ___ Restorationist ___ Bereavement ___ Communion _x__ Yoli exploration ___ _x__ Life review _x__ Prayer ___ Reconciliation ___ Sacrament of Sick _x__ Supportive presence ___ Wedding ___ Other (describe below) Pastoral Comments patient was in tears when this neurourologist entered the room; spouse was at bedside and he moved so this neurourologist could sit closer; pt describes her desperation of needing answers for why she has had so much pain and has not had relief; pt speaks of seeing many doctors and no one knows why I feel this way and why I can't do anything ; pt states that her family has problems too and need her; pt speaks of praying but coming to where I don't know what to do or how to pray anymore ; time given to listen, to reflect on feelings, to offer a look at positives and the hope that this may not be a forever thing ; spouse and pt both welcome prayer and presence
--- NOTE | 2023-03-06 15:03 | PCM.PN.HOSP ---
Reason for Visit Reason for Visit: Diagnoses Unspecified abdominal pain (03/04/23) Objective Data Objective Data Vital Signs: Vital Signs Temp Pulse Resp BP Pulse Ox O2 Del Method 98.2 F 61 16 108/55 L 97 Room Air 03/06/23 09:44 03/06/23 09:44 03/06/23 09:44 03/06/23 09:44 03/06/23 09:44 03/06/23 09:46 Oxygen Delivery Method Room Air Weight: 196 lb Body Mass Index (BMI) 30.7 Intake & Output: Intake and Output for Last 24 Hours 03/04/23 03/05/23 03/06/23 23:59 23:59 23:59 Intake Total 1409 3505.83 / 3605.83 2336.67 / 2336.67 Balance 1409 3505.83 / 3605.83 2336.67 / 2336.67 Lab / Micro Data 03/06/23 05:33 03/06/23 05:33 Labs: Laboratory Results - last 24 hr 03/04/23 16:52: Urine Opiates Screen POSITIVE H, Urine Methadone Screen NEGATIVE, Ur Barbiturates Screen NEGATIVE, Ur Phencyclidine Scrn NEGATIVE, Ur Amphetamines Screen NEGATIVE, MDMA (Ecstasy) Screen NEGATIVE, U Benzodiazepines Scrn NEGATIVE, Urine Cocaine Screen NEGATIVE, U Cannabinoids Screen NEGATIVE, Ur Drug Screen Comment 03/06/23 05:33: WBC 8.3, RBC 3.41 L, Hgb 9.8 L, Hct 31.5 L, MCV 92.4, MCH 28.7, MCHC 31.1 L, RDW Std Deviation 44.2 H, RDW Coeff of Huseyin 13.1, Plt Count 266, MPV 10.0, Immature Gran % (Auto) 0.200, Neut % (Auto) 55.8, Lymph % (Auto) 36.5, [place] % (Auto) 6.3, Eos % (Auto) 0.8, Baso % (Auto) 0.4, Absolute Neuts (auto) 4.6, Absolute Lymphs (auto) 3.03, Nucleated RBC % 0, Sodium 147 H, Potassium 3.3 L, Chloride 119 H, Carbon Dioxide 23.0, Anion Gap 5, BUN 8, Creatinine 0.85, Estim Creat Clear Calc 76.14, Est GFR (MDRD) Af Amer 91, Est GFR (MDRD) Non-Af 75, BUN/Creatinine Ratio 9.4 L, Glucose 95, Calcium 7.0 L, Total Bilirubin 0.20, AST 7 L, ALT 14, Alkaline Phosphatase 59, Total Protein 5.1 L, Albumin 2.6 L, Globulin 2.5, Albumin/Globulin Ratio 1.0 Micro: Microbiology 03/05/23 10:45 Stool Enteric Bacteriology - Final Radiography Diagnostic Testing: Radiology Impression Hepatobiliary Scan Nuclear Medicine 03/05/23 10:49 IMPRESSION: 1. ABNORMAL 99m Tc Mebrofenin hepatobiliary imaging examination with Cholecystokinin. A. A gallbladder ejection fraction calculated to be less than 35% following the administration of Cholecystokinin is consistent with the presence of functional hepatobiliary disease (gallbladder and/or sphincter of Oddi dyskinesia) and/or organic hepatobiliary disease (chronic acalculous cholecystitis and/or cystic duct syndrome) in patients with intermediate to high pretest probabilities of hepatobiliary illness. (Darrian Thomas et al, Journal of Nuclear Medicine 32:1695, 1990). Electronically Signed: Adithya Griffith DO at 12:40 EST , Physical Exam Narrative Seen and examined. Patient abdominal pain has much improved currently does not feel abdominal pain. Had HIDA scan in the morning today. Complain of generalized facial swelling that she noticed last night. Physical exam General: Alert, Oriented x3, Cooperative HEENT: Atraumatic, PERRLA, EOMI, Normocephalic Oral: No Gingival or Mucosal Lesions/ Ulcerations Neck: Supple, No JVD, Negative Carotid Bruits Lungs: Air entry diminished in bilateral lung bases. No crepitation/rhonchi Cardiovascular: Regular rate, Regular Rhythm, Normal S1, Normal S2, No murmurs Abdomen: Bowel Sounds Present, Soft, Non Tender, Non-Distended. No palpable mass. : No renal angle tenderness. No suprapubic tenderness. Extremities: Noticed facial swelling. Mild swelling of upper extremity and fingers. No marked leg/pedal edema. Capillary Refill Less than 3 Seconds Skin: No rashes, No breakdown Musculoskeletal: No Tenderness to Palpation of Joints or Extremities Neurological: Cranial nerves II-XII grossly intact, DTR 2+/4. No acute focal neurological deficit. Psych/Mental Status: Flat affect. Assessment & Plan Assessment/Plan (1) Abdominal pain: PLAN: Plan Abdominal pain, she complained of mainly right upper quadrant and also on the lower bilateral quadrant. Bilateral lower quadrant predominantly hypogastrium she feels like spasm which last for 4 to 5 minutes. Enteric bacteriology panel negative. HIDA scan reported less than 35% EF after administration of cholecystokinin suggestive of functional hepatobiliary disease either GB or splinter of 40 dyskinesia or chronic acalculous cholecystitis/cystic duct syndrome. Cipro is giving his tricks on her arm therefore discontinued. Patient is passing flatus but does not have diarrhea. CT abdomen abdomen/splendidly reviewed with contrast does not show acute intra-abdominal bowel ileitis colitis. Discontinue IV antibiotics. Stool for giardiasis and U tox ordered. CRP elevated ESR normal. Leukocytosis resolved. GERD Continue PPI #DVT ppx: SCDs Microbiology Past 72 Hours 03/05/23 10:45 Stool Enteric Bacteriology - Final Laboratory Results 03/04/23 16:52: Urine Opiates Screen POSITIVE H, Urine Methadone Screen NEGATIVE, Ur Barbiturates Screen NEGATIVE, Ur Phencyclidine Scrn NEGATIVE, Ur Amphetamines Screen NEGATIVE, MDMA (Ecstasy) Screen NEGATIVE, U Benzodiazepines Scrn NEGATIVE, Urine Cocaine Screen NEGATIVE, U Cannabinoids Screen NEGATIVE, Ur Drug Screen Comment 03/06/23 05:33: WBC 8.3, RBC 3.41 L, Hgb 9.8 L, Hct 31.5 L, MCV 92.4, MCH 28.7, MCHC 31.1 L, RDW Std Deviation 44.2 H, RDW Coeff of Huseyin 13.1, Plt Count 266, MPV 10.0, Immature Gran % (Auto) 0.200, Neut % (Auto) 55.8, Lymph % (Auto) 36.5, [place] % (Auto) 6.3, Eos % (Auto) 0.8, Baso % (Auto) 0.4, Absolute Neuts (auto) 4.6, Absolute Lymphs (auto) 3.03, Nucleated RBC % 0, Sodium 147 H, Potassium 3.3 L, Chloride 119 H, Carbon Dioxide 23.0, Anion Gap 5, BUN 8, Creatinine 0.85, Estim Creat Clear Calc 76.14, Est GFR (MDRD) Af Amer 91, Est GFR (MDRD) Non-Af 75, BUN/Creatinine Ratio 9.4 L, Glucose 95, Calcium 7.0 L, Total Bilirubin 0.20, AST 7 L, ALT 14, Alkaline Phosphatase 59, Total Protein 5.1 L, Albumin 2.6 L, Globulin 2.5, Albumin/Globulin Ratio 1.0 Clinical Impression(s) from Imaging Studies Abdomen/Pelvis CT 03/04/23 14:54 IMPRESSION: No acute pathology of the abdomen and pelvis. Abdomen/Pelvis CT 03/04/23 19:58 IMPRESSION: Normal enhanced CT of the abdomen and pelvis. Hepatobiliary Scan Nuclear Medicine 03/05/23 10:49 IMPRESSION: 1. ABNORMAL 99m Tc Mebrofenin hepatobiliary imaging examination with Cholecystokinin. A. A gallbladder ejection fraction calculated to be less than 35% following the administration of Cholecystokinin is consistent with the presence of functional hepatobiliary disease (gallbladder and/or sphincter of Oddi dyskinesia) and/or organic hepatobiliary disease (chronic acalculous cholecystitis and/or cystic duct syndrome) in patients with intermediate to high pretest probabilities of hepatobiliary illness. (Darrian Thomas et al, Journal of Nuclear Medicine 32:1695, 1990). Charges/Coding Visit Charges Inpatient E&M: 65539 Subs Hosp L2
--- NOTE | 2023-03-06 15:16 | VDUE_ITS ---
Reason For Study: Bilateral arm swelling Right Proximal Left Proximal Right jugular vein is spontaneous, widely Left jugular vein is spontaneous, widely patent, phasic, with no intraluminal patent, phasic, with no intraluminal echogenicity noted. echogenicity noted. Right subclavian vein is spontaneous, widely Left subclavian vein is spontaneous, widely patent, phasic, with no intraluminal patent, phasic, with no intraluminal echogenicity noted. echogenicity noted. Right Lower Arm Left Arm Right radial vein is compressible. Left axillary vein is spontaneous, patent, Right ulnar vein is compressible. phasic, competent, compressible and Right Arm demonstrates augmentation. Right axillary vein is spontaneous, patent, Left brachial vein is compressible. phasic, competent, compressible and Left cephalic vein is compressible. demonstrates augmentation. Left basilic vein is compressible. Right brachial vein is compressible. Left Lower Arm Right cephalic vein is compressible. Left radial vein is compressible. Right basilic vein is compressible. Left ulnar vein is compressible. Patient Safety Preliminary report given to MS3. VL/Venous Duplex US - Kamlesh Extrem Interpretation Summary No evidence for acute deep venous thrombosis bilateral upper extremities with p atent and compressible bilateral cephalic and basilic veins. Distal subclavian veins bilaterally are the most central veins that this examin ation cannot detect Ordering Physician: Artemio Clark Referring Physician: MD Leda Adryan Performed By: Juliana Wisdom RVT ???
[2023-03-06 15:50] VITALS: BP 116/68; PULSE 81; RESP 16; TEMP 37; O2SAT 96
[2023-03-06] MEDS: Potassium Chloride Oral Tablet 20 MEQ 40 MEQ PO (16:26)
[2023-03-06] MEDS: 0.9% Saline Lock 10 ML Syringe IV ×2 (16:27→17:36)
[2023-03-06] MEDS: Ondansetron 4 MG/2 ML Vial IV (17:35)
[2023-03-06 18:16] LABS: Amphetamine Urine VISTA NEGATIVE (<1000 ng/mL); Barbiturate Urine VISTA NEGATIVE (< 200 ng/mL); Benzodiazepine Urine VISTA NEGATIVE (< 200 ng/mL); Cocaine Urine VISTA NEGATIVE (< 300 ng/mL); Ecstacy Urine VISTA NEGATIVE (< 500 ng/mL); Methadone Urine VISTA NEGATIVE (< 300 ng/mL); PCP Urine VISTA NEGATIVE (< 25 ng/mL); THC Urine VISTA NEGATIVE (< 50 ng/mL); Vista UDS pH Range 5
[2023-03-06 21:38] VITALS: BP 118/64; PULSE 76; RESP 18; TEMP 36.7; O2SAT 96
[2023-03-06] MEDS: oxyCODONE 5 MG Tablet PO (21:46)
[2023-03-06] MEDS: LORazepam 2 MG/ML Syringe 0.5 MG IV (23:54)
[2023-03-07] MEDS: 0.9% Normal Saline (1000mL) 1,000 ML 125 ML IV (04:47)
[2023-03-07 04:49] VITALS: BP 121/73; PULSE 65; RESP 18; TEMP 36.6; O2SAT 95
--- NOTE | 2023-03-07 06:00 | US_ITS ---
INDICATION: RUQ pain, HIDA scab abnormal, EF and lt;35% EXAMINATION: Ultrasound US Abdomen Limited (quadrant) TECHNIQUE: Connor scale and color doppler imaging was performed of the right upper quadrant. COMPARISON: CT dated March 04, 2023 and HIDA scan dated March 06, 2023 FINDINGS: LIVER: The liver is diffusely echogenic consistent with fatty infiltration. No focal hepatic lesion. There is no free fluid. GALLBLADDER AND BILIARY TREE: No shadowing gallstone, pericholecystic fluid or gallbladder wall thickening is demonstrated. There is a 3.6 x 3.3 mm echogenic nonmobile and nonshadowing focus within the gallbladder consistent with a polyp. The proximal common bile duct measures 4.3 mm, which is within normal limits for the patient''s age. Songraphic Grayson''s sign: Negative. PANCREAS: No focal abnormality is demonstrated in the pancreas. No pancreatic ductal dilatation. RIGHT KIDNEY: The right kidney measures 12 cm in length and is within normal limits. US/Abdomen Limited IMPRESSION: Fatty infiltration of the liver. Gallbladder polyp. Electronically Signed: Susan Birmingham MD at 8:31 EST ,
[2023-03-07 06:11] LABS: Absolute Neutrophil Count 3.8 X10^3/uL (2.0-7.7); Basophil# 0.05 X10^3/uL; Basophil% 0.7 % (0-1); Eosinophil# 0.28 X10^3/uL; Eosinophils% 3.7 % (0-5); Hematocrit 36.8 % (37-47); Hemoglobin 11.5 g/dL (12.0-15.0); Lymphocyte % 39.3 % (19-41); Mean Corp Hgb Conc 31.3 g/dL (32-36); Mean Corpuscular Hgb 28.8 pg (27.0-32.0); Mean Platelet Vol. 9.4 fl (6.2-12.0); Monocyte# 0.51 X10^3/uL; Monocyte% 6.7 % (0-10); NRBC Flagged by Analyzer 0 % (0-5); Neutrophil # 3.76 X10^3/uL (2.7-7.7); Neutrophil % 49.2 % (47-70); Platelet Count 292 K/mm3 (150-450); RBC Distribution Width CV 12.8 % (11.6-14.6); RBC Distribution Width SD 43.6 fl (35.1-43.9); White Blood Count 7.6 K/mm3 (4.4-11.0)
[2023-03-07 06:48] LABS: Anion Gap 5 (5-15); BUN 7 mg/dL (7-18); BUN/Creat Ratio 10.5 RATIO (10-20); Calcium,Total 7.4 mg/dL (8.5-10.1); Chloride 116 mmol/L (98-107); Creatinine, Serum 0.67 mg/dL (0.55-1.02); EST Glomerular Filtration Rate 99 mL/min (>60); Est Glom Filt Rate - Afr Amer 120 mL/min (>60); Glucose 96 mg/dL (74-106); Potassium 3.4 mmol/L (3.5-5.1); Sodium Level 145 mmol/L (136-145)
[2023-03-07 07:47] VITALS: BP 128/65; PULSE 60; RESP 18; TEMP 36.6; O2SAT 99
[2023-03-07] MEDS: Ondansetron 4 MG/2 ML Vial IV (07:54)
[2023-03-07] MEDS: 0.9% Saline Lock 10 ML Syringe IV (07:54)
[2023-03-07] MEDS: Pantoprazole Sodium 40 MG in 0.9% Normal Saline (100mL MB+) 100 ML 330 MG IV (09:31)
--- NOTE | 2023-03-07 10:24 | DCINST_ITS ---
Discharge Instructions Diet Discharge Diet: Light diet - advance as tolerated (Low-fat/oral diet.) and Low fat / Low cholesterol Activity Discharge Activity: Return to Normal Activity Weight Bearing Status: Weight bearing as tolerated Dressing / Incision Call your doctor if you observe: Fever of 101 or Higher, Coldness, Increased Pain, Numbness or Tingling, Change in Color, Inability to urinate, Inability to have a bowel movement, Using more than 1 pad per hour, Shortness of breath, Dizziness, Fainting spells, Swelling in the ankles, Chest pain, Prolonged hiccupping, Increased palpitations (irregular heartbeat) and Calf discomfort Follow Up Care When: IN 2 WEEKS Test Results: Test results from this visit will be discussed in further detail at your follow- up appointment, if applicable. Discharge Plan Admission Admit Date/Time: 03/04/23 19:03 Primary Reason for Your Visit: Right upper quadrant pain, functional gallbladder disease. Attending Provider: Artemio Clark Primary Care Provider: Adryan Tompkins Consulting Providers: Karissa Perdomo; Sergey Austin; Alli Rivera; Florentino Matta Discharge Orders/Prescriptions Prescriptions: New polyethylene glycol 3350 17 gram Powder In Packet 17 g PO DAILY Qty: 0 0RF sennosides-docusate sodium [Stool Softener-Stimulant Laxat] 8.6-50 mg Tablet 2 tab PO BID PRN (Reason: consitpation) Qty: 0 0RF Continued cholecalciferol (vitamin D3) 1,000 tab PO BID Freeze It Relief 0.2-3.5 % gel 1 applic topical QHS PRN (Reason: muscle pain) Rx Instructions: rub in gently and completely omeprazole 20 mg capsule,delayed release(DR/EC) 20 mg PO DAILY Qty: 90 0RF Referrals / Follow Up: Florentino Matta MD [Med Staff - Active Staff] - (Please contact our office for a follow-up within 2 weeks of discharge) Adryan Tompkins MD [Primary Care Provider] - Within 2 Weeks Disposition Disposition (needs filled in before D/C Order can be placed): Home, Self Care
--- NOTE | 2023-03-07 11:13 | CON.PCM.SX_ITS ---
Assessment & Plan Assessment/Plan (1) Biliary dyskinesia: PLAN: Plan I have been consulted in conjunction with Dr. Matta. He will evaluate this patient as an outpatient. Patient has had an extensive work-up including 2 CT scans of the abdomen/pelvis, abdominal ultrasound, and HIDA scan. Patient was found to have a non-functioning gallbladder with an ejection fraction of 5%. Patient had an abdominal ultrasound completed which is unremarkable for acute cholecystis. There was a gallbladder polyp noted. Patient has never previous had gallbladder symptoms. I do not believe patient's admission abdominal pain symptoms were gallbladder related. I am recommending the patient start a diet and have a 2 week follow-up with Dr. Mtata as an outpatient in the office to discuss a laparoscopic cholecystectomy with intraoperative cholangiogram. With the patient's history of gastric ulcers, I am recommending she restart her omeprazole 20 mg daily for the next 3 months along with a low fat diet. Patient has had the opportunity to ask and have questions answered. Patient verbally understands and agrees with the plan. She will follow-up as an outpatient with Dr. Matta. Our office number will be placed within the discharge instructions for the patient to schedule. Thank you for allowing us to participate in this patient's care. HPI Consult Data Date of Consult: 03/07/23 HPI Narrative Reason for Consultation: BIliary dyskinesia HPI Narrative: GLORIA MINA, is a 52 F who presents with a sudden onset of right upper quadrant/epigastric pain associated with bilateral shoulder pain. Patient was evaluated at an ED in [place] for her symptoms. A CTA was obtained at that facility which per patient was unremarkable and was diagnosed with musculoskeletal pain. She notes the pain continued and she presented to the [facility] ED. A CT scan was obtained with a read of no acute findings, however the ED and Dr. Enriquez thought there was felt to be thickening and inflammation around the ileum. Patient was admitted and started on IV antibiotics and repeat CT scan with contrast was obtained, which was unremarkable. Patient was discontinued from IV antibiotics on 03/06. Patient denies pain in her abdomen consistent with food. She notes feeling hungry. She currently denies nausea, vomiting. Patient notes a history of gastric ulcers, GERD. She notes today her abdominal pain is improved. She notes slight tenderness of the epigastric region. She notes she was recently treated with steroids from the outside ED for the musculoskeletal pain. She notes she was also recently treated for bacterial vaginosis. She again denies any previous history of gallbladder issues. She did complete a HIDA scan demonstrating 5% ejection fraction. She had an abdominal ultrasound which was unremarkable for acute cholecystitis, however did have a gallbladder polyp. Patient denies any history of cardiac or pulmonary issues. She is a former smoker, quit 2 years ago. [facility] Medical History (Updated 03/07/23 @ 11:15 by Alicia MONTOYA PALucasC) Abdominal pain Anemia Anxiety Arthritis Asthma Chronic neck and back pain Diarrhea Dietary restriction DVT (deep venous thrombosis) Fatigue Former smoker Gastric reflux GERD (gastroesophageal reflux disease) History of echocardiogram History of steroid therapy History of ulceration Hoarseness Hypertension Injury of head and neck Insomnia Kidney stones Migraine headache Paresthesias Severe headache Shoulder pain Stomach ulcer TIA (transient ischemic attack) Wears dentures Home Medications camphor-menthol 0.2 %-3.5 % topical gel (Freeze It Relief) 1 applic topical QHS PRN muscle pain 03/04/23 [History Last Taken Unknown] cholecalciferol (vitamin D3) 1,000 tab PO BID supplement 03/04/23 [History Last Taken Unknown] omeprazole 20 mg capsule,delayed release 20 mg PO DAILY heartburn #90 caps 03/07/23 [Rx Last Taken Unknown] Allergy/AdvReac Type Severity Reaction Status Date / Time ciprofloxacin Allergy Other Verified 03/04/23 14:19 Gadolinium-MRI Contrast Allergy Other Verified 03/04/23 14:19 Medium [MRI] Penicillins [PCN] Allergy Unknown Verified 03/04/23 14:19 venom-honey bee Allergy Anaphylaxis Verified 03/04/23 14:19 [bee venom (honey bee)] Surgical History History of colonoscopy Hx of dilation and curettage Hx of sinus surgery Social History Smoking Status: Former smoker alcohol intake: current ROS Constitutional Constitutional: Reports systems reviewed and no addt'l complaints, except as documented Eyes Eyes: Reports systems reviewed and no addt'l complaints, except as documented ENT HEENT: Reports systems reviewed and no addt'l complaints, except as documented Cardiovascular Cardiovascular: Reports systems reviewed and no addt'l complaints, except as documented Respiratory/Chest Respiratory/Chest: Reports systems reviewed and no addt'l complaints, except as documented Gastrointestinal Gastrointestinal: Reports systems reviewed and no addt'l complaints, except as documented Genitourinary Genitourinary: Reports systems reviewed and no addt'l complaints, except as do cumented Musculoskeletal Musculoskeletal: Reports systems reviewed and no addt'l complaints, except as documented Integumentary Integumentary: Reports systems reviewed and no addt'l complaints, except as documented Neurologic Neurologic: Reports systems reviewed and no addt'l complaints, except as documented Psychiatric Psychiatric: Reports systems reviewed and no addt'l complaints, except as documented Endocrine Endocrinology: Reports systems reviewed and no addt'l complaints, except as documented Hematologic/Lymphatic Hematologic/Lymphatic: Reports systems reviewed and no addt'l complaints, except as documented Allergic/Immunologic Allergic/Immunologic: Reports systems reviewed and no addt'l complaints, except as documented Physical Exam Const alert, oriented x3 and no apparent distress HEENT normocephalic and head/scalp atraumatic Eyes PERRL Neck full ROM Lymph Lymphatic: no lymphadenopathy noted Resp normal respiratory effort and clear to auscultation bilaterally Cardio regular rate and regular rhythm GI soft to palpation Palpation: tender epigastric and RUQ no CVA tenderness Back/Spine Back/Spine Narrative: Bilateral collar bone discomfort and shoulder pain Extremity normal to inspection Skin no rashes or lesions noted Neuro no focal motor deficits and no sensory deficits noted Psych Appearance: grossly normal Attitude: calm Speech: normal speech Lab / Micro Data 03/07/23 05:40 03/07/23 05:40 Labs: Laboratory Results - last 24 hr 03/06/23 17:20: Urine Opiates Screen NEGATIVE, Urine Methadone Screen NEGATIVE, Ur Barbiturates Screen NEGATIVE, Ur Phencyclidine Scrn NEGATIVE, Ur Amphetamines Screen NEGATIVE, MDMA (Ecstasy) Screen NEGATIVE, U Benzodiazepines Scrn NEGATIVE, Urine Cocaine Screen NEGATIVE, U Cannabinoids Screen NEGATIVE, Ur Drug Screen Comment 03/07/23 05:40: WBC 7.6, RBC 4.00 L, Hgb 11.5 L, Hct 36.8 L, MCV 92.0, MCH 28.8, MCHC 31.3 L, RDW Std Deviation 43.6, RDW Coeff of Huseyin 12.8, Plt Count 292, MPV 9.4, Immature Gran % (Auto) 0.400, Neut % (Auto) 49.2, Lymph % (Auto) 39.3, [place] % (Auto) 6.7, Eos % (Auto) 3.7, Baso % (Auto) 0.7, Absolute Neuts (auto) 3.8, Absolute Lymphs (auto) 3.00, Nucleated RBC % 0, Sodium 145, Potassium 3.4 L, Chloride 116 H, Carbon Dioxide 24.0, Anion Gap 5, BUN 7, Creatinine 0.67, Estim Creat Clear Calc 96.60, Est GFR (MDRD) Af Amer 120, Est GFR (MDRD) Non-Af 99, BUN/Creatinine Ratio 10.5, Glucose 96, Calcium 7.4 L Imagaing Radiology Impression Hepatobiliary Scan Nuclear Medicine 03/05/23 10:49 IMPRESSION: 1. ABNORMAL 99m Tc Mebrofenin hepatobiliary imaging examination with Cholecystokinin. A. A gallbladder ejection fraction calculated to be less than 35% following the administration of Cholecystokinin is consistent with the presence of functional hepatobiliary disease (gallbladder and/or sphincter of Oddi dyskinesia) and/or organic hepatobiliary disease (chronic acalculous cholecystitis and/or cystic duct syndrome) in patients with intermediate to high pretest probabilities of hepatobiliary illness. (Darrian Thomas et al, Journal of Nuclear Medicine 32:1695, 1991). Electronically Signed: Adithya Griffith DO at 12:40 EST , Venous Doppler Study 03/06/23 15:16 Interpretation Summary No evidence for acute deep venous thrombosis bilateral upper extremities with patent and compressible bilateral cephalic and basilic veins. Distal subclavian veins bilaterally are the most central veins that this ex amination cannot detect Ordering Physician: Artemio Clark Referring Physician: MD Adryan Tompkins Performed By: Juliana Wisdom RVT ??? Abdomen Ultrasound 03/07/23 06:00 IMPRESSION: Fatty infiltration of the liver. Gallbladder polyp. Electronically Signed: Susan Birmingham MD at 8:31 EST , Charges/Coding Visit Charges Office Visits / Consults: 15321 IP Consult L3
[2023-03-07 14:46] VITALS: BP 102/58; PULSE 77; RESP 18; TEMP 36.8; O2SAT 96
--- NOTE | 2023-03-07 15:08 | DS.PCM_ITS ---
Providers Date of Admission: 03/04/23 Date of Discharge: 03/07/23 Primary Care Physician: Dr. Adryan Tompkins MD Consultations 03/07/23 10:19 Consult: General Surgery Routine Consulting Provider: Florentino Matta Reason for Consult: RUQ pain, functional GB disease EMERGENT Consult: No MD Notified: Yes Date Notified: 03/07/23 Time Notified: 10:20 Method of Notification: Verbal Reason For Visit: INTRATABLE ABP PAIN Diagnosis Discharge Diagnosis (1) Biliary dyskinesia: Status: Acute Code(s): K82.8 - Other specified diseases of gallbladder Plan 51-year-old female admitted with abdominal pain that is started on the day of admission. No fever or chills. It was mostly on the right side 7/10 in intensity. 1. Abdominal pain, she complained of mainly right upper quadrant and also on the lower bilateral quadrant. She had bilateral lower quadrant predominantly hypogastrium she feels like spasm which last for 4 to 5 minutes. Enteric bacteriology panel negative. HIDA scan reported less than 35% EF after administration of cholecystokinin suggestive of functional hepatobiliary disease either GB or splinter of 40 dyskinesia or chronic acalculous cholecystitis/cystic duct syndrome. Cipro is giving his tricks on her arm therefore discontinued. Patient is passing flatus but does not have diarrhea. CT abdomen abdomen/splendidly reviewed with contrast does not show acute intra- abdominal bowel ileitis colitis. Discontinue IV antibiotics. Stool for giardiasis and U tox ordered. CRP elevated ESR normal. Leukocytosis resolved. 03/07: HIDA scan showed low 35% after cholecystokinin it was less than 5%. Led to prompt and homogeneous uptake. No parenchymal defect identified. Washout by hepatic parenchyma normal. Respondent is no observed or 30 minutes following tracer injection. Post CCK gallbladder ejection fraction decreased to less than 5% normal greater than 35%. RUQ ultrasound was done which shows fatty liver. No focal hepatic lesion. 3.6 x 3.3 mm echogenic nonmobile nonshadowing focus within the gallbladder consistent with a polyp. Proximal CBD 4.3 mm within normal limit. No signs of acute cholecystitis including no PC fluid or GB wall thickening. Grayson sign negative. No focal abnormality of pancreas or pancreatic ductal dilatation. Surgery consult requested with functional gallbladder disease and polyp. Surgery consulted and appreciated. Follow-up in the office and outpatient elective lap jaciel 2. GERD * Continue PPI #DVT ppx: SCDs Microbiology Past 72 Hours 03/05/23 10:45 Stool Enteric Bacteriology - Final Laboratory Results 03/06/23 17:20: Stl Giardia Antigen Pending, Urine Opiates Screen NEGATIVE, Urine Methadone Screen NEGATIVE, Ur Barbiturates Screen NEGATIVE, Ur Phencyclidine Scrn NEGATIVE, Ur Amphetamines Screen NEGATIVE, MDMA (Ecstasy) Screen NEGATIVE, U Benzodiazepines Scrn NEGATIVE, Urine Cocaine Screen NEGATIVE, U Cannabinoids Screen NEGATIVE, Ur Drug Screen Comment 03/07/23 05:40: WBC 7.6, RBC 4.00 L, Hgb 11.5 L, Hct 36.8 L, MCV 92.0, MCH 28.8, MCHC 31.3 L, RDW Std Deviation 43.6, RDW Coeff of Huseyin 12.8, Plt Count 292, MPV 9.4, Immature Gran % (Auto) 0.400, Neut % (Auto) 49.2, Lymph % (Auto) 39.3, Kenton % (Auto) 6.7, Eos % (Auto) 3.7, Baso % (Auto) 0.7, Absolute Neuts (auto) 3.8, Absolute Lymphs (auto) 3.00, Nucleated RBC % 0, Sodium 145, Potassium 3.4 L, Chloride 116 H, Carbon Dioxide 24.0, Anion Gap 5, BUN 7, Creatinine 0.67, Estim Creat Clear Calc 96.60, Est GFR (MDRD) Af Amer 120, Est GFR (MDRD) Non-Af 99, BUN/Creatinine Ratio 10.5, Glucose 96, Calcium 7.4 L Clinical Impression(s) from Imaging Studies Abdomen/Pelvis CT 03/04/23 14:54 IMPRESSION: No acute pathology of the abdomen and pelvis. Abdomen/Pelvis CT 03/04/23 19:58 IMPRESSION: Normal enhanced CT of the abdomen and pelvis. Hepatobiliary Scan Nuclear Medicine 03/05/23 10:49 IMPRESSION: 1. ABNORMAL 99m Tc Mebrofenin hepatobiliary imaging examination with Cholecystokinin. A. A gallbladder ejection fraction calculated to be less than 35% following the administration of Cholecystokinin is consistent with the presence of functional hepatobiliary disease (gallbladder and/or sphincter of Oddi dyskinesia) and/or organic hepatobiliary disease (chronic acalculous cholecystitis and/or cystic duct syndrome) in patients with intermediate to high pretest probabilities of hepatobiliary illness. (Darrian Thomas et al, Journal of Nuclear Medicine 32:1695, 1990). Medications at Discharge Home Medications camphor-menthol 0.2 %-3.5 % topical gel (Freeze It Relief) 1 applic topical QHS PRN muscle pain 03/04/23 cholecalciferol (vitamin D3) 1,000 tab PO BID supplement 03/04/23 omeprazole 20 mg capsule,delayed release 20 mg PO DAILY heartburn #90 caps 0 03/07/23 polyethylene glycol 3350 17 gram oral powder packet 17 g PO DAILY #0 ea 03/07/23 sennosides 8.6 mg-docusate sodium 50 mg tablet (Stool Softener-Stimulant Laxative) 2 tab PO BID PRN consitpation #0 tabs 03/07/23 Physical Exam Narrative Seen and examined. Patient abdominal pain has much improved currently does not feel abdominal pain. HIDA scan finding, right upper quadrant sonogram discussed with the patient. 6 seen and examined the patient with surgeon. Physical exam General: Alert, Oriented x3, Cooperative HEENT: Atraumatic, PERRLA, EOMI, Normocephalic Oral: No Gingival or Mucosal Lesions/ Ulcerations Neck: Supple, No JVD, Negative Carotid Bruits Lungs: Air entry diminished in bilateral lung bases. No crepitation/rhonchi Cardiovascular: Regular rate, Regular Rhythm, Normal S1, Normal S2, No murmurs Abdomen: Bowel Sounds Present, Soft, Non Tender, Non-Distended. No palpable mass. : No renal angle tenderness. No suprapubic tenderness. Extremities: Noticed facial swelling. Mild swelling of upper extremity and fingers. No marked leg/pedal edema. Capillary Refill Less than 3 Seconds Skin: No rashes, No breakdown Musculoskeletal: No Tenderness to Palpation of Joints or Extremities Neurological: Cranial nerves II-XII grossly intact, DTR 2+/4. No acute focal neurological deficit. Psych/Mental Status: Flat affect. Weight / BMI Weight Weight: 196 lb Body Mass Index (BMI) 30.7 ABG / Lab / Microbiology Data 03/07/23 05:40 03/07/23 05:40 Laboratory: Laboratory Results - last 24 hr 03/06/23 17:20: Urine Opiates Screen NEGATIVE, Urine Methadone Screen NEGATIVE, Ur Barbiturates Screen NEGATIVE, Ur Phencyclidine Scrn NEGATIVE, Ur Amphetamines Screen NEGATIVE, MDMA (Ecstasy) Screen NEGATIVE, U Benzodiazepines Scrn NEGATIV E, Urine Cocaine Screen NEGATIVE, U Cannabinoids Screen NEGATIVE, Ur Drug Screen Comment 03/07/23 05:40: WBC 7.6, RBC 4.00 L, Hgb 11.5 L, Hct 36.8 L, MCV 92.0, MCH 28.8, MCHC 31.3 L, RDW Std Deviation 43.6, RDW Coeff of Huseyin 12.8, Plt Count 292, MPV 9.4, Immature Gran % (Auto) 0.400, Neut % (Auto) 49.2, Lymph % (Auto) 39.3, Kenton % (Auto) 6.7, Eos % (Auto) 3.7, Baso % (Auto) 0.7, Absolute Neuts (auto) 3.8, Absolute Lymphs (auto) 3.00, Nucleated RBC % 0, Sodium 145, Potassium 3.4 L, Chloride 116 H, Carbon Dioxide 24.0, Anion Gap 5, BUN 7, Creatinine 0.67, Estim Creat Clear Calc 96.60, Est GFR (MDRD) Af Amer 120, Est GFR (MDRD) Non-Af 99, BUN/Creatinine Ratio 10.5, Glucose 96, Calcium 7.4 L Microbiology: Microbiology 03/05/23 10:45 Stool Enteric Bacteriology - Final Radiography Diagnostic Testing: Radiology Impression Venous Doppler Study 03/06/23 15:16 Interpretation Summary No evidence for acute deep venous thrombosis bilateral upper extremities with patent and compressible bilateral cephalic and basilic veins. Distal subclavian veins bilaterally are the most central veins that this examination cannot detect Ordering Physician: Artemio Clark Referring Physician: MD Leda Adryan Performed By: Juliana Wisdom RVT ??? Abdomen Ultrasound 03/07/23 06:00 IMPRESSION: Fatty infiltration of the liver. Gallbladder polyp. Electronically Signed: Susan Birmingham MD at 8:31 EST , D/C Instructions Discharge Diet: Light diet - advance as tolerated (Low-fat/oral diet.) and Low fat / Low cholesterol Weight Bearing Status: Weight bearing as tolerated Call your doctor if you observe: Fever of 101 or Higher, Coldness, Increased Pain, Numbness or Tingling, Change in Color, Inability to urinate, Inability to have a bowel movement, Using more than 1 pad per hour, Shortness of breath, Dizziness, Fainting spells, Swelling in the ankles, Chest pain, Prolonged hiccupping, Increased palpitations (irregular heartbeat) and Calf discomfort When: IN 2 WEEKS Meaningful Use Info Meaningful Use Diagnoses (Choose all that apply): None applicable Discharge Plan Admission Admit Date/Time: 03/04/23 19:03 Primary Reason for Your Visit: Right upper quadrant pain, functional gallbladder disease. Attending Provider: Artemio Clark Primary Care Provider: Adryan Tompkins Consulting Providers: Karissa Perdomo; Sergey Austin; Alli Rivera; Florentino Gillespie Discharge Orders/Prescriptions Prescriptions: New polyethylene glycol 3350 17 gram Powder In Packet 17 g PO DAILY Qty: 0 0RF sennosides-docusate sodium [Stool Softener-Stimulant Laxat] 8.6-50 mg Tablet 2 tab PO BID PRN (Reason: consitpation) Qty: 0 0RF Continued cholecalciferol (vitamin D3) 1,000 tab PO BID Freeze It Relief 0.2-3.5 % gel 1 applic topical QHS PRN (Reason: muscle pain) Rx Instructions: rub in gently and completely omeprazole 20 mg capsule,delayed release(DR/EC) 20 mg PO DAILY Qty: 90 0RF Referrals / Follow Up: Florentino Matta MD [Med Staff - Active Staff] - (Please contact our office for a follow-up within 2 weeks of discharge) Adryan Tompkins MD [Primary Care Provider] - Within 2 Weeks Disposition Disposition (needs filled in before D/C Order can be placed): Home, Self Care Charges/Coding Visit Charges Inpatient E&M: 28186 Disch Hosp >30min
[2023-03-08 16:09] LABS: Giardia Lamblia, Stool EIA Negative (Negative)
== END 2023-03-07 17:27 | disposition home or self-care (01) | DRG 446 ==
LOC: ED 18:00 → MS3 19:06
PROVIDERS: Admitting Provider Internal Medicine; Emergency Provider Emergency Medicine; PCP Family Medicine; Visit Provider Internal Medicine
DX: K82.8 Other specified diseases of gallbladder (principal); I10 Essential (primary) hypertension; K76.0 Fatty (change of) liver, not elsewhere classified; K52.9 Noninfective gastroenteritis and colitis, unspecified; K21.9 Gastro-esophageal reflux disease without esophagitis; Z88.0 Allergy status to penicillin; Z87.891 Personal history of nicotine dependence
CPT/HCPCS: 36415; 74176; 74177; 74178; 76705; 78227; 80048; 80053; 80307; 81001; 83605; 84145; 84443; 84484; 84703; 85025; 85652; 86140; 87329; 87506; 93005; 93970; 97802; 99283; A9537; J7030; Q9967; A4216; J0744; J2405; J2805